=== PATIENT | female | born 1930 | race Caucasian/White ===

== ENCOUNTER 2019-04-10 12:34 | Inpatient (IN) ==
[2019-04-10 13:29] LABS: Basophils # (auto) 0.01 K/uL (0-0.2); Basophils % (auto) 0.2 %; Hematocrit (blood only) 40.1 % (37-47); Hemoglobin 13.2 g/dL (12.0-16.0); Lymphocytes # (auto) 0.65 K/uL (1.2-3.4); Lymphocytes % (auto) 14.6 %; Mean Corpuscular Hemoglobin 26.7 pg (25-34); Mean Corpuscular Hgb Conc 32.9 g/dL (32-36); Mean Platelet Volume 9.7 fL (7.4-10.4); Monocytes # (auto) 0.37 K/uL (0.11-0.59); Monocytes % (auto) 8.3 %; Neutrophils # (auto) 3.43 K/uL (1.4-6.5); Neutrophils % (auto) 76.9 %; Platelet Count 178 K/uL (130-400); RDW Coefficient of Variation 16.4 % (11.5-14.5); RDW Standard Deviation 48.1 fL (36.4-46.3); Red Blood Count 4.95 M/uL (4.2-5.4); White Blood Count 4.46 K/uL (4.8-10.8)
[2019-04-10 13:45] LABS: Albumin Level 3.6 gm/dl (3.4-5.0); BUN Creatinine Ratio 19.6 (10-20); Calcium 9.3 mg/dl (8.5-10.1); Creatinine Clr Calc Pharmacy 16.9 ml/min; Est GFR (African American) 38.1; Est GFR (Non-African American) 32.8; Potassium 4.8 mmol/L (3.5-5.1)
[2019-04-10 13:55] LABS: Albumin Globulin Ratio 1.1 (0.9-2); Bilirubin,Total 2.1 mg/dl (0.2-1); Globulin 3.3 gm/dl (2.5-4.0); Total Protein 6.9 gm/dl (6.4-8.2); Troponin I 0.044 ng/ml (0-0.045)
--- NOTE | 2019-04-10 13:56 | XRay Report ---
XR chest 1V portable HISTORY: 88 years-old Female weakness acute weakness COMPARISON: None available TECHNIQUE: Portable AP view of the chest FINDINGS: Cardiomegaly with pulmonary vascular congestion and interstitial coarsening. No pneumothorax. Small l eft and moderate right pleural effusions with right midlung and bibasilar opacities. Postoperative ch anges of the right shoulder. 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 Calcified plaque of the thoracic aorta. IMPRESSION: 1. Cardiomegaly with pulmonary edema. 2. Small left and moderate right pleural effusions with right midlung and bibasilar consolidative opa cities. ACT 112: Negative or not required by law. The above report was generated using voice recognition software. It may contain grammatical, syntax o r spelling errors. Electronically signed by: Giacomo Burgess M.D. 04/10/2019 1:55 PM
[2019-04-10 14:11] LABS: Thyroid Stimulating Hormone 79.4 uIu/ml (0.300-4.500)
[2019-04-10] MEDS ORDERED: SODIUM CHLORIDE 0.9% 1000ML 250 ML IV ONE (14:11)
[2019-04-10 14:23] LABS: T4 Free Thyroxine 0.57 ng/dl (0.8-1.6)
[2019-04-10 14:32] LABS: INR 1.7 (0.9-1.1); Partial Thromboplastin Ratio 1.1; Partial Thromboplastin Time 30.2 Seconds (21.0-31.0); Prothrombin Time 16.7 Seconds (9.0-12.0)
[2019-04-10] MEDS ORDERED: PIPERACILL/TAZOBAC CONSULT ACTIVE PRN (14:41)
[2019-04-10] MEDS ORDERED: PIPERACILLIN/TAZOBACTAM 4.5 GM/120 ML BAG IV ONE (14:41)
[2019-04-10 15:38] LABS: Appearance Urine Cloudy (Clear); Bacteria Urine Automated Negative (Negative); Blood Urine Negative (Negative); Color Urine Dark Yellow; Epithelial Cell Urine Auto >30 /lpf (0-5); Glucose Urine UA Negative (Negative); Ketones Urine Negative (Negative); Leukocyte Esterase Urine 1+ (Negative); Nitrite Urine Negative (Negative); Protein Urine 2+ (Negative); RBC Urine Automated 0-4 /hpf (0-4); Specific Gravity Urine 1.026 (1.000-1.030); Urobilinogen Urine Negative (Negative); WBC Urine Automated >30 /hpf (0-5); pH Urine 5.5 (4.5-7.5)
[2019-04-10 15:50] LABS: Bilirubin Urine Negative (Negative); Ictotest Urine Negative (Negative)
[2019-04-10 16:00] LABS: Chloride Random Urine 10 mmol/L; Sodium Random Urine 9 mmol/L
[2019-04-10 16:07] LABS: Influenza A virus by PCR Neg for Influ A (Neg); Influenza B virus by PCR Neg for Influ B (Neg)
--- NOTE | 2019-04-10 16:40 | History & Physical Report ---
Date of Service April 10, 2019 History of Present Illness Chief Complaint: SOB, generalized weakness Primary Care Provider: NO PCP This is an 88yo F with a PMH of chronic systolic heart failure, left ventricul ar mural thrombus on Coumadin, CAD, hypothyroidism, COPD on 2 L at bedtime and other medical problems listed below who presents with generalized weakness and SOB since yesterday. Is on chronic 2L HS but required it all day today as well. Had a cold with runny nose two weeks ago and stopped taking all medications when prescriptions ran out except for baby aspirin and multivitamin. Last took coumadin 2 weeks ago. Denies being on lasix. Has woken up twice during the night with SOB in the past week. No orthopnea. Also with decreased appetite for the past few weeks. Denies fever, chills, lightheadedness, headache, runny nose, sore throat, chest pain, palpitations, wheezing, nausea, vomiting, abdominal pain, dysuria, diarrhea or constipation. Ambulates with cane and lives with daughter. Denies any sick contacts. Allergies Allergy/AdvReac Type Severity Reaction Status Date / Time No Known Allergies Allergy Unknown Verified 04/10/19 13:50 Home Medications Home Medications Medication Instructions Recorded Confirmed Type aspirin 81 mg PO DAILY 04/10/19 04/10/19 History atorvastatin [Lipitor] 80 mg PO HS 04/10/19 04/10/19 History lisinopril 2.5 mg PO HS 04/10/19 04/10/19 History metoprolol succinate [Toprol XL] 25 mg PO QAM 04/10/19 04/10/19 History multivitamin 1 tab PO QAM 04/10/19 04/10/19 History warfarin 2 mg PO UD 04/10/19 04/10/19 History Past Med/Surg History Medical History (Updated 04/10/19 @ 18:46 by Leeanne Lutz PA-C) Chronic systolic heart failure CKD (chronic kidney disease), stage III COPD (chronic obstructive pulmonary disease) Hypertension Hypothyroidism Paroxysmal atrial fibrillation Severe mitral regurgitation Surgical History No pertinent past surgical history Family History (Updated 04/10/19 @ 18:47 by Leeanne Lutz PA-C) Other Cancer Heart disease Stroke Social History (Updated 04/10/19 @ 16:40 by Leeanne Lutz PA-C) Preferred Language: Frisian Communication Ability: Effective Farm Technician Required: No Beliefs That Will Affect Care: None Current Living Situation: Alone Other Information That Helps Us Care for You: No Feels Safe at Home: Yes Safety Concerns: Feels Safe At This Time Smoking Status: Former smoker Do You Dip or Chew Tobacco: No ; Second Hand Exposure: Yes ; Tobacco Cessation Education Requested by Patient: No Hx Alcohol Use: No Hx Substance Use: No Review of Systems Review of Systems: At least ten systems reviewed and negative except as noted in the HPI. Physical Exam Physical Exam: Please see Dr. Faulkner's addendum for physical exam. Results & Data Vital Signs (Past 12 Hours) Vital Signs Temp Pulse Pulse Resp BP BP Pulse Ox 04/10/19 15:15 84 21 161/92 H 96 04/10/19 14:30 82 17 143/97 H 94 04/10/19 13:29 92 04/10/19 13:28 87 17 136/85 89 L 04/10/19 12:45 36.7 C 84 16 129/82 91 Laboratory Results Short CBC 04/10/19 Range/Units 13:19 WBC 4.46 L (4.8-10.8) K/uL Hgb 13.2 (12.0-16.0) g/dL Hct 40.1 (37-47) % Plt Count 178 (130-400) K/uL BMP 04/10/19 13:19 Sodium 128 L Potassium 4.8 Chloride 93 L Carbon Dioxide 25 BUN 28 H Creatinine 1.43 H Glucose 145 H Calcium 9.3 Cardiac Enzymes 04/10/19 Range/Units 13:19 Troponin I 0.044 (0-0.045) ng/ml Liver Function 04/10/19 Range/Units 13:19 Total Bilirubin 2.1 H (0.2-1) mg/dl AST 53 H (15-37) U/L ALT 57 (12-78) U/L Alkaline Phosphatase 119 H (45-117) U/L Albumin 3.6 (3.4-5.0) gm/dl Urine 04/10/19 Range/Units 15:15 Urine Color Dark Yellow Urine Appearance Cloudy A (Clear) Urine pH 5.5 (4.5-7.5) Ur Specific [place] 1.026 (1.000-1.030) Urine Protein 2+ H (Negative) Urine Glucose (UA) Negative (Negative) Diagnostic Findings CXR: IMPRESSION: 1. Cardiomegaly with pulmonary edema. 2. Small left and moderate right pleural effusions with right midlung and bibasilar consolidative opacities. Supervising Physician Co-Signing Physician Notes 88yo F with a PMH of chronic systolic heart failure, left ventricular mural thrombus on Coumadin, CAD, hypothyroidism, COPD on 2 L at bedtime and other medical problems listed below who presents with generalized weakness and SOB since yesterday. History and physical exam performed by me. Patient is not a good historian. Detailed history documented by Leeanne Lutz PA-C History significant for weakness and shortness of breath. No fevers, chills, cough. On physical exam, General: Elderly woman in no obvious distress Eyes: PERRL, conjunctivae normal, not pale, anicteric sclerae, EOM intact bilaterally ENMT: External ear and nose normal, oropharynx normal Neck: Normal visual inspection, no tracheal deviation, no swelling noted Respiratory: Normal respiratory effort, no respiratory distress, Reduced percussion note and breath sound on right side posteriorly, basal crackles on left posterior lung zone Cardiovascular: Pulse is RRR. Prominent neck veins, S1 S2 , +2 pedal edema Chest (Breasts): Chest: normal inspection of chest Gastrointestinal (Abdomen): Abdomen is not distended, soft, non-tender to palpation, no guarding, no palpable hepatosplenomegaly, normal bowel sounds Musculoskeletal: No cyanosis or clubbing Genitourinary: No CVA tenderness Skin: No rash noted on gross inspection, No ulcers noted Neurologic: Alert and oriented x 3, No focal weakness, sensation grossly intact Psychiatric: Euthymic affect Na 128 INR 1.7 Cr 1.43 Serum osm 276 Urine osm 682 Urine Na 9 TSH 79.4 FT4 0.57 BNP >69750 Trop 0.044 ASSESSMENT AND PLAN Acute on chronic systolic heart failure Echo from 09/2018 showed EF of 25-29, severely enlarged LA, Mod to severe MR, mild TR Heart failure exacerbation is likely due to med non adherence as patient stated she stopped her medications some weeks ago. Give iv lasix 40mg Monitor input and output Patient counselled extensively on need for proper medication adherence Will likely need lasix on discharge. Per chart review on [facility], was previously on lasix but discontinued in the past Will need discharge planning to ensure adherence at home Patient got antibiotics in ER. I don't think patient has pneumonia. No leukocytosis, fevers. Physical exam and CXR findings suggestive of pulmonary edema and pleural effusion. No antibiotics. Hyponatremia Hypotonic hypervolemic hyponatremia Due to heart failure IV diuresis Monitor sodium levels UMANG on CKD3 Cr is 1.43 from 1.1 last month Likely cardiorenal. Monitor with diuresis Hypothyroidism Due to poor med adherence Per [facility] records, patient was on levothyroxine 75mcg daily Will resume this and needs recheck of TFT in 6-8 weeks Hypertension Continue lisinopril and metoprolol Ischemic cardiomyopathy Continue aspirin and statin Continue lisinopril and metoprolol XL Paroxysmal A Fib H/O LV clot Continue Warfarin Monitor INR Needs follow up with warfarin clinic on discharge DVT PPx - Warfarin
[2019-04-10] MEDS ORDERED: POLYETHYLENE (MIRALAX) 17 GM PACK PO PRN (17:46)
[2019-04-10] MEDS ORDERED: ACETAMINOPHEN 325 MG TAB PO PRN (17:46)
--- NOTE | 2019-04-10 18:19 | Electrocardiogram Report ---
Test Reason : Blood Pressure : / mmHG Vent. Rate : 089 BPM Atrial Rate : 089 BPM P-R Int : 180 ms QRS Dur : 156 ms QT Int : 418 ms P-R-T Axes : 036 -52 112 degrees QTc Int : 508 ms Normal sinus rhythm Left axis deviation Left bundle branch block Abnormal ECG When compared with ECG of 18-MAR-2003 06:47, Left bundle branch block is now Present Confirmed by Conner Mauro ([id number]) on 04/10/2019 6:19:14 PM Referred By: Confirmed By:Rocky Mauro
[2019-04-10] MEDS ORDERED: FUROSEMIDE 40 MG in SYRINGE 0 ML IV ONE (19:00)
[2019-04-10 19:37] LABS: BUN Creatinine Ratio 19.5 (10-20); Creatinine Clr Calc Pharmacy 20.4 ml/min; Est GFR (African American) 40.1; Est GFR (Non-African American) 34.6; Potassium 4.8 mmol/L (3.5-5.1)
[2019-04-10] MEDS ORDERED: WARFARIN SOD 4 MG TAB PO SCH (19:45)
--- NOTE | 2019-04-10 20:17 | Emergency Department Note ---
Entered by Amauri Hilario acting as a scribe for History of Present Illness General Chief complaint: Weakness Stated complaint: WEAK - CANT HARDLY WALK Time Seen by Provider: 04/10/19 13:33 Source: patient History of Present Illness Onset (ago): day(s) (yesterday) Location: lower extremity, left and right Pain Consistency: + constant Maximum Pain Intensity: 0 Quality: + other (weakness) Associated symptoms: + denies other symptoms (chest pressure, chest tightness, chest pain, fevers, vomiting, abdominal pain, back pain, diarrhea, black stool, bloody stool, burning with urination, and loss of consciousness), + cough, + shortness of breath and + other (decreased urine, swelling to her legs) The patient is an 88 y/o female who presents to the ED w/ CC of constant, generalized weakness beginning yesterday. The patient states her symptoms started yesterday, and she is having difficulty walking. She reports she normally uses a walker and lives with her daughter. The patient notes she is also more short of breath than normal and uses 2L of oxygen at night. She states she has had to use her O2 throughout the day in order to help her shortness of breath. The patient reports she was recently sick and still has a mild cough. She notes for the past month she has had swelling to her legs. The patient states she has seen her PCP and was not placed on a water pill. She reports she has not urinated much since yesterday, and the urine she did produce was darker than usual. The patient notes she is eating and drinking her normal amounts. She denies chest pressure, chest tightness, chest pain, fevers, vomiting, abdominal pain, back pain, diarrhea, black stool, bloody stool, burning with urination, and loss of consciousness. The patient also denies a history of kidney trouble. Home Medications Home Medications Medication Instructions Recorded Confirmed Type aspirin 81 mg PO DAILY 04/10/19 04/10/19 History atorvastatin [Lipitor] 80 mg PO HS 04/10/19 04/10/19 History lisinopril 2.5 mg PO HS 04/10/19 04/10/19 History metoprolol succinate [Toprol XL] 12.5 mg PO QAM 04/10/19 04/10/19 History multivitamin 1 tab PO QAM 04/10/19 04/10/19 History warfarin [Coumadin] 2 mg PO SUTUTH@1600 04/10/19 04/10/19 History warfarin [Coumadin] 4 mg PO MOWEFRSA@1600 04/10/19 04/10/19 History Allergies Allergy/AdvReac Type Severity Reaction Status Date / Time No Known Allergies Allergy Unknown Verified 04/10/19 13:50 Past Med/Surg History Medical History (Updated 04/10/19 @ 20:17 by Deep Steele MD) Chronic systolic heart failure CKD (chronic kidney disease), stage III COPD (chronic obstructive pulmonary disease) Hypertension Hypothyroidism Paroxysmal atrial fibrillation Severe mitral regurgitation Surgical History No pertinent past surgical history Family History (Updated 04/10/19 @ 18:47 by Leeanne Lutz PA-C) Other Cancer Heart disease Stroke Social History (Updated 04/10/19 @ 16:40 by Leeanne Lutz PA-C) Preferred Language: [place] Communication Ability: Effective Program Coordinator Required: No Beliefs That Will Affect Care: None Current Living Situation: Alone Other Information That Helps Us Care for You: No Feels Safe at Home: Yes Safety Concerns: Feels Safe At This Time Smoking Status: Former smoker Do You Dip or Chew Tobacco: No ; Second Hand Exposure: Yes ; Tobacco Cessation Education Requested by Patient: No Hx Alcohol Use: No Hx Substance Use: No Review of Systems See HPI for pertinent positives & negatives. and A total of 10 systems reviewed and were otherwise negative Physical Exam Vital Signs Vital Signs - 24 hr 04/10/19 12:45 04/10/19 13:28 04/10/19 13:29 Temperature 36.7 C Temperature Source Oral Pulse Rate - Lying Pulse Rate - Sitting Pulse Rate - Standing Pulse Rate 84 Pulse Rate [Apical] 87 Pulse Rate from SpO2 Sensor Pulse Rhythm [Apical] Regular Pulse Strength [Apical] Normal Respiratory Rate 16 17 Respiratory Effort / Characteristics Non-Labored Spontaneous Respiratory Depth Normal Respiratory Pattern Regular Blood Pressure - Lying Blood Pressure - Sitting Blood Pressure- Standing Blood Pressure 129/82 Blood Pressure [Right Arm] 136/85 Blood Pressure Mean 97 Blood Pressure Mean [Right Arm] 102 Pulse Oximetry 91 89 L 92 Oxygen Delivery Method Room Air Room Air Nasal Cannula Oxygen Flow Rate 2 Sepsis Recent Fever Within 48 Hours No Sepsis New/Unexplained Change in Mental Status No Sepsis Action Taken by Nursing No Action Required 04/10/19 13:56 04/10/19 14:30 04/10/19 15:15 Temperature Temperature Source Pulse Rate - Lying 85 Pulse Rate - Sitting 87 Pulse Rate - Standing 89 Pulse Rate 84 Pulse Rate [Apical] 82 Pulse Rate from SpO2 Sensor 86 Pulse Rhythm [Apical] Regular Pulse Strength [Apical] Respiratory Rate 17 21 Respiratory Effort / Characteristics Non-Labored Spontaneous Respiratory Depth Normal Respiratory Pattern Regular Blood Pressure - Lying 137/94 Blood Pressure - Sitting 137/87 Blood Pressure- Standing 136/85 Blood Pressure 161/92 H Blood Pressure [Right Arm] 143/97 H Blood Pressure Mean 112 Blood Pressure Mean [Right Arm] 112 Pulse Oximetry 94 96 Oxygen Delivery Method Room Air Oxygen Flow Rate 2 Sepsis Recent Fever Within 48 Hours Sepsis New/Unexplained Change in Mental Status Sepsis Action Taken by Nursing 04/10/19 16:00 Temperature Temperature Source Pulse Rate - Lying Pulse Rate - Sitting Pulse Rate - Standing Pulse Rate 86 Pulse Rate [Apical] Pulse Rate from SpO2 Sensor 86 Pulse Rhythm [Apical] Pulse Strength [Apical] Respiratory Rate 18 Respiratory Effort / Characteristics Respiratory Depth Respiratory Pattern Blood Pressure - Lying Blood Pressure - Sitting Blood Pressure- Standing Blood Pressure 143/89 H Blood Pressure [Right Arm] Blood Pressure Mean 110 Blood Pressure Mean [Right Arm] Pulse Oximetry 95 Oxygen Delivery Method Oxygen Flow Rate 2 Sepsis Recent Fever Within 48 Hours Sepsis New/Unexplained Change in Mental Status Sepsis Action Taken by Nursing Constitutional: Vital signs reviewed. Eyes: Pupils are equal round reactive to light. Conjunctiva are noninjected. ENT: Pharynx is clear without erythema or exudate. Mucous membranes are moist. Neck supple without meningeal signs. Respiratory: Clear to auscultation bilaterally. Breath sounds are equal bilaterally. Cardiovascular: Regular rate and rhythm. No rubs or gallops. GI: Soft, nondistended and nontender. Bowel sounds are present. Musculoskeletal: Bilateral pitting edema. No lower extremity tenderness. Integumentary: No cyanosis. Neurological: The patient is awake and alert. No focal deficits. Psychiatric: Normal affect. Course Course 1341: Past medical records reviewed. The patient was evaluated in room B10. A complete history and physical exam was performed. 1410: I reevaluated the patient and discussed her blood work. She notes she does not have a history of low sodium. 1416: 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 Blood work from 03/01/19 showed a sodium of 136. 1447: I discussed laboratory and radiographic results with her. The patient verbalized agreement of the treatment plan. The patient will be evaluated for further management and care. She claims to be on thyroid medication, but there is no thyroxine listed on her med list. 1500: I reviewed the patient's case with Dr. Faulkner, [facility] Hospitalist. He will evaluate the patient for further management. Administered Medications Discontinued Medications Sodium Chloride (Nss 1000ml) 250 mls @ 999 mls/hr IV .Q16M ONE Stop: 04/10/19 14:26 Last Infusion: 04/10/19 14:34 Dose: 0 mls/hr Documented by: [id number] Admin: 04/10/19 14:15 Dose: 999 mls/hr Documented by: [id number] Piperacillin Sod/Tazobactam Sod (Zosyn) 4.5 gm in 120 mls @ 240 mls/hr IV NOW ONE Stop: 04/10/19 15:10 Last Infusion: 04/10/19 15:56 Dose: 0 mls/hr Documented by: [id number] Admin: 04/10/19 15:29 Dose: 240 mls/hr Documented by: [id number] Furosemide 40 mg/ Syringe 4 mls @ 4 mls/min IV ONE ONE Stop: 04/10/19 19:01 Last Admin: 04/10/19 19:36 Dose: 4 mls/min Documented by: [id number] Medical Decision Making Differential Diagnosis Differential diagnosis includes: infection, pneumonia, influenza, UTI, UMANG, dehydration, cardiac Medical Records Attestation: I reviewed the patient's medical records. I did perform a limited focused review of portions of the patient's old chart on the electronic medical record. The patient has had no recent pertinent visits to this hospital. Home Medications Current Medication List: was personally reviewed by me Laboratory Data Attestation: I reviewed the patient's lab results. Result diagrams: 04/10/19 13:19 04/10/19 19:02 Lab Results 04/10/19 04/10/19 04/10/19 Range/Units 13:19 13:19 13:19 WBC 4.46 L (4.8-10.8) K/uL RBC 4.95 (4.2-5.4) M/uL Hgb 13.2 (12.0-16.0) g/dL Hct 40.1 (37-47) % MCV 81.0 (80-100) fL MCH 26.7 (25-34) pg MCHC 32.9 (32-36) g/dL RDW Std Deviation 48.1 H (36.4-46.3) fL RDW Coeff of Gibran 16.4 H (11.5-14.5) % Plt Count 178 (130-400) K/uL MPV 9.7 (7.4-10.4) fL Immature Gran % (Auto) 0.0 % Neut % (Auto) 76.9 % Lymph % (Auto) 14.6 % [place] % (Auto) 8.3 % Eos % (Auto) 0.0 % Baso % (Auto) 0.2 % Immature Gran # (Auto) 0.00 (0.00-0.02) K/uL Neut # (Auto) 3.43 (1.4-6.5) K/uL Lymph # (Auto) 0.65 L (1.2-3.4) K/uL [place] # (Auto) 0.37 (0.11-0.59) K/uL Eos # (Auto) 0.00 (0-0.5) K/uL Baso # (Auto) 0.01 (0-0.2) K/uL PT (9.0-12.0) Seconds INR (0.9-1.1) APTT (21.0-31.0) Seconds PTT Ratio Sodium 128 L (136-145) mmol/L Potassium 4.8 (3.5-5.1) mmol/L Chloride 93 L (98-107) mmol/L Carbon Dioxide 25 (21-32) mmol/L Anion Gap 10.0 (3-11) BUN 28 H (7-18) mg/dl Creatinine 1.43 H (0.6-1.2) mg/dl Est Cr Clr Drug Dosing 16.9 ml/min Est GFR ( Amer) 38.1 Est GFR (Non-Af Amer) 32.8 BUN/Creatinine Ratio 19.6 (10-20) Glucose 145 H (70-99) mg/dl Osmolality (280-300) mOsm/kg Calcium 9.3 (8.5-10.1) mg/dl Total Bilirubin 2.1 H (0.2-1) mg/dl AST 53 H (15-37) U/L ALT 57 (12-78) U/L Alkaline Phosphatase 119 H (45-117) U/L Troponin I 0.044 (0-0.045) ng/ml NT-Pro-B Natriuret Pep (0-1800) pg/ml Total Protein 6.9 (6.4-8.2) gm/dl Albumin 3.6 (3.4-5.0) gm/dl Globulin 3.3 (2.5-4.0) gm/dl Albumin/Globulin Ratio 1.1 (0.9-2) Procalcitonin (0-0.5) ng/ml TSH 82.000 H 79.400 H (0.300-4.500) uIu/ml Free T4 0.57 L (0.8-1.6) ng/dl Thyroxine (T4) (4.5-10.9) mcg/dl Urine Color Urine Appearance (Clear) Urine pH (4.5-7.5) Ur Specific [place] (1.000-1.030) Urine Protein (Negative) Urine Glucose (UA) (Negative) Urine Ketones (Negative) Urine Blood (Negative) Urine Nitrite (Negative) Urine Bilirubin (Negative) Urine Urobilinogen (Negative) Ur Leukocyte Esterase (Negative) Urine WBC (Auto) (0-5) /hpf Urine RBC (Auto) (0-4) /hpf U Hyaline Cast (Auto) U Epithel Cells (Auto) (0-5) /lpf Urine Bacteria (Auto) (Negative) Urine Osmolality (500-800) mOsm/kg Ur Random Sodium mmol/L Ur Random Chloride 04/10/19 04/10/19 04/10/19 Range/Units 13:19 13:19 13:19 WBC (4.8-10.8) K/uL RBC (4.2-5.4) M/uL Hgb (12.0-16.0) g/dL Hct (37-47) % MCV (80-100) fL MCH (25-34) pg MCHC (32-36) g/dL RDW Std Deviation (36.4-46.3) fL RDW Coeff of Gibran (11.5-14.5) % Plt Count (130-400) K/uL MPV (7.4-10.4) fL Immature Gran % (Auto) % Neut % (Auto) % Lymph % (Auto) % [place] % (Auto) % Eos % (Auto) % Baso % (Auto) % Immature Gran # (Auto) (0.00-0.02) K/uL Neut # (Auto) (1.4-6.5) K/uL Lymph # (Auto) (1.2-3.4) K/uL [place] # (Auto) (0.11-0.59) K/uL Eos # (Auto) (0-0.5) K/uL Baso # (Auto) (0-0.2) K/uL PT 16.7 H (9.0-12.0) Seconds INR 1.7 H (0.9-1.1) APTT 30.2 (21.0-31.0) Seconds PTT Ratio 1.1 Sodium (136-145) mmol/L Potassium (3.5-5.1) mmol/L Chloride (98-107) mmol/L Carbon Dioxide (21-32) mmol/L Anion Gap (3-11) BUN (7-18) mg/dl Creatinine (0.6-1.2) mg/dl Est Cr Clr Drug Dosing ml/min Est GFR ( Amer) Est GFR (Non-Af Amer) BUN/Creatinine Ratio (10-20) Glucose (70-99) mg/dl Osmolality 276 L (280-300) mOsm/kg Calcium (8.5-10.1) mg/dl Total Bilirubin (0.2-1) mg/dl AST (15-37) U/L ALT (12-78) U/L Alkaline Phosphatase (45-117) U/L Troponin I (0-0.045) ng/ml NT-Pro-B Natriuret Pep (0-1800) pg/ml Total Protein (6.4-8.2) gm/dl Albumin (3.4-5.0) gm/dl Globulin (2.5-4.0) gm/dl Albumin/Globulin Ratio (0.9-2) Procalcitonin (0-0.5) ng/ml TSH (0.300-4.500) uIu/ml Free T4 (0.8-1.6) ng/dl Thyroxine (T4) 2.9 L (4.5-10.9) mcg/dl Urine Color Urine Appearance (Clear) Urine pH (4.5-7.5) Ur Specific [place] (1.000-1.030) Urine Protein (Negative) Urine Glucose (UA) (Negative) Urine Ketones (Negative) Urine Blood (Negative) Urine Nitrite (Negative) Urine Bilirubin (Negative) Urine Urobilinogen (Negative) Ur Leukocyte Esterase (Negative) Urine WBC (Auto) (0-5) /hpf Urine RBC (Auto) (0-4) /hpf U Hyaline Cast (Auto) U Epithel Cells (Auto) (0-5) /lpf Urine Bacteria (Auto) (Negative) Urine Osmolality (500-800) mOsm/kg Ur Random Sodium mmol/L Ur Random Chloride 04/10/19 04/10/19 04/10/19 Range/Units 13:19 13:19 15:15 WBC (4.8-10.8) K/uL RBC (4.2-5.4) M/uL Hgb (12.0-16.0) g/dL Hct (37-47) % MCV (80-100) fL MCH (25-34) pg MCHC (32-36) g/dL RDW Std Deviation (36.4-46.3) fL RDW Coeff of Gibran (11.5-14.5) % Plt Count (130-400) K/uL MPV (7.4-10.4) fL Immature Gran % (Auto) % Neut % (Auto) % Lymph % (Auto) % [place] % (Auto) % Eos % (Auto) % Baso % (Auto) % Immature Gran # (Auto) (0.00-0.02) K/uL Neut # (Auto) (1.4-6.5) K/uL Lymph # (Auto) (1.2-3.4) K/uL [place] # (Auto) (0.11-0.59) K/uL Eos # (Auto) (0-0.5) K/uL Baso # (Auto) (0-0.2) K/uL PT (9.0-12.0) Seconds INR (0.9-1.1) APTT (21.0-31.0) Seconds PTT Ratio Sodium (136-145) mmol/L Potassium (3.5-5.1) mmol/L Chloride (98-107) mmol/L Carbon Dioxide (21-32) mmol/L Anion Gap (3-11) BUN (7-18) mg/dl Creatinine (0.6-1.2) mg/dl Est Cr Clr Drug Dosing ml/min Est GFR ( Amer) Est GFR (Non-Af Amer) BUN/Creatinine Ratio (10-20) Glucose (70-99) mg/dl Osmolality (280-300) mOsm/kg Calcium (8.5-10.1) mg/dl Total Bilirubin (0.2-1) mg/dl AST (15-37) U/L ALT (12-78) U/L Alkaline Phosphatase (45-117) U/L Troponin I (0-0.045) ng/ml NT-Pro-B Natriuret Pep > 84234 H (0-1800) pg/ml Total Protein (6.4-8.2) gm/dl Albumin (3.4-5.0) gm/dl Globulin (2.5-4.0) gm/dl Albumin/Globulin Ratio (0.9-2) Procalcitonin 0.11 (0-0.5) ng/ml TSH (0.300-4.500) uIu/ml Free T4 (0.8-1.6) ng/dl Thyroxine (T4) (4.5-10.9) mcg/dl Urine Color Dark Yellow Urine Appearance Cloudy A (Clear) Urine pH 5.5 (4.5-7.5) Ur Specific [place] 1.026 (1.000-1.030) Urine Protein 2+ H (Negative) Urine Glucose (UA) Negative (Negative) Urine Ketones Negative (Negative) Urine Blood Negative (Negative) Urine Nitrite Negative (Negative) Urine Bilirubin Negative (Negative) Urine Urobilinogen Negative (Negative) Ur Leukocyte Esterase 1+ H (Negative) Urine WBC (Auto) >30 H (0-5) /hpf Urine RBC (Auto) 0-4 (0-4) /hpf U Hyaline Cast (Auto) Not Reportable U Epithel Cells (Auto) >30 H (0-5) /lpf Urine Bacteria (Auto) Negative (Negative) Urine Osmolality (500-800) mOsm/kg Ur Random Sodium mmol/L Ur Random Chloride 04/10/19 04/10/19 04/10/19 Range/Units 15:15 15:15 15:15 WBC (4.8-10.8) K/uL RBC (4.2-5.4) M/uL Hgb (12.0-16.0) g/dL Hct (37-47) % MCV (80-100) fL MCH (25-34) pg MCHC (32-36) g/dL RDW Std Deviation (36.4-46.3) fL RDW Coeff of Gibran (11.5-14.5) % Plt Count (130-400) K/uL MPV (7.4-10.4) fL Immature Gran % (Auto) % Neut % (Auto) % Lymph % (Auto) % [place] % (Auto) % Eos % (Auto) % Baso % (Auto) % Immature Gran # (Auto) (0.00-0.02) K/uL Neut # (Auto) (1.4-6.5) K/uL Lymph # (Auto) (1.2-3.4) K/uL [place] # (Auto) (0.11-0.59) K/uL Eos # (Auto) (0-0.5) K/uL Baso # (Auto) (0-0.2) K/uL PT (9.0-12.0) Seconds INR (0.9-1.1) APTT (21.0-31.0) Seconds PTT Ratio Sodium (136-145) mmol/L Potassium (3.5-5.1) mmol/L Chloride (98-107) mmol/L Carbon Dioxide (21-32) mmol/L Anion Gap (3-11) BUN (7-18) mg/dl Creatinine (0.6-1.2) mg/dl Est Cr Clr Drug Dosing ml/min Est GFR ( Amer) Est GFR (Non-Af Amer) BUN/Creatinine Ratio (10-20) Glucose (70-99) mg/dl Osmolality (280-300) mOsm/kg Calcium (8.5-10.1) mg/dl Total Bilirubin (0.2-1) mg/dl AST (15-37) U/L ALT (12-78) U/L Alkaline Phosphatase (45-117) U/L Troponin I (0-0.045) ng/ml NT-Pro-B Natriuret Pep (0-1800) pg/ml Total Protein (6.4-8.2) gm/dl Albumin (3.4-5.0) gm/dl Globulin (2.5-4.0) gm/dl Albumin/Globulin Ratio (0.9-2) Procalcitonin (0-0.5) ng/ml TSH (0.300-4.500) uIu/ml Free T4 (0.8-1.6) ng/dl Thyroxine (T4) (4.5-10.9) mcg/dl Urine Color Urine Appearance (Clear) Urine pH (4.5-7.5) Ur Specific [place] (1.000-1.030) Urine Protein (Negative) Urine Glucose (UA) (Negative) Urine Ketones (Negative) Urine Blood (Negative) Urine Nitrite (Negative) Urine Bilirubin (Negative) Urine Urobilinogen (Negative) Ur Leukocyte Esterase (Negative) Urine WBC (Auto) (0-5) /hpf Urine RBC (Auto) (0-4) /hpf U Hyaline Cast (Auto) U Epithel Cells (Auto) (0-5) /lpf Urine Bacteria (Auto) (Negative) Urine Osmolality 682 (500-800) mOsm/kg Ur Random Sodium 9 mmol/L Ur Random Chloride Cancelled 10 Imaging Data Radiologist's Impression: Radiology results as stated below per my review and the radiologist's interpretation: XR chest 1V portable HISTORY: 88 years-old Female weakness acute weakness COMPARISON: None available TECHNIQUE: Portable AP view of the chest FINDINGS: Cardiomegaly with pulmonary vascular congestion and interstitial coarsening. No pneumothorax. Small left and moderate right pleural effusions with right midlung and bibasilar opacities. Postoperative changes of the right shoulder. 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 Calcified plaque of the thoracic aorta. IMPRESSION: 1. Cardiomegaly with pulmonary edema. 2. Small left and moderate right pleural effusions with right midlung and bibasilar consolidative opacities. ACT 112: Negative or not required by law. The above report was generated using voice recognition software. It may contain grammatical, syntax or spelling errors. Electronically signed by: Giacomo Burgess M.D. 04/10/2019 1:55 PM ECG Data Attestation: I personally reviewed and interpreted this ECG as follows: Indication: + weakness Rate (beats per minute): 89 Rhythm: + normal sinus ECG Intervals/blocks: + Left bundle branch block ECG [place]: + Left axis deviation ECG Findings: + Other (No concordant ST elevation, No ischemic changes per sgarbossa criteria) Comparison ECG Date: no prior available Blood Pressure Blood Pressure Findings: Elevated blood pressure Blood Pressure Disposition: further management by hospitalist APOLINAR Narrative I did evaluate the patient as noted above. The patient is presenting with generalized weakness. She did have cold symptoms about 2 weeks ago and states that she has a mild cough at this time. She states she has trouble getting up due to generalized weakness. She denies having any fever or chest pain. She has required increased oxygen. She normally uses 2 L at night but has had to use it all day. IV access was established. The patient was placed on a continuous surveillance system monitor. I did order and personally review the patient's 12- lead EKG as described above. She has a left bundle branch block without any acute ischemic changes. I did order and personally reviewed the images of the patient's chest x-ray as described above. Chest x-ray is concerning for a pneumonia on the right side with a pleural effusion as well. She also appears to have an infiltrate on the left base. I did order a urine analysis. There is no evidence of infection. I did order and review the patient's blood work as noted in the electronic medical record. Her white blood cell count is slightly low. INR subtherapeutic at 1.7. Troponin is negative. She is hyponatremic. TSH is elevated with a low free T4. She states that she is on thyroxine but I cannot find this on her medical list. She states she is compliant with her Coumadin and all other medications. Influenza testing was negative. I did discuss the test results with her and recommended hospitalization. Curb 65 score is at least 2. Her room air saturation is 89%. I did discuss the case with the hospitalist and manager of case management. Impression & Plan Hypothyroid, Acute hyponatremia, Generalized weakness, Subtherapeutic international normalized ratio (INR), Edema of lower extremity, Multifocal pneumonia Discharge Plan Visit Data *Final* Discharge Date/Time: 04/10/19 17:22 Chief Complaint: Weakness Stated Complaint: WEAK - CANT HARDLY WALK ED Provider: Deep Steele Discharge Problem: Hypothyroid, Acute hyponatremia, Generalized weakness, Subtherapeutic international normalized ratio (INR), Edema of lower extremity, Multifocal pneumonia Patient Disposition: Admitted As Inpatient Discharge Instructions Interventions: ED Discharge Assessment Last Done: 04/10/19 17:22 Discharge Problem: Hypothyroid Qualifiers: Hypothyroidism type: unspecified Qualified Code(s): E03.9 - Hypothyroidism, unspecified The scribe's documentation has been prepared under my direction and personally reviewed by me in its entirety. I confirm that the note above accurately reflects all work, treatment, procedures, and medical decision making performed by me.
[2019-04-10] MEDS: ATORVASTATIN 40 MG TAB PO SCH (20:45)
[2019-04-11 03:20] LABS: Hematocrit (blood only) 37.5 % (37-47); Hemoglobin 12.3 g/dL (12.0-16.0); Mean Corpuscular Hemoglobin 26.2 pg (25-34); Mean Corpuscular Hgb Conc 32.8 g/dL (32-36); Mean Platelet Volume 9.6 fL (7.4-10.4); Platelet Count 140 K/uL (130-400); RDW Coefficient of Variation 16.1 % (11.5-14.5); RDW Standard Deviation 46.8 fL (36.4-46.3); Red Blood Count 4.69 M/uL (4.2-5.4); White Blood Count 5.21 K/uL (4.8-10.8)
[2019-04-11 03:37] LABS: BUN Creatinine Ratio 20.1 (10-20); Calcium 9.2 mg/dl (8.5-10.1); Creatinine Clr Calc Pharmacy 19.8 ml/min; Est GFR (African American) 38.7; Est GFR (Non-African American) 33.4
[2019-04-11] MEDS: LEVOTHYROXINE SODIUM 75 MCG TABLET PO SCH (05:10)
[2019-04-11] MEDS ORDERED: LEVOTHYROXINE SODIUM 25 MCG TABLET PO SCH (06:30)
[2019-04-11] MEDS: ASPIRIN 81 MG ECTAB PO SCH (07:33)
[2019-04-11] MEDS: METOPROLOL SUCC 25MG EXT REL TAB PO SCH (07:33)
[2019-04-11] MEDS: MULTIVITAMIN TAB PO SCH (07:33)
[2019-04-11 11:44] LABS: BUN Creatinine Ratio 18.4 (10-20); Calcium 8.9 mg/dl (8.5-10.1); Creatinine Clr Calc Pharmacy 18.7 ml/min; Est GFR (African American) 36.5; Est GFR (Non-African American) 31.5; Potassium 4.1 mmol/L (3.5-5.1)
--- NOTE | 2019-04-11 12:05 | Cardiology Consultation ---
Date of Consultation April 11, 2019 Assessment & Plan (1) Acute on chronic systolic heart failure: Patient does examine his volume overloaded with significant bilateral pleural effusions on both chest x-ray and physical exam. We will obtain a mediastinal ultrasound to quantify the volume of the pleural effusions and see if suitable for tap. 100 mL is negative overnight after receiving 1 dose of Lasix in the ER. We will give Lasix 60 mg IV twice daily starting now and follow her volume status clinically. Follow and replete electrolytes as necessary. Given chronicity and high likelihood of readmission consideration may be given to palliative care consult to discuss goals of care. (2) Multifocal pneumonia: Consideration may be given for performing a CT of the chest on top of the ultrasound that is been ordered to further evaluate for any pneumonia process. Will defer to primary team (3) Severe mitral regurgitation: Chronic Patient not a surgical candidate (4) COPD (chronic obstructive pulmonary disease): (5) Generalized weakness: Likely a combination of the above active diagnoses (6) CKD (chronic kidney disease), stage III: Will need to follow with diuresis. History of Present Illness Reason for Consultation: Acute decompensated heart failure Requesting Physician: Dr. Parekh Attending Physician: Florinda Parekh MD History of Present Illness It was my pleasure to see Ms. Saul in consultation today April 11, 2019. She is a very pleasant yet cardiovascular complex 88-year-old woman who is only been seen in our cardiology clinic once in over the last 10 years after she recently moved from [place] back to [facility]. She presented to [facility] emergency department with complaints of shortness of breath and chest pain after her daughter was smoking cigarettes in front of her in the house. She states that she just was not feeling well for the last 2 weeks as though she was coming down with a cold. She is also been having a decreased appetite and overall just not feeling well. But she denies any chest pain, palpitations, lightheadedness, dizziness or syncope. On admission she was found to be volume overloaded and started on diuresis. She does have significant bilateral pleural effusions. Medical history obtained from Dr. Aaron's outpatient visit note of September 2018: 1. Longstanding ischemic cardiomyopathy EF 20-25% last interrogation with variable degree of LV function 2. Chronic systolic heart failure class 3 with acute decompensation June 2018 3. Coronary disease status post inferior myocardial infarction with right coronary stenting in 2000, LAD stenting 2003 4. Patent vessels by cardiac catheterization June 2018 report 5. Severe mitral insufficiency last echocardiogram June 2018 6. Acute on chronic renal insufficiency 7. Chronic obstructive lung disease with tobacco cessation June 2018 8. Chronic left bundle branch block 9. Hypertension 10. Paroxysmal atrial fibrillation on amiodarone Allergies Allergy/AdvReac Type Severity Reaction Status Date / Time No Known Allergies Allergy Unknown Verified 04/10/19 13:50 Home Medications Home Medications Medication Instructions Recorded Confirmed Type aspirin 81 mg PO DAILY 04/10/19 04/10/19 History atorvastatin [Lipitor] 80 mg PO HS 04/10/19 04/10/19 History lisinopril 2.5 mg PO HS 04/10/19 04/10/19 History metoprolol succinate [Toprol XL] 12.5 mg PO QAM 04/10/19 04/10/19 History multivitamin 1 tab PO QAM 04/10/19 04/10/19 History warfarin [Coumadin] 2 mg PO SUTUTH@1600 04/10/19 04/10/19 History warfarin [Coumadin] 4 mg PO MOWEFRSA@1600 04/10/19 04/10/19 History Patient History Medical History Chronic systolic heart failure CKD (chronic kidney disease), stage III COPD (chronic obstructive pulmonary disease) Hypertension Hypothyroidism Paroxysmal atrial fibrillation Severe mitral regurgitation Surgical History No pertinent past surgical history Family History Other Cancer Heart disease Stroke Social History Preferred Language: Singaporean Communication Ability: Effective Black And White Printer Operator Required: No Beliefs That Will Affect Care: None Current Living Situation: Alone Other Information That Helps Us Care for You: No Feels Safe at Home: Yes Safety Concerns: Feels Safe At This Time Smoking Status: Former smoker Do You Dip or Chew Tobacco: No ; Second Hand Exposure: Yes ; Tobacco Cessation Education Requested by Patient: No Hx Alcohol Use: No Hx Substance Use: No Review of Systems Review of Systems: All systems reviewed & are unremarkable except as noted in HPI & below Physical Exam Physical Exam: General: Awake, alert and oriented x 3. No acute distress. Thin and cachectic. HEENT: Normocephalic, atraumatic. Pupils equal, round and reactive to light and accommodation. Extraocular muscles are intact. Anicteric sclera. Moist mucous membranes. Neck: No JVD. No bruit. Cardiovascular: Regular. Positive S-4. Normal S-1 and S-2. No S-3. 3/6 holosystolic ejection murmur, left sternal border, mid-clavicular line with radiation to the axilla. No rubs. Pulmonary: Poor air movement in the bilateral bases Abdomen: Bowel sounds x 4, soft. No rebound, guarding or tenderness. No organomegaly. Extremities: No clubbing, cyanosis or edema. +2 pedal pulses bilaterally. Skin: Warm and dry. Results & Data Vital Signs (Past 12 Hours) Vital Signs Temp Pulse Pulse Resp BP BP Pulse Ox 04/11/19 11:39 36.9 C 70 16 95/60 L 95 04/11/19 07:12 36.5 C 79 20 112/72 99 04/11/19 03:55 36.5 C 86 20 110/75 95 04/11/19 00:24 36.7 C 84 20 118/79 96 04/11/19 00:00 98 H Laboratory Results Laboratory Results - last 24 hr 04/10/19 04/10/19 04/10/19 13:19 13:19 13:19 WBC 4.46 L RBC 4.95 Hgb 13.2 Hct 40.1 MCV 81.0 MCH 26.7 MCHC 32.9 RDW Std Deviation 48.1 H RDW Coeff of Gibran 16.4 H Plt Count 178 MPV 9.7 Immature Gran % (Auto) 0.0 Neut % (Auto) 76.9 Lymph % (Auto) 14.6 Dewey % (Auto) 8.3 Eos % (Auto) 0.0 Baso % (Auto) 0.2 Immature Gran # (Auto) 0.00 Neut # (Auto) 3.43 Lymph # (Auto) 0.65 L Dewey # (Auto) 0.37 Eos # (Auto) 0.00 Baso # (Auto) 0.01 PT INR APTT PTT Ratio Sodium 128 L Potassium 4.8 Chloride 93 L Carbon Dioxide 25 Anion Gap 10.0 BUN 28 H Creatinine 1.43 H Est Cr Clr Drug Dosing 16.9 Est GFR ( Amer) 38.1 Est GFR (Non-Af Amer) 32.8 BUN/Creatinine Ratio 19.6 Glucose 145 H Osmolality Calcium 9.3 Total Bilirubin 2.1 H AST 53 H ALT 57 Alkaline Phosphatase 119 H Troponin I 0.044 NT-Pro-B Natriuret Pep Total Protein 6.9 Albumin 3.6 Globulin 3.3 Albumin/Globulin Ratio 1.1 Procalcitonin TSH 82.000 H 79.400 H Free T4 0.57 L Thyroxine (T4) Urine Color Urine Appearance Urine pH Ur Specific [place] Urine Protein Urine Glucose (UA) Urine Ketones Urine Blood Urine Nitrite Urine Bilirubin Urine Urobilinogen Ur Leukocyte Esterase Urine WBC (Auto) Urine RBC (Auto) U Hyaline Cast (Auto) U Epithel Cells (Auto) Urine Bacteria (Auto) Urine Osmolality Ur Random Sodium Ur Random Chloride Influenza Type A (PCR) Influenza Type B (PCR) 04/10/19 04/10/19 04/10/19 13:19 13:19 13:19 WBC RBC Hgb Hct MCV MCH MCHC RDW Std Deviation RDW Coeff of Gibran Plt Count MPV Immature Gran % (Auto) Neut % (Auto) Lymph % (Auto) [place]wey % (Auto) Eos % (Auto) Baso % (Auto) Immature Gran # (Auto) Neut # (Auto) Lymph # (Auto) Dewey # (Auto) Eos # (Auto) Baso # (Auto) PT 16.7 H INR 1.7 H APTT 30.2 PTT Ratio 1.1 Sodium Potassium Chloride Carbon Dioxide Anion Gap BUN Creatinine Est Cr Clr Drug Dosing Est GFR ( Amer) Est GFR (Non-Af Amer) BUN/Creatinine Ratio Glucose Osmolality 276 L Calcium Total Bilirubin AST ALT Alkaline Phosphatase Troponin I NT-Pro-B Natriuret Pep Total Protein Albumin Globulin Albumin/Globulin Ratio Procalcitonin TSH Free T4 Thyroxine (T4) 2.9 L Urine Color Urine Appearance Urine pH Ur Specific [place] Urine Protein Urine Glucose (UA) Urine Ketones Urine Blood Urine Nitrite Urine Bilirubin Urine Urobilinogen Ur Leukocyte Esterase Urine WBC (Auto) Urine RBC (Auto) U Hyaline Cast (Auto) U Epithel Cells (Auto) Urine Bacteria (Auto) Urine Osmolality Ur Random Sodium Ur Random Chloride Influenza Type A (PCR) Influenza Type B (PCR) 04/10/19 04/10/19 04/10/19 13:19 13:19 15:15 WBC RBC Hgb Hct MCV MCH MCHC RDW Std Deviation RDW Coeff of Gibran Plt Count MPV Immature Gran % (Auto) Neut % (Auto) Lymph % (Auto) [place] % (Auto) Eos % (Auto) Baso % (Auto) Immature Gran # (Auto) Neut # (Auto) Lymph # (Auto) [place]wey # (Auto) Eos # (Auto) Baso # (Auto) PT INR APTT PTT Ratio Sodium Potassium Chloride Carbon Dioxide Anion Gap BUN Creatinine Est Cr Clr Drug Dosing Est GFR ( Amer) Est GFR (Non-Af Amer) BUN/Creatinine Ratio Glucose Osmolality Calcium Total Bilirubin AST ALT Alkaline Phosphatase Troponin I NT-Pro-B Natriuret Pep > 77202 H Total Protein Albumin Globulin Albumin/Globulin Ratio Procalcitonin 0.11 TSH Free T4 Thyroxine (T4) Urine Color Dark Yellow Urine Appearance Cloudy A Urine pH 5.5 Ur Specific [place] 1.026 Urine Protein 2+ H Urine Glucose (UA) Negative Urine Ketones Negative Urine Blood Negative Urine Nitrite Negative Urine Bilirubin Negative Urine Urobilinogen Negative Ur Leukocyte Esterase 1+ H Urine WBC (Auto) >30 H Urine RBC (Auto) 0-4 U Hyaline Cast (Auto) Not Reportable U Epithel Cells (Auto) >30 H Urine Bacteria (Auto) Negative Urine Osmolality Ur Random Sodium Ur Random Chloride Influenza Type A (PCR) Influenza Type B (PCR) 04/10/19 04/10/19 04/10/19 15:15 15:15 15:15 WBC RBC Hgb Hct MCV MCH MCHC RDW Std Deviation RDW Coeff of Gibran Plt Count MPV Immature Gran % (Auto) Neut % (Auto) Lymph % (Auto) [place] % (Auto) Eos % (Auto) Baso % (Auto) Immature Gran # (Auto) Neut # (Auto) Lymph # (Auto) Dewey # (Auto) Eos # (Auto) Baso # (Auto) PT INR APTT PTT Ratio Sodium Potassium Chloride Carbon Dioxide Anion Gap BUN Creatinine Est Cr Clr Drug Dosing Est GFR ( Amer) Est GFR (Non-Af Amer) BUN/Creatinine Ratio Glucose Osmolality Calcium Total Bilirubin AST ALT Alkaline Phosphatase Troponin I NT-Pro-B Natriuret Pep Total Protein Albumin Globulin Albumin/Globulin Ratio Procalcitonin TSH Free T4 Thyroxine (T4) Urine Color Urine Appearance Urine pH Ur Specific [place] Urine Protein Urine Glucose (UA) Urine Ketones Urine Blood Urine Nitrite Urine Bilirubin Urine Urobilinogen Ur Leukocyte Esterase Urine WBC (Auto) Urine RBC (Auto) U Hyaline Cast (Auto) U Epithel Cells (Auto) Urine Bacteria (Auto) Urine Osmolality 682 Ur Random Sodium 9 Ur Random Chloride Cancelled 10 Influenza Type A (PCR) Influenza Type B (PCR) 04/10/19 04/10/19 04/11/19 19:02 Unknown 03:08 WBC RBC Hgb Hct MCV MCH MCHC RDW Std Deviation RDW Coeff of Gibran Plt Count MPV Immature Gran % (Auto) Neut % (Auto) Lymph % (Auto) [place] % (Auto) Eos % (Auto) Baso % (Auto) Immature Gran # (Auto) Neut # (Auto) Lymph # (Auto) Dewey # (Auto) Eos # (Auto) Baso # (Auto) PT INR APTT PTT Ratio Sodium 129 L 131 L Potassium 4.8 5.0 Chloride 94 L 95 L Carbon Dioxide 27 32 Anion Gap 8.0 4.0 BUN 27 H 28 H Creatinine 1.37 H 1.41 H Est Cr Clr Drug Dosing 20.4 19.8 Est GFR ( Amer) 40.1 38.7 Est GFR (Non-Af Amer) 34.6 33.4 BUN/Creatinine Ratio 19.5 20.1 H Glucose 121 H 100 H Osmolality Calcium 9.0 9.2 Total Bilirubin AST ALT Alkaline Phosphatase Troponin I NT-Pro-B Natriuret Pep Total Protein Albumin Globulin Albumin/Globulin Ratio Procalcitonin TSH Free T4 Thyroxine (T4) Urine Color Urine Appearance Urine pH Ur Specific [place] Urine Protein Urine Glucose (UA) Urine Ketones Urine Blood Urine Nitrite Urine Bilirubin Urine Urobilinogen Ur Leukocyte Esterase Urine WBC (Auto) Urine RBC (Auto) U Hyaline Cast (Auto) U Epithel Cells (Auto) Urine Bacteria (Auto) Urine Osmolality Ur Random Sodium Ur Random Chloride Influenza Type A (PCR) Neg for Influ A Influenza Type B (PCR) Neg for Influ B 04/11/19 04/11/19 03:08 11:09 WBC 5.21 RBC 4.69 Hgb 12.3 Hct 37.5 MCV 80.0 MCH 26.2 MCHC 32.8 RDW Std Deviation 46.8 H RDW Coeff of Gibran 16.1 H Plt Count 140 MPV 9.6 Immature Gran % (Auto) Neut % (Auto) Lymph % (Auto) [place] % (Auto) Eos % (Auto) Baso % (Auto) Immature Gran # (Auto) Neut # (Auto) Lymph # (Auto) [place]wey # (Auto) Eos # (Auto) Baso # (Auto) PT INR APTT PTT Ratio Sodium 131 L Potassium 4.1 D Chloride 95 L Carbon Dioxide 30 Anion Gap 6.0 BUN 27 H Creatinine 1.48 H Est Cr Clr Drug Dosing 18.7 Est GFR ( Amer) 36.5 Est GFR (Non-Af Amer) 31.5 BUN/Creatinine Ratio 18.4 Glucose 65 L Osmolality Calcium 8.9 Total Bilirubin AST ALT Alkaline Phosphatase Troponin I NT-Pro-B Natriuret Pep Total Protein Albumin Globulin Albumin/Globulin Ratio Procalcitonin TSH Free T4 Thyroxine (T4) Urine Color Urine Appearance Urine pH Ur Specific [place] Urine Protein Urine Glucose (UA) Urine Ketones Urine Blood Urine Nitrite Urine Bilirubin Urine Urobilinogen Ur Leukocyte Esterase Urine WBC (Auto) Urine RBC (Auto) U Hyaline Cast (Auto) U Epithel Cells (Auto) Urine Bacteria (Auto) Urine Osmolality Ur Random Sodium Ur Random Chloride Influenza Type A (PCR) Influenza Type B (PCR) Medications Administered Current Inpatient Medications Acetaminophen (Tylenol) 650 mg PO Q4H PRN PRN Reason: Pain or Fever Stop: 05/10/19 17:45 Aspirin (Ecotrin Ectab) 81 mg PO DAILY [facility] Stop: 05/11/19 08:59 Last Admin: 04/11/19 07:33 Dose: 81 mg Documented by: Atorvastatin Calcium (Lipitor) 80 mg PO [facility] Stop: 05/10/19 20:59 Last Admin: 04/10/19 20:45 Dose: 80 mg Documented by: [facility]ine [facility] Stop: 05/11/19 06:29 Last Admin: 04/11/19 05:10 Dose: 75 mcg Documented by: Lisinopril (Zestril) 2.5 mg PO [facility] Stop: 05/10/19 20:59 Last Admin: 04/10/19 20:45 Dose: 2.5 mg Documented by: Metoprolol Succinate ([facility] Xl) [facility] [place] Stop: 05/11/19 08:59 Last Admin: 04/11/19 07:33 Dose: 25 mg Documented by: Multivitamins (Multivitamin Tab) 1 tab PO QAM [facility] Stop: 05/11/19 08:59 Last Admin: 04/11/19 07:33 Dose: 1 tab Documented by: Polyethylene Glycol (Miralax Powder Packet) 17 gm PO DAILY PRN PRN Reason: Constipation Stop: 05/10/19 17:45 Warfarin Sodium (Coumadin) 4 mg PO MOWEFRSA@1600 [facility] Stop: 05/11/19 15:59 Warfarin Sodium (Coumadin) 2 mg PO SUTUTH@1600 [facility] Stop: 05/12/19 15:59
[2019-04-11] MEDS ORDERED: FUROSEMIDE 60 MG in SYRINGE 0 ML IV ONE (13:35)
--- NOTE | 2019-04-11 13:38 | Ultrasound Report ---
US effusion-chest/mediastinum HISTORY: 88 years-old Female B/L pleural effusions follow-up study in a patient with bilateral pleur al effusions, right greater than left COMPARISON: Chest radiograph 04/10/2019 TECHNIQUE: Multiple real-time sonographic images of the chest were obtained assessing grayscale appea blair FINDINGS: Mildly complex pleural effusions are present. On the right, pleural fluid is measured with estimated volume of 1304 mL. The skin was marked superficial to the right pleural effusion. Atelectatic lung in termixed with left pleural effusion is noted, measured with estimated volume of 58.4 mL. IMPRESSION: Bilateral pleural effusions, right greater than left. The skin superficial to the right p leural effusion was marked. ACT 112: Negative or not required by law. The above report was generated using voice recognition software. It may contain grammatical, syntax o r spelling errors. Electronically signed by: Giacomo Burgess M.D. 04/11/2019 1:36 PM
[2019-04-11] MEDS ORDERED: WARFARIN SOD 4 MG TAB PO SCH (16:00)
--- NOTE | 2019-04-11 16:09 | Hospitalist Progress Note ---
Date of Service April 11, 2019 Assessment & Plan (1) Acute on chronic systolic heart failure: Ischemic cardiomyopathy Echo from 09/2018 showed EF of 25-29, severely enlarged LA, Mod to severe MR, mild TR Heart failure exacerbation is likely due to med non adherence as patient stated she stopped her medications some weeks ago. Monitor input and output Received furosemide in the ER and will continue 60 mg IV daily. Appreciate cardiology input and recommendation Bilateral pleural effusion Ultrasound did show right-sided distended volume of 1 304 mL's Left-sided estimated volume of 58.4 mL Continue intravenous Lasix Like to do need thoracentesis Doubt any pneumonia Will not continue any with antibiotic (2) Paroxysmal atrial fibrillation: Rate is controlled now Has been on metoprolol and will continue Continue anticoagulation (3) CKD (chronic kidney disease), stage III: UMANG on CKD Cr is 1.43 from 1.1 last month Likely cardiorenal. Monitor with diuresis (4) Acute hyponatremia: Sodium was 129 on admission Hypotonic hypervolemic hyponatremia Due to heart failure IV diuresis Sodium level is improved at 131 as of 04/11/2019 (5) Hypothyroidism: Continue supplement Subjective 04/11/2019 The patient was seen and examined in medical floor 88-year-old female with significant past medical history of chronic systolic heart failure, LV mural thrombus on Coumadin, hypothyroidism, COPD on 2 L of oxygen was admitted last night with increasing shortness of breath and generalized weakness She has been feeling reasonably better since admission Any significant symptoms at rest Review of Systems Review of Systems: All systems reviewed and are unremarkable except as noted below Constitutional: + weakness Respiratory: + cough; no dyspnea on exertion Cardiovascular: + dyspnea on exertion; no chest pain and no dyspnea at rest Gastrointestinal: no abdominal pain Musculoskeletal: No acute arthritis in any joints Physical Exam Physical Exam: Sitting on a chair without any acute symptoms Constitutional: + thin; no acute distress and not ill appearing Eyes: PERRL, conjunctivae normal, anicteric sclerae ENMT: external ear and nose normal, oropharynx normal Neck: trachea midline, no thyromegaly Respiratory: normal respiratory effort; no respiratory distress Auscultation: + diminished lung sounds and + crackles (Minimal crackles bibasilar) Cardiovascular: Rate/Rhythm: regular rate and regular rhythm Heart Sounds: no murmur Gastrointestinal (Abdomen): Inspection/Auscultation: abdomen normal to inspection and normal bowel sounds Musculoskeletal: No acute arthritis in any joints Neurologic: moves all extremities; no focal motor deficits Results & Data Vital Signs (Past 12 Hours) Vital Signs Temp Pulse Resp BP BP Pulse Ox 04/11/19 11:39 36.9 C 70 16 95/60 L 95 04/11/19 07:12 36.5 C 79 20 112/72 99 04/11/19 03:55 36.5 C 86 20 110/75 95 Laboratory Results Short CBC 04/11/19 Range/Units 03:08 WBC 5.21 (4.8-10.8) K/uL Hgb 12.3 (12.0-16.0) g/dL Hct 37.5 (37-47) % Plt Count 140 (130-400) K/uL BMP 04/10/19 04/11/19 04/11/19 19:02 03:08 11:09 Sodium 129 L 131 L 131 L Potassium 4.8 5.0 4.1 D Chloride 94 L 95 L 95 L Carbon Dioxide 27 32 30 BUN 27 H 28 H 27 H Creatinine 1.37 H 1.41 H 1.48 H Glucose 121 H 100 H 65 L Calcium 9.0 9.2 8.9 Medications Administered Current Inpatient Medications Acetaminophen (Tylenol) 650 mg PO Q4H PRN PRN Reason: Pain or Fever Stop: 05/10/19 17:45 Aspirin (Ecotrin Ectab) 81 mg PO DAILY [facility] Stop: 05/11/19 08:59 Last Admin: 04/11/19 07:33 Dose: 81 mg Documented by: Atorvastatin Calcium (Lipitor) 80 mg PO [facility] Stop: 05/10/19 20:59 Last Admin: 04/10/19 20:45 Dose: 80 mg Documented by: Furosemide 60 mg/ Syringe 6 mls @ 4 mls/min IV ONE ONE Stop: 04/11/19 13:36 Last Admin: 04/11/19 13:59 Dose: 4 mls/min Documented by: [facility]othy[facility]ine [facility]: 05/11/19 06:29 Last Admin: 04/11/19 05:10 Dose: 75 mcg Documented by: Lisinopril (Zestril) 2.5 mg PO [facility] Stop: 05/10/19 20:59 Last Admin: 04/10/19 20:45 Dose: 2.5 mg Documented by: Metoprolol Succinate (Toprol Xl) 25 mg PO [facility] Stop: 05/11/19 08:59 Last Admin: 04/11/19 07:33 Dose: 25 mg Documented by: Multivitamins (Multivitamin Tab) 1 tab PO [facility] Stop: 05/11/19 08:59 Last Admin: 04/11/19 07:33 Dose: 1 tab Documented by: Polyethylene Glycol (Miralax Powder Packet) 17 gm PO DAILY PRN PRN Reason: Constipation Stop: 05/10/19 17:45 Warfarin Sodium (Coumadin) 4 mg PO MOWEFRSA@1600 [facility] Stop: 05/11/19 15:59 Warfarin Sodium (Coumadin) 2 mg PO SUTUTH@1600 [facility] Stop: 05/12/19 15:59
[2019-04-11 19:55] LABS: BUN Creatinine Ratio 16.5 (10-20); Calcium 8.7 mg/dl (8.5-10.1); Creatinine Clr Calc Pharmacy 14.9 ml/min; Est GFR (African American) 27.9; Est GFR (Non-African American) 24.1
[2019-04-11] MEDS: FUROSEMIDE 60 MG in SYRINGE 0 ML IV SCH (20:45)
[2019-04-11] MEDS: ATORVASTATIN 40 MG TAB PO SCH (20:45)
[2019-04-11] MEDS: POTASSIUM CHLORIDE 20 MEQ TABCR PO SCH (20:57)
[2019-04-12 05:53] LABS: Hematocrit (blood only) 36.7 % (37-47); Hemoglobin 12.1 g/dL (12.0-16.0); Mean Corpuscular Hemoglobin 26.4 pg (25-34); Mean Corpuscular Volume 80.1 fL (80-100); Mean Platelet Volume 9.7 fL (7.4-10.4); Platelet Count 158 K/uL (130-400); RDW Coefficient of Variation 16.2 % (11.5-14.5); Red Blood Count 4.58 M/uL (4.2-5.4)
[2019-04-12 06:23] LABS: BUN Creatinine Ratio 21.4 (10-20); Calcium 8.9 mg/dl (8.5-10.1); Est GFR (African American) 31.1; Est GFR (Non-African American) 26.8; Potassium 4.1 mmol/L (3.5-5.1)
[2019-04-12] MEDS: LEVOTHYROXINE SODIUM 75 MCG TABLET PO SCH (07:15)
[2019-04-12] MEDS: ASPIRIN 81 MG ECTAB PO SCH (09:22)
[2019-04-12] MEDS: METOPROLOL SUCC 25MG EXT REL TAB PO SCH (09:22)
[2019-04-12] MEDS: FUROSEMIDE 60 MG in SYRINGE 0 ML IV SCH ×2 (09:23→16:27)
[2019-04-12] MEDS: MULTIVITAMIN TAB PO SCH (09:23)
[2019-04-12 09:27] LABS: INR 1.4 (0.9-1.1); Prothrombin Time 13.8 Seconds (9.0-12.0)
[2019-04-12] MEDS: POTASSIUM CHLORIDE 20 MEQ TABCR PO SCH ×2 (10:57→21:38)
--- NOTE | 2019-04-12 11:29 | Hospitalist Progress Note ---
Date of Service April 12, 2019 Assessment & Plan (1) Acute on chronic systolic heart failure: Ischemic cardiomyopathy Echo from 09/2018 showed EF of 25-29, severely enlarged LA, Mod to severe MR, mild TR Heart failure exacerbation is likely due to med non adherence as patient stated she stopped her medications some weeks ago. Monitor input and output Received furosemide in the ER and will continue 60 mg IV daily. Appreciate cardiology input and recommendation Clinically much better and will continue current medications Bilateral pleural effusion Ultrasound did show right-sided distended volume of 1 304 mL's Left-sided estimated volume of 58.4 mL Continue intravenous Lasix Like to do need thoracentesis Appreciate pulmonary input and recommendation We will hold off any thoracentesis as of today Doubt any pneumonia Will not continue any with antibiotic (2) Paroxysmal atrial fibrillation: Rate is controlled now Has been on metoprolol and will continue Continue anticoagulation INR remains low at 1.4 on 04/12/2019 (3) CKD (chronic kidney disease), stage III: UMANG on CKD Cr is 1.43 from 1.1 last month Likely cardiorenal. Monitor with diuresis Creatinine is improved at 1.69 on 04/12/2019 (4) Acute hyponatremia: Sodium was 129 on admission Hypotonic hypervolemic hyponatremia Due to heart failure IV diuresis Sodium level is improved at 131 as of 04/12/2019 (5) Hypothyroidism: Continue supplement Subjective 04/11/2019 The patient was seen and examined in medical floor 88-year-old female with significant past medical history of chronic systolic heart failure, LV mural thrombus on Coumadin, hypothyroidism, COPD on 2 L of oxygen was admitted last night with increasing shortness of breath and generalized weakness She has been feeling reasonably better since admission Denies any significant symptoms at rest 04/12/2019 The patient was seen and examined in telemetry unit She has been feeling a lot better Denies any significant symptoms at rest Remains weak and lethargic Review of Systems Review of Systems: All systems reviewed and are unremarkable except as noted below Constitutional: + weakness Respiratory: + cough; no dyspnea on exertion Cardiovascular: + dyspnea on exertion; no chest pain and no dyspnea at rest Musculoskeletal: No acute arthritis in any joints Physical Exam Physical Exam: Lying in bed comfortably Constitutional: + thin; no acute distress and not ill appearing Eyes: PERRL, conjunctivae normal, anicteric sclerae ENMT: external ear and nose normal, oropharynx normal Neck: trachea midline, no thyromegaly Respiratory: normal respiratory effort; no respiratory distress Auscultation: + diminished lung sounds (Diminished lung sounds on the right side) and + crackles (Minimal crackles bibasilar) Cardiovascular: Rate/Rhythm: regular rate and regular rhythm Heart Sounds: no murmur Gastrointestinal (Abdomen): Inspection/Auscultation: abdomen normal to inspection and normal bowel sounds Neurologic: moves all extremities; no focal motor deficits Lymphatic: no cervical or axillary lymphadenopathy Results & Data Vital Signs (Past 12 Hours) Vital Signs Temp Pulse Pulse Resp BP BP Pulse Ox 04/12/19 07:40 72 04/12/19 07:30 36.8 C 61 18 113/72 92 04/12/19 03:42 36.5 C 55 L 18 98/65 L 97 Laboratory Results Short CBC 04/12/19 Range/Units 05:34 WBC 6.30 (4.8-10.8) K/uL Hgb 12.1 (12.0-16.0) g/dL Hct 36.7 L (37-47) % Plt Count 158 (130-400) K/uL BMP 04/11/19 04/11/19 04/12/19 11:09 19:04 05:34 Sodium 131 L 132 L 131 L Potassium 4.1 D 4.0 4.1 Chloride 95 L 95 L 94 L Carbon Dioxide 30 30 33 H BUN 27 H 31 H 36 H Creatinine 1.48 H 1.85 H D 1.69 H Glucose 65 L 63 L 92 Calcium 8.9 8.7 8.9 Medications Administered Current Inpatient Medications Acetaminophen (Tylenol) 650 mg PO Q4H PRN PRN Reason: Pain or Fever Stop: 05/10/19 17:45 Aspirin (Ecotrin Ectab) 81 mg PO DAILY IAN Stop: 05/11/19 08:59 Last Admin: 04/12/19 09:22 Dose: 81 mg Documented by: Atorvastatin Calcium (Lipitor) 80 mg PO HS IAN Stop: 05/10/19 20:59 Last Admin: 04/11/19 20:45 Dose: 80 mg Documented by: Furosemide 60 mg/ Syringe 6 mls @ 4 mls/min IV [id number] IAN Stop: 05/11/19 19:59 Last Admin: 04/12/19 09:23 Dose: 4 mls/min Documented by: Levothyroxine Sodium (Synthroid) 75 mcg PO DAILYBB [facility] Stop: 05/11/19 06:29 Last Admin: 04/12/19 07:15 Dose: 75 mcg Documented by: Lisinopril (Zestril) 2.5 mg PO HS [facility] Stop: 05/10/19 20:59 Last Admin: 04/11/19 20:46 Dose: 2.5 mg Documented by: Metoprolol Succinate ([facility] Xl) [facility] Stop: 05/11/19 08:59 Last Admin: 04/12/19 09:22 Dose: 25 mg Documented by: Multivitamins (Multivitamin Tab) 1 tab PO [facility] Stop: 05/11/19 08:59 Last Admin: 04/12/19 09:23 Dose: 1 tab Documented by: Polyethylene Glycol (Miralax Powder Packet) 17 gm PO DAILY PRN PRN Reason: Constipation Stop: 05/10/19 17:45 Potassium Chloride (Klor-Con M20) 20 meq PO BID [facility] Stop: 05/11/19 20:59 Last Admin: 04/12/19 10:57 Dose: 20 meq Documented by: Warfarin Sodium (Coumadin) 4 mg PO MOWEFRSA@1600 [facility] Stop: 05/11/19 15:59 Last Admin: 04/11/19 16:14 Dose: 4 mg Documented by: Warfarin Sodium (Coumadin) 2 mg PO SUTUTH@1600 [facility] Stop: 05/12/19 15:59
--- NOTE | 2019-04-12 11:51 | Cardiology Progress Note ---
Date of Service April 12, 2019 Assessment & Plan (1) Acute on chronic systolic heart failure: It did come to light that the patient was not taking her outpatient medical regimen given to lack of funds to afford the medication. She does no issues with her daughter taking her money for her daughter to pay for cigarettes. She did have significant pleural effusions on ultrasound however she continues to diurese well and I believe the most prudent course of action at this point will be continue with medical diuresis and following her volume status clinically. We will continue with Lasix 60 mg IV twice daily for now and keep a close eye on her eyes and nose. Potassium will also be supplemented and her electrolytes should be followed closely. I have discussed the case with case management and attempt to ease patient access to medications as an outpatient and prevent readmission. (2) Multifocal pneumonia: Consideration may be given for performing a CT of the chest on top of the ultrasound that is been ordered to further evaluate for any pneumonia process. Will defer to primary team (3) Severe mitral regurgitation: Chronic Patient not a surgical candidate (4) COPD (chronic obstructive pulmonary disease): (5) Generalized weakness: Likely a combination of the above active diagnoses (6) CKD (chronic kidney disease), stage III: Will need to follow with diuresis. Subjective Patient seen and examined, states that she is feeling better today. Breathing h as improved but not yet back to baseline. She denies any chest pain, palpitations, lightheadedness, dizziness or syncope. Telemetry reviewed: Normal sinus rhythm with underlying left bundle branch b lock. Review of Systems Review of Systems: All systems reviewed & are unremarkable except as noted in HPI & below Physical Exam Physical Exam: General: Awake, alert and oriented x 3. No acute distress. HEENT: Normocephalic, atraumatic. Pupils equal, round and reactive to light and accommodation. Extraocular muscles are intact. Anicteric sclera. Moist mucous membranes. Neck: No JVD. No bruit. Cardiovascular: Regular. Positive S-4. Normal S-1 and S-2. No S-3. No murmurs or rubs. Pulmonary: Decreased breath sounds in the bilateral bases. Right greater than left. Abdomen: Bowel sounds x 4, soft. No rebound, guarding or tenderness. No organomegaly. Extremities: No clubbing, cyanosis or edema. +2 pedal pulses bilaterally. Skin: Warm and dry. Results & Data Vital Signs (Past 12 Hours) Vital Signs Temp Pulse Pulse Resp BP BP Pulse Ox 04/12/19 11:28 36.3 C L 69 18 108/60 94 04/12/19 07:40 72 04/12/19 07:30 36.8 C 61 18 113/72 92 04/12/19 03:42 36.5 C 55 L 18 98/65 L 97
--- NOTE | 2019-04-12 14:12 | Pulmonary Consultation ---
Date of Consultation April 12, 2019 Assessment & Plan (1) Acute and chronic respiratory failure with hypoxia: -- Acute on chronic hypoxic respiratory failure Likely sec to systolic CHF exacerbation Continue with diuretics as tolerated, keep negative balance. Maintain SPO2 between 88 to 92% BiPAP nightly and as needed shortness of breath -- Bilateral pleural effusions Moderate on the right side Likely secondary to CHF exacerbation At the time of examination patient is not in respiratory distress while lying on the bed Recommend continuing with IV diuretics and repeat imaging in couple of days --> if there is no improvement then patient may benefit from thoracentesis Patient is on warfarin at home for her left ventricular thrombus although patient is noncompliant with it. INR today is 1.4. Recommend putting the patient on heparin drip until we have definitively ruled out the need for thoracentesis. -- COPD Not in exacerbation Not on optimal therapy at home Upon discharge would recommend lama inhaler along with as needed albuterol Pulmonary function test as an outpatient Patient doesn't seem to be septic. No cough, No fever or chills. Unlikely to be Pneumonia. Please note the above document was generated using voice recognition software. It may contain grammatical, syntax or spelling errors. (2) Pleural effusion: (3) COPD (chronic obstructive pulmonary disease): (4) Acute on chronic systolic heart failure: History of Present Illness Attending Physician: Florinda Parekh MD History of Present Illness 88-year-old female with past medical history of systolic CHF, COPD on 2 L home O2, coronary artery disease, left ventricular mural thrombus on Coumadin, hypothyroidism comes to the hospital because of shortness of breath which has been going on since a week or so progressively getting worse to such an extent she was not able to do day-to-day activities. Patient denies any chest pain, no palpitations, no fever or chills. Denies any dysuria, no hematuria, no hematochezia, no headache, no dizziness. No dysuria, no diarrhea. Denies any upper respiratory tract infection. No runny nose, no tearing from the eyes. Patient denies any cough no phlegm. No night sweats. No weight loss Social history: Greater than [id number] smoking history quit 1 year ago, denies any illicit drug use, denies any alcohol. No known drug allergies. No personal or family history of lung cancer. Allergies Allergy/AdvReac Type Severity Reaction Status Date / Time No Known Allergies Allergy Unknown Verified 04/10/19 13:50 Home Medications Home Medications Medication Instructions Recorded Confirmed Type aspirin 81 mg PO DAILY 04/10/19 04/10/19 History atorvastatin [Lipitor] 80 mg PO HS 04/10/19 04/10/19 History lisinopril 2.5 mg PO HS 04/10/19 04/10/19 History metoprolol succinate [Toprol XL] 12.5 mg PO QAM 04/10/19 04/10/19 History multivitamin 1 tab PO QAM 04/10/19 04/10/19 History warfarin [Coumadin] 2 mg PO SUTUTH@1600 04/10/19 04/10/19 History warfarin [Coumadin] 4 mg PO MOWEFRSA@1600 04/10/19 04/10/19 History Patient History Medical History Chronic systolic heart failure CKD (chronic kidney disease), stage III COPD (chronic obstructive pulmonary disease) Hypertension Hypothyroidism Paroxysmal atrial fibrillation Severe mitral regurgitation Surgical History No pertinent past surgical history Family History Other Cancer Heart disease Stroke Social History Preferred Language: Vincentian Communication Ability: Effective [employer] Work[employer] Required: No Beliefs That Will Affect Care: None Current Living Situation: Alone Other Information That Helps Us Care for You: No Feels Safe at Home: Yes Safety Concerns: Feels Safe At This Time Smoking Status: Former smoker Do You Dip or Chew Tobacco: No ; Second Hand Exposure: Yes ; Tobacco Cessation Education Requested by Patient: No Hx Alcohol Use: No Hx Substance Use: No Review of Systems Review of Systems: All systems reviewed & are unremarkable except as noted in HPI & below Physical Exam Physical Exam: Constitutional: No acute distress, temporal wasting HEENT: EOMI, PERRLA Respiratory system: Decreased air entry bilaterally, more decreased on the right side, positive bilateral lower lobe crackles, no wheeze, no rhonchi CVS: S1-S2 positive, no murmurs or gallops, accentuated P2 Abdomen: Soft, nontender, nondistended, positive bowel sounds x4 Extremities: +2 pulses bilaterally radialis/ dorsalis pedis, no cyanosis, +2 pitting edema bilateral lower extremities Neuro: Awake alert oriented x3 Psych: Normal mood and affect Skin: no rashes, warm and dry Lymphatic: no cervical or axillary lymphadenopathy Results & Data Vital Signs (Past 12 Hours) Vital Signs Temp Pulse Pulse Resp BP BP Pulse Ox 04/12/19 11:28 36.3 C L 69 18 108/60 94 04/12/19 07:40 72 04/12/19 07:30 36.8 C 61 18 113/72 92 04/12/19 03:42 36.5 C 55 L 18 98/65 L 97 04/12/19 05:34 04/12/19 05:34 PG Care Time/CCT Total # of Minutes Spent Total Time Spent with Patient: Total time spent is greater than 50% in coordination of care (as documented) at patient's floor/unit and/or counseling patient: [place] [address] Initial Inpt Care Lvl 3 Patient Type New Diagnoses Acute and chronic respiratory failure with hypoxia J96.21 Pleural effusion J90 COPD (chronic obstructive pulmonary disease) J44.9 Acute on chronic systolic heart failure I50.23
[2019-04-12] MEDS ORDERED: Heparin IV Low Dose *NO* Bolus IV SCH (15:52)
[2019-04-12] MEDS ORDERED: WARFARIN SOD 2 MG TAB PO SCH ×2 (16:00)
[2019-04-12] MEDS: HEPARIN SODIUM/DEXTROSE 25,000 UNITS/500 ML BAG IV SCH (16:25)
[2019-04-12] MEDS: ATORVASTATIN 40 MG TAB PO SCH (21:38)
[2019-04-12 22:55] LABS: Partial Thromboplastin Ratio 1.7
[2019-04-12 22:56] LABS: Partial Thromboplastin Time 46.6 Seconds (21.0-31.0)
[2019-04-13] MEDS: LEVOTHYROXINE SODIUM 75 MCG TABLET PO SCH (05:17)
[2019-04-13 06:14] LABS: Basophils # (auto) 0.05 K/uL (0-0.2); Basophils % (auto) 0.8 %; Eosinophils % (auto) 1.6 %; Hematocrit (blood only) 36.6 % (37-47); Hemoglobin 11.9 g/dL (12.0-16.0); Immature Granulocytes # (auto) 0.01 K/uL (0.00-0.02); Immature Granulocytes % (auto) 0.2 %; Lymphocytes # (auto) 1.35 K/uL (1.2-3.4); Lymphocytes % (auto) 21.1 %; Mean Corpuscular Hemoglobin 26.1 pg (25-34); Mean Corpuscular Hgb Conc 32.5 g/dL (32-36); Mean Corpuscular Volume 80.3 fL (80-100); Mean Platelet Volume 9.9 fL (7.4-10.4); Monocytes # (auto) 0.61 K/uL (0.11-0.59); Monocytes % (auto) 9.5 %; Neutrophils # (auto) 4.28 K/uL (1.4-6.5); Neutrophils % (auto) 66.8 %; Platelet Count 164 K/uL (130-400); RDW Coefficient of Variation 16.3 % (11.5-14.5); RDW Standard Deviation 47.7 fL (36.4-46.3); Red Blood Count 4.56 M/uL (4.2-5.4)
[2019-04-13 06:39] LABS: INR 1.3 (0.9-1.1); Partial Thromboplastin Ratio 1.7; Prothrombin Time 13.4 Seconds (9.0-12.0)
[2019-04-13 06:42] LABS: BUN Creatinine Ratio 25.1 (10-20); Calcium 9.3 mg/dl (8.5-10.1); Est GFR (African American) 31.6; Est GFR (Non-African American) 27.2; Magnesium 1.7 mg/dl (1.8-2.4); Partial Thromboplastin Time 47.4 Seconds (21.0-31.0); Phosphorus 3.5 mg/dl (2.5-4.9); Potassium 4.2 mmol/L (3.5-5.1)
[2019-04-13] MEDS ORDERED: MAGNESIUM SULFATE / D5W 1 GM/100 ML BAG IV ONE (09:15)
[2019-04-13] MEDS: ASPIRIN 81 MG ECTAB PO SCH (09:29)
[2019-04-13] MEDS: POTASSIUM CHLORIDE 20 MEQ TABCR PO SCH ×2 (09:30→20:48)
[2019-04-13] MEDS: FUROSEMIDE 60 MG in SYRINGE 0 ML IV SCH ×2 (09:32→16:36)
[2019-04-13] MEDS: MULTIVITAMIN TAB PO SCH (09:32)
[2019-04-13] MEDS: METOPROLOL SUCC 25MG EXT REL TAB PO SCH (09:33)
--- NOTE | 2019-04-13 13:26 | Pulmonology Progress Note ---
Date of Service April 13, 2019 Assessment & Plan (1) Acute and chronic respiratory failure with hypoxia: -- Acute on chronic hypoxic respiratory failure Likely sec to systolic CHF exacerbation Continue with diuretics as tolerated, keep negative balance. Maintain SPO2 between 88 to 92% BiPAP nightly and as needed shortness of breath -- Bilateral pleural effusions Moderate on the right side Likely secondary to CHF exacerbation At the time of examination patient is not in respiratory distress while lying on the bed Recommend continuing with IV diuretics --> if there is no improvement then patient may benefit from thoracentesis Repeat chest x-ray tomorrow to look at pleural effusions. On heparin drip until we have definitively ruled out the need for thoracentesis. -- COPD Not in exacerbation Not on optimal therapy at home Upon discharge would recommend lama inhaler along with as needed albuterol Pulmonary function test as an outpatient Patient doesn't seem to be septic. No cough, No fever or chills. Unlikely to be Pneumonia. Please note the above document was generated using voice recognition software. It may contain grammatical, syntax or spelling errors. (2) Pleural effusion: (3) COPD (chronic obstructive pulmonary disease): (4) Acute on chronic systolic heart failure: Subjective Patient seen and examined at bedside. No acute distress, no adverse events overnight. Shortness of breath is improved. Patient looks more alert. Patient is -1.5 L in the last 24 hours. She has lost 4 kgs since admission. Denies any chest pain, no headache, no nausea, no vomiting, appetite good. Denies any headache or blurry vision. Review of Systems Review of Systems: All systems reviewed & are unremarkable except as noted in HPI & below Physical Exam Physical Exam: Constitutional: No acute distress, temporal wasting HEENT: EOMI, PERRLA, arcus senilis bilaterally Respiratory system: Decreased air entry bilaterally, more decreased on the right side, positive bilateral lower lobe crackles, no wheeze, no rhonchi CVS: S1-S2 positive, no murmurs or gallops, accentuated P2 Abdomen: Soft, nontender, nondistended, positive bowel sounds x4 Extremities: +2 pulses bilaterally radialis/ dorsalis pedis, no cyanosis, +2 pitting edema bilateral lower extremities Neuro: Awake alert oriented x3 Psych: Normal mood and affect Skin: no rashes, warm and dry Lymphatic: no cervical or axillary lymphadenopathy Results & Data Vital Signs (Past 12 Hours) Vital Signs Temp Pulse Pulse Resp BP Pulse Ox 04/13/19 11:00 36.4 C L 63 20 114/63 98 04/13/19 09:20 36.2 C L 57 L 16 107/59 L 98 04/13/19 03:35 36.3 C L 61 16 109/73 95 04/13/19 05:54 04/13/19 05:54 PG Care Time/CCT Total # of Minutes Spent Total Time Spent with Patient: Total time spent is greater than 50% in coordination of care (as documented) at patient's floor/unit and/or counseling patient: Coding Level of Care Code 55825 Subseq Hosp Care Lvl 3 Diagnoses Acute and chronic respiratory failure with hypoxia J96.21 Pleural effusion J90 COPD (chronic obstructive pulmonary disease) J44.9 Acute on chronic systolic heart failure I50.23
[2019-04-13] MEDS ORDERED: Nursing to Pharmacy Communication ONE (15:14)
[2019-04-13] MEDS: HEPARIN SODIUM/DEXTROSE 25,000 UNITS/500 ML BAG IV SCH (16:38)
--- NOTE | 2019-04-13 17:03 | Cardiology Progress Note ---
Date of Service April 13, 2019 Assessment & Plan (1) Acute on chronic systolic heart failure: It did come to light that the patient was not taking her outpatient medical regimen given to lack of funds to afford the medication. She does no issues with her daughter taking her money for her daughter to pay for cigarettes. She continues with brisk diuresis with IV Lasix. Her symptoms are improving significantly. We will give p.m. dose of Lasix this evening then hold and follow her volume status clinically. At this point I do not believe thoracentesis is necessary and will continue with medical therapy. I have discussed the case with case management and attempt to ease patient access to medications as an outpatient and prevent readmission. (2) Multifocal pneumonia: Concern resolved (3) Severe mitral regurgitation: Chronic Patient not a surgical candidate (4) COPD (chronic obstructive pulmonary disease): (5) Generalized weakness: Likely a combination of the above active diagnoses (6) CKD (chronic kidney disease), stage III: Will need to follow with diuresis. Subjective Patient seen and examined out of bed in chair. States that her breathing continues to improve. Believes that she is close to baseline breathing but states repeatedly that she is not looking forward to going home and being around her daughter who smokes in front of her. Denies any chest pain, palpitations, lightheadedness, dizziness or syncope. Telemetry reviewed: Normal sinus rhythm with underlying left bundle branch block pattern. Review of Systems Review of Systems: All systems reviewed & are unremarkable except as noted in HPI & below Physical Exam Physical Exam: General: Awake, alert and oriented x 3. No acute distress. HEENT: Normocephalic, atraumatic. Pupils equal, round and reactive to light and accommodation. Extraocular muscles are intact. Anicteric sclera. Moist mucous membranes. Neck: No JVD. No bruit. Cardiovascular: Regular. Positive S-4. Normal S-1 and S-2. No S-3. Harsh 3 out of 6 holosystolic ejection murmur greatest at the left sternal border fifth intercostal space midclavicular line with radiation to the left axilla Pulmonary: Improving air movement into the bilateral bases with scattered rhonchi. No rales or wheezing Abdomen: Bowel sounds x 4, soft. No rebound, guarding or tenderness. No organomegaly. Extremities: No clubbing, cyanosis or edema. +2 pedal pulses bilaterally. Skin: Warm and dry. Results & Data Vital Signs (Past 12 Hours) Vital Signs Temp Pulse Pulse Resp BP Pulse Ox 04/13/19 16:13 36.3 C L 61 18 109/64 99 04/13/19 11:00 36.4 C L 63 20 114/63 98 04/13/19 09:20 36.2 C L 57 L 16 107/59 L 98
--- NOTE | 2019-04-13 17:42 | Hospitalist Progress Note ---
Date of Service April 13, 2019 Assessment & Plan (1) Acute on chronic systolic heart failure: Ischemic cardiomyopathy Echo from 09/2018 showed EF of 25-29, severely enlarged LA, Mod to severe MR, mild TR Heart failure exacerbation is likely due to med non adherence as patient stated she stopped her medications some weeks ago. On IV Lasix 60mg BID, that changed to 60mg ID daily Has been diuresis well today Cardiology on board Clinically improved significantly Bilateral pleural effusion Ultrasound did show right-sided distended volume of 1304 ml and Left-sided estimated volume of 58.4 mL Pulmonology on board Continue IV lasix for now Will get a CXR in am, and if no improvement will consider to get thoracentesis done Continue oxygen supplement No sign for any infection, will continue to hold for any antibiotic (2) Paroxysmal atrial fibrillation: Rate is controlled with metoprolol Continue IV heparin drip INR remains low at 1.3 today Coumadin on hold for possible thoracentesis in am (3) CKD (chronic kidney disease), stage III: UMANG on CKD Cr is 1.43 from 1.1 last month Creatinine 1.6 today Monitor BMP while on diuretic (4) Acute hyponatremia: Sodium was 129 on admission Hypotonic hypervolemic hyponatremia Due to heart failure IV diuresis Sodium level is improved at 133 today (5) Hypothyroidism: Continue supplement DVT px on Heparin drip Code status Full code Subjective Pt was seen and examined Sitting in chair with no distress Pt said that she feeling much better She has been diuresis well Denies any chest pain, palpitation, dizziness and SOB Physical Exam Physical Exam: General- No acute distress Head- atraumatic Eyes- PERRL, EOMI, ENT- oropharynx clear Neck- supple, no JVD Lungs- clear to auscultation Heart- regular rhythm; + murmur Abdomen- normal bowel sounds, soft, nontender Extremities- no calf tenderness, +edema Neuro- alert, oriented x 3; PERRL, EOMI; no facial palsy; no dysarthria Skin- warm & dry Results & Data Vital Signs (Past 12 Hours) Vital Signs Temp Pulse Pulse Resp BP Pulse Ox 04/13/19 16:13 36.3 C L 61 18 109/64 99 04/13/19 11:00 36.4 C L 63 20 114/63 98 04/13/19 09:20 36.2 C L 57 L 16 107/59 L 98
[2019-04-13] MEDS: ATORVASTATIN 40 MG TAB PO SCH (20:49)
[2019-04-14] MEDS: LEVOTHYROXINE SODIUM 75 MCG TABLET PO SCH (06:08)
[2019-04-14 06:48] LABS: INR 1.2 (0.9-1.1); Partial Thromboplastin Ratio 1.9; Prothrombin Time 12.2 Seconds (9.0-12.0)
[2019-04-14 06:53] LABS: Partial Thromboplastin Time 51.6 Seconds (21.0-31.0)
[2019-04-14 07:08] LABS: Partial Thromboplastin Ratio 1.9
[2019-04-14 07:10] LABS: BUN Creatinine Ratio 30.1 (10-20); Calcium 9.5 mg/dl (8.5-10.1); Creatinine Clr Calc Pharmacy 17.6 ml/min; Est GFR (African American) 40.1; Est GFR (Non-African American) 34.6; Magnesium 1.9 mg/dl (1.8-2.4)
[2019-04-14 07:10] LABS: Partial Thromboplastin Time 51.6 Seconds (21.0-31.0)
--- NOTE | 2019-04-14 07:13 | XRay Report ---
XR chest 1V portable HISTORY: 88 years-old Female f/u shortness of breath COMPARISON: Chest radiograph 04/10/2019 TECHNIQUE: Portable AP view of the chest FINDINGS: Cardiomegaly with pulmonary vascular congestion and interstitial coarsening. No pneumothorax. Small l eft and moderate right pleural effusions with right midlung and bibasilar opacities. Findings are sta ble from comparison. Postoperative changes of the right shoulder. Remote appearing anterolateral lowe r right rib fractures. 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 Calcified plaque of the t horacic aorta. IMPRESSION: 1. Cardiomegaly with unchanged pulmonary edema. 2. Unchanged right greater than left pleural effusions with bibasilar predominant consolidation. Atel ectasis versus pneumonitis considered. ACT 112: Negative or not required by law. The above report was generated using voice recognition software. It may contain grammatical, syntax o r spelling errors. Electronically signed by: Giacomo Burgess M.D. 04/14/2019 7:11 AM
[2019-04-14] MEDS: MULTIVITAMIN TAB PO SCH (07:28)
[2019-04-14] MEDS: POTASSIUM CHLORIDE 20 MEQ TABCR PO SCH ×2 (07:28→20:20)
[2019-04-14] MEDS: ASPIRIN 81 MG ECTAB PO SCH (07:28)
[2019-04-14] MEDS: METOPROLOL SUCC 25MG EXT REL TAB PO SCH (10:43)
--- NOTE | 2019-04-14 13:15 | Cardiology Progress Note ---
Date of Service April 14, 2019 Assessment & Plan (1) Acute on chronic systolic heart failure: It did come to light that the patient was not taking her outpatient medical regimen given to lack of funds to afford the medication. She does no issues with her daughter taking her money for her daughter to pay for cigarettes. She has diuresed over 4 L and is clinically now returned to baseline. No further IV diuresis necessary. We will start her on daily torsemide 20 mg with a second dose as needed for signs of volume overload. My office will arrange close follow-up in the next 1 to 2 weeks. Okay to discharge from a cardiac standpoint I have discussed the case with case management and attempt to ease patient access to medications as an outpatient and prevent readmission. (2) Multifocal pneumonia: Concern resolved (3) Severe mitral regurgitation: Chronic Patient not a surgical candidate (4) COPD (chronic obstructive pulmonary disease): (5) Generalized weakness: Likely a combination of the above active diagnoses (6) CKD (chronic kidney disease), stage III: Will need to follow with diuresis. Subjective Patient seen and examined resting comfortably in bed. States that her breathing has returned to normal and overall she feels great. She denies any chest pain, shortness of breath, palpitations, lightheadedness, dizziness or syncope. Telemetry reviewed: Normal sinus rhythm with underlying left bundle branch block pattern, no sustained arrhythmias. Review of Systems Review of Systems: All systems reviewed & are unremarkable except as noted in HPI & below Physical Exam Physical Exam: General: Awake, alert and oriented x 3. No acute distress. HEENT: Normocephalic, atraumatic. Pupils equal, round and reactive to light and accommodation. Extraocular muscles are intact. Anicteric sclera. Moist mucous membranes. Neck: No JVD. No bruit. Cardiovascular: Regular. Positive S-4. Normal S-1 and S-2. No S-3. No murmurs or rubs. Pulmonary: Decreased breath sounds in the bilateral bases, however, improved compared to yesterday's exam. No rales rhonchi or wheezing. Abdomen: Bowel sounds x 4, soft. No rebound, guarding or tenderness. No organomegaly. Extremities: No clubbing, cyanosis or edema. +2 pedal pulses bilaterally. Skin: Warm and dry. Results & Data Vital Signs (Past 12 Hours) Vital Signs Temp Pulse Resp BP BP Pulse Ox 01/30/20 11:48 36.8 C 65 21 109/67 92 04/14/19 07:24 36.5 C 57 L 18 99/66 L 98 04/14/19 05:12 36.5 C 64 20 115/70 98
--- NOTE | 2019-04-14 15:32 | Procedure Note ---
Procedure Note Date of Service April 14, 2019 Procedure: Diagnostic therapeutic ultrasound-guided catheter thoracentesis [employer] Crewmember: Dr. Rob High Indication: Pleural effusion Consent: Signed by patient and verified with timeout prior to procedure Anesthesia: 1% lidocaine without epinephrine local. Procedure: Consent was verified and timeout performed. Appropriate imaging studies were reviewed prior to the procedure. Patient was placed in a seated position and limited thoracic ultrasound was performed of the right chest. See separate imaging. Appropriate site above the diaphragm for thoracentesis was selected. The skin was prepped and draped in normal sterile fashion. Lidocaine was used for local analgesia. Fluid was aspirated via the finder needle. A small skin bhavna was made with the scalpel and the catheter over the needle apparatus was advanced over the rib into the pleural space. Using the syringe one-way valve system, a total of 750 mL's of serous fluid was removed. The catheter was removed and observed to be intact. A sterile dressing was applied. Post procedure chest x-ray was ordered. Fluid was sent for labs, culture and cytology. The patient tolerated the procedure without obvious complication Coding CPT Codes Pulmonary/Thoracic - Pulmonary and Thoracic: 56199 Thoracentesis w imaging ([id number]) [facility] [place] Procedure Codes (Charges) Pulmonary/Thoracic Procedure 1: Pulmonary and Thoracic: 64164 Thoracentesis w imaging
--- NOTE | 2019-04-14 16:02 | XRay Report ---
XR chest 1V portable HISTORY: 88 years-old Female S/P Thoracentesis follow-up study in a patient with pleural effusions. Status post thoracentesis COMPARISON: Chest radiograph of same day at 6:59 AM TECHNIQUE: Portable AP view of the chest FINDINGS: Cardiomegaly. Calcific plaque of the thoracic aortic arch. Bilateral pleural effusions with bibasilar consolidation persists. Decreased size of the right pleural effusion with improved right basilar aer ation status post thoracentesis. No postprocedural pneumothorax identified. Pulmonary vascular conges tion with chronic interstitial coarsening. Degenerative changes of the shoulders and spine. Postopera tive changes of the right humeral head. IMPRESSION: Decreased size of the right pleural effusion with mildly improved right basilar aeration status post thoracentesis. No postprocedural pneumothorax. ACT 112: Negative or not required by law. The above report was generated using voice recognition software. It may contain grammatical, syntax o r spelling errors. Electronically signed by: Giacomo Burgess M.D. 04/14/2019 4:01 PM
[2019-04-14 16:16] LABS: Albumin Level 3.2 gm/dl (3.4-5.0); Total Protein 6.5 gm/dl (6.4-8.2)
[2019-04-14 16:21] LABS: Glucose Pleural Fluid 119 mg/dl
[2019-04-14 16:27] LABS: Partial Thromboplastin Time 27.7 Seconds (21.0-31.0)
[2019-04-14 16:28] LABS: Amylase Pleural Fluid 13 U/L; LDH Pleural Fluid 72 U/L; Total Protein Pleural Fluid 2.3 g/dl; Triglyceride Pleural Fluid 3 mg/dl
[2019-04-14] MEDS ORDERED: Nursing to Pharmacy Communication ONE (16:30)
[2019-04-14 16:48] LABS: Appearance Pleural Fluid CLEAR; Basophils, Fluid 0 %; Color Pleural Fluid YELLOW; Eosinophils, Fluid 0 %; Lymphocytes, Fluid 66 %; Mono,Macrophage,Mesothelial 19 %; Neutrophils, Fluid 15 %; RBC Pleural Fluid (A) < 3000 /uL; Source Pleural Fluid LEFT LUNG; WBC Pleural Fluid (A) 327 /uL
[2019-04-14] MEDS: HEPARIN SODIUM/DEXTROSE 25,000 UNITS/500 ML BAG IV SCH (16:52)
--- NOTE | 2019-04-14 16:54 | Pulmonology Progress Note ---
Date of Service April 14, 2019 Assessment & Plan (1) Acute and chronic respiratory failure with hypoxia: -- Acute on chronic hypoxic respiratory failure Likely sec to systolic CHF exacerbation Continue with diuretics as tolerated, keep negative balance. Maintain SPO2 between 88 to 92% BiPAP nightly and as needed shortness of breath -- Bilateral pleural effusions Moderate on the right side Likely secondary to CHF exacerbation At the time of examination patient is not in respiratory distress while lying on the bed Continue with IV diuretics Chest x-ray from today still showed significant right-sided pleural effusion. Thoracentesis for performed bedside. 750 mL of serous fluid was aspirated. Transudative in nature as per lights criteria. -- COPD Not in exacerbation Not on optimal therapy at home Upon discharge would recommend lama inhaler along with as needed albuterol Pulmonary function test as an outpatient Patient doesn't seem to be septic. No cough, No fever or chills. Unlikely to be Pneumonia. No further intervention from pulmonary perspective. Will sign off. Recall if needed. Please note the above document was generated using voice recognition software. It may contain grammatical, syntax or spelling errors. (2) Pleural effusion: (3) COPD (chronic obstructive pulmonary disease): (4) Acute on chronic systolic heart failure: Subjective Patient seen and examined at bedside. No acute distress, no adverse events ov ernight. Heparin has been also in the morning for thoracentesis to be done today. Shortness of breath is improved. Denies any nausea or vomiting. No chest pain, no nausea or vomiting. Good appetite. Review of Systems Review of Systems: All systems reviewed & are unremarkable except as noted in HPI & below Physical Exam Physical Exam: Constitutional: No acute distress, temporal wasting HEENT: EOMI, PERRLA, arcus senilis bilaterally Respiratory system: Decreased air entry bilaterally, more decreased on the right side, positive bilateral lower lobe crackles, no wheeze, no rhonchi CVS: S1-S2 positive, no murmurs or gallops, accentuated P2 Abdomen: Soft, nontender, nondistended, positive bowel sounds x4 Extremities: +2 pulses bilaterally radialis/ dorsalis pedis, no cyanosis, +2 pitting edema bilateral lower extremities Neuro: Awake alert oriented x3 Psych: Normal mood and affect Skin: no rashes, warm and dry Lymphatic: no cervical or axillary lymphadenopathy Results & Data ([facility]) Vital Signs (Past 12 Hours) Vital Signs Temp Pulse Pulse Resp BP BP Pulse Ox 04/14/19 15:50 36.4 C L 67 18 91/60 L 98 04/14/19 15:41 65 04/14/19 11:48 36.8 C 65 21 109/67 92 04/14/19 07:24 36.5 C 57 L 18 99/66 L 98 04/14/19 05:12 36.5 C 64 20 115/70 98 04/13/19 05:54 04/14/19 05:28 PG Care Time/CCT Total # of Minutes Spent Total Time Spent with Patient: Total time spent is greater than 50% in coordination of care (as documented) at patient's floor/unit and/or counseling patient: Coding Level of Care Code 32915 Subseq Hosp Care Lvl 3 Diagnoses Acute and chronic respiratory failure with hypoxia J96.21 Pleural effusion J90 COPD (chronic obstructive pulmonary disease) J44.9 Acute on chronic systolic heart failure I50.23
--- NOTE | 2019-04-14 17:22 | Electrocardiogram Report ---
Test Reason : Blood Pressure : / mmHG Vent. Rate : 055 BPM Atrial Rate : 055 BPM P-R Int : 168 ms QRS Dur : 158 ms QT Int : 506 ms P-R-T Axes : 040 -60 101 degrees QTc Int : 484 ms Sinus bradycardia with occasional Premature ventricular complexes Left axis deviation Left bundle branch block Abnormal ECG When compared with ECG of 10-APR-2019 13:11, Premature ventricular complexes are now Present Vent. rate has decreased BY 34 BPM T wave inversion now evident in Lateral leads Confirmed by Conner Mauro ([id number]) on 04/14/2019 5:22:16 PM Referred By: REFERRED SELF Confirmed By:Rocky Mauro
[2019-04-14] MEDS ORDERED: WARFARIN SOD 5 MG TAB PO ONE (18:52)
--- NOTE | 2019-04-14 18:57 | Hospitalist Progress Note ---
Date of Service April 14, 2019 Assessment & Plan (1) Acute on chronic systolic heart failure: Ischemic cardiomyopathy Echo from 09/2018 showed EF of 25-29, severely enlarged LA, Mod to severe MR, mild TR Heart failure exacerbation is likely due to med non adherence as patient stated she stopped her medications some weeks ago. Received IV Lasix 60mg BID, that changed to 60mg ID daily Now transition to Torsemide 20mg daily Has been diuresis well today Cardiology on board Clinically improved significantly Ok from cardiology standpoint to discharge Bilateral pleural effusion Ultrasound did show right-sided distended volume of 1304 ml and Left-sided estimated volume of 58.4 mL Pulmonology on board Received IV lasix Repeat CXR showed Cardiomegaly with unchanged pulmonary edema. Unchanged right greater than left pleural effusions S/P Thoracentesis done where 750 mL of serous fluid was aspirated. Transudative in nature as per lights criteria. Continue oxygen supplement No sign for any infection, will continue to hold for any antibiotic Continue monitor closely (2) Paroxysmal atrial fibrillation: Rate is controlled with metoprolol Continue IV heparin drip INR remains low at 1.2 today Heparin drip was resumed Will restart coumadin today Monitor PT/INR (3) CKD (chronic kidney disease), stage III: UMANG on CKD Cr is 1.43 from 1.1 last month Creatinine improved to 1.3 today Monitor BMP while on diuretic (4) Acute hyponatremia: Sodium was 129 on admission Hypotonic hypervolemic hyponatremia Due to heart failure IV diuresis Sodium level is improved at 135 today (5) Hypothyroidism: Continue supplement DVT px on Heparin drip Code status Full code Subjective Pt was seen and examined Sitting in chair with no distress Pt said that her breathing is much better Denies any chest pain, palpitation and SOB Physical Exam Physical Exam: General- No acute distress Head- atraumatic Eyes- PERRL, EOMI, ENT- oropharynx clear Neck- supple, no JVD Lungs- clear to auscultation Heart- regular rhythm; + murmur Abdomen- normal bowel sounds, soft, nontender Extremities- no calf tenderness, +edema Neuro- alert, oriented x 3; PERRL, EOMI; no facial palsy; no dysarthria Skin- warm & dry Results & Data ([facility]) Vital Signs (Past 12 Hours) Vital Signs Temp Pulse Pulse Resp BP BP Pulse Ox 01/30/20 17:15 67 118/72 97 01/30/20 15:50 36.4 C L 67 18 91/60 L 98 04/14/19 15:41 65 04/14/19 11:48 36.8 C 65 21 109/67 92 04/14/19 07:24 36.5 C 57 L 18 99/66 L 98
[2019-04-14] MEDS: ATORVASTATIN 40 MG TAB PO SCH (20:20)
[2019-04-15 01:26] LABS: INR 1.2 (0.9-1.1); Partial Thromboplastin Ratio 1.7; Prothrombin Time 12.2 Seconds (9.0-12.0)
[2019-04-15 01:38] LABS: Partial Thromboplastin Time 47.3 Seconds (21.0-31.0)
[2019-04-15] MEDS: LEVOTHYROXINE SODIUM 75 MCG TABLET PO SCH (05:52)
[2019-04-15 06:02] LABS: INR 1.1 (0.9-1.1); Prothrombin Time 11.4 Seconds (9.0-12.0)
[2019-04-15] MEDS: POTASSIUM CHLORIDE 20 MEQ TABCR PO SCH ×2 (07:44→20:30)
[2019-04-15] MEDS: ASPIRIN 81 MG ECTAB PO SCH (07:45)
[2019-04-15] MEDS: MULTIVITAMIN TAB PO SCH (07:45)
[2019-04-15] MEDS: TORSEMIDE 10 MG TAB PO SCH (07:45)
[2019-04-15] MEDS: METOPROLOL SUCC 25MG EXT REL TAB PO SCH (07:45)
--- NOTE | 2019-04-15 11:56 | Cardiology Progress Note ---
Date of Service April 15, 2019 Assessment & Plan (1) Acute on chronic systolic heart failure: It did come to light that the patient was not taking her outpatient medical regimen given to lack of funds to afford the medication. She does no issues with her daughter taking her money for her daughter to pay for cigarettes. She has diuresed over 4 L and is clinically now returned to baseline. No further IV diuresis necessary. We will start her on daily torsemide 20 mg with a second dose as needed for signs of volume overload. My office will arrange close follow-up in the next 1 to 2 weeks. Okay to discharge from a cardiac standpoint I have discussed the case with case management and attempt to ease patient access to medications as an outpatient and prevent readmission. (2) Multifocal pneumonia: Concern resolved (3) Severe mitral regurgitation: Chronic Patient not a surgical candidate (4) COPD (chronic obstructive pulmonary disease): (5) Generalized weakness: Likely a combination of the above active diagnoses (6) CKD (chronic kidney disease), stage III: Will need to follow with diuresis. Subjective Patient seen and examined, resting comfortably in bed. No complaints overnight. States that her breathing is now back to baseline if not better than normal. Denies chest pain, palpitations, lightheadedness, dizziness or syncope. Telemetry reviewed: Normal sinus rhythm with underlying left bundle branch block pattern Review of Systems Review of Systems: All systems reviewed & are unremarkable except as noted in HPI & below Physical Exam Physical Exam: General: Awake, alert and oriented x 3. No acute distress. HEENT: Normocephalic, atraumatic. Pupils equal, round and reactive to light and accommodation. Extraocular muscles are intact. Anicteric sclera. Moist mucous membranes. Neck: No JVD. No bruit. Cardiovascular: Regular. Positive S-4. Normal S-1 and S-2. No S-3. No murmurs or rubs. Pulmonary: Clear to auscultation B/L. No rales, rhonchi or wheezing Abdomen: Bowel sounds x 4, soft. No rebound, guarding or tenderness. No organomegaly. Extremities: No clubbing, cyanosis or edema. +2 pedal pulses bilaterally. Skin: Warm and dry. Results & Data Vital Signs (Past 12 Hours) Vital Signs Temp Pulse Pulse Resp BP Pulse Ox 04/15/19 11:39 36.2 C L 61 18 91/60 L 100 04/15/19 07:40 36.7 C 62 16 101/68 99 04/15/19 04:18 97/62 L 04/15/19 04:08 36.6 C 57 L 19 80/51 L 97 04/15/19 01:09 56 L
--- NOTE | 2019-04-15 12:53 | Electrocardiogram Report ---
Test Reason : Blood Pressure : / mmHG Vent. Rate : 065 BPM Atrial Rate : 065 BPM P-R Int : 170 ms QRS Dur : 154 ms QT Int : 452 ms P-R-T Axes : -28 -50 112 degrees QTc Int : 470 ms Sinus rhythm with occasional Premature ventricular complexes Left axis deviation Left bundle branch block Abnormal ECG When compared with ECG of 13-APR-2019 22:31, T wave inversion more evident in Lateral leads Confirmed by Conner Mauro ([id number]) on 04/15/2019 12:53:39 PM Referred By: REFERRED SELF Confirmed By:Rocky Mauro
[2019-04-15] MEDS: WARFARIN SOD 5 MG TAB PO SCH (17:08)
[2019-04-15] MEDS: HEPARIN SODIUM/DEXTROSE 25,000 UNITS/500 ML BAG IV SCH (17:08)
--- NOTE | 2019-04-15 18:45 | Hospitalist Progress Note ---
Date of Service April 15, 2019 Assessment & Plan (1) Acute on chronic systolic heart failure: Ischemic cardiomyopathy Echo from 09/2018 showed EF of 25-29, severely enlarged LA, Mod to severe MR, mild TR Heart failure exacerbation is likely due to med non adherence as patient stated she stopped her medications some weeks ago. Received IV Lasix 60mg BID, that changed to 60mg ID daily Continue Torsemide 20mg daily Has been diuresis well today Cardiology on board Clinically improved significantly Ok from cardiology standpoint to discharge Bilateral pleural effusion Ultrasound did show right-sided distended volume of 1304 ml and Left-sided estimated volume of 58.4 mL Pulmonology on board Received IV lasix Repeat CXR showed Cardiomegaly with unchanged pulmonary edema. Unchanged right greater than left pleural effusions S/P Thoracentesis done where 750 mL of serous fluid was aspirated. Transudative in nature as per lights criteria. Continue oxygen supplement No sign for any infection, will continue to hold for any antibiotic Continue monitor closely Clinically stable (2) Paroxysmal atrial fibrillation: Rate is controlled with metoprolol Continue IV heparin drip INR remains low at 1.2 today On Heparin drip Continue coumadin today Monitor PT/INR (3) CKD (chronic kidney disease), stage III: UMANG on CKD Cr is 1.43 from 1.1 last month Creatinine improved to 1.3 today Monitor BMP while on diuretic (4) Acute hyponatremia: Sodium was 129 on admission Hypotonic hypervolemic hyponatremia Due to heart failure Sodium level is improved at 135 today (5) Hypothyroidism: Continue supplement 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 Continue parenteral anticoagulant until INR therapeutic Will consider to transition to lovenox DVT px on Heparin drip Code status Full code Disposition Possible discharge home tomorrow Subjective Pt was seen and examined Lying in bed with no distress Pt said that she feels tired denies any chest pain, palpitation and SOB Physical Exam Physical Exam: General- No acute distress Head- atraumatic Eyes- PERRL, EOMI, ENT- oropharynx clear Neck- supple, no JVD Lungs- clear to auscultation Heart- regular rhythm; + murmur Abdomen- normal bowel sounds, soft, nontender Extremities- no calf tenderness, +edema Neuro- alert, oriented x 3; PERRL, EOMI; no facial palsy; no dysarthria Skin- warm & dry Results & Data ([place]) Vital Signs (Past 12 Hours) Vital Signs Temp Pulse Pulse Resp BP Pulse Ox 04/15/19 16:00 59 L 04/15/19 11:39 36.2 C L 61 18 91/60 L 100 04/15/19 07:40 36.7 C 62 16 101/68 99
[2019-04-15] MEDS: ATORVASTATIN 40 MG TAB PO SCH (20:30)
[2019-04-16] MEDS: LEVOTHYROXINE SODIUM 75 MCG TABLET PO SCH (05:47)
[2019-04-16 06:56] LABS: INR 1.1 (0.9-1.1); Partial Thromboplastin Ratio 1.6; Partial Thromboplastin Time 43.9 Seconds (21.0-31.0); Prothrombin Time 11.6 Seconds (9.0-12.0)
[2019-04-16] MEDS ORDERED: HEPARIN IV BOLUS 2,000 UNITS in SYRINGE 0 ML IV ONE ×2 (07:45→22:30)
[2019-04-16] MEDS: TORSEMIDE 10 MG TAB PO SCH (08:17)
[2019-04-16] MEDS: POTASSIUM CHLORIDE 20 MEQ TABCR PO SCH ×2 (08:18→20:17)
[2019-04-16] MEDS: MULTIVITAMIN TAB PO SCH (08:18)
[2019-04-16] MEDS: ASPIRIN 81 MG ECTAB PO SCH (08:18)
[2019-04-16] MEDS: METOPROLOL SUCC 25MG EXT REL TAB PO SCH (08:18)
[2019-04-16 13:49] LABS: Partial Thromboplastin Ratio 2.9
[2019-04-16 14:21] LABS: Partial Thromboplastin Time 79.5 Seconds (21.0-31.0)
[2019-04-16] MEDS: WARFARIN SOD 5 MG TAB PO SCH (15:28)
--- NOTE | 2019-04-16 18:43 | Hospitalist Progress Note ---
Date of Service April 16, 2019 Assessment & Plan (1) Acute on chronic systolic heart failure: Ischemic cardiomyopathy Echo from 09/2018 showed EF of 25-29, severely enlarged LA, Mod to severe MR, mild TR Heart failure exacerbation is likely due to med non adherence as patient stated she stopped her medications some weeks ago. Received IV Lasix 60mg BID, that changed to 60mg ID daily Continue Torsemide 20mg daily Has been diuresis well today Cardiology on board Clinically improved significantly Ok from cardiology standpoint to discharge Bilateral pleural effusion Ultrasound did show right-sided distended volume of 1304 ml and Left-sided estimated volume of 58.4 mL Pulmonology on board Received IV lasix Repeat CXR showed Cardiomegaly with unchanged pulmonary edema. Unchanged right greater than left pleural effusions S/P Thoracentesis done where 750 mL of serous fluid was aspirated. Transudative in nature as per lights criteria. Pleural fluid grew gram positive cocci- possible contamination since pt is asymptomatic Will follow sensitivity Continue oxygen supplement No sign for any infection, will continue to hold for any antibiotic Continue monitor closely Clinically stable (2) Paroxysmal atrial fibrillation: Rate is controlled with metoprolol Continue IV heparin drip INR remains low at 1.1 today On Heparin drip Continue coumadin today Monitor PT/INR (3) CKD (chronic kidney disease), stage III: UMANG on CKD Cr is 1.43 from 1.1 last month Creatinine improved to 1.3 today Monitor BMP while on diuretic (4) Acute hyponatremia: Sodium was 129 on admission Hypotonic hypervolemic hyponatremia Due to heart failure Sodium level is improved at 135 today (5) Hypothyroidism: Continue supplement 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 Continue parenteral anticoagulant until INR therapeutic Will consider to transition to lovenox if able to inject DVT px on Heparin drip Code status Full code Disposition Possible discharge home tomorrow Subjective Pt was seen and examined Sitting in chair with no distress eating lunch Pt said that she feels fine denies any chest pain, palpitation and SOB Physical Exam Physical Exam: General- No acute distress Head- atraumatic Eyes- PERRL, EOMI, ENT- oropharynx clear Neck- supple, no JVD Lungs- clear to auscultation Heart- regular rhythm; + murmur Abdomen- normal bowel sounds, soft, nontender Extremities- no calf tenderness, +edema Neuro- alert, oriented x 3; PERRL, EOMI; no facial palsy; no dysarthria Skin- warm & dry Results & Data ([facility]) Vital Signs (Past 12 Hours) Vital Signs Temp Pulse Pulse Resp BP BP Pulse Ox 04/16/19 15:44 36.6 C 62 18 108/62 97 04/16/19 11:41 36.8 C 59 L 16 102/59 L 99 04/16/19 08:00 59 L 04/16/19 07:11 36.4 C L 105 H 16 103/68 95
[2019-04-16] MEDS: ATORVASTATIN 40 MG TAB PO SCH (20:17)
[2019-04-16 21:15] LABS: Partial Thromboplastin Ratio 1.6; Partial Thromboplastin Time 44.5 Seconds (21.0-31.0)
[2019-04-17] MEDS: LEVOTHYROXINE SODIUM 75 MCG TABLET PO SCH (05:52)
[2019-04-17 06:00] LABS: INR 1.3 (0.9-1.1); Partial Thromboplastin Ratio 2.6
[2019-04-17 06:08] LABS: Partial Thromboplastin Time 71.2 Seconds (21.0-31.0)
[2019-04-17] MEDS: METOPROLOL SUCC 25MG EXT REL TAB PO SCH (08:01)
[2019-04-17] MEDS: POTASSIUM CHLORIDE 20 MEQ TABCR PO SCH ×2 (08:01→20:27)
[2019-04-17] MEDS: ASPIRIN 81 MG ECTAB PO SCH (08:01)
[2019-04-17] MEDS: MULTIVITAMIN TAB PO SCH (08:01)
[2019-04-17] MEDS: TORSEMIDE 10 MG TAB PO SCH (08:01)
--- NOTE | 2019-04-17 11:27 | Hospitalist Progress Note ---
Date of Service April 17, 2019 Assessment & Plan (1) Acute on chronic systolic heart failure: Ischemic cardiomyopathy Echo from 09/2018 showed EF of 25-29, severely enlarged LA, Mod to severe MR, mild TR Heart failure exacerbation is likely due to med non adherence as patient stated she stopped her medications some weeks ago. Received IV Lasix 60mg BID, that changed to 60mg ID daily Continue Torsemide 20mg daily Has been diuresis well today Cardiology on board Clinically improved significantly Ok from cardiology standpoint to discharge Bilateral pleural effusion Ultrasound did show right-sided distended volume of 1304 ml and Left-sided estimated volume of 58.4 mL Pulmonology on board Received IV lasix Repeat CXR showed Cardiomegaly with unchanged pulmonary edema. Unchanged right greater than left pleural effusions S/P Thoracentesis done where 750 mL of serous fluid was aspirated. Transudative in nature as per lights criteria. Pleural fluid grew gram positive cocci- possible contamination since pt remains asymptomatic and afebrile Will follow sensitivity Continue oxygen supplement No sign for any infection, will continue to hold for any antibiotic Continue monitor closely Clinically stable (2) Paroxysmal atrial fibrillation: Rate is controlled with metoprolol Continue IV heparin drip INR remains low at 1.3 today On Heparin drip Continue coumadin today Monitor PT/INR (3) CKD (chronic kidney disease), stage III: UMANG on CKD Cr is 1.43 from 1.1 last month Creatinine improved to 1.3 today Monitor BMP while on diuretic (4) Acute hyponatremia: Sodium was 129 on admission Hypotonic hypervolemic hyponatremia Due to heart failure Sodium level is improved at 135 (5) Hypothyroidism: Continue supplement 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 Continue parenteral anticoagulant until INR therapeutic, INR 1.3 today Will consider to transition to lovenox if able to inject it DVT px on Heparin drip Code status Full code Disposition Possible discharge home tomorrow Subjective Pt was seen and examined Sitting in chair with no distress Pt said that she feels ok denies any new complaint Physical Exam Physical Exam: General- No acute distress Head- atraumatic Eyes- PERRL, EOMI, ENT- oropharynx clear Neck- supple, no JVD Lungs- clear to auscultation Heart- regular rhythm; + murmur Abdomen- normal bowel sounds, soft, nontender Extremities- no calf tenderness, +edema Neuro- alert, oriented x 3; PERRL, EOMI; no facial palsy; no dysarthria Skin- warm & dry Results & Data ([facility]) Vital Signs (Past 12 Hours) Vital Signs Temp Pulse Pulse Resp BP BP Pulse Ox 04/17/19 08:00 36.3 C L 56 L 54 L 18 101/64 97 04/17/19 02:48 36.5 C 59 L 16 105/68 95 04/17/19 01:00 36.3 C L 54 L 18 96/61 L 97
[2019-04-17 12:13] LABS: Partial Thromboplastin Ratio 1.8
[2019-04-17 12:15] LABS: Partial Thromboplastin Time 48.5 Seconds (21.0-31.0)
[2019-04-17] MEDS: HEPARIN SODIUM/DEXTROSE 25,000 UNITS/500 ML BAG IV SCH (15:03)
[2019-04-17] MEDS: WARFARIN SOD 5 MG TAB PO SCH (17:14)
[2019-04-17] MEDS: ATORVASTATIN 40 MG TAB PO SCH (20:27)
[2019-04-18] MEDS ORDERED: Nursing to Pharmacy Communication ONE ×2 (03:57→23:42)
[2019-04-18] MEDS: LEVOTHYROXINE SODIUM 75 MCG TABLET PO SCH (05:45)
[2019-04-18 07:15] LABS: INR 1.5 (0.9-1.1); Partial Thromboplastin Ratio 1.9
[2019-04-18 07:27] LABS: Partial Thromboplastin Time 51.8 Seconds (21.0-31.0)
[2019-04-18] MEDS: TORSEMIDE 10 MG TAB PO SCH (08:29)
[2019-04-18] MEDS: ASPIRIN 81 MG ECTAB PO SCH (08:29)
[2019-04-18] MEDS: POTASSIUM CHLORIDE 20 MEQ TABCR PO SCH ×2 (08:29→21:10)
[2019-04-18] MEDS: MULTIVITAMIN TAB PO SCH (08:29)
[2019-04-18] MEDS: METOPROLOL SUCC 25MG EXT REL TAB PO SCH (08:30)
--- NOTE | 2019-04-18 15:08 | Hospitalist Progress Note ---
Date of Service April 18, 2019 Assessment & Plan (1) Acute on chronic systolic heart failure: Ischemic cardiomyopathy Echo from 09/2018 showed EF of 25-29, severely enlarged LA, Mod to severe MR, mild TR Heart failure exacerbation is likely due to med non adherence as patient stated she stopped her medications some weeks ago. Received IV Lasix 60mg BID, that changed to 60mg ID daily Continue Torsemide 20mg daily Has been diuresis well today Cardiology on board Clinically improved significantly Ok from cardiology standpoint to discharge Bilateral pleural effusion Ultrasound did show right-sided distended volume of 1304 ml and Left-sided estimated volume of 58.4 mL Pulmonology on board Received IV lasix Repeat CXR showed Cardiomegaly with unchanged pulmonary edema. Unchanged right greater than left pleural effusions S/P Thoracentesis done where 750 mL of serous fluid was aspirated. Transudative in nature as per lights criteria. Pleural fluid grew gram positive cocci- possible contamination since pt remains asymptomatic and afebrile Will follow sensitivity Continue oxygen supplement No sign for any infection, will continue to hold for any antibiotic Continue monitor closely Clinically stable (2) Paroxysmal atrial fibrillation: Rate is controlled with metoprolol Continue IV heparin drip INR 1.5 today On Heparin drip Continue coumadin today Monitor PT/INR (3) CKD (chronic kidney disease), stage III: UMANG on CKD Cr is 1.43 from 1.1 last month Creatinine improved to 1.3 today Monitor BMP while on diuretic (4) Acute hyponatremia: Sodium was 129 on admission Hypotonic hypervolemic hyponatremia Due to heart failure Sodium level is improved at 135 (5) Hypothyroidism: Continue supplement 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 Continue parenteral anticoagulant until INR therapeutic, INR 1.3 today Will consider to transition to lovenox if able to inject it But when I spoke to transplant case manager, home nurse will not be able to come back to back days Will give Lovenox tomorrow, then schedule with home health for lovenox on Thu if INR [place] DVT px on Heparin drip Code status Full code Disposition Possible discharge home tomorrow Subjective Pt was seen and examined Sitting in chair with no distress Pt said that she feels fine Denies any chest pain, palpitation, dizziness and SOB Physical Exam Physical Exam: General- No acute distress Head- atraumatic Eyes- PERRL, EOMI, ENT- oropharynx clear Neck- supple, no JVD Lungs- clear to auscultation Heart- regular rhythm; + murmur Abdomen- normal bowel sounds, soft, nontender Extremities- no calf tenderness, +edema Neuro- alert, oriented x 3; PERRL, EOMI; no facial palsy; no dysarthria Skin- warm & dry Results & Data ([facility]) Vital Signs (Past 12 Hours) Vital Signs Temp Pulse Resp BP Pulse Ox 04/18/19 15:04 36.3 C L 59 L 18 94/57 L 90 04/18/19 07:36 36.8 C 56 L 16 110/65 99
[2019-04-18] MEDS: WARFARIN SOD 5 MG TAB PO SCH (16:06)
[2019-04-18] MEDS: ATORVASTATIN 40 MG TAB PO SCH (21:09)
[2019-04-19] MEDS ORDERED: Nursing to Pharmacy Communication ONE (01:23)
[2019-04-19] MEDS ORDERED: SODIUM CHLORIDE 0.9% 500 ML IV SCH (01:30)
[2019-04-19 05:26] LABS: INR 1.8 (0.9-1.1); Partial Thromboplastin Ratio 1.9; Prothrombin Time 17.9 Seconds (9.0-12.0)
[2019-04-19 05:43] LABS: Partial Thromboplastin Time 50.7 Seconds (21.0-31.0)
[2019-04-19] MEDS: LEVOTHYROXINE SODIUM 75 MCG TABLET PO SCH (06:09)
[2019-04-19] MEDS: MULTIVITAMIN TAB PO SCH (08:06)
[2019-04-19] MEDS: METOPROLOL SUCC 25MG EXT REL TAB PO SCH (08:06)
[2019-04-19] MEDS: POTASSIUM CHLORIDE 20 MEQ TABCR PO SCH (08:07)
[2019-04-19] MEDS: ASPIRIN 81 MG ECTAB PO SCH (08:07)
[2019-04-19] MEDS: TORSEMIDE 10 MG TAB PO SCH (08:07)
[2019-04-19] MEDS: HEPARIN SODIUM/DEXTROSE 25,000 UNITS/500 ML BAG IV SCH (14:36)
--- NOTE | 2019-04-19 16:11 | Hospitalist Progress Note ---
Date of Service April 19, 2019 Assessment & Plan (1) Acute on chronic systolic heart failure: Ischemic cardiomyopathy Echo from 09/2018 showed EF of 25-29, severely enlarged LA, Mod to severe MR, mild TR Heart failure exacerbation is likely due to med non adherence as patient stated she stopped her medications some weeks ago. Received IV Lasix 60mg BID, that changed to 60mg ID daily Continue Torsemide 20mg daily Has been diuresis well today Cardiology on board Clinically improved significantly Ok from cardiology standpoint to discharge Bilateral pleural effusion Ultrasound did show right-sided distended volume of 1304 ml and Left-sided estimated volume of 58.4 mL Pulmonology on board Received IV lasix Repeat CXR showed Cardiomegaly with unchanged pulmonary edema. Unchanged right greater than left pleural effusions S/P Thoracentesis done where 750 mL of serous fluid was aspirated. Transudative in nature as per lights criteria. Pleural fluid grew gram positive cocci- possible contamination since pt remains asymptomatic and afebrile Continue oxygen supplement No sign for infection and Afebrile Final pleural fluid cx positive for coag negative staph I spoke to ID (No official consult placed) recommended to treat it with a short course of antibiotic since pt came for SOB Will do 7 days course of Doxycycline Clinically stable (2) Paroxysmal atrial fibrillation: Rate is controlled with metoprolol Continue IV heparin drip INR 1.8 today On Heparin drip, will discontinue it Continue coumadin today Monitor PT/INR (3) CKD (chronic kidney disease), stage III: UMANG on CKD Cr is 1.43 from 1.1 last month Creatinine improved to 1.3 Monitor BMP while on diuretic (4) Acute hyponatremia: Sodium was 129 on admission Hypotonic hypervolemic hyponatremia Due to heart failure Sodium level is improved at 135 (5) Hypothyroidism: Continue supplement 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 Continue parenteral anticoagulant until INR therapeutic, INR 1.3 today Will consider to transition to lovenox if able to inject it But when I spoke to cyanide case hardener, home nurse will not be able to come back to back days Lovenox 40mg given today, then schedule with home health for lovenox on Thu if INR subtherapeutic Follow up with the coag clinic DVT px on Heparin drip On coumadin with INR 1.8 Code status Full code Disposition Possible discharge home today with Home health services Subjective Pt was seen and examined Sitting in chair with no distress watching TV Pt said that she feels fine She said that she walked around with therapy today with no discomfort Denies any chest pain, palpitation, fever, dizziness and SOB Physical Exam Physical Exam: General- No acute distress Head- atraumatic Eyes- PERRL, EOMI, ENT- oropharynx clear Neck- supple, no JVD Lungs- clear to auscultation Heart- regular rhythm; + murmur Abdomen- normal bowel sounds, soft, nontender Extremities- no calf tenderness, +edema Neuro- alert, oriented x 3; PERRL, EOMI; no facial palsy; no dysarthria Skin- warm & dry Results & Data ([facility]) Vital Signs (Past 12 Hours) Vital Signs Temp Pulse Resp BP BP Pulse Ox 04/19/19 14:51 36.3 C L 64 18 93/57 L 97 04/19/19 14:37 94/70 L 04/19/19 07:10 36.4 C L 62 18 119/69 95
[2019-04-19] MEDS ORDERED: ENOXAPARIN INJ 40 MG/0.4 ML SYR SQ SCH (16:15)
[2019-04-19] MEDS: WARFARIN SOD 5 MG TAB PO SCH (16:27)
[2019-04-19] MEDS ORDERED: ENOXAPARIN INJ 40 MG/0.4 ML SYR SQ ONE (16:30)
--- NOTE | 2019-04-20 15:31 | Discharge Summary ---
Date of Service April 19, 2019 Admission HPI Per Admitting Provider This is an 88yo F with a PMH of chronic systolic heart failure, left ventricular mural thrombus on Coumadin, CAD, hypothyroidism, COPD on 2 L at bedtime and other medical problems listed below who presents with generalized weakness and SOB since yesterday. Is on chronic 2L HS but required it all day today as well. Had a cold with runny nose two weeks ago and stopped taking all medications when prescriptions ran out except for baby aspirin and multivitamin. Last took coumadin 2 weeks ago. Denies being on lasix. Has woken up twice during the night with SOB in the past week. No orthopnea. Also with decreased appetite for the past few weeks. Denies fever, chills, lightheadedness, headache, runny nose, sore throat, chest pain, palpitations, wheezing, nausea, vomiting, abdominal pain, dysuria, diarrhea or constipation. Ambulates with cane and lives with daughter. Denies any sick contacts. Admission Exam Per Admitting Provider General: Elderly woman in no obvious distress Eyes: PERRL, conjunctivae normal, not pale, anicteric sclerae, EOM intact bilaterally ENMT: External ear and nose normal, oropharynx normal Neck: Normal visual inspection, no tracheal deviation, no swelling noted Respiratory: Normal respiratory effort, no respiratory distress, Reduced percussion note and breath sound on right side posteriorly, basal crackles on left posterior lung zone Cardiovascular: Pulse is RRR. Prominent neck veins, S1 S2 , +2 pedal edema Chest (Breasts): Chest: normal inspection of chest Gastrointestinal (Abdomen): Abdomen is not distended, soft, non-tender to palpation, no guarding, no palpable hepatosplenomegaly, normal bowel sounds Musculoskeletal: No cyanosis or clubbing Genitourinary: No CVA tenderness Skin: No rash noted on gross inspection, No ulcers noted Neurologic: Alert and oriented x 3, No focal weakness, sensation grossly intact Psychiatric: Euthymic affect Principal Diagnosis Acute on chronic systolic heart failure: Ischemic cardiomyopathy Bilateral pleural effusion Paroxysmal atrial fibrillation: CKD (chronic kidney disease), stage III: Acute hyponatremia: Hypothyroidism: LV mural thrombosis Discharge Exam General- No acute distress Head- atraumatic Eyes- PERRL, EOMI, ENT- oropharynx clear Neck- supple, no JVD Lungs- clear to auscultation Heart- regular rhythm; + murmur Abdomen- normal bowel sounds, soft, nontender Extremities- no calf tenderness, +edema Neuro- alert, oriented x 3; PERRL, EOMI; no facial palsy; no dysarthria Skin- warm & dry Discharge Data Allergies Allergy/AdvReac Type Severity Reaction Status Date / Time No Known Allergies Allergy Unknown Verified 04/10/19 13:50 Consultations 04/10/19 14:45 ED Decision to Admit Stat 04/10/19 17:46 Consult Case Management - Discharge Planning Routine 04/11/19 08:13 Consult Cardiology Routine 04/12/19 08:23 Consult Pulmonology Routine Ordered Studies 04/11/19 10:13 US effusion-chest/mediastinum Routine 04/14/19 14:59 US point of care ultrasound Urgent XR chest 1V portable HISTORY: 88 years-old Female weakness acute weakness COMPARISON: None available TECHNIQUE: Portable AP view of the chest FINDINGS: Cardiomegaly with pulmonary vascular congestion and interstitial coarsening. No pneumothorax. Small left and moderate right pleural effusions with right midlung and bibasilar opacities. Postoperative changes of the right shoulder. 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 Calcified plaque of the thoracic aorta. IMPRESSION: 1. Cardiomegaly with pulmonary edema. 2. Small left and moderate right pleural effusions with right midlung and bibasilar consolidative opacities. ACT 112: Negative or not required by law. The above report was generated using voice recognition software. It may contain grammatical, syntax or spelling errors. Electronically signed by: Giacomo Burgess M.D. 04/10/2019 1:55 PM Dictated: 04/10/19 1354 Transcribed: 04/10/19 1354 US effusion-chest/mediastinum HISTORY: 88 years-old Female B/L pleural effusions follow-up study in a patient with bilateral pleural effusions, right greater than left COMPARISON: Chest radiograph 04/10/2019 TECHNIQUE: Multiple real-time sonographic images of the chest were obtained assessing grayscale appearance FINDINGS: Mildly complex pleural effusions are present. On the right, pleural fluid is measured with estimated volume of 1304 mL. The skin was marked superficial to the right pleural effusion. Atelectatic lung intermixed with left pleural effusion is noted, measured with estimated volume of 58.4 mL. IMPRESSION: Bilateral pleural effusions, right greater than left. The skin superficial to the right pleural effusion was marked. ACT 112: Negative or not required by law. The above report was generated using voice recognition software. It may contain grammatical, syntax or spelling errors. Electronically signed by: Giacomo Burgess M.D. 04/11/2019 1:36 PM Dictated: 04/11/19 1335 Transcribed: 04/11/19 1335 XR chest 1V portable HISTORY: 88 years-old Female f/u shortness of breath COMPARISON: Chest radiograph 04/10/2019 TECHNIQUE: Portable AP view of the chest FINDINGS: Cardiomegaly with pulmonary vascular congestion and interstitial coarsening. No pneumothorax. Small left and moderate right pleural effusions with right midlung and bibasilar opacities. Findings are stable from comparison. Postoperative changes of the right shoulder. Remote appearing anterolateral lower right rib fractures. 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 Calcified plaque of the thoracic aorta. IMPRESSION: 1. Cardiomegaly with unchanged pulmonary edema. 2. Unchanged right greater than left pleural effusions with bibasilar predominant consolidation. Atelectasis versus pneumonitis considered. ACT 112: Negative or not required by law. The above report was generated using voice recognition software. It may contain grammatical, syntax or spelling errors. Electronically signed by: Giacomo Burgess M.D. 04/14/2019 7:11 AM Dictated: 04/14/19 0709 Transcribed: 04/14/19 0709 XR chest 1V portable HISTORY: 88 years-old Female S/P Thoracentesis follow-up study in a patient with pleural effusions. Status post thoracentesis COMPARISON: Chest radiograph of same day at 6:59 AM TECHNIQUE: Portable AP view of the chest FINDINGS: Cardiomegaly. Calcific plaque of the thoracic aortic arch. Bilateral pleural effusions with bibasilar consolidation persists. Decreased size of the right pleural effusion with improved right basilar aeration status post thoracentesis. No postprocedural pneumothorax identified. Pulmonary vascular congestion with chronic interstitial coarsening. Degenerative changes of the shoulders and spine. Postoperative changes of the right humeral head. IMPRESSION: Decreased size of the right pleural effusion with mildly improved right basilar aeration status post thoracentesis. No postprocedural pneumothorax. ACT 112: Negative or not required by law. The above report was generated using voice recognition software. It may contain grammatical, syntax or spelling errors. Electronically signed by: Giacomo Burgess M.D. 04/14/2019 4:01 PM Dictated: 04/14/19 1559 Transcribed: 04/14/191558 Hospital Course (1) Acute on chronic systolic heart failure: Ischemic cardiomyopathy Echo from 09/2018 showed EF of 25-29, severely enlarged LA, Mod to severe MR, m ild TR Heart failure exacerbation is likely due to med non adherence as patient stated she stopped her medications some weeks ago. Received IV Lasix 60mg BID, that changed to 60mg ID daily Continue Torsemide 20mg daily Has been diuresis well today Cardiology on board Clinically improved significantly Ok from cardiology standpoint to discharge Bilateral pleural effusion Ultrasound did show right-sided distended volume of 1304 ml and Left-sided estimated volume of 58.4 mL Pulmonology on board Received IV lasix Repeat CXR showed Cardiomegaly with unchanged pulmonary edema. Unchanged right greater than left pleural effusions S/P Thoracentesis done where 750 mL of serous fluid was aspirated. Transudative in nature as per lights criteria. Pleural fluid grew gram positive cocci- possible contamination since pt remains asymptomatic and afebrile Continue oxygen supplement No sign for infection and Afebrile Final pleural fluid cx positive for coag negative staph I spoke to ID (No official consult placed) recommended to treat it with a short course of antibiotic since pt came for SOB Will do 7 days course of Doxycycline Clinically stable (2) Paroxysmal atrial fibrillation: Rate is controlled with metoprolol Continue IV heparin drip INR 1.8 today On Heparin drip, will discontinue it Continue coumadin today Monitor PT/INR (3) CKD (chronic kidney disease), stage III: UMANG on CKD Cr is 1.43 from 1.1 last month Creatinine improved to 1.3 Monitor BMP while on diuretic (4) Acute hyponatremia: Sodium was 129 on admission Hypotonic hypervolemic hyponatremia Due to heart failure Sodium level is improved at 135 (5) Hypothyroidism: Continue supplement 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 Continue parenteral anticoagulant until INR therapeutic, INR 1.3 today Will consider to transition to lovenox if able to inject it But when I spoke to rn case management, home nurse will not be able to come back to back days Lovenox 40mg given today, then schedule with home health for lovenox on Thu if INR subtherapeutic Follow up with the coag clinic DVT px on Heparin drip On coumadin with INR 1.8 Code status Full code Disposition Possible discharge home today with Home health services Total Time Total Time Spent Total Time Spent (In Minutes): 35 minutes Total Time Includes: Examination of the Patient, Discharge Planning, Medication Reconciliation, Communication With Other Providers and Other Discharge Plan Discharge Items Patient Disposition: Home - Home Health Services Reason For Visit: PNA, UMANG ON CKD, HYPONATREMIA Discharge Diagnosis: Acute on chronic systolic heart failure: Ischemic cardiomyopathy Bilateral pleural effusion Paroxysmal atrial fibrillation: CKD (chronic kidney disease), stage III: Acute hyponatremia: Hypothyroidism: LV mural thrombosis Activity: Resume your previous activity Non-emergency contact: Primary Care Provider and Hand Riveter Call non-emergency contact if: you have any medication questions Follow-up/Referrals: Elsy Villanueva MD [Physician] - 04/21/19 10:20 am (04/21/2019 10:20 AM, Elsy Juarez MD General Internal Medicine [facility] ) Diet: Heart Healthy Addtl Attending Provider Instructions: Follow up appointment with your primary care provider Larry on 04/21 @ 10:20 AM Follow up with cardiology (Please call to schedule for the follow up appointment) Follow up with the coumadin clinic to monitor your PT/INR. Check INR tomorrow (04/20) with home health services Continue physical and occupational therapy Fall precaution Ok to discharge home with Lovenox 40mg (one dose) to take tomorrow (Home health nurse will help you to inject it) Check BMP in 1 week to monitor electrolytes and renal function Continue oxygen supplement Complete the course of the antibiotic with doxycycline Pending Studies at Discharge: No Stand-Alone Forms: My [employer], Smoking Cessation Medications and DC Order Prescriptions: New torsemide 10 mg Tablet 20 mg PO QAM 30 Days Qty: 60 RF: 0 levothyroxine [Synthroid] 75 mcg Tablet 75 mcg PO DAILYBB 30 Days Qty: 30 RF: 0 potassium chloride [Klor-Con M20] 20 mEq Tablet,Er Particles/Crystals 20 meq PO BID 30 Days Qty: 60 RF: 0 doxycycline hyclate 100 mg capsule 100 mg PO BID 7 Days Qty: 14 RF: 0 Continued multivitamin Tablet 1 tab PO QAM RF: 0 atorvastatin [Lipitor] 80 mg Tablet 80 mg PO HS RF: 0 lisinopril 2.5 mg Tablet 2.5 mg PO HS RF: 0 aspirin 81 mg Tablet,Delayed Release (Dr/Ec) 81 mg PO DAILY RF: 0 Changed warfarin [Coumadin] 2 mg Tablet 4 mg PO DAILY Qty: 30 RF: 0 metoprolol succinate [Toprol XL] 25 mg Tablet Extended Release 24 Hr 25 mg PO QAM 30 Days Qty: 0 RF: 0 Discontinued warfarin [Coumadin] 2 mg Tablet 2 mg PO SUTUTH@1600 RF: 0 Discharge Orders: Discharge Order (Routine); Ordered 04/19/19 Ordered By: Raul Bar/Other Patient Handouts: What to Know When TakingWarfarin Admission Data Admit Date/Time: 04/10/19 16:46 Attending Provider: Raul De La Torre Admit Provider: Zahraa Faulkner I. Primary Care Provider: PCP,NO Other Providers: Florinda Parekh ; Zahraa Faulkner I. ; Nolan Nuñez ; Aaron Slater ; John Aaron ; Deep Edwards ; Travon Mullen ; Merlin Ritchie ; Mery Coronel ; Sandie Dumont ; Ziggy Ramesh ; Rob High Other Interventions: Discharge Summary Assessment (RN) Last Done: 04/19/19 16:13 DC Date/Time DO NOT enter until pt leaves facility: 04/19/19 18:10
[2019-04-20 16:29] LABS: Pleural Fluid, Cholesterol 15 mg/dL
== END 2019-04-19 18:10 | disposition home health service (06) | DRG 291 ==
LOC: ED 12:34 → 2S 16:46 → SUATTDRO 16:46 → 2S 17:22 → 4W 04-17 13:35

== ENCOUNTER 2019-11-16 16:55 | Inpatient (IN) ==
[2019-11-16] MEDS ORDERED: MoRPHine SULFATE 2 MG/ML CARP IV STA (17:11)
[2019-11-16] MEDS ORDERED: ONDANSETRON INJ 2 MG/ML 2 ML VIAL IV STA (17:11)
[2019-11-16] MEDS ORDERED: SODIUM CHLORIDE 0.9% 1000ML 1,000 ML IV SCH (17:15)
--- NOTE | 2019-11-16 17:24 | Emergency Department Note ---
History of Present Illness General Chief complaint: Hip Pain Stated complaint: fall Time Seen by Provider: 11/16/19 17:00 Source: patient Mode of arrival: ambulatory Limitations: no limitations History of Present Illness Maximum Pain Intensity: 4 This patient is an 89-year-old white female who comes in after suffering mechanical fall she was walking today and she tripped and fell injuring her right hip. There is no syncope prior to falling she did not hit her head. She is on Coumadin. She denies any other injuries. No recent illness. There are no precipitating factors that made her fall. Her pain is worse with movement. She has had no chest pain or shortness of breath or fever or chills. No lower extremity pain or swelling besides the right hip. No blood or melena in her stool. No known exposure to COVID or fever or flulike symptoms present. Home Medications Home Medications Medication Instructions Recorded Confirmed Type aspirin 81 mg PO DAILY 04/10/19 11/16/19 History atorvastatin [Lipitor] 80 mg PO HS 04/10/19 11/16/19 History lisinopril 2.5 mg PO HS 04/10/19 11/16/19 History multivitamin 1 tab PO QAM 04/10/19 11/16/19 History metoprolol succinate [Toprol XL] 25 mg PO QAM 30 Days #0 tab 04/19/19 11/16/19 Rx fluticasone furoate-vilanterol 1 inh INHALATION DAILY PRN 11/16/19 11/16/19 History [Breo Ellipta] levothyroxine 112 mcg PO DAILY 11/16/19 11/16/19 History torsemide 10 mg PO DAILY 11/16/19 11/16/19 History warfarin 4 mg PO MOWEFR 11/16/19 11/16/19 History warfarin 6 mg PO SUTUTHSA 11/16/19 11/16/19 History Allergies Allergy/AdvReac Type Severity Reaction Status Date / Time No Known Allergies Allergy Unknown Verified 04/10/19 13:50 Past Med/Surg History Medical History (Updated 11/16/19 @ 19:15 by Jillian Vega PA-C) CAD (coronary artery disease) Chronic systolic heart failure CKD (chronic kidney disease), stage III Complete left bundle branch block (LBBB) COPD (chronic obstructive pulmonary disease) Hypertension Hypothyroidism long-term (current) use of anticoagulants Paroxysmal atrial fibrillation Severe mitral regurgitation Surgical History (Updated 11/16/19 @ 19:08 by Jillian Vega PA-C) H/O angioplasty stent to LAD 2003 History of appendectomy History of cardiac cath patent vessels 06/2018 History of tubal ligation Family History Mother Brain tumor Father Myocardial infarction Stroke Social History (Updated 11/16/19 @ 19:09 by Jillian Vega PA-C) Smoking Status: Current every day smoker Tobacco Type: Cigarettes Years Smoked: 62; Cigarettes Per Day: 6; Second Hand Exposure: Yes; Hx Alcohol Use: No Hx Substance Use: No Preferred Language: Gabonese Communication Ability: Effective Travel Coordinator Required: No Beliefs That Will Affect Care: None Current Living Situation: Family Current Living Situation Comment: daughter Feels Safe at Home: Yes Review of Systems A total of 10 systems reviewed and were otherwise negative Physical Exam Vital Signs Vital Signs - 24 hr 11/16/19 17:14 Temperature 36.5 C Temperature Source Oral Pulse Rate 67 Respiratory Rate 20 Blood Pressure 116/52 L Blood Pressure Mean 73 Pulse Oximetry 94 Oxygen Delivery Method Room Air Sepsis Recent Fever Within 48 Hours No Sepsis New/Unexplained Change in Mental Status No Sepsis Action Taken by Nursing No Action Required General: Well developed well nourished well appearing older female who in no acute distress, breathing comfortably on room air. Normal speech she appears in no pain however when I touch or move her right hip she has significant pain HEENT: Normal cephalic atraumatic. Pupils are equal round and reactive to light. Extraocular movements are intact. Oropharynx is pink with moist mucous membranes. No swelling of the mouth lips or tongue. Neck: Supple with a midline trachea. No meningeal signs or stiffness, no JVD or bruits. No Stridor. Chest: Clear to auscultation bilaterally. No wheezes or rhonchi. No increased work of breathing. Heart: Regular rate and rhythm without murmurs or gallops. Abdomen: Soft nontender, nondistended without rebound guarding or rigidity. Extremities: No cyanosis clubbing or edema. No calf tenderness or assymetry. The right leg is mildly shortened and externally rotated compared to the left. She is tender to palpation the right lateral hip. Spine/Back. Non tender to palpation. No CVA tenderness Skin: Good turgor without rashes. Neurologic exam: Cranial nerves two through 12 are intact. Motor and sensation are intact and symmetrical throughout with limitations in the right lower extremity secondary to injury Course Administered Medications Sodium Chloride (Nss 1000ml) 1,000 mls @ 150 mls/hr IV .[id number] IAN Stop: 11/16/19 23:54 Last Admin: 11/16/19 18:16 Dose: 150 mls/hr Documented by: [id number] Discontinued Medications Morphine Sulfate (Morphine Sulfate 2 Mg/Ml Carp) 2 mg IV NOW STA Stop: 11/16/19 17:12 Last Admin: 11/16/19 18:15 Dose: 2 mg Documented by: [id number] Ondansetron HCl (Ondansetron Inj 2 Mg/Ml 2 Ml Vial) 4 mg IV NOW STA Stop: 11/16/19 17:12 Last Admin: 11/16/19 18:15 Dose: 4 mg Documented by: [id number] Medical Decision Making Differential Diagnosis Fracture, hip dislocation, pelvic fracture, anemia, infection, electrolyte or m etabolic abnormality, COVID Medical Records Attestation: I reviewed the patient's medical records. Home Medications Current Medication List: was personally reviewed by me Laboratory Data Attestation: I reviewed the patient's lab results. Result diagrams: 11/16/19 17:55 11/16/19 17:55 Lab Results 11/16/19 11/16/19 11/16/19 Range/Units 17:55 17:55 17:55 WBC 10.11 (4.8-10.8) K/uL RBC 5.31 (4.2-5.4) M/uL Hgb 13.9 (12.0-16.0) g/dL Hct 43.6 (37-47) % MCV 82.1 (80-100) fL MCH 26.2 (25-34) pg MCHC 31.9 L (32-36) g/dL RDW Std Deviation 56.0 H (36.4-46.3) fL RDW Coeff of Gibran 18.5 H (11.5-14.5) % Plt Count 245 (130-400) K/uL MPV 10.3 (7.4-10.4) fL Immature Gran % (Auto) 0.3 % Neut % (Auto) 86.5 % Lymph % (Auto) 8.6 % Milam % (Auto) 4.5 % Eos % (Auto) 0.0 % Baso % (Auto) 0.1 % Neut # (Auto) 8.74 H (1.4-6.5) K/uL Lymph # (Auto) 0.87 L (1.2-3.4) K/uL [place] # (Auto) 0.46 (0.11-0.59) K/uL Eos # (Auto) 0.00 (0-0.5) K/uL Baso # (Auto) 0.01 (0-0.2) K/uL Immature Gran # (Auto) 0.03 H (0.00-0.02) K/uL PT 58.5 H (9.0-12.0) Seconds INR 6.1 H* (0.9-1.1) APTT 55.1 H* (21.0-31.0) Seconds PTT Ratio 2.0 Sodium (136-145) mmol/L Potassium (3.5-5.1) mmol/L Chloride (98-107) mmol/L Carbon Dioxide (21-32) mmol/L Anion Gap (3-11) BUN (7-18) mg/dl Creatinine (0.6-1.2) mg/dl Est Cr Clr Drug Dosing ml/min Est GFR ( Amer) Est GFR (Non-Af Amer) BUN/Creatinine Ratio (10-20) Glucose (70-99) mg/dl Calcium (8.5-10.1) mg/dl Blood Type B Positive Antibody Screen NEGATIVE 11/16/19 Range/Units 17:55 WBC (4.8-10.8) K/uL RBC (4.2-5.4) M/uL Hgb (12.0-16.0) g/dL Hct (37-47) % MCV (80-100) fL MCH (25-34) pg MCHC (32-36) g/dL RDW Std Deviation (36.4-46.3) fL RDW Coeff of Gibran (11.5-14.5) % Plt Count (130-400) K/uL MPV (7.4-10.4) fL Immature Gran % (Auto) % Neut % (Auto) % Lymph % (Auto) % [place] % (Auto) % Eos % (Auto) % Baso % (Auto) % Neut # (Auto) (1.4-6.5) K/uL Lymph # (Auto) (1.2-3.4) K/uL [place] # (Auto) (0.11-0.59) K/uL Eos # (Auto) (0-0.5) K/uL Baso # (Auto) (0-0.2) K/uL Immature Gran # (Auto) (0.00-0.02) K/uL PT (9.0-12.0) Seconds INR (0.9-1.1) APTT (21.0-31.0) Seconds PTT Ratio Sodium 137 (136-145) mmol/L Potassium 4.7 (3.5-5.1) mmol/L Chloride 102 (98-107) mmol/L Carbon Dioxide 27 (21-32) mmol/L Anion Gap 8.0 (3-11) BUN 45 H (7-18) mg/dl Creatinine 1.22 H (0.6-1.2) mg/dl Est Cr Clr Drug Dosing 24.9 ml/min Est GFR ( Amer) 45.8 Est GFR (Non-Af Amer) 39.5 BUN/Creatinine Ratio 36.8 H (10-20) Glucose 196 H (70-99) mg/dl Calcium 9.4 (8.5-10.1) mg/dl Blood Type Antibody Screen Imaging Data Attestation: I personally reviewed and interpreted this imaging study as follows: My Impression: Hip x-ray: There is an intertrochanteric hip fracture on the right. I did look at it at the bedside on the x-ray machine. Radiologist's Impression: XR hip RT min 2V CLINICAL HISTORY: fall COMPARISON: None FINDINGS: Note is made of an acute comminuted mildly displaced inter trochanteric fracture of the right femur. Extensive vascular calcification. No acute fracture is identified within visualized portions of the right hemipelvis. IMPRESSION: Acute comminuted mildly displaced intertrochanteric fracture of the right femur. XR chest 1V portable CLINICAL HISTORY: fall COMPARISON STUDY: Chest radiograph April 14, 2019 FINDINGS: Lung volumes are normal. Lungs are clear. There is no pneumothorax or pleural effusion. Moderate cardiomegaly is unchanged. Mediastinal contours are normal. There is no evidence for pulmonary edema. Incidental note is made of postoperative findings within the right shoulder and severe osteoarthritis of the left glenohumeral joint. Lesion is rotated. There is a possible hiatal hernia. IMPRESSION: 1. Moderate cardiomegaly. No acute cardiopulmonary findings. 2. Possible hiatal hernia. ECG Data Attestation: I personally reviewed and interpreted this ECG as follows: Indication: + other Rate (beats per minute): 65 Rhythm: + normal sinus ECG Intervals/blocks: + Left bundle branch block ECG [place]: + Normal ECG ST segments: + Nonspecific ST abnormalities ECG Findings: no PACs and no PVCs Comparison ECG Date: from (04/14/19) Change: no significant change Blood Pressure Blood Pressure Findings: Normal blood pressure Blood Pressure Disposition: did not require urgent referral MDM Narrative This patient comes in after suffering a mechanical fall she has right hip pain I am suspicious for hip fracture based on her injury and the way she is holding her leg. This is a [place] hip. She is neurologically neurovascular intact with some limitation secondary to pain. There are no other injuries she is on anticoagulation but did not hit her head and said no chest pain or shortness of breath or syncope. IV asked established EKG multiple blood testing was obtained I did a hip x-ray. She was reassessed frequently. She is asymptomatic besides the hip and says it was mechanical fall. She does have a intertrochanteric hip fracture on the right. She was given 2 mg of IV morphine and Zofran 4 mg IV. He is more comfortable with this. Her EKG has baseline left bundle branch block without any definite ischemic changes. She has no fever or white count to suggest infection. No insufficiency. Her INR is elevated at 6 but she has no evidence suggest bleeding anywhere. She will need to be admitted for hip fracture have consulted the [facility] hospitalist group to see her in the ER for these measure. Continuous cardiac monitoring: Due to her fall as well as the need for IV narcotics, an order was placed in EMR for cardiac monitoring, she was noted to be in normal sinus rhythm with a rate of 67 Impression & Plan Hip fracture, Acute hip pain, long-term (current) use of anticoagulants, Complete left bundle branch block (LBBB) Discharge Plan Visit Data Chief Complaint: Hip Pain Stated Complaint: fall ED Provider: Thony Holder Discharge Problem: Hip fracture, Acute hip pain, long-term (current) use of anticoagulants, Complete left bundle branch block (LBBB) Forms Stand Alone Forms: My [facility] Prescriptions Prescriptions: No Action multivitamin Tablet 1 tab PO QAM RF: 0 atorvastatin [Lipitor] 80 mg Tablet 80 mg PO HS RF: 0 lisinopril 2.5 mg Tablet 2.5 mg PO HS RF: 0 aspirin 81 mg Tablet,Delayed Release (Dr/Ec) 81 mg PO DAILY RF: 0 metoprolol succinate [Toprol XL] 25 mg Tablet Extended Release 24 Hr 25 mg PO QAM 30 Days Qty: 0 RF: 0 torsemide 10 mg Tablet 10 mg PO DAILY RF: 0 warfarin 2 mg Tablet 6 mg PO SUTUTHSA RF: 0 levothyroxine 112 mcg tablet 112 mcg PO DAILY RF: 0 warfarin 2 mg tablet 4 mg PO MOWEFR RF: 0 Breo Ellipta 100-25 mcg/dose blister with device 1 inh INHALATION DAILY PRN (Reason: SOB) RF: 0 Discharge Problem: Hip fracture Qualifiers: Encounter type: initial encounter Fracture type: closed Laterality: right Qualified Code(s): S72.001A - Fracture of unspecified part of neck of right femur, initial encounter for closed fracture Acute hip pain Qualifiers: Laterality: right Qualified Code(s): M25.551 - Pain in right hip
--- NOTE | 2019-11-16 18:00 | XRay Report ---
XR chest 1V portable CLINICAL HISTORY: fall COMPARISON STUDY: Chest radiograph April 14, 2019 FINDINGS: Lung volumes are normal. Lungs are clear. There is no pneumothorax or pleural effusion. Mod erate cardiomegaly is unchanged. Mediastinal contours are normal. There is no evidence for pulmonary edema. Incidental note is made of postoperative findings within the right shoulder and severe osteoar thritis of the left glenohumeral joint. Lesion is rotated. There is a possible hiatal hernia. IMPRESSION: 1. Moderate cardiomegaly. No acute cardiopulmonary findings. 2. Possible hiatal hernia. ACT 112: Negative or not required by law. Electronically signed by: Hernan Starr M.D. 11/16/2019 5:58 PM
--- NOTE | 2019-11-16 18:00 | XRay Report ---
XR hip RT min 2V CLINICAL HISTORY: fall COMPARISON: None FINDINGS: Note is made of an acute comminuted mildly displaced intertrochanteric fracture of the rig ht femur. Extensive vascular calcification. No acute fracture is identified within visualized portion s of the right hemipelvis. IMPRESSION: Acute comminuted mildly displaced intertrochanteric fracture of the right femur. ACT 112: Negative or not required by law. Electronically signed by: Hernan Starr M.D. 11/16/2019 5:59 PM
[2019-11-16 18:07] LABS: Basophils # (auto) 0.01 K/uL (0-0.2); Basophils % (auto) 0.1 %; Hematocrit (blood only) 43.6 % (37-47); Hemoglobin 13.9 g/dL (12.0-16.0); Immature Granulocytes # (auto) 0.03 K/uL (0.00-0.02); Immature Granulocytes % (auto) 0.3 %; Lymphocytes # (auto) 0.87 K/uL (1.2-3.4); Lymphocytes % (auto) 8.6 %; Mean Corpuscular Hemoglobin 26.2 pg (25-34); Mean Corpuscular Hgb Conc 31.9 g/dL (32-36); Mean Corpuscular Volume 82.1 fL (80-100); Mean Platelet Volume 10.3 fL (7.4-10.4); Monocytes # (auto) 0.46 K/uL (0.11-0.59); Monocytes % (auto) 4.5 %; Neutrophils # (auto) 8.74 K/uL (1.4-6.5); Neutrophils % (auto) 86.5 %; Platelet Count 245 K/uL (130-400); RDW Coefficient of Variation 18.5 % (11.5-14.5); Red Blood Count 5.31 M/uL (4.2-5.4); White Blood Count 10.11 K/uL (4.8-10.8)
[2019-11-16 18:20] LABS: BUN Creatinine Ratio 36.8 (10-20); Calcium 9.4 mg/dl (8.5-10.1); Creatinine Clr Calc Pharmacy 24.9 ml/min; Est GFR (African American) 45.8; Est GFR (Non-African American) 39.5; Potassium 4.7 mmol/L (3.5-5.1)
[2019-11-16 18:25] LABS: Prothrombin Time 58.5 Seconds (9.0-12.0)
[2019-11-16 18:27] LABS: INR 6.1 (0.9-1.1); Partial Thromboplastin Time 55.1 Seconds (21.0-31.0)
[2019-11-16] MEDS ORDERED: PHYTONADIONE 10 MG in SODIUM CHLORIDE 0.9% 50 ML IV ONE (18:39)
--- NOTE | 2019-11-16 18:59 | History & Physical Report ---
Date of Service November 16, 2019 Assessment & Plan (1) Fall: (2) Closed intertrochanteric fracture of right femur: This is an 89-year-old female who has significant past medical history of chronic systolic CHF with EF 25 to 30%, ischemic cardiomyopathy, CAD, PAF anticoagulated on warfarin, COPD, HLD, hypothyroidism, severe mitral regurg, chronic LBBB CKD stage III, osteoporosis, tobacco abuse who presents to ED after sustaining a mechanical fall at home. [facility] -Dr. Gaona made aware Consult anesthesiology Reverse INR, 10 mg IV vitamin K ordered, repeat INR midnight Hold warfarin Bedrest, n.p.o. after midnight LR at 60 cc/h Oxycodone for moderate pain, morphine for severe pain Bowel regimen Olivera ordered Pt with 10.1% overall risk per revised cardiac risk and overall high risk from cardiac standpoint given multiple comorbidities with ischemic cardiomyopathy, CAD, chronic systolic CHF Patient is independent at baseline and wishes to remain so. She currently does not have any chest pain or shortness of breath and per my evaluation is able to meet at least 4 METS. She did undergo cardiac catheterization 06/2018 which revealed patent vessels. On EKG she does have worsened T wave inversion in lead V6, will repeat echocardiogram in a.m. (3) Supratherapeutic INR: INR 6.1 no s/sx of bleeding Vit K 10mg IV x 1 now repeat INR 11/16 00:00 - give additional vit k if INR > 2.0 INR in am. (4) Chronic systolic heart failure: (5) CAD (coronary artery disease): History of LAD stenting in 2004 Ischemic cardiomyopathy with HFrEF class 3 most recent EF 25 to 29% 06/2018 Underwent cardiac catheterization 06/2018 which revealed patent vessels Follows [facility] cardiology Currently euvolemic On ASA, statin, metoprolol, lisinopril and torsemide as outpatient Hold torsemide/lisinopril in setting of mild renal insufficiency and perioperatively - resume when able given worsen T wave inversion on EKG will obtain ECHO pt able to achieve greater than 4 METS per hx - walked several blocks to grocery store w/o O2 early in day (6) Paroxysmal atrial fibrillation: Rate and rhythm controlled with metoprolol Warfarin in setting of supratherapeutic INR Home regimen is 4 mg Thursday, 6 mg all other days (7) CKD (chronic kidney disease), stage III: Mild acute renal insufficiency, prerenal in setting of mild dehydration and torsemide use BUN/creatinine 45 and 1.22, baseline creatinine 1.1 Gentle IV hydration overnight, repeat BMP in a.m. (8) COPD (chronic obstructive pulmonary disease): No acute exacerbation 2 L of O2 at bedtime (9) Hypothyroidism: continue levothyroxine (10) Hyperglycemia: Patient denies history of T2DM, obtain A1c place on accuchecks with novolog coverage If A1C elevated > 7, or bsg > 180 consistently will add long acting (11) DVT prophylaxis: SCD/TEDS INR supratherapeutic Disposition: Admit to med telemetry, case management consulted Follow up: PCP Dr. Juarez upon discharge Pt was seen and examined in collaboration with Dr. Castillo, please see addendum History of Present Illness Chief Complaint: Mechanical fall prior to arrival. Primary Care Provider: Elsy Juarez MD This is an 89-year-old female who has significant past medical history of chronic systolic CHF with EF 25 to 30%, ischemic cardiomyopathy, CAD, PAF anticoagulated on warfarin, COPD, HLD, hypothyroidism, severe mitral regurg, chronic LBBB CKD stage III, osteoporosis, tobacco abuse who presents to ED after sustaining a mechanical fall at home. Patient resides in apartment with daughter. She states earlier today she left her apartment for the first time in months and walked several blocks to the [employer] When she returned home she was in her bedroom and was turning around to leave room when she felt her foot, "get caught," and fell. She developed immediate right leg pain with inability to move. EMS was summoned. Patient did not lose consciousness or hit head. She denies any abrasions or bleeding. Besides right leg pain she otherwise denies any current complaint she denies any recent fever, chills, sweats, lightheadedness, dizziness, chest pain, shortness breath, palpitations, nausea, vomiting, abdominal pain. She further denies any hematuria, dysuria, melena, hematochezia, epistaxis. She did take her medications today including her warfarin. She does not have any flight of stairs, but again was able to walk several blocks today without any use of oxygen or complaint of shortness of breath/chest pain. She does a history of ischemic cardiomyopathy and her last echocardiogram was September 2018 which revealed EF 25 to 29%. She does follow [facility] cardiology. He denies any known COVID-19 exposure. In ED patient remained hemodynamically stable. She did receive IV morphine and IVF. Patient did have supratherapeutic INR at 6.1, BUN 45, creatinine 1.2, glucose 196. Hip x-ray confirmed acute comminuted midly displaced right intertrochanteric femur fracture. Allergies Allergy/AdvReac Type Severity Reaction Status Date / Time No Known Allergies Allergy Unknown Verified 04/10/19 13:50 Home Medications Home Medications Medication Instructions Recorded Confirmed Type aspirin 81 mg PO DAILY 04/10/19 11/16/19 History atorvastatin [Lipitor] 80 mg PO HS 04/10/19 11/16/19 History lisinopril 2.5 mg PO HS 04/10/19 11/16/19 History multivitamin 1 tab PO QAM 04/10/19 11/16/19 History metoprolol succinate [Toprol XL] 25 mg PO QAM 30 Days #0 tab 04/19/19 11/16/19 Rx fluticasone furoate-vilanterol 1 inh INHALATION DAILY PRN 11/16/19 11/16/19 History [Breo Ellipta] levothyroxine 112 mcg PO DAILY 11/16/19 11/16/19 History torsemide 10 mg PO DAILY 11/16/19 11/16/19 History warfarin 4 mg PO MOWEFR 11/16/19 11/16/19 History warfarin 6 mg PO SUTUTHSA 11/16/19 11/16/19 History Past Med/Surg History Medical History (Updated 11/16/19 @ 19:32 by Jillian Vega PA-C) CAD (coronary artery disease) Chronic systolic heart failure CKD (chronic kidney disease), stage III Complete left bundle branch block (LBBB) COPD (chronic obstructive pulmonary disease) Hypertension Hypothyroidism group home (current) use of anticoagulants Paroxysmal atrial fibrillation Severe mitral regurgitation Surgical History (Updated 11/16/19 @ 19:08 by Jillian Vega PA-C) H/O angioplasty stent to LAD 2003 History of appendectomy History of cardiac cath patent vessels 06/2018 History of tubal ligation Family History Mother Brain tumor Father Myocardial infarction Stroke Social History (Updated 11/16/19 @ 19:09 by Jillian Vega PA-C) Smoking Status: Current every day smoker Tobacco Type: Cigarettes Years Smoked: 62; Cigarettes Per Day: 6; Second Hand Exposure: Yes; Hx Alcohol Use: No Hx Substance Use: No Preferred Language: Kittitian Communication Ability: Effective Fertilizer Loader Required: No Beliefs That Will Affect Care: None Current Living Situation: Family Current Living Situation Comment: daughter Feels Safe at Home: Yes Review of Systems Review of Systems: All systems reviewed & are unremarkable except as noted in HPI & below Physical Exam Physical Exam: Constitutional: Petite, elderly, female, vitals as above, NAD, sitting up in bed, pleasant, conversing easily Head: Normocephalic, Atraumatic Eyes: PERRL, conjunctivae normal, anicteric sclerae ENMT: external ear and nose normal, oropharynx normal Neck: trachea midline, no thyromegaly normal visual inspection Respiratory: normal respiratory effort, lungs clear to auscultation, no wheeze, rales, rhonchi. Normal insp/exp effort, no accessory muscle use Cardiovascular: RRR, harsh midsystolic click best heard at cardiac apex, no edema, bilateral pedal pulses +2 vessels: no JVD or carotid bruit Chest: normal inspection of chest Abdomen: normal bowel sounds, soft, nontender, no hepatosplenomegaly Musculoskeletal: no cyanosis or clubbing, active range of motion to bilateral upper extremities, right lower extremity shortened, inverted, no ecchymosis noted, NVI distally Skin: no rashes, warm and dry normal turgor Neurologic: PERRL, EOMI, accommodation nl, no face palsy, no dysarthria CN's II-XI intact bilaterally and moves all extremities Psychiatric: A+Ox3, euthymic affect Lymphatic: no cervical or axillary lymphadenopathy : deferred Results & Data Results & Data ([facility]) Vital Signs (Past 12 Hours) Vital Signs Temp Pulse Resp BP Pulse Ox 11/16/19 17:14 36.5 C 67 20 116/52 L 94 Laboratory Results Short CBC 11/16/19 Range/Units 17:55 WBC 10.11 (4.8-10.8) K/uL Hgb 13.9 (12.0-16.0) g/dL Hct 43.6 (37-47) % Plt Count 245 (130-400) K/uL [facility] 11/16/19 17:55 Sodium 137 Potassium 4.7 Chloride 102 Carbon Dioxide 27 BUN 45 H Creatinine 1.22 H Glucose 196 H Calcium 9.4 Diagnostic Findings Hip Xray: IMPRESSION: Acute comminuted mildly displaced intertrochanteric fracture of the right femur. CXR: IMPRESSION: 1. Moderate cardiomegaly. No acute cardiopulmonary findings. 2. Possible hiatal hernia. Medications Administered Sodium Chloride (Nss 1000ml) 1,000 mls @ 150 mls/hr IV .[id number] IAN Stop: 11/16/19 23:54 Last Admin: 11/16/19 18:16 Dose: 150 mls/hr Documented by: [id number] Discontinued Medications Morphine Sulfate (Morphine Sulfate 2 Mg/Ml Carp) 2 mg IV NOW STA Stop: 11/16/19 17:12 Last Admin: 11/16/19 18:15 Dose: 2 mg Documented by: [id number] Ondansetron HCl (Ondansetron Inj 2 Mg/Ml 2 Ml Vial) 4 mg IV NOW STA Stop: 11/16/19 17:12 Last Admin: 11/16/19 18:15 Dose: 4 mg Documented by: [id number] ECG Rate (beats per minute): 62 Rhythm: normal sinus Findings: + LBBB and + T-wave inversion (V6) Comparison ECG Date: from (04/14/19) Change: the following changes noted Additional Comments: more pronounced t wave inversion V6 Code Status & VTE Plan Code Status Full Code Supervising Physician Co-Signing Physician Notes I, Dr. Damián Castillo, have seen and examined the patient Estee Saul with physician acute care nursing assistant and would like to comment that On Physical Exam: General: no acute distress, breathing on room air HEENT: extraoccular movements intact Heart: regular heart rate Abdomen: soft, nontender, positive bowel sounds Extremities: despite the right hip fracture, patient can wiggle the toes Assessment and Plan -that this is 89 year old female patient with Acute comminuted mildly displaced intertrochanteric fracture of the right femur after falling down at home. Patient also found to have supratherapeutic INR 6.1. IV vitamin K is ordered. Patient able to sign consent form in case blood transfusion is needed. patient will have INR levels repeated. request that orthopedic consult to see the patient for consideration of right femur repair. -agree with other assessment and plans as per physician acute care nursing assistant in regards to patient's other medical conditions -My colleague hospitalist Dr. Faulkner will be following the patient starting on 11/17/2019
[2019-11-16 19:49] LABS: Appearance Urine Clear (Clear); Bacteria Urine Automated Negative (Negative); Bilirubin Urine Negative (Negative); Blood Urine Negative (Negative); Color Urine Yellow; Epithelial Cell Urine Auto >30 /lpf (0-5); Glucose Urine UA Negative (Negative); Ketones Urine Negative (Negative); Leukocyte Esterase Urine 1+ (Negative); Nitrite Urine Negative (Negative); Protein Urine Negative (Negative); RBC Urine Automated 0-4 /hpf (0-4); Specific Gravity Urine 1.012 (1.000-1.030); Urobilinogen Urine Negative (Negative); pH Urine 6.5 (4.5-7.5)
[2019-11-16] MEDS ORDERED: DEXTROSE 50% 50 ML SYRINGE IV PRN (20:52)
[2019-11-16] MEDS ORDERED: NALOXONE HCL 0.4 MG/1 ML VIAL/CARP IV PRN (20:52)
[2019-11-16] MEDS ORDERED: bisacodyL 10 MG SUPP PR PRN (20:52)
[2019-11-16] MEDS ORDERED: GLUCOSE 10 TABS/TUBE PO PRN (20:52)
[2019-11-16] MEDS ORDERED: CARBOHYDRATES FOR HYPOGLYCEMIA PO PRN (20:52)
[2019-11-16] MEDS ORDERED: MoRPHine SULFATE 2 MG/ML CARP IV PRN (20:52)
[2019-11-16] MEDS ORDERED: GLUCAGON FOR INJ 1 MG VIAL SQ PRN (20:52)
[2019-11-16] MEDS ORDERED: GLUCOSE 40% GEL 15 GM TUBE PO PRN (20:52)
[2019-11-16] MEDS ORDERED: ALUMINUM/MAGNESIUM SUSP 30 ML UDC PO PRN (20:52)
[2019-11-16] MEDS ORDERED: POLYETHYLENE (MIRALAX) 17 GM PACK PO PRN (20:52)
[2019-11-16] MEDS ORDERED: MAGNESIUM HYDROXIDE SUSP 30 ML UDC PO PRN ×2 (20:52)
[2019-11-16] MEDS ORDERED: OXYCODONE HCL IR 5 MG TAB (IMMEDIATE RELEASE) PO PRN (20:52)
[2019-11-16] MEDS ORDERED: LACTATED RINGER'S 1,000 ML IV SCH (20:52)
[2019-11-16] MEDS: D5W AND 1/2NSS 1,000 ML IV SCH (22:18)
[2019-11-16] MEDS: ATORVASTATIN 40 MG TAB PO SCH (22:18)
[2019-11-16] MEDS: INSULIN ASPART 100 UNITS/ML 3 ML PEN SC SCH (22:19)
[2019-11-16] MEDS: DOCUSATE SODIUM/SENNA 50/8.6MG TAB PO SCH (22:19)
[2019-11-17] MEDS: ONDANSETRON INJ 2 MG/ML 2 ML VIAL IV PRN ×2 (00:02→15:35)
[2019-11-17 00:42] LABS: INR 1.9 (0.9-1.1)
[2019-11-17] MEDS: LEVOTHYROXINE SODIUM 112 MCG TABLET PO SCH (05:31)
[2019-11-17 05:59] LABS: Estimated Average Glucose 140 mg/dl; Hemoglobin A1C 6.5 % (4.5-5.6)
[2019-11-17] MEDS ORDERED: CEFAZOLIN 2000MG 2,000 MG/15 ML SYR IV SCH (06:00)
[2019-11-17 06:21] LABS: Hematocrit (blood only) 39.1 % (37-47); Hemoglobin 12.9 g/dL (12.0-16.0); Mean Corpuscular Hemoglobin 26.7 pg (25-34); Mean Platelet Volume 10.6 fL (7.4-10.4); Platelet Count 204 K/uL (130-400); RDW Coefficient of Variation 18.5 % (11.5-14.5); RDW Standard Deviation 54.7 fL (36.4-46.3); Red Blood Count 4.83 M/uL (4.2-5.4); White Blood Count 10.86 K/uL (4.8-10.8)
[2019-11-17 06:43] LABS: INR 1.3 (0.9-1.1); Prothrombin Time 13.8 Seconds (9.0-12.0)
[2019-11-17 07:05] LABS: Albumin Level 2.8 gm/dl (3.4-5.0); BUN Creatinine Ratio 38.3 (10-20); Calcium 9.1 mg/dl (8.5-10.1); Est GFR (African American) 62.8; Est GFR (Non-African American) 54.2
[2019-11-17 07:07] LABS: Albumin Globulin Ratio 0.7 (0.9-2); Bilirubin,Total 2.3 mg/dl (0.2-1); Globulin 3.9 gm/dl (2.5-4.0); Total Protein 6.7 gm/dl (6.4-8.2)
[2019-11-17] MEDS: ASPIRIN 81 MG ECTAB PO SCH (08:19)
[2019-11-17] MEDS: MULTIVITAMIN TAB PO SCH (08:19)
[2019-11-17] MEDS: INSULIN ASPART 100 UNITS/ML 3 ML PEN SC SCH ×4 (08:19→21:18)
[2019-11-17] MEDS: METOPROLOL SUCC 25MG EXT REL TAB PO SCH (08:19)
[2019-11-17] MEDS ORDERED: Nursing to Pharmacy Communication SCH (09:15)
--- NOTE | 2019-11-17 09:36 | Hospitalist Progress Note ---
Date of Service November 17, 2019 Assessment & Plan (1) Fall: (2) Closed intertrochanteric fracture of right femur: 89-year-old female who has significant past medical history of chronic systolic CHF with EF 25 to 30%, ischemic cardiomyopathy, CAD, PAF anticoagulated on warfarin, COPD, HLD, hypothyroidism, severe mitral regurg, chronic LBBB CKD stage III, osteoporosis, tobacco abuse who presents to ED after sustaining a mechanical fall at home. Had supratherapeutic INR of 6.1 which was reversed with vit k Patient does have cardiac history but appears to be clinically stable EKG does show inferior TWI (old but more pronounced). Patient has no complaints, no chest pain Considering her cardiac history, I do not think she needs further cardiac work up or optimization. She does have risks for surgery but appears acceptable considering patient really wants to address her fracture. Will follow up cardiology consult/Echo already ordered on admission Pain control Ortho on board and planning possible surgery Will need PT/OT post op and resumption of her warfarin (3) Supratherapeutic INR: INR 6.1 Without bleeding Got Vit K 10mg INR this morning is 1.3 Hold warfarin and resume post op (4) Chronic systolic heart failure: (5) CAD (coronary artery disease): History of LAD stenting in 2003 Ischemic cardiomyopathy with HFrEF class 3 Most recent EF 25 to 29% 06/2018 Underwent cardiac catheterization 06/2018 which revealed patent vessels Follows [facility] cardiology Currently euvolemic On ASA, statin, metoprolol, lisinopril and torsemide as outpatient Continue to hold torsemide/lisinopril perioperatively May resume lisinopril if BP goes up (6) Paroxysmal atrial fibrillation: Rate and rhythm controlled with metoprolol Warfarin in setting of supratherapeutic INR Home regimen is 4 mg Thursday, 6 mg all other days (7) CKD (chronic kidney disease), stage III: BUN/creatinine 45 and 1.22, baseline creatinine 1.1 Currently on IVF at 60cc/h while NPO Torsemide on hold Monitor to avoid volume overload Avoid nephrotoxins (8) COPD (chronic obstructive pulmonary disease): No acute exacerbation 2 L of O2 at bedtime (9) Hypothyroidism: Continue levothyroxine (10) Hyperglycemia: Patient denies history of T2DM A1c is 6.5 Continue accuchecks with novolog coverage (11) Severe malnutrition: Patient appears to be severely malnourished on exam Get Nutrition eval and recommendations (12) DVT prophylaxis: SCD/TEDS Will resume warfarin post op Follow up: PCP Dr. Juarez upon discharge Admission and Anticipated Discharge Date Admission Date: November 16, 2019 Subjective Patient seen and examined Reports right hip pain only with movement Denied any pain at rest Denied chest pain, cough, orthopnea, PND, leg swelling She does report chronic dyspnea on exertion Denied any dizziness Denied any abd pain, nausea, vomiting, diarrhea Denied any dysuria, freq, urgency, hematuria Physical Exam Constitutional: + thin Elderly woman, with muscle wasting and bony prominences Eyes: PERRL, conjunctivae normal, anicteric sclerae ENMT: external ear and nose normal, oropharynx normal Respiratory: normal respiratory effort, lungs clear to auscultation Cardiovascular: Rate/Rhythm: regular rate and regular rhythm S1 S2 no pedal edema Gastrointestinal (Abdomen): normal bowel sounds, soft, nontender, no hepatosplenomegaly Musculoskeletal: Right LE mildly shortened and externally rotated Neurologic: Alert and oriented to person, place, day and month. Sensation intact. Limited movement of Right LE due to pain Psychiatric: Orientation: alert Affect: euthymic affect Results & Data Results & Data ([facility]) Vital Signs (Past 12 Hours) Vital Signs Temp Pulse Pulse Resp BP Pulse Ox Pulse Ox 11/17/19 07:53 36.3 C L 81 18 137/85 90 11/17/19 04:00 95 11/17/19 03:09 36.9 C 79 17 129/73 95 11/17/19 00:00 94 11/16/19 23:25 36.5 C 64 20 147/77 H 94 11/16/19 23:20 64 11/16/19 22:28 60 Laboratory Results Laboratory Results - last 24 hr 11/16/19 11/16/19 11/16/19 17:55 17:55 17:55 WBC 10.11 RBC 5.31 Hgb 13.9 Hct 43.6 MCV 82.1 MCH 26.2 MCHC 31.9 L RDW Std Deviation 56.0 H RDW Coeff of Gibran 18.5 H Plt Count 245 MPV 10.3 Immature Gran % (Auto) 0.3 Neut % (Auto) 86.5 Lymph % (Auto) 8.6 Warren % (Auto) 4.5 Eos % (Auto) 0.0 Baso % (Auto) 0.1 Neut # (Auto) 8.74 H Lymph # (Auto) 0.87 L Warren # (Auto) 0.46 Eos # (Auto) 0.00 Baso # (Auto) 0.01 Immature Gran # (Auto) 0.03 H PT 58.5 H INR 6.1 H* APTT 55.1 H* PTT Ratio 2.0 Sodium Potassium Chloride Carbon Dioxide Anion Gap BUN Creatinine Est Cr Clr Drug Dosing Est GFR ( Amer) Est GFR (Non-Af Amer) BUN/Creatinine Ratio Glucose POC Glucose Estimat Average Glucose Hemoglobin A1c Calcium Magnesium Total Bilirubin AST ALT Alkaline Phosphatase Total Protein Albumin Globulin Albumin/Globulin Ratio 25-OH Vitamin D Total Urine Color Urine Appearance Urine pH Ur Specific [place] Urine Protein Urine Glucose (UA) Urine Ketones Urine Blood Urine Nitrite Urine Bilirubin Urine Urobilinogen Ur Leukocyte Esterase Urine WBC (Auto) Urine RBC (Auto) U Hyaline Cast (Auto) U Epithel Cells (Auto) Urine Bacteria (Auto) Urine Yeast Nasal Screen MRSA (PCR) COVID-19 Eval Order SARS-CoV-2, RNA, NAAT Blood Type B Positive Antibody Screen NEGATIVE 11/16/19 11/16/19 11/16/19 17:55 17:55 17:55 WBC RBC Hgb Hct MCV MCH MCHC RDW Std Deviation RDW Coeff of Gibran Plt Count MPV Immature Gran % (Auto) Neut % (Auto) Lymph % (Auto) Warren % (Auto) Eos % (Auto) Baso % (Auto) Neut # (Auto) Lymph # (Auto) Warren # (Auto) Eos # (Auto) Baso # (Auto) Immature Gran # (Auto) PT INR APTT PTT Ratio Sodium 137 Potassium 4.7 Chloride 102 Carbon Dioxide 27 Anion Gap 8.0 BUN 45 H Creatinine 1.22 H Est Cr Clr Drug Dosing 24.9 Est GFR ( Amer) 45.8 Est GFR (Non-Af Amer) 39.5 BUN/Creatinine Ratio 36.8 H Glucose 196 H POC Glucose Estimat Average Glucose 140 Hemoglobin A1c 6.5 H Calcium 9.4 Magnesium 2.2 Total Bilirubin AST ALT Alkaline Phosphatase Total Protein Albumin Globulin Albumin/Globulin Ratio 25-OH Vitamin D Total Urine Color Urine Appearance Urine pH Ur Specific [place] Urine Protein Urine Glucose (UA) Urine Ketones Urine Blood Urine Nitrite Urine Bilirubin Urine Urobilinogen Ur Leukocyte Esterase Urine WBC (Auto) Urine RBC (Auto) U Hyaline Cast (Auto) U Epithel Cells (Auto) Urine Bacteria (Auto) Urine Yeast Nasal Screen MRSA (PCR) COVID-19 Eval Order SARS-CoV-2, RNA, NAAT Blood Type Antibody Screen 11/16/19 11/16/19 11/16/19 19:20 21:40 23:00 WBC RBC Hgb Hct MCV MCH MCHC RDW Std Deviation RDW Coeff of Gibran Plt Count MPV Immature Gran % (Auto) Neut % (Auto) Lymph % (Auto) Warren % (Auto) Eos % (Auto) Baso % (Auto) Neut # (Auto) Lymph # (Auto) Warren # (Auto) Eos # (Auto) Baso # (Auto) Immature Gran # (Auto) PT INR APTT PTT Ratio Sodium Potassium Chloride Carbon Dioxide Anion Gap BUN Creatinine Est Cr Clr Drug Dosing Est GFR ( Amer) Est GFR (Non-Af Amer) BUN/Creatinine Ratio Glucose POC Glucose 216 H Estimat Average Glucose Hemoglobin A1c Calcium Magnesium Total Bilirubin AST ALT Alkaline Phosphatase Total Protein Albumin Globulin Albumin/Globulin Ratio 25-OH Vitamin D Total Urine Color Yellow Urine Appearance Clear Urine pH 6.5 Ur Specific [place] 1.012 Urine Protein Negative Urine Glucose (UA) Negative Urine Ketones Negative Urine Blood Negative Urine Nitrite Negative Urine Bilirubin Negative Urine Urobilinogen Negative Ur Leukocyte Esterase 1+ H Urine WBC (Auto) 5-10 H Urine RBC (Auto) 0-4 U Hyaline Cast (Auto) 1-5 U Epithel Cells (Auto) >30 H Urine Bacteria (Auto) Negative Urine Yeast Present A Nasal Screen MRSA (PCR) Negative COVID-19 Eval Order SARS-CoV-2, RNA, NAAT Blood Type Antibody Screen 11/16/19 11/16/19 11/17/19 23:00 23:00 00:12 WBC RBC Hgb Hct MCV MCH MCHC RDW Std Deviation RDW Coeff of Gibran Plt Count MPV Immature Gran % (Auto) Neut % (Auto) Lymph % (Auto) Warren % (Auto) Eos % (Auto) Baso % (Auto) Neut # (Auto) Lymph # (Auto) Warren # (Auto) Eos # (Auto) Baso # (Auto) Immature Gran # (Auto) PT 19.0 H INR 1.9 H APTT PTT Ratio Sodium Potassium Chloride Carbon Dioxide Anion Gap BUN Creatinine Est Cr Clr Drug Dosing Est GFR ( Amer) Est GFR (Non-Af Amer) BUN/Creatinine Ratio Glucose POC Glucose Estimat Average Glucose Hemoglobin A1c Calcium Magnesium Total Bilirubin AST ALT Alkaline Phosphatase Total Protein Albumin Globulin Albumin/Globulin Ratio 25-OH Vitamin D Total Urine Color Urine Appearance Urine pH Ur Specific [place] Urine Protein Urine Glucose (UA) Urine Ketones Urine Blood Urine Nitrite Urine Bilirubin Urine Urobilinogen Ur Leukocyte Esterase Urine WBC (Auto) Urine RBC (Auto) U Hyaline Cast (Auto) U Epithel Cells (Auto) Urine Bacteria (Auto) Urine Yeast Nasal Screen MRSA (PCR) COVID-19 Eval Order Covid19 [facility] SARS-CoV-2, RNA, NAAT NEGATIVE Blood Type Antibody Screen 11/17/19 11/17/19 11/17/19 05:42 05:42 05:42 WBC 10.86 H RBC 4.83 Hgb 12.9 Hct 39.1 MCV 81.0 MCH 26.7 MCHC 33.0 RDW Std Deviation 54.7 H RDW Coeff of Gibran 18.5 H Plt Count 204 MPV 10.6 H Immature Gran % (Auto) Neut % (Auto) Lymph % (Auto) Warren % (Auto) Eos % (Auto) Baso % (Auto) Neut # (Auto) Lymph # (Auto) Warren # (Auto) Eos # (Auto) Baso # (Auto) Immature Gran # (Auto) PT 13.8 H INR 1.3 H APTT PTT Ratio Sodium 137 Potassium 4.0 Chloride 103 Carbon Dioxide 27 Anion Gap 7.0 BUN 36 H Creatinine 0.94 Est Cr Clr Drug Dosing 27.0 Est GFR ( Amer) 62.8 Est GFR (Non-Af Amer) 54.2 BUN/Creatinine Ratio 38.3 H Glucose 150 H POC Glucose Estimat Average Glucose Hemoglobin A1c Calcium 9.1 Magnesium Total Bilirubin 2.3 H AST 15 ALT 15 Alkaline Phosphatase 79 Total Protein 6.7 Albumin 2.8 L Globulin 3.9 Albumin/Globulin Ratio 0.7 L 25-OH Vitamin D Total Urine Color Urine Appearance Urine pH Ur Specific [place] Urine Protein Urine Glucose (UA) Urine Ketones Urine Blood Urine Nitrite Urine Bilirubin Urine Urobilinogen Ur Leukocyte Esterase Urine WBC (Auto) Urine RBC (Auto) U Hyaline Cast (Auto) U Epithel Cells (Auto) Urine Bacteria (Auto) Urine Yeast Nasal Screen MRSA (PCR) COVID-19 Eval Order SARS-CoV-2, RNA, NAAT Blood Type Antibody Screen 11/17/19 11/17/19 05:42 07:37 WBC RBC Hgb Hct MCV MCH MCHC RDW Std Deviation RDW Coeff of Gibran Plt Count MPV Immature Gran % (Auto) Neut % (Auto) Lymph % (Auto) Warren % (Auto) Eos % (Auto) Baso % (Auto) Neut # (Auto) Lymph # (Auto) Warren # (Auto) Eos # (Auto) Baso # (Auto) Immature Gran # (Auto) PT INR APTT PTT Ratio Sodium Potassium Chloride Carbon Dioxide Anion Gap BUN Creatinine Est Cr Clr Drug Dosing Est GFR ( Amer) Est GFR (Non-Af Amer) BUN/Creatinine Ratio Glucose POC Glucose 161 H Estimat Average Glucose Hemoglobin A1c Calcium Magnesium Total Bilirubin AST ALT Alkaline Phosphatase Total Protein Albumin Globulin Albumin/Globulin Ratio 25-OH Vitamin D Total 34.8 Urine Color Urine Appearance Urine pH Ur Specific [place] Urine Protein Urine Glucose (UA) Urine Ketones Urine Blood Urine Nitrite Urine Bilirubin Urine Urobilinogen Ur Leukocyte Esterase Urine WBC (Auto) Urine RBC (Auto) U Hyaline Cast (Auto) U Epithel Cells (Auto) Urine Bacteria (Auto) Urine Yeast Nasal Screen MRSA (PCR) COVID-19 Eval Order SARS-CoV-2, RNA, NAAT Blood Type Antibody Screen Diagnostic Findings XR hip RT min 2V CLINICAL HISTORY: fall COMPARISON: None FINDINGS: Note is made of an acute comminuted mildly displaced intertrochanteric fracture of the right femur. Extensive vascular calcification. No acute fracture is identified within visualized portions of the right hemipelvis. IMPRESSION: Acute comminuted mildly displaced intertrochanteric fracture of the right femur.
--- NOTE | 2019-11-17 09:51 | Cardiology Consultation ---
Date of Consultation November 17, 2019 Assessment & Plan (1) Fall: (2) Closed intertrochanteric fracture of right femur: (3) CAD (coronary artery disease): (4) Complete left bundle branch block (LBBB): (5) half-way (current) use of anticoagulants: (6) CKD (chronic kidney disease), stage III: (7) Paroxysmal atrial fibrillation: (8) Severe mitral regurgitation: (9) Chronic systolic heart failure: (10) Hyperglycemia: (11) Preop cardiovascular exam: By the geriatric sensitive risk assessment tool the estimated risk of a cardiovascular event with the surgery is 1.7%. Of course, considering the patient's age she may be at a little bit more risk than 1.7% however, she is currently optimally medically managed and should proceed with surgery. No additional cardiac testing will change this risk assessment. We will follow along with you during her hospital stay. History of Present Illness Attending Physician: Zahraa Faulkner MD History of Present Illness This is an elderly 89-year-old female who had a mechanical fall fracturing her right hip. We have been asked to provide cardiac risk assessment for surgery. She has no current cardiac complaints. Past medical history: 1. Longstanding ischemic cardiomyopathy EF 20-25% last interrogation with variable degree of LV function 2. Chronic systolic heart failure class 3 with acute decompensation June 2018 3. Coronary disease status post inferior myocardial infarction with right coronary stenting in 2000, LAD stenting 2003 4. Patent vessels by cardiac catheterization June 2018 report 5. Severe mitral insufficiency last echocardiogram June 2018 6. Chronic renal insufficiency 7. Chronic obstructive lung disease with chronic tobacco use 8. Chronic left bundle branch block 9. Hypertension 10. Paroxysmal atrial fibrillation , remaining in sinus rhythm 11. Hypothyroidism Allergies Allergy/AdvReac Type Severity Reaction Status Date / Time No Known Allergies Allergy Unknown Verified 04/10/19 13:50 Home Medications Home Medications Medication Instructions Recorded Confirmed Type aspirin 81 mg PO DAILY 04/10/19 11/16/19 History atorvastatin [Lipitor] 80 mg PO HS 04/10/19 11/16/19 History lisinopril 2.5 mg PO HS 04/10/19 11/16/19 History multivitamin 1 tab PO QAM 04/10/19 11/16/19 History metoprolol succinate [Toprol XL] 25 mg PO QAM 30 Days #0 tab 04/19/19 11/16/19 Rx fluticasone furoate-vilanterol 1 inh INHALATION DAILY PRN 11/16/19 11/16/19 History [Breo Ellipta] levothyroxine 112 mcg PO DAILY 11/16/19 11/16/19 History torsemide 10 mg PO DAILY 11/16/19 11/16/19 History warfarin 4 mg PO MOWEFR 11/16/19 11/16/19 History warfarin 6 mg PO SUTUTHSA 11/16/19 11/16/19 History Patient History Medical History CAD (coronary artery disease) Chronic systolic heart failure CKD (chronic kidney disease), stage III Complete left bundle branch block (LBBB) COPD (chronic obstructive pulmonary disease) Hypertension Hypothyroidism half-way (current) use of anticoagulants Paroxysmal atrial fibrillation Severe mitral regurgitation Surgical History H/O angioplasty stent to LAD 2003 History of appendectomy History of cardiac cath patent vessels 06/2018 History of tubal ligation Family History Mother Brain tumor Father Myocardial infarction Stroke Social History Smoking Status: Current every day smoker Tobacco Type: Cigarettes Years Smoked: 62; Cigarettes Per Day: 6; Second Hand Exposure: Yes; Hx Alcohol Use: No Hx Substance Use: No Preferred Language: Bahamian Communication Ability: Effective Peoplesoft Developer Required: No Beliefs That Will Affect Care: None Current Living Situation: Family Current Living Situation Comment: daughter Feels Safe at Home: Yes Safety Concerns: Feels Safe At This Time Review of Systems Review of Systems: All systems reviewed & are unremarkable except as noted in HPI & below Nothing additional to add. Physical Exam Physical Exam: General: no acute distress and stated age Head: normocephalic, no masses, lesions, tenderness or abnormalities Eyes: conjunctiva are pink and non-injected, sclera clear Neck: supple, no adenopathy, no bruits, normal jugular venous pulse, no hepatojugular reflux Chest: normal shape and normal respiratory effort Lungs: clear to auscultation and percussion Cardiac Exam: - regular rate & rhythm, no murmurs gallops or rubs - normal S1, normal S2 Pulses: 2(+) throughout Abdomen: abdomen soft, non-tender, no abnormal masses and no hepatosplenomegaly Musculoskeletal: no gait disturbance, no joint inflammation, no deforming arthritis Extremities: no edema and no cyanosis Neuro: grossly normal exam Results & Data ([facility]) Vital Signs (Past 12 Hours) Vital Signs Temp Pulse Pulse Resp BP Pulse Ox Pulse Ox 11/17/19 07:53 36.3 C L 81 18 137/85 90 11/17/19 04:00 95 11/17/19 03:09 36.9 C 79 17 129/73 95 11/17/19 00:00 94 11/16/19 23:25 36.5 C 64 20 147/77 H 94 11/16/19 23:20 64 11/16/19 22:28 60 Laboratory Results Laboratory Results - last 24 hr 11/16/19 11/16/19 11/16/19 17:55 17:55 17:55 WBC 10.11 RBC 5.31 Hgb 13.9 Hct 43.6 MCV 82.1 MCH 26.2 MCHC 31.9 L RDW Std Deviation 56.0 H RDW Coeff of Gibran 18.5 H Plt Count 245 MPV 10.3 Immature Gran % (Auto) 0.3 Neut % (Auto) 86.5 Lymph % (Auto) 8.6 Concho % (Auto) 4.5 Eos % (Auto) 0.0 Baso % (Auto) 0.1 Neut # (Auto) 8.74 H Lymph # (Auto) 0.87 L Concho # (Auto) 0.46 Eos # (Auto) 0.00 Baso # (Auto) 0.01 Immature Gran # (Auto) 0.03 H PT 58.5 H INR 6.1 H* APTT 55.1 H* PTT Ratio 2.0 Sodium Potassium Chloride Carbon Dioxide Anion Gap BUN Creatinine Est Cr Clr Drug Dosing Est GFR ( Amer) Est GFR (Non-Af Amer) BUN/Creatinine Ratio Glucose POC Glucose Estimat Average Glucose Hemoglobin A1c Calcium Magnesium Total Bilirubin AST ALT Alkaline Phosphatase Total Protein Albumin Globulin Albumin/Globulin Ratio 25-OH Vitamin D Total Urine Color Urine Appearance Urine pH Ur Specific Dewey Urine Protein Urine Glucose (UA) Urine Ketones Urine Blood Urine Nitrite Urine Bilirubin Urine Urobilinogen Ur Leukocyte Esterase Urine WBC (Auto) Urine RBC (Auto) U Hyaline Cast (Auto) U Epithel Cells (Auto) Urine Bacteria (Auto) Urine Yeast Nasal Screen MRSA (PCR) COVID-19 Eval Order SARS-CoV-2, RNA, NAAT Blood Type B Positive Antibody Screen NEGATIVE 11/16/19 11/16/19 11/16/19 17:55 17:55 17:55 WBC RBC Hgb Hct MCV MCH MCHC RDW Std Deviation RDW Coeff of Gibran Plt Count MPV Immature Gran % (Auto) Neut % (Auto) Lymph % (Auto) Concho % (Auto) Eos % (Auto) Baso % (Auto) Neut # (Auto) Lymph # (Auto) Concho # (Auto) Eos # (Auto) Baso # (Auto) Immature Gran # (Auto) PT INR APTT PTT Ratio Sodium 137 Potassium 4.7 Chloride 102 Carbon Dioxide 27 Anion Gap 8.0 BUN 45 H Creatinine 1.22 H Est Cr Clr Drug Dosing 24.9 Est GFR ( Amer) 45.8 Est GFR (Non-Af Amer) 39.5 BUN/Creatinine Ratio 36.8 H Glucose 196 H POC Glucose Estimat Average Glucose 140 Hemoglobin A1c 6.5 H Calcium 9.4 Magnesium 2.2 Total Bilirubin AST ALT Alkaline Phosphatase Total Protein Albumin Globulin Albumin/Globulin Ratio 25-OH Vitamin D Total Urine Color Urine Appearance Urine pH Ur Specific Dewey Urine Protein Urine Glucose (UA) Urine Ketones Urine Blood Urine Nitrite Urine Bilirubin Urine Urobilinogen Ur Leukocyte Esterase Urine WBC (Auto) Urine RBC (Auto) U Hyaline Cast (Auto) U Epithel Cells (Auto) Urine Bacteria (Auto) Urine Yeast Nasal Screen MRSA (PCR) COVID-19 Eval Order SARS-CoV-2, RNA, NAAT Blood Type Antibody Screen 11/16/19 11/16/19 11/16/19 19:20 21:40 23:00 WBC RBC Hgb Hct MCV MCH MCHC RDW Std Deviation RDW Coeff of Gibran Plt Count MPV Immature Gran % (Auto) Neut % (Auto) Lymph % (Auto) Concho % (Auto) Eos % (Auto) Baso % (Auto) Neut # (Auto) Lymph # (Auto) Concho # (Auto) Eos # (Auto) Baso # (Auto) Immature Gran # (Auto) PT INR APTT PTT Ratio Sodium Potassium Chloride Carbon Dioxide Anion Gap BUN Creatinine Est Cr Clr Drug Dosing Est GFR ( Amer) Est GFR (Non-Af Amer) BUN/Creatinine Ratio Glucose POC Glucose 216 H Estimat Average Glucose Hemoglobin A1c Calcium Magnesium Total Bilirubin AST ALT Alkaline Phosphatase Total Protein Albumin Globulin Albumin/Globulin Ratio 25-OH Vitamin D Total Urine Color Yellow Urine Appearance Clear Urine pH 6.5 Ur Specific Dewey 1.012 Urine Protein Negative Urine Glucose (UA) Negative Urine Ketones Negative Urine Blood Negative Urine Nitrite Negative Urine Bilirubin Negative Urine Urobilinogen Negative Ur Leukocyte Esterase 1+ H Urine WBC (Auto) 5-10 H Urine RBC (Auto) 0-4 U Hyaline Cast (Auto) 1-5 U Epithel Cells (Auto) >30 H Urine Bacteria (Auto) Negative Urine Yeast Present A Nasal Screen MRSA (PCR) Negative COVID-19 Eval Order SARS-CoV-2, RNA, NAAT Blood Type Antibody Screen 11/16/19 11/16/19 11/17/19 23:00 23:00 00:12 WBC RBC Hgb Hct MCV MCH MCHC RDW Std Deviation RDW Coeff of Gibran Plt Count MPV Immature Gran % (Auto) Neut % (Auto) Lymph % (Auto) Concho % (Auto) Eos % (Auto) Baso % (Auto) Neut # (Auto) Lymph # (Auto) Concho # (Auto) Eos # (Auto) Baso # (Auto) Immature Gran # (Auto) PT 19.0 H INR 1.9 H APTT PTT Ratio Sodium Potassium Chloride Carbon Dioxide Anion Gap BUN Creatinine Est Cr Clr Drug Dosing Est GFR ( Amer) Est GFR (Non-Af Amer) BUN/Creatinine Ratio Glucose POC Glucose Estimat Average Glucose Hemoglobin A1c Calcium Magnesium Total Bilirubin AST ALT Alkaline Phosphatase Total Protein Albumin Globulin Albumin/Globulin Ratio 25-OH Vitamin D Total Urine Color Urine Appearance Urine pH Ur Specific Dewey Urine Protein Urine Glucose (UA) Urine Ketones Urine Blood Urine Nitrite Urine Bilirubin Urine Urobilinogen Ur Leukocyte Esterase Urine WBC (Auto) Urine RBC (Auto) U Hyaline Cast (Auto) U Epithel Cells (Auto) Urine Bacteria (Auto) Urine Yeast Nasal Screen MRSA (PCR) COVID-19 Eval [facility] SARS-CoV-2, RNA, NAAT NEGATIVE Blood Type Antibody Screen 11/17/19 11/17/19 11/17/19 05:42 05:42 05:42 WBC 10.86 H RBC 4.83 Hgb 12.9 Hct 39.1 MCV 81.0 MCH 26.7 MCHC 33.0 RDW Std Deviation 54.7 H RDW Coeff of Gibran 18.5 H Plt Count 204 MPV 10.6 H Immature Gran % (Auto) Neut % (Auto) Lymph % (Auto) Concho % (Auto) Eos % (Auto) Baso % (Auto) Neut # (Auto) Lymph # (Auto) Concho # (Auto) Eos # (Auto) Baso # (Auto) Immature Gran # (Auto) PT 13.8 H INR 1.3 H APTT PTT Ratio Sodium 137 Potassium 4.0 Chloride 103 Carbon Dioxide 27 Anion Gap 7.0 BUN 36 H Creatinine 0.94 Est Cr Clr Drug Dosing 27.0 Est GFR ( Amer) 62.8 Est GFR (Non-Af Amer) 54.2 BUN/Creatinine Ratio 38.3 H Glucose 150 H POC Glucose Estimat Average Glucose Hemoglobin A1c Calcium 9.1 Magnesium Total Bilirubin 2.3 H AST 15 ALT 15 Alkaline Phosphatase 79 Total Protein 6.7 Albumin 2.8 L Globulin 3.9 Albumin/Globulin Ratio 0.7 L 25-OH Vitamin D Total Urine Color Urine Appearance Urine pH Ur Specific Dewey Urine Protein Urine Glucose (UA) Urine Ketones Urine Blood Urine Nitrite Urine Bilirubin Urine Urobilinogen Ur Leukocyte Esterase Urine WBC (Auto) Urine RBC (Auto) U Hyaline Cast (Auto) U Epithel Cells (Auto) Urine Bacteria (Auto) Urine Yeast Nasal Screen MRSA (PCR) COVID-19 Eval Order SARS-CoV-2, RNA, NAAT Blood Type Antibody Screen 11/17/19 11/17/19 05:42 07:37 WBC RBC Hgb Hct MCV MCH MCHC RDW Std Deviation RDW Coeff of Gibran Plt Count MPV Immature Gran % (Auto) Neut % (Auto) Lymph % (Auto) Concho % (Auto) Eos % (Auto) Baso % (Auto) Neut # (Auto) Lymph # (Auto) Concho # (Auto) Eos # (Auto) Baso # (Auto) Immature Gran # (Auto) PT INR APTT PTT Ratio Sodium Potassium Chloride Carbon Dioxide Anion Gap BUN Creatinine Est Cr Clr Drug Dosing Est GFR ( Amer) Est GFR (Non-Af Amer) BUN/Creatinine Ratio Glucose POC Glucose 161 H Estimat Average Glucose Hemoglobin A1c Calcium Magnesium Total Bilirubin AST ALT Alkaline Phosphatase Total Protein Albumin Globulin Albumin/Globulin Ratio 25-OH Vitamin D Total 34.8 Urine Color Urine Appearance Urine pH Ur Specific Dewey Urine Protein Urine Glucose (UA) Urine Ketones Urine Blood Urine Nitrite Urine Bilirubin Urine Urobilinogen Ur Leukocyte Esterase Urine WBC (Auto) Urine RBC (Auto) U Hyaline Cast (Auto) U Epithel Cells (Auto) Urine Bacteria (Auto) Urine Yeast Nasal Screen MRSA (PCR) COVID-19 Eval Order SARS-CoV-2, RNA, NAAT Blood Type Antibody Screen Medications Administered Current Inpatient Medications Acetaminophen (Acetaminophen 325 Mg Tab) 650 mg PO Q4H PRN PRN Reason: Pain or Fever Stop: 12/16/19 20:51 Al Hydrox/Mg Hydrox/Simethicone (Aluminum/Magnesium Susp 30 Ml Udc) 15 ml PO Q4H PRN PRN Reason: Dyspepsia Stop: 12/16/19 20:51 Aspirin (Aspirin 81 Mg Ectab) 81 mg PO DAILY IAN Stop: 12/17/19 08:59 Last Admin: 11/17/19 08:19 Dose: 81 mg Documented by: Atorvastatin Calcium (Atorvastatin 40 Mg Tab) 80 mg PO HS IAN Stop: 12/16/19 20:59 Last Admin: 11/16/19 22:18 Dose: 80 mg Documented by: Bisacodyl (Bisacodyl 10 Mg Supp) 10 mg ID DAILY PRN PRN Reason: Constipation Stop: 12/16/19 20:51 Dextrose (Dextrose 50% 50 Ml Syringe) 25 - 50 ml IV UD PRN; Protocol PRN Reason: Hypoglycemia Protocol Stop: 12/16/19 20:51 Glucagon (Glucagon For Inj 1 Mg Vial) 1 mg SQ UD PRN; Protocol PRN Reason: Hypoglycemia Protocol Stop: 12/16/19 20:51 Glucose (Glucose 10 Tabs/Tube) 4 - 8 tabs PO UD PRN; Protocol PRN Reason: Hypoglycemia Protocol Stop: 12/16/19 20:51 Glucose (Glucose 40% Gel 15 Gm Tube) 15 - 30 gm PO UD PRN; Protocol PRN Reason: Hypoglycemia Protocol Stop: 12/16/19 20:51 Cefazolin Sodium (Ancef 2000mg) 2,000 mg in 15 mls @ 3.75 mls/min IV PREOP IAN; Protocol Stop: 11/18/19 05:59 Dextrose/Sodium Chloride (D5w And 1/2nss) 1,000 mls @ 50 mls/hr IV .Q20H IAN Stop: 11/17/19 15:00 Last Infusion: 11/17/19 09:11 Dose: 50 mls/hr Documented by: Insulin Aspart (Insulin Aspart 100 Units/Ml 3 Ml Pen) 0 units SC ACHS [facility] Stop: 12/16/19 20:59 Last Admin: 11/17/19 08:19 Dose: 1 units Documented by: Levothyroxine Sodium (Levothyroxine Sodium 112 Mcg Tablet) 112 mcg PO DAILYBB [facility] Stop: 12/17/19 06:29 Last Admin: 11/17/19 05:31 Dose: 112 mcg Documented by: Magnesium Hydroxide (Magnesium Hydroxide Susp 30 Ml Udc) 30 ml PO DAILY PRN PRN Reason: Constipation Stop: 12/16/19 20:51 Magnesium Hydroxide (Magnesium Hydroxide Susp 30 Ml Udc) 30 ml PO Q12H PRN PRN Reason: Constipation Stop: 12/16/19 20:51 Metoprolol Succinate (Metoprolol Succ 25mg Ext Rel Tab) [facility] [place]: 12/17/19 08:59 Last Admin: 11/17/19 08:19 Dose: 25 mg Documented by: Miscellaneous (Carbohydrates For Hypoglycemia ) 15 - 30 gm PO UD PRN PRN Reason: Hypoglycemia Protocol Stop: 12/16/19 20:51 Morphine Sulfate (Morphine Sulfate 2 Mg/Ml Carp) 2 mg IV Q2H PRN PRN Reason: MODERATE Pain (Scale 4,5,6) Stop: 11/30/19 20:51 Multivitamins (Multivitamin Tab) 1 tab PO [facility] Stop: 12/17/19 08:59 Last Admin: 11/17/19 08:19 Dose: 1 tab Documented by: Naloxone HCl (Naloxone Hcl 0.4 Mg/1 Ml Vial/Carp) 0.1 mg IV UD PRN PRN Reason: Opiate Overdose Stop: 12/16/19 20:51 Ondansetron HCl (Ondansetron Inj 2 Mg/Ml 2 Ml Vial) 4 mg IV Q6H PRN PRN Reason: Nausea Stop: 12/16/19 20:51 Last Admin: 11/17/19 00:02 Dose: 4 mg Documented by: Oxycodone HCl (Oxycodone Hcl Ir 5 Mg Tab (Immediate Release)) 5 mg PO Q4H PRN PRN Reason: MODERATE Pain (Scale 4,5,6) Stop: 11/30/19 20:51 Polyethylene Glycol (Polyethylene (Miralax) 17 Gm Pack) 17 gm PO DAILY PRN PRN Reason: Constipation Stop: 12/16/19 20:51 Senna/Docusate Sodium (Docusate Sodium/Senna 50/8.6mg Tab) 2 tab PO HS [facility] Stop: 12/16/19 20:59 Last Admin: 11/16/19 22:19 Dose: 2 tab Documented by:
--- NOTE | 2019-11-17 11:13 | Orthopedic Consultation ---
Date of Consultation November 17, 2019 Assessment & Plan (1) Intertrochanteric fracture of right hip: She has a comminuted, displaced intertrochanteric fracture of her right hip. This was from a mechanical ground-level fall. This will require surgical intervention for optimal outcome and to regain the ability to ambulate. We will plan for cephalo-medullary nailing of this intertrochanteric hip fracture. This was explained to the patient in detail. She is oriented to month and day, but not the year. She is oriented to person and place as well. She understands her condition and the plan treatment, and is able to verbalize it back to me, and wishes to proceed with surgery. At the patient's request, this was also discussed with her son Jeffry ([phone]), who is also in agreement with the surgical treatment plan. She has been cleared by medicine and cardiology for surgery. Her preoperative Coumadin has been held and reversed. Risks, benefits, and alternatives of surgery were explained in detail. The surgical procedure, as well as postoperative recovery and rehabilitation, was also explained in detail. Risks include bleeding; infection; damage to surrounding structures such as nerves, blood vessels, and tendons that run in the area; persistent pain or stiffness; nonunion; malunion; hardware failure; painful prominent hardware requiring removal; or need for further surgery. She understands all of this and wishes to proceed with surgery. Preoperative workup was completed today, and informed consent was obtained. Present on Admission?: Yes History of Present Illness Reason for Consultation: Right hip fracture Attending Physician: Zahraa Faulkner MD History of Present Illness Ms. Saul is an 89-year-old female who injured her while at home. right hip during a mechanical ground-level fall yesterday She was just walking through her apartment, made a turn, and tripped over something on the floor. She fell directly onto her right hip. She had immediate pain and inability to bear weight on that right side. Prior to this injury, she is a community ambulator. She does not use any ambulatory aids for short distances, but uses a cane and sometimes a wheeled walker for longer distances. Allergies Allergy/AdvReac Type Severity Reaction Status Date / Time No Known Allergies Allergy Unknown Verified 04/10/19 13:50 Home Medications Home Medications Medication Instructions Recorded Confirmed Type aspirin 81 mg PO DAILY 04/10/19 11/16/19 History atorvastatin [Lipitor] 80 mg PO HS 04/10/19 11/16/19 History lisinopril 2.5 mg PO HS 04/10/19 11/16/19 History multivitamin 1 tab PO QAM 04/10/19 11/16/19 History metoprolol succinate [Toprol XL] 25 mg PO QAM 30 Days #0 tab 04/19/19 11/16/19 Rx fluticasone furoate-vilanterol 1 inh INHALATION DAILY PRN 11/16/19 11/16/19 History [Breo Ellipta] levothyroxine 112 mcg PO DAILY 11/16/19 11/16/19 History torsemide 10 mg PO DAILY 11/16/19 11/16/19 History warfarin 4 mg PO MOWEFR 11/16/19 11/16/19 History warfarin 6 mg PO SUTUTHSA 11/16/19 11/16/19 History Patient History Medical History CAD (coronary artery disease) Chronic systolic heart failure CKD (chronic kidney disease), stage III Complete left bundle branch block (LBBB) COPD (chronic obstructive pulmonary disease) Hypertension Hypothyroidism [facility] (current) use of anticoagulants Paroxysmal atrial fibrillation Severe mitral regurgitation Surgical History H/O angioplasty stent to LAD 2003 History of appendectomy History of cardiac cath patent vessels 06/2018 History of tubal ligation Family History Mother Brain tumor Father Myocardial infarction Stroke Social History Smoking Status: Current every day smoker Tobacco Type: Cigarettes Years Smoked: 62; Cigarettes Per Day: 6; Second Hand Exposure: Yes; Hx Alcohol Use: No Hx Substance Use: No Preferred Language: American Communication Ability: Effective Bilingual Speech Language Pathologist Required: No Beliefs That Will Affect Care: None Current Living Situation: Family Current Living Situation Comment: daughter Feels Safe at Home: Yes Safety Concerns: Feels Safe At This Time Physical Exam Physical Exam: General: The patient appears well developed and well nourished. Awake, alert, and oriented x 3. Appropriate mood and affect. Gait and station not assessed due to the known hip fracture. Normal coordination and balance. Skin: The skin over the right hip shows no open wounds. Inspection/Palpation: Visual inspection reveals shortening and external rotation of the leg. There is mild swelling and tenderness to palpation of the thigh and hip area. Compartments are soft and compressible. Range of Motion: Hip range of motion is limited due to pain. Stability: Ligamentous stability was not tested due to the known fracture. Strength: Hip strength is limited due to pain. Intact ankle dorsiflexion and plantarflexion. Sensation: The patient reports no numbness in the leg. Vascular: Leg is warm and well perfused. No diffuse edema. Results & Data ([facility]) Vital Signs (Past 12 Hours) Vital Signs Temp Pulse Pulse Resp BP Pulse Ox Pulse Ox 11/17/19 07:53 36.3 C L 81 18 137/85 90 11/17/19 04:00 95 11/17/19 03:09 36.9 C 79 17 129/73 95 11/17/19 00:00 94 11/16/19 23:25 36.5 C 64 20 147/77 H 94 11/16/19 23:20 64 Diagnostic Findings Right hip x-rays are reviewed. They show a comminuted intertrochanteric fracture with significant displacement. (1) Intertrochanteric fracture of right hip Encounter type: initial encounter Fracture type: closed Fracture alignment: displaced Qualified Code(s): S72.141A - Displaced intertrochanteric fracture of right femur, initial encounter for closed fracture
[2019-11-17] MEDS: D5W AND 1/2NSS 1,000 ML IV SCH (15:28)
--- NOTE | 2019-11-17 17:46 | Anesthesiology Consultation ---
Date of Service November 17, 2019 Assessment & Plan (1) Encounter for pre-operative examination: Chart Review Chart Review: Acceptable Risk for Surgery History Surgery Operation Date: 11/17/19 10:35 Proposed Procedures p Right Troch Nail - Camacho James M.D. Height/Weight Height: 5 ft 2 in Weight: 41.4 kg Allergies Allergy/AdvReac Type Severity Reaction Status Date / Time No Known Allergies Allergy Unknown Verified 04/10/19 13:50 Medications Home Medications Medication Instructions Recorded Confirmed Last Taken aspirin 81 mg PO DAILY 04/10/19 11/16/19 Unknown atorvastatin [Lipitor] 80 mg PO HS 04/10/19 11/16/19 Unknown lisinopril 2.5 mg PO HS 04/10/19 11/16/19 Unknown multivitamin 1 tab PO QAM 04/10/19 11/16/19 Unknown metoprolol succinate [Toprol XL] 25 mg PO QAM 30 Days #0 tab 04/19/19 11/16/19 Unknown fluticasone furoate-vilanterol 1 inh INHALATION DAILY PRN 11/16/19 11/16/19 Unknown [Breo Ellipta] levothyroxine 112 mcg PO DAILY 11/16/19 11/16/19 Unknown torsemide 10 mg PO DAILY 11/16/19 11/16/19 Unknown warfarin 4 mg PO MOWEFR 11/16/19 11/16/19 Unknown warfarin 6 mg PO SUTUTHSA 11/16/19 11/16/19 Unknown Active Medications Generic Name Dose Route Start Last Admin Trade Name Freq PRN Reason Stop Dose Admin Aspirin 81 mg 11/17/19 09:00 11/17/19 08:19 Aspirin 81 Mg Ectab PO 12/17/19 08:59 81 mg DAILY IAN Administration Atorvastatin Calcium 80 mg 11/16/19 21:00 11/16/19 22:18 Atorvastatin 40 Mg Tab PO 12/16/19 20:59 80 mg HS IAN Administration Insulin Aspart 0 units 11/16/19 21:00 11/17/19 12:06 Insulin Aspart 100 Units/Ml 3 Ml Pen SC 12/16/19 20:59 1 units ACHS IAN Administration Levothyroxine Sodium 112 mcg 11/17/19 06:30 11/17/19 05:31 Levothyroxine Sodium 112 Mcg Tablet PO 12/17/19 06:29 112 mcg DAILYBB AIN Administration Metoprolol Succinate 25 mg 11/17/19 09:00 11/17/19 08:19 Metoprolol Succ 25mg Ext Rel Tab PO 12/17/19 08:59 25 mg QAM IAN Administration Multivitamins 1 tab 11/17/19 09:00 11/17/19 08:19 Multivitamin Tab PO 12/17/19 08:59 1 tab QAM IAN Administration Ondansetron HCl 4 mg 11/16/19 20:52 11/17/19 15:35 Ondansetron Inj 2 Mg/Ml 2 Ml Vial IV 12/16/19 20:51 4 mg Q6H PRN Administration Nausea Senna/Docusate Sodium 2 tab 11/16/19 21:00 11/16/19 22:19 Docusate Sodium/Senna 50/8.6mg Tab PO 12/16/19 20:59 2 tab HS IAN Administration Past Medical History Medical History CAD (coronary artery disease) Chronic systolic heart failure CKD (chronic kidney disease), stage III Complete left bundle branch block (LBBB) COPD (chronic obstructive pulmonary disease) Hypertension 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 Paroxysmal atrial fibrillation Severe mitral regurgitation Past Family History Family History Mother Brain tumor Father Myocardial infarction Stroke Past Surgical History Surgical History H/O angioplasty stent to LAD 2003 History of appendectomy History of cardiac cath patent vessels 06/2018 History of tubal ligation Social History Smoking Status: Current every day smoker tobacco type: cigarettes Smoking cigarettes per day: 6 Hx Alcohol Use: No Hx Substance Use: No substance use type: does not use Physical Exam Vital Signs Last Vital Signs Temp 37.0 C 11/17/19 15:48 Pulse 95 H 11/17/19 15:48 Resp 17 11/17/19 15:48 BP 147/86 H 11/17/19 15:48 Pulse Ox 93 11/17/19 16:00 Testing Laboratory Results 11/17/19 05:42 11/17/19 05:42 PT 13.8 Seconds (9.0-12.0) H 11/17/19 05:42 INR 1.3 (0.9-1.1) H 11/17/19 05:42 APTT 55.1 Seconds (21.0-31.0) H* 11/16/19 17:55 Hemoglobin A1c 6.5 % (4.5-5.6) H 11/16/19 17:55 Urine Color Yellow 11/16/19 19:20 Urine Appearance Clear (Clear) 11/16/19 19:20 Urine pH 6.5 (4.5-7.5) 11/16/19 19:20 Ur Specific [place] 1.012 (1.000-1.030) 11/16/19 19:20 Urine Protein Negative (Negative) 11/16/19 19:20 Urine Glucose (UA) Negative (Negative) 11/16/19 19:20 Urine Ketones Negative (Negative) 11/16/19 19:20 Urine Nitrite Negative (Negative) 11/16/19 19:20 Ur Leukocyte Esterase 1+ (Negative) H 11/16/19 19:20 Urine WBC (Auto) 5-10 /hpf (0-5) H 11/16/19 19:20 Urine RBC (Auto) 0-4 /hpf (0-4) 11/16/19 19:20 U Hyaline Cast (Auto) 1-5 /lpf (0-5) 11/16/19 19:20 U Epithel Cells (Auto) >30 /lpf (0-5) H 11/16/19 19:20 Urine Bacteria (Auto) Negative (Negative) 11/16/19 19:20 Blood Type B Positive 11/16/19 17:55 Antibody Screen NEGATIVE 11/16/19 17:55 11/16/19 19:20 Urine Culture - Preliminary Urine,Straight Cath No growth - Less than 1,000 colonies/mL, Final report to follow. 11/17/19 11/17/19 11/17/19 16:59 11:30 07:37 POC Glucose 180 H 184 H 161 H Electrocardiogram Date: 11/16/19 Findings: + NSR @ (62) and + LBBB Chest X-Ray Date: 11/16/19 Findings: + cardiomegaly (moderate) Echocardiogram Date: 11/17/19 EF: 25-30% Valvular Disease: + AI (moderate) and + MR (Severe)
[2019-11-17] MEDS ORDERED: fentaNYL citrate 100 MCG/2 ML VIAL ONE (18:16)
[2019-11-17] MEDS ORDERED: LIDOCAINE HCL 2% 2 ML VIAL/AMP(20MG/ML) INFIL ONE (18:17)
[2019-11-17] MEDS ORDERED: ONDANSETRON INJ 2 MG/ML 2 ML VIAL ONE (18:17)
[2019-11-17] MEDS ORDERED: PROPOFOL IV EMULSION 10 MG/ML 20 ML VIAL IV ONE (18:17)
[2019-11-17] MEDS ORDERED: ROCURONIUM BROMIDE 10 MG/ML 5 ML VIAL IV ONE (18:17)
[2019-11-17] MEDS ORDERED: CEFAZOLIN 1,000 MG/7.5 ML IV PUSH IV ONE (18:43)
[2019-11-17] MEDS ORDERED: HYDROmorphone INJ 1 MG/ML SYRINGE IV PRN (19:03)
[2019-11-17] MEDS ORDERED: ONDANSETRON INJ 2 MG/ML 2 ML VIAL IV PRN (19:03)
[2019-11-17] MEDS ORDERED: ATROPINE SULFATE 0.1 MG/ML 10ML SYR IV PRN (19:03)
[2019-11-17] MEDS ORDERED: BUPIVACAINE 0.5 % 5 MG/1 ML MPF 30ML VIAL ONE (19:29)
--- NOTE | 2019-11-17 20:01 | Fluoroscopy Report ---
FL hip RT 2-3V CLINICAL HISTORY: Intertrochanteric right hip fracture status post surgery COMPARISON STUDY: 11/16/2019 FLUOROSCOPY TIME: 70 seconds. NUMBER OF FLUOROSCOPIC IMAGES: 4 FINDINGS: Intraoperative fluoroscopic spot images demonstrate internal fixation of the patient's inte rtrochanteric hip fracture with a trochanteric nail and interlocking intramedullary demond. IMPRESSION: Fluoroscopic spot images demonstrating internal fixation of an intertrochanteric right h ip fracture ACT 112: Negative or not required by law. Electronically signed by: Washington Burger M.D. 11/17/2019 7:59 PM
--- NOTE | 2019-11-17 20:01 | Post Operative Brief Note ---
Immediate Post Op Note v1 Date of Surgery November 17, 2019 Pre & Post Diagnosis Operation Date: 11/17/19 10:35 Pre-Op Diagnosis: Right hip intertrochanteric fracture Post-Op Diagnosis: Right hip intertrochanteric fracture I identified the patient and participated in the time-out.: Yes Procedure Operation Date: 11/17/19 10:35 Actual Procedures Right hip cephalo-medullary nailing of intertrochanteric fracture - Camacho James M.D. Surgeon Camacho James Dental Equipment Installer And Servicer None Estimated Blood Loss 30 Findings Consistent with Post-Op Diagnosis Drains Olivera Catheter (urine blood tingled and surgeon aware )
--- NOTE | 2019-11-17 20:05 | Operative Report ---
Post Operative Report Pre & Post Diagnosis Operation Date: 11/17/19 10:35 Pre-Op Diagnosis: Right hip intertrochanteric fracture Post-Op Diagnosis: Right hip intertrochanteric fracture I identified the patient and participated in the time-out.: Yes Procedure Operation Date: 11/17/19 10:35 Actual Procedures Right cephalo-medullary nailing of intertrochanteric fracture (56769) - Camacho James M.D. Surgeon Camacho James Stick Roller None Estimated Blood Loss 30 Findings Consistent with Post-Op Diagnosis Specimens None Drains None Anesthesia Type General Complications none Disposition Disposition: Recovery Room Indications Ms. Saul is an 89-year old female who injured her right hip during a mechanical ground-level fall. History, clinical exam, and imaging were consistent with the above diagnosis. Risks, benefits, and alternatives of surgery were explained in detail. The patient understood all this and wished to proceed. Description of Procedure Implants: Synthes Short (170mm) 130 degree 12mm Trochanteric Fixation Nail, 11mm helical blade, 5mm distal locking screw Patient was identified in the preoperative holding area. Operative extremity was marked. Patient was then brought back to the operating room, and general anesthesia was induced without complication. Appropriate weight-based dose of Ancef was infused intravenously for antibiotic prophylaxis. Patient was then positioned on the fracture table with the traction apparatus. The nonoperative hip was flexed and placed into the well leg akers. Longitudinal traction was applied to the operative hip. Fracture reduction was then performed under fluoroscopic imaging. Once acceptable reduction had been achieved, the hip was then prepped and draped in a standard sterile fashion using Chlorhexidine prep. I first made an incision just proximal to the greater trochanter in line with the femoral shaft axis, and split the fibers of the iliotibial band. I then bluntly palpated down to the greater trochanter and inserted the guidewire down to the tip of the greater trochanter. It was appropriately positioned on AP and lateral images, and then driven into the proximal femur. I then inserted the soft tissue protector down to the tip of the greater trochanter and then passed the entry reamer over top of the guidewire. It was advanced down towards the lesser trochanter to open the proximal femur. I then inserted the Synthes short TFN attached to the targeting arm into the proximal femur. I malleted it down to an appropriate depth for proper trajectory of the helical blade into the femoral head. Once the nail was at an appropriate depth, I then attached the targeting guide for the helical blade onto the targeting arm. Incision was made in line with the guide through the skin and iliotibial band. The guide sleeve was placed against the lateral cortex of the femur. Guidewire was then inserted through the guide and up into the femoral neck and head. I verified proper placement and trajectory under both AP and lateral images. I advanced the guidewire to the subchondral bone in the femoral head and verified proper depth on orthogonal images. I then measured the depth off of the guidewire. The drill for the helical blade was then set at an appropriate level to match the measured length. The drill was then advanced to the set depth. An appropriate length helical blade was selected and malleted into place over the guidewire. I then deployed the set screw proximally to prevent rotation of the helical blade during fracture compression. Fracture compression was then applied using the compression ring on the helical blade targeting sleeve. I then made an incision for the distal locking screw in line with the drill guide through skin and iliotibial band. I then placed the drill sleeve down on the lateral cortex of the femur and drilled through the distal locking hole. Screw length was then measured off of the calibrated drill bit, and an appropriate length was selected and then inserted. The screw length was verified under fluoroscopic imaging. Final fluoroscopic images were then obtained to ensure proper hardware placement, screw length, and fracture reduction. The wounds were then copiously irrigated with sterile saline. I then closed the iliotibial band and deep dermal tissue with #0 Vicryl suture. Subcutaneous tissues closed with 3-0 Vicryl suture, and skin was closed with astrid. Sterile dressings were then applied with Xeroform, sterile gauze, and foam tape. Drapes were then removed and traction apparatus was disconnected. The patient was awakened from general anesthesia, transferred over to the stretcher, and taken to the Post Anesthesia Care Unit in stable condition. There were no immediate complications from the procedure. I was present and scrubbed for the entire procedure. I attest to the content of the Intraoperative Record and any orders documented therein. Any exceptions are noted below.
[2019-11-17] MEDS ORDERED: NALOXONE HCL 0.4 MG/1 ML VIAL/CARP IV PRN (21:16)
[2019-11-17] MEDS ORDERED: SODIUM CHLORIDE 0.9% 1000ML 1,000 ML IV SCH (21:16)
[2019-11-17] MEDS: ATORVASTATIN 40 MG TAB PO SCH (21:44)
[2019-11-17] MEDS: DOCUSATE SODIUM/SENNA 50/8.6MG TAB PO SCH (21:44)
--- NOTE | 2019-11-17 22:04 | Anesthesiology Progress Note ---
Date of Service November 17, 2019 Anesthesia Post Procedure Vital Signs Vital Signs: Temp Pulse Pulse Pulse Pulse Resp BP 11/17/19 21:33 36.4 C L 75 22 121/61 11/17/19 21:06 75 11/17/19 21:00 36.4 C L 75 16 124/73 11/17/19 20:40 36.9 C 82 16 126/75 11/17/19 20:30 79 14 135/74 11/17/19 20:20 79 15 129/77 11/17/19 20:11 36.4 C L 85 16 143/79 H 11/17/19 18:50 36.9 C 96 H 16 139/88 11/17/19 16:00 91 H 11/17/19 15:48 37.0 C 95 H 17 147/86 H 11/17/19 11:46 36.5 C 88 18 167/77 H 11/17/19 07:53 36.3 C L 81 18 137/85 11/17/19 04:00 11/17/19 03:09 36.9 C 79 17 129/73 11/17/19 00:00 11/16/19 23:25 36.5 C 64 20 147/77 H 11/16/19 23:20 64 11/16/19 22:28 60 Pulse Ox Pulse Ox 11/17/19 21:33 95 11/17/19 21:06 11/17/19 21:00 94 11/17/19 20:40 93 11/17/19 20:30 91 11/17/19 20:20 92 11/17/19 20:11 94 11/17/19 18:50 93 11/17/19 16:00 93 11/17/19 15:48 92 11/17/19 11:46 11/17/19 07:53 90 11/17/19 04:00 95 11/17/19 03:09 95 11/17/19 00:00 94 11/16/19 23:25 94 11/16/19 23:20 11/16/19 22:28 Pain Intensity Right Hip: Pain Intensity: 2 Transfer of Care Handoff Completed per policy Notes Mental Status: alert / awake / arousable Patient Amnestic to Procedure: Yes Nausea / Vomiting: adequately controlled Pain: adequately controlled Airway Patency, RR, SpO2: stable & adequate BP & HR: stable & adequate Hydration State: stable & adequate Anesthetic Complications: no major complications apparent
[2019-11-18] MEDS: LEVOTHYROXINE SODIUM 112 MCG TABLET PO SCH (05:32)
--- NOTE | 2019-11-18 06:20 | Electrocardiogram Report ---
Test Reason : Blood Pressure : / mmHG Vent. Rate : 062 BPM Atrial Rate : 062 BPM P-R Int : 156 ms QRS Dur : 156 ms QT Int : 476 ms P-R-T Axes : 066 -41 176 degrees QTc Int : 483 ms Normal sinus rhythm Left axis deviation Left bundle branch block Abnormal ECG When compared with ECG of 14-APR-2019 17:29, Premature ventricular complexes are no longer Present Confirmed by Matty Gomez ([id number]) on 11/18/2019 6:19:55 AM Referred By: REFERRED SELF Confirmed By:Matty Gomez
[2019-11-18 07:21] LABS: Hematocrit (blood only) 36.6 % (37-47); Hemoglobin 11.9 g/dL (12.0-16.0); Mean Corpuscular Hemoglobin 26.6 pg (25-34); Mean Corpuscular Hgb Conc 32.5 g/dL (32-36); Mean Corpuscular Volume 81.7 fL (80-100); Mean Platelet Volume 10.3 fL (7.4-10.4); Platelet Count 189 K/uL (130-400); RDW Coefficient of Variation 18.6 % (11.5-14.5); RDW Standard Deviation 55.7 fL (36.4-46.3); Red Blood Count 4.48 M/uL (4.2-5.4); White Blood Count 13.53 K/uL (4.8-10.8)
[2019-11-18 07:29] LABS: INR 1.1 (0.9-1.1); Prothrombin Time 11.9 Seconds (9.0-12.0)
[2019-11-18 07:56] LABS: BUN Creatinine Ratio 30.8 (10-20); Calcium 9.4 mg/dl (8.5-10.1); Creatinine Clr Calc Pharmacy 28.9 ml/min; Est GFR (African American) 59.7; Est GFR (Non-African American) 51.5; Magnesium 1.8 mg/dl (1.8-2.4); Phosphorus 2.6 mg/dl (2.5-4.9); Potassium 4.4 mmol/L (3.5-5.1)
[2019-11-18] MEDS: INSULIN ASPART 100 UNITS/ML 3 ML PEN SC SCH ×4 (08:00→20:13)
[2019-11-18] MEDS: ASPIRIN 81 MG ECTAB PO SCH (08:00)
[2019-11-18] MEDS: METOPROLOL SUCC 25MG EXT REL TAB PO SCH (08:00)
[2019-11-18] MEDS: MULTIVITAMIN TAB PO SCH (08:00)
--- NOTE | 2019-11-18 08:52 | Hospitalist Progress Note ---
Date of Service November 18, 2019 Assessment & Plan (1) Fall: (2) Closed intertrochanteric fracture of right femur: 89-year-old female who has significant past medical history of chronic systolic CHF with EF 25 to 30%, ischemic cardiomyopathy, CAD, PAF anticoagulated on warfarin, COPD, HLD, hypothyroidism, severe mitral regurg, chronic LBBB CKD stage III, osteoporosis, tobacco abuse who presents to ED after sustaining a mechanical fall at home. Had supratherapeutic INR of 6.1 which was reversed with vit k Patient does have cardiac history but appears to be clinically stable EKG does show inferior TWI (old but more pronounced). Patient has no complaints, no chest pain Considering osteopenia, fracture, malnutrition, this is likely osteoporotic fracture S/P Right cephalo-medullary nailing of intertrochanteric fracture yesterday POD#1 Pain is well controlled Get PT/OT Vit D lvl 34.8 (3) Supratherapeutic INR: INR 6.1 Without bleeding Got Vit K 10mg for reversal prior to surgery INR is 1.1 this AM Resume warfarin and monitor Need close follow up with anticoagulation clinic on discharge (4) Chronic systolic heart failure: (5) CAD (coronary artery disease): History of LAD stenting in 2003 Ischemic cardiomyopathy with HFrEF class 3 Most recent EF 25 to 29% 06/2018 Underwent cardiac catheterization 06/2018 which revealed patent vessels Follows [facility] cardiology Currently euvolemic On ASA, statin, metoprolol, lisinopril and torsemide as outpatient Continue to hold torsemide/lisinopril perioperatively BP currently stable. Will resume lisinopril later (6) Paroxysmal atrial fibrillation: Rate and rhythm controlled with metoprolol Home regimen is 4 mg Thursday, 6 mg all other days Resume warfarin on 4mg daily for now and monitor INR Will need close follow up with anticoagulation clinic on discharge (7) CKD (chronic kidney disease), stage III: BUN/creatinine 45 and 1.22 on admission, baseline creatinine 1.1 Was on IVF yesterday while NPO for surgery. IVF discontinued Torsemide on hold Avoid nephrotoxins (8) COPD (chronic obstructive pulmonary disease): No acute exacerbation 2 L of O2 at bedtime (9) Hypothyroidism: Continue levothyroxine (10) Hyperglycemia: Patient denies history of T2DM A1c is 6.5 Continue accuchecks with novolog coverage (11) Severe malnutrition: Patient appears to be severely malnourished on exam Nutrition recommendations noted Nutritional supplements (12) DVT prophylaxis: Resume warfarin Follow up: PCP Dr. Juarez upon discharge Admission and Anticipated Discharge Date Admission Date: November 16, 2019 Subjective Patient seen and examined Patient denied any complaints on review of systems Physical Exam Constitutional: + thin Eyes: PERRL, conjunctivae normal, anicteric sclerae ENMT: external ear and nose normal, oropharynx normal Respiratory: normal respiratory effort, lungs clear to auscultation Cardiovascular: Rate/Rhythm: regular rate and regular rhythm Gastrointestinal (Abdomen): normal bowel sounds, soft, nontender, no hepatosplenomegaly Musculoskeletal: Clean dressing over right hip Neurologic: Alert and oriented to person and place only. Moves all extremities No focal deficits Psychiatric: Orientation: alert Affect: euthymic affect Results & Data Results & Data ([facility]) Vital Signs (Past 12 Hours) Vital Signs Temp Pulse Pulse Resp BP Pulse Ox 11/18/19 07:20 36.7 C 97 H 18 119/75 90 11/18/19 03:14 36.4 C L 84 19 147/78 H 91 11/18/19 00:00 36.6 C 79 18 120/71 92 11/17/19 23:25 76 11/17/19 23:00 36.3 C L 76 20 129/77 96 11/17/19 22:15 36.7 C 76 20 131/74 96 11/17/19 21:33 36.4 C L 75 22 121/61 95 11/17/19 21:06 75 11/17/19 21:00 36.4 C L 75 16 124/73 94 Laboratory Results Laboratory Results - last 24 hr 11/17/19 11/17/19 11/18/19 16:59 21:09 06:47 WBC 13.53 H RBC 4.48 Hgb 11.9 L Hct 36.6 L MCV 81.7 MCH 26.6 MCHC 32.5 RDW Std Deviation 55.7 H RDW Coeff of Gibran 18.6 H Plt Count 189 MPV 10.3 PT INR Sodium Potassium Chloride Carbon Dioxide Anion Gap BUN Creatinine Est Cr Clr Drug Dosing Est GFR ( Amer) Est GFR (Non-Af Amer) BUN/Creatinine Ratio Glucose POC Glucose 180 H 149 H Calcium Phosphorus Magnesium 11/18/19 11/18/19 11/18/19 06:47 06:47 07:27 WBC RBC Hgb Hct MCV MCH MCHC RDW Std Deviation RDW Coeff of Gibran Plt Count MPV PT 11.9 INR 1.1 Sodium 138 Potassium 4.4 Chloride 103 Carbon Dioxide 27 Anion Gap 7.0 BUN 30 H Creatinine 0.98 Est Cr Clr Drug Dosing 28.9 Est GFR ( Amer) 59.7 Est GFR (Non-Af Amer) 51.5 BUN/Creatinine Ratio 30.8 H Glucose 131 H POC Glucose 150 H Calcium 9.4 Phosphorus 2.6 Magnesium 1.8 11/18/19 11:21 WBC RBC Hgb Hct MCV MCH MCHC RDW Std Deviation RDW Coeff of Gibran Plt Count MPV PT INR Sodium Potassium Chloride Carbon Dioxide Anion Gap BUN Creatinine Est Cr Clr Drug Dosing Est GFR ( Amer) Est GFR (Non-Af Amer) BUN/Creatinine Ratio Glucose POC Glucose 136 H Calcium Phosphorus Magnesium
--- NOTE | 2019-11-18 10:12 | Orthopedic Progress Note ---
Date of Service November 18, 2019 Assessment & Plan (1) Intertrochanteric fracture of right hip: Postop day #1 status post Right cephalo-medullary nailing of intertrochanteric fracture (08111) PT/OT DVT prophylaxisaspirin 81 mg daily and Coumadin Toe-touch weightbearing right lower extremity. Pain controlTylenol, as needed oxycodone, as needed IV morphine. Discharge planninguncertain. Will require rehabilitation stay versus prison facility. Admission and Anticipated Discharge Date Admission Date: November 16, 2019 Subjective Patient was asleep upon entering the room. However, with stimuli she awakens. She states that the right hip feels pretty good as long as she is lying still. No other right lower extremity complaints today. Physical Exam Constitutional: WD/WN, vitals as above Musculoskeletal: Hip: + surgical incision (Right hip dressing is clean, dry, intact.) and + joint line tenderness (Right thigh is soft.); no deformity, no skin erythema and no ecchymosis Skin: no rashes, warm and dry Psychiatric: Orientation: alert Results & Data ([facility]) Vital Signs (Past 12 Hours) Vital Signs Temp Pulse Pulse Resp BP Pulse Ox 11/18/19 07:20 36.7 C 97 H 18 119/75 90 11/18/19 03:14 36.4 C L 84 19 147/78 H 91 11/18/19 00:00 36.6 C 79 18 120/71 92 11/17/19 23:25 76 11/17/19 23:00 36.3 C L 76 20 129/77 96 11/17/19 22:15 36.7 C 76 20 131/74 96 Laboratory Results Laboratory Tests 11/17/19 11/18/19 05:42 06:47 Hgb 11.9 L Hct 36.6 L INR 1.3 H (1) Intertrochanteric fracture of right hip Encounter type: initial encounter Fracture type: closed Fracture alignment: displaced Qualified Code(s): S72.141A - Displaced intertrochanteric fracture of right femur, initial encounter for closed fracture
--- NOTE | 2019-11-18 10:14 | Cardiology Progress Note ---
Date of Service November 18, 2019 Assessment & Plan (1) Fall: (2) Closed intertrochanteric fracture of right femur: (3) CAD (coronary artery disease): (4) Complete left bundle branch block (LBBB): (5) retirement (current) use of anticoagulants: (6) CKD (chronic kidney disease), stage III: (7) Paroxysmal atrial fibrillation: (8) Severe mitral regurgitation: (9) Chronic systolic heart failure: (10) Hyperglycemia: (11) Preop cardiovascular exam: The patient is currently clinically stable. She did well through her surgery. Continue current medications and treatment. Admission and Anticipated Discharge Date Admission Date: November 16, 2019 Subjective The patient is resting comfortably today. Review of Systems Review of Systems: All systems reviewed & are unremarkable except as noted in HPI & below Nothing additional to add. Physical Exam Physical Exam: General: no acute distress and stated age Head: normocephalic, no masses, lesions, tenderness or abnormalities Eyes: conjunctiva are pink and non-injected, sclera clear Neck: supple, no adenopathy, no bruits, normal jugular venous pulse, no hepatojugular reflux Chest: normal shape and normal respiratory effort Lungs: clear to auscultation and percussion Cardiac Exam: - regular rate & rhythm, no murmurs gallops or rubs - normal S1, normal S2 Pulses: 2(+) throughout Abdomen: abdomen soft, non-tender, no abnormal masses and no hepatosplenomegaly Musculoskeletal: no gait disturbance, no joint inflammation, no deforming arthritis Extremities: Status post right hip surgery Neuro: grossly normal exam Results & Data ([facility]) Vital Signs (Past 12 Hours) Vital Signs Temp Pulse Pulse Resp BP Pulse Ox 11/18/19 07:20 36.7 C 97 H 18 119/75 90 11/18/19 03:14 36.4 C L 84 19 147/78 H 91 11/18/19 00:00 36.6 C 79 18 120/71 92 11/17/19 23:25 76 11/17/19 23:00 36.3 C L 76 20 129/77 96 11/17/19 22:15 36.7 C 76 20 131/74 96 Laboratory Results Laboratory Results - last 24 hr 11/17/19 11/17/19 11/17/19 11:30 16:59 21:09 WBC RBC Hgb Hct MCV MCH MCHC RDW Std Deviation RDW Coeff of Gibran Plt Count MPV PT INR Sodium Potassium Chloride Carbon Dioxide Anion Gap BUN Creatinine Est Cr Clr Drug Dosing Est GFR ( Amer) Est GFR (Non-Af Amer) BUN/Creatinine Ratio Glucose POC Glucose 184 H 180 H 149 H Calcium Phosphorus Magnesium 11/18/19 11/18/19 11/18/19 06:47 06:47 06:47 WBC 13.53 H RBC 4.48 Hgb 11.9 L Hct 36.6 L MCV 81.7 MCH 26.6 MCHC 32.5 RDW Std Deviation 55.7 H RDW Coeff of Gibran 18.6 H Plt Count 189 MPV 10.3 PT 11.9 INR 1.1 Sodium 138 Potassium 4.4 Chloride 103 Carbon Dioxide 27 Anion Gap 7.0 BUN 30 H Creatinine 0.98 Est Cr Clr Drug Dosing 28.9 Est GFR ( Amer) 59.7 Est GFR (Non-Af Amer) 51.5 BUN/Creatinine Ratio 30.8 H Glucose 131 H POC Glucose Calcium 9.4 Phosphorus 2.6 Magnesium 1.8 11/18/19 07:27 WBC RBC Hgb Hct MCV MCH MCHC RDW Std Deviation RDW Coeff of Gibran Plt Count MPV PT INR Sodium Potassium Chloride Carbon Dioxide Anion Gap BUN Creatinine Est Cr Clr Drug Dosing Est GFR ( Amer) Est GFR (Non-Af Amer) BUN/Creatinine Ratio Glucose POC Glucose 150 H Calcium Phosphorus Magnesium Medications Administered Current Inpatient Medications Acetaminophen (Acetaminophen 325 Mg Tab) 650 mg PO Q4H PRN PRN Reason: Pain or Fever Stop: 12/16/19 20:51 Al Hydrox/Mg Hydrox/Simethicone (Aluminum/Magnesium Susp 30 Ml Udc) 15 ml PO Q4H PRN PRN Reason: Dyspepsia Stop: 12/16/19 20:51 Aspirin (Aspirin 81 Mg Ectab) 81 mg PO DAILY IAN Stop: 12/17/19 08:59 Last Admin: 11/18/19 08:00 Dose: 81 mg Documented by: Atorvastatin Calcium (Atorvastatin 40 Mg Tab) 80 mg PO HS IAN Stop: 12/16/19 20:59 Last Admin: 11/17/19 21:44 Dose: 80 mg Documented by: Bisacodyl (Bisacodyl 10 Mg Supp) 10 mg IN DAILY PRN PRN Reason: Constipation Stop: 12/16/19 20:51 Dextrose (Dextrose 50% 50 Ml Syringe) 25 - 50 ml IV UD PRN; Protocol PRN Reason: Hypoglycemia Protocol Stop: 12/16/19 20:51 Glucagon (Glucagon For Inj 1 Mg Vial) 1 mg SQ UD PRN; Protocol PRN Reason: Hypoglycemia Protocol Stop: 12/16/19 20:51 Glucose (Glucose 10 Tabs/Tube) 4 - 8 tabs PO UD PRN; Protocol PRN Reason: Hypoglycemia Protocol Stop: 12/16/19 20:51 Glucose (Glucose 40% Gel 15 Gm Tube) 15 - 30 gm PO UD PRN; Protocol PRN Reason: Hypoglycemia Protocol Stop: 12/16/19 20:51 Insulin Aspart (Insulin Aspart 100 Units/Ml 3 Ml Pen) 0 units SC ACHS [facility] Stop: 12/16/19 20:59 Last Admin: 11/18/19 08:00 Dose: 2 units Documented by: Levothyroxine Sodium (Levothyroxine Sodium 112 Mcg Tablet) 112 mcg PO DAILYBB [facility] Stop: 12/17/19 06:29 Last Admin: 11/18/19 05:32 Dose: 112 mcg Documented by: Magnesium Hydroxide (Magnesium Hydroxide Susp 30 Ml Udc) 30 ml PO DAILY PRN PRN Reason: Constipation Stop: 12/16/19 20:51 Magnesium Hydroxide (Magnesium Hydroxide Susp 30 Ml Udc) 30 ml PO Q12H PRN PRN Reason: Constipation Stop: 12/16/19 20:51 Metoprolol Succinate (Metoprolol Succ 25mg Ext Rel Tab) [facility] Stop: 12/17/19 08:59 Last Admin: 11/18/19 08:00 Dose: 25 mg Documented by: Miscellaneous (Carbohydrates For Hypoglycemia ) 15 - 30 gm PO UD PRN PRN Reason: Hypoglycemia Protocol Stop: 12/16/19 20:51 Morphine Sulfate (Morphine Sulfate 2 Mg/Ml Carp) 2 mg IV Q2H PRN PRN Reason: MODERATE Pain (Scale 4,5,6) Stop: 11/30/19 20:51 Multivitamins (Multivitamin Tab) 1 [facility] Stop: 12/17/19 08:59 Last Admin: 11/18/19 08:00 Dose: 1 tab Documented by: Naloxone HCl (Naloxone Hcl 0.4 Mg/1 Ml Vial/Carp) 0.1 mg IV UD PRN PRN Reason: Opioid Overdose Stop: 12/17/19 21:15 Ondansetron HCl (Ondansetron Inj 2 Mg/Ml 2 Ml Vial) 4 mg IV Q6H PRN PRN Reason: Nausea Stop: 12/16/19 20:51 Last Admin: 11/17/19 15:35 Dose: 4 mg Documented by: Oxycodone HCl (Oxycodone Hcl Ir 5 Mg Tab (Immediate Release)) 5 mg PO Q4H PRN PRN Reason: MODERATE Pain (Scale 4,5,6) Stop: 11/30/19 20:51 Polyethylene Glycol (Polyethylene (Miralax) 17 Gm Pack) 17 gm PO DAILY PRN PRN Reason: Constipation Stop: 12/16/19 20:51 Senna/Docusate Sodium (Docusate Sodium/Senna 50/8.6mg Tab) 2 tab PO HS [facility] Stop: 12/16/19 20:59 Last Admin: 11/17/19 21:44 Dose: 2 tab Documented by: Warfarin Sodium (Warfarin Sod 4 Mg Tab) 4 mg PO DAILY@1600 [facility] Stop: 12/18/19 15:59
[2019-11-18] MEDS: WARFARIN SOD 4 MG TAB PO SCH (16:01)
[2019-11-18] MEDS: DOCUSATE SODIUM/SENNA 50/8.6MG TAB PO SCH (20:12)
[2019-11-18] MEDS: ATORVASTATIN 40 MG TAB PO SCH (20:12)
[2019-11-19 05:34] LABS: Hematocrit (blood only) 35.6 % (37-47); Hemoglobin 11.4 g/dL (12.0-16.0); Mean Corpuscular Hemoglobin 26.2 pg (25-34); Mean Corpuscular Volume 81.8 fL (80-100); Platelet Count 175 K/uL (130-400); RDW Coefficient of Variation 18.4 % (11.5-14.5); RDW Standard Deviation 55.6 fL (36.4-46.3); Red Blood Count 4.35 M/uL (4.2-5.4); White Blood Count 10.62 K/uL (4.8-10.8)
[2019-11-19 05:45] LABS: INR 1.4 (0.9-1.1); Prothrombin Time 14.3 Seconds (9.0-12.0)
[2019-11-19 05:59] LABS: BUN Creatinine Ratio 35.2 (10-20); Calcium 9.3 mg/dl (8.5-10.1); Creatinine Clr Calc Pharmacy 30.1 ml/min; Est GFR (African American) 62.8; Est GFR (Non-African American) 54.2; Potassium 4.7 mmol/L (3.5-5.1)
[2019-11-19] MEDS: LEVOTHYROXINE SODIUM 112 MCG TABLET PO SCH (06:01)
--- NOTE | 2019-11-19 06:26 | Orthopedic Progress Note ---
Date of Service November 19, 2019 Assessment & Plan (1) Intertrochanteric fracture of right hip: Postop day #2 status post Right cephalo-medullary nailing of intertrochanteric fracture PT/OT DVT prophylaxisaspirin 81 mg daily and Coumadin Toe-touch weightbearing right lower extremity. Pain controlTylenol, as needed oxycodone, as needed IV morphine. Discharge planninguncertain. Will require rehabilitation stay versus senior living facility. Admission and Anticipated Discharge Date Admission Date: November 16, 2019 Supervising Physician Co-Signing Physician Notes Patient seen and examined. I agree with GINNY Linn's note as above. She is postop day 2 after her right hip fracture fixation. She notes significant improvement in her pain compared to preoperatively. She has been transferring to a chair, but not yet up and taking steps. Remain toe-touch weightbearing on her right leg. Subjective POD #2 Patient asleep when I entered but awakes upon questioning. denies CP/SOB, denies any current pain in the hip. Physical Exam Physical Exam: Vital Signs Temp 36.6 C 11/19/19 03:15 Pulse 78 11/19/19 03:27 Resp 16 11/19/19 03:15 BP 116/70 11/19/19 03:15 Pulse Ox 95 11/19/19 03:15 Intake & Output 11/18/19 11/18/19 11/19/19 06:59 18:59 06:59 Intake Total 600 / 1718.834 836.25 / 1226.25 390 / 1226.25 Output Total 380 / 630 100 / 300 200 / 300 Balance 220 / 1088.834 736.25 / 926.25 190 / 926.25 Weight 46.1 kg 45.5 kg Intake: IV 0 / 1118.834 836.25 / 836.25 D5w and 1/2Nss 1,000 ml @ 50 0 / 1118.834 mls/hr IV .Q20 H IAN Rx#: [id number] Nss 1000ML 1,0 00 ml @ 75 mls/hr 836.25 / 836.25 IV .[id number] SC H Rx#:[id number] IV Perioperative 500 / 500 Oral 100 / 100 390 / 390 Output: Estimated Blood Loss 30 / 30 Urine Amount (Ca theter) 350 / 600 100 / 300 200 / 300 Olivera/Indwelli ng 350 / 600 100 / 300 200 / 300 Other: Other Intake Marjorie rce sips sips sips Musculoskeletal: Hip: + hip abnormal to inpsection (Right Hip- surgical dressing taken down, thigh soft, no drainage noted), + ecchymosis (minimal) and + surgical incision (well approximated skin edges); no deformity and no skin erythema Results & Data ([facility]) Vital Signs (Past 12 Hours) Vital Signs Temp Pulse Pulse Resp BP Pulse Ox Pulse Ox 11/19/19 03:27 78 11/19/19 03:15 36.6 C 69 16 116/70 95 11/18/19 23:15 36.5 C 72 16 112/73 94 11/18/19 20:00 93 11/18/19 19:39 36.6 C 84 20 131/96 97 Laboratory Results Laboratory Results WBC 10.62 K/uL (4.8-10.8) 11/19/19 05:18 RBC 4.35 M/uL (4.2-5.4) 11/19/19 05:18 Hgb 11.4 g/dL (12.0-16.0) L 11/19/19 05:18 Hct 35.6 % (37-47) L 11/19/19 05:18 MCV 81.8 fL (80-100) 11/19/19 05:18 MCH 26.2 pg (25-34) 11/19/19 05:18 MCHC 32.0 g/dL (32-36) 11/19/19 05:18 RDW Std Deviation 55.6 fL (36.4-46.3) H 11/19/19 05:18 RDW Coeff of Gibran 18.4 % (11.5-14.5) H 11/19/19 05:18 Plt Count 175 K/uL (130-400) 11/19/19 05:18 MPV 10.0 fL (7.4-10.4) 11/19/19 05:18 Immature Gran % (Auto) 0.3 % 11/16/19 17:55 Neut % (Auto) 86.5 % 11/16/19 17:55 Lymph % (Auto) 8.6 % 11/16/19 17:55 Powell % (Auto) 4.5 % 11/16/19 17:55 Eos % (Auto) 0.0 % 11/16/19 17:55 Baso % (Auto) 0.1 % 11/16/19 17:55 Neut # (Auto) 8.74 K/uL (1.4-6.5) H 11/16/19 17:55 Lymph # (Auto) 0.87 K/uL (1.2-3.4) L 11/16/19 17:55 Powell # (Auto) 0.46 K/uL (0.11-0.59) 11/16/19 17:55 Eos # (Auto) 0.00 K/uL (0-0.5) 11/16/19 17:55 Baso # (Auto) 0.01 K/uL (0-0.2) 11/16/19 17:55 Immature Gran # (Auto) 0.03 K/uL (0.00-0.02) H 11/16/19 17:55 PT 14.3 Seconds (9.0-12.0) H 11/19/19 05:18 INR 1.4 (0.9-1.1) H 11/19/19 05:18 APTT 55.1 Seconds (21.0-31.0) H* 11/16/19 17:55 PTT Ratio 2.0 11/16/19 17:55 Sodium 137 mmol/L (136-145) 11/19/19 05:18 Potassium 4.7 mmol/L (3.5-5.1) 11/19/19 05:18 Chloride 106 mmol/L (98-107) 11/19/19 05:18 Carbon Dioxide 28 mmol/L (21-32) 11/19/19 05:18 Anion Gap 3.0 (3-11) 11/19/19 05:18 BUN 33 mg/dl (7-18) H 11/19/19 05:18 Creatinine 0.94 mg/dl (0.6-1.2) 11/19/19 05:18 Est Cr Clr Drug Dosing 30.1 ml/min 11/19/19 05:18 Est GFR ( Amer) 62.8 11/19/19 05:18 Est GFR (Non-Af Amer) 54.2 11/19/19 05:18 BUN/Creatinine Ratio 35.2 (10-20) H 11/19/19 05:18 Glucose 107 mg/dl (70-99) H 11/19/19 05:18 POC Glucose 168 mg/dl (70-99) H 11/18/19 20:13 Estimat Average Glucose 140 mg/dl 11/16/19 17:55 Hemoglobin A1c 6.5 % (4.5-5.6) H 11/16/19 17:55 Calcium 9.3 mg/dl (8.5-10.1) 11/19/19 05:18 Phosphorus 2.6 mg/dl (2.5-4.9) 11/18/19 06:47 Magnesium 1.8 mg/dl (1.8-2.4) 11/18/19 06:47 Total Bilirubin 2.3 mg/dl (0.2-1) H 11/17/19 05:42 AST 15 U/L (15-37) 11/17/19 05:42 ALT 15 U/L (12-78) 11/17/19 05:42 Alkaline Phosphatase 79 U/L (45-117) 11/17/19 05:42 Total Protein 6.7 gm/dl (6.4-8.2) 11/17/19 05:42 Albumin 2.8 gm/dl (3.4-5.0) L 11/17/19 05:42 Globulin 3.9 gm/dl (2.5-4.0) 11/17/19 05:42 Albumin/Globulin Ratio 0.7 (0.9-2) L 11/17/19 05:42 25-OH Vitamin D Total 34.8 ng/ml (30-100) 11/17/19 05:42 Urine Color Yellow 11/16/19 19:20 Urine Appearance Clear (Clear) 11/16/19 19:20 Urine pH 6.5 (4.5-7.5) 11/16/19 19:20 Ur Specific Putnam 1.012 (1.000-1.030) 11/16/19 19:20 Urine Protein Negative (Negative) 11/16/19 19:20 Urine Glucose (UA) Negative (Negative) 11/16/19 19:20 Urine Ketones Negative (Negative) 11/16/19 19:20 Urine Blood Negative (Negative) 11/16/19 19:20 Urine Nitrite Negative (Negative) 11/16/19 19:20 Urine Bilirubin Negative (Negative) 11/16/19 19:20 Urine Urobilinogen Negative (Negative) 11/16/19 19:20 Ur Leukocyte Esterase 1+ (Negative) H 11/16/19 19:20 Urine WBC (Auto) 5-10 /hpf (0-5) H 11/16/19 19:20 Urine RBC (Auto) 0-4 /hpf (0-4) 11/16/19 19:20 U Hyaline Cast (Auto) 1-5 /lpf (0-5) 11/16/19 19:20 U Epithel Cells (Auto) >30 /lpf (0-5) H 11/16/19 19:20 Urine Bacteria (Auto) Negative (Negative) 11/16/19 19:20 Urine Yeast Present (None Prsent) A 11/16/19 19:20 Nasal Screen MRSA (PCR) Negative (Negative) 11/16/19 23:00 COVID-19 [facility] 11/16/19 23:00 SARS-CoV-2, RNA, NAAT NEGATIVE (NEGATIVE) 11/16/19 23:00 Blood Type B Positive 11/16/19 17:55 Antibody Screen NEGATIVE 11/16/19 17:55 Diagnostic Findings FL hip RT 2-3V CLINICAL HISTORY: Intertrochanteric right hip fracture status post surgery COMPARISON STUDY: 11/16/2019 FLUOROSCOPY TIME: 70 seconds. NUMBER OF FLUOROSCOPIC IMAGES: 4 FINDINGS: Intraoperative fluoroscopic spot images demonstrate internal fixation of the patient's intertrochanteric hip fracture with a trochanteric nail and interlocking intramedullary demond. IMPRESSION: Fluoroscopic spot images demonstrating internal fixation of an intertrochanteric right hip fracture (1) Intertrochanteric fracture of right hip Encounter type: initial encounter Fracture alignment: displaced Fracture type: closed Qualified Code(s): S72.141A - Displaced intertrochanteric fracture of right femur, initial encounter for closed fracture
[2019-11-19] MEDS: ASPIRIN 81 MG ECTAB PO SCH (08:06)
[2019-11-19] MEDS: METOPROLOL SUCC 25MG EXT REL TAB PO SCH (08:06)
[2019-11-19] MEDS: MULTIVITAMIN TAB PO SCH (08:06)
[2019-11-19] MEDS: INSULIN ASPART 100 UNITS/ML 3 ML PEN SC SCH ×4 (08:11→20:15)
--- NOTE | 2019-11-19 08:38 | Hospitalist Progress Note ---
Date of Service November 19, 2019 Assessment & Plan (1) Fall: (2) Closed intertrochanteric fracture of right femur: 89-year-old female who has significant past medical history of chronic systolic CHF with EF 25 to 30%, ischemic cardiomyopathy, CAD, PAF anticoagulated on warfarin, COPD, HLD, hypothyroidism, severe mitral regurg, chronic LBBB CKD stage III, osteoporosis, tobacco abuse who presents to ED after sustaining a mechanical fall at home. Had supratherapeutic INR of 6.1 which was reversed with vit k Patient does have cardiac history but appears to be clinically stable EKG does show inferior TWI (old but more pronounced). Patient has no complaints, no chest pain Considering osteopenia, fracture, malnutrition, this is likely osteoporotic fracture S/P Right cephalo-medullary nailing of intertrochanteric fracture on 11/17/19 POD#2 Pain is well controlled Awaiting SNF placement Vit D lvl 34.8 (3) Supratherapeutic INR: INR 6.1 Without bleeding Got Vit K 10mg for reversal prior to surgery INR is 1.4 this AM Continue warfarin and monitor Need close follow up with anticoagulation clinic on discharge (4) Chronic systolic heart failure: (5) CAD (coronary artery disease): History of LAD stenting in 2003 Ischemic cardiomyopathy with HFrEF class 3 Most recent EF 25 to 29% 06/2018 Underwent cardiac catheterization 06/2018 which revealed patent vessels Follows [facility] cardiology Currently euvolemic On ASA, statin, metoprolol, lisinopril and torsemide as outpatient Resume home torsemide/lisinopril perioperatively BP currently stable. (6) Paroxysmal atrial fibrillation: Rate and rhythm controlled with metoprolol Home regimen is 4 mg Thursday, 6 mg all other days Continue warfarin on 4mg daily for now and monitor INR Will need close follow up with anticoagulation clinic on discharge (7) CKD (chronic kidney disease), stage III: BUN/creatinine 45 and 1.22 on admission, baseline creatinine 1.1 Avoid nephrotoxins (8) COPD (chronic obstructive pulmonary disease): No acute exacerbation 2 L of O2 at bedtime (9) Hypothyroidism: Continue levothyroxine (10) Hyperglycemia: Patient denies history of T2DM A1c is 6.5 Continue accuchecks with novolog coverage (11) Severe malnutrition: Patient appears to be severely malnourished on exam Nutrition recommendations noted Continue Nutritional supplements (12) DVT prophylaxis: Warfarin Follow up: PCP Dr. Juarez upon discharge Dispo- Awaiting SNF placement. Possible discharge tomorrow Updated patient on plans. Attempt to reach son on phone was unsuccessful Admission and Anticipated Discharge Date Admission Date: November 16, 2019 Subjective Patient seen and examined. Denied any complaint Reports op site pain is well controlled Denied any other symptoms Physical Exam Constitutional: + thin Eyes: PERRL, conjunctivae normal, anicteric sclerae ENMT: external ear and nose normal, oropharynx normal Respiratory: normal respiratory effort, lungs clear to auscultation Cardiovascular: Rate/Rhythm: regular rate and regular rhythm Gastrointestinal (Abdomen): normal bowel sounds, soft, nontender, no hepatosplenomegaly Neurologic: AOX3, moves all extremities Psychiatric: Orientation: alert Affect: euthymic affect Results & Data Results & Data ([facility]) Vital Signs (Past 12 Hours) Vital Signs Temp Pulse Pulse Resp BP Pulse Ox 11/19/19 07:13 36.5 C 78 18 132/77 97 11/19/19 03:27 78 11/19/19 03:15 36.6 C 69 16 116/70 95 11/18/19 23:15 36.5 C 72 16 112/73 94 Laboratory Results Laboratory Results - last 24 hr 11/18/19 11/18/19 11/18/19 11:21 16:37 20:13 WBC RBC Hgb Hct MCV MCH MCHC RDW Std Deviation RDW Coeff of Gibran Plt Count MPV PT INR Sodium Potassium Chloride Carbon Dioxide Anion Gap BUN Creatinine Est Cr Clr Drug Dosing Est GFR ( Amer) Est GFR (Non-Af Amer) BUN/Creatinine Ratio Glucose POC Glucose 136 H 143 H 168 H Calcium 11/19/19 11/19/19 11/19/19 05:18 05:18 05:18 WBC 10.62 RBC 4.35 Hgb 11.4 L Hct 35.6 L MCV 81.8 MCH 26.2 MCHC 32.0 RDW Std Deviation 55.6 H RDW Coeff of Gibran 18.4 H Plt Count 175 MPV 10.0 PT 14.3 H INR 1.4 H Sodium 137 Potassium 4.7 Chloride 106 Carbon Dioxide 28 Anion Gap 3.0 BUN 33 H Creatinine 0.94 Est Cr Clr Drug Dosing 30.1 Est GFR ( Amer) 62.8 Est GFR (Non-Af Amer) 54.2 BUN/Creatinine Ratio 35.2 H Glucose 107 H POC Glucose Calcium 9.3 11/19/19 07:43 WBC RBC Hgb Hct MCV MCH MCHC RDW Std Deviation RDW Coeff of Gibran Plt Count MPV PT INR Sodium Potassium Chloride Carbon Dioxide Anion Gap BUN Creatinine Est Cr Clr Drug Dosing Est GFR ( Amer) Est GFR (Non-Af Amer) BUN/Creatinine Ratio Glucose POC Glucose 114 H Calcium
[2019-11-19] MEDS ORDERED: MULTIVITAMIN TAB PO SCH (09:00)
--- NOTE | 2019-11-19 14:09 | Cardiology Progress Note ---
Date of Service November 19, 2019 Assessment & Plan (1) Intertrochanteric fracture of right hip: (2) CAD (coronary artery disease): (3) Complete left bundle branch block (LBBB): (4) Paroxysmal atrial fibrillation: (5) Severe mitral regurgitation: (6) Chronic systolic heart failure: POD #1 s/p right cephalo-medullary nailing of intertrochanteric fracture. Volume status stable. SR on telemetry with one brief run of SVT this am. Continue ASA , coumadin has been restarted, metoprolol, lisinopril, torsemide. Admission and Anticipated Discharge Date Admission Date: November 16, 2019 Subjective Patient seen in follow-up. No current cardiac complaints. Pain well controlled. Telemetry reveals sinus rhythm in the 80 to 90 bpm range with occasional PVCs. A 14 beat run of supraventricular tachycardia occurred this morning at 8:50 AM. Physical Exam Physical Exam: Temp Pulse Resp BP Pulse Ox 36.5 C 72 18 147/75 H 97 11/19/19 11:48 11/19/19 11:48 11/19/19 11:48 11/19/19 11:48 11/19/19 11:48 Constitutional: + cachectic Respiratory: normal respiratory effort, lungs clear to auscultation Cardiovascular: Rate/Rhythm: regular rate Heart Sounds: + murmur (1/6 SM) Vessels: no JVD Extremities: no edema Gastrointestinal (Abdomen): normal bowel sounds, soft, nontender, no hepatosplenomegaly Neurologic: PERRL, EOMI, accommodation nl, no face palsy, no dysarthria Results & Data ([facility]) Vital Signs (Past 12 Hours) Vital Signs Temp Pulse Pulse Resp BP Pulse Ox Pulse Ox 11/19/19 11:48 36.5 C 72 18 147/75 H 97 11/19/19 08:38 84 93 11/19/19 07:13 36.5 C 78 18 132/77 97 11/19/19 03:27 78 11/19/19 03:15 36.6 C 69 16 116/70 95 Laboratory Results INR 1.4 (0.9-1.1) H 11/19/19 05:18 11/19/19 Range/Units 05:18 PT 14.3 H (9.0-12.0) Seconds CBC 11/19/19 Range/Units 05:18 WBC 10.62 (4.8-10.8) K/uL RBC 4.35 (4.2-5.4) M/uL Hgb 11.4 L (12.0-16.0) g/dL Hct 35.6 L (37-47) % Plt Count 175 (130-400) K/uL Comprehensive Metabolic Panel 11/19/19 Range/Units 05:18 Sodium 137 (136-145) mmol/L Potassium 4.7 (3.5-5.1) mmol/L Chloride 106 (98-107) mmol/L Carbon Dioxide 28 (21-32) mmol/L BUN 33 H (7-18) mg/dl Creatinine 0.94 (0.6-1.2) mg/dl Glucose 107 H (70-99) mg/dl Calcium 9.3 (8.5-10.1) mg/dl Intake and Output 11/18/19 11/19/19 11/19/19 22:59 06:59 14:59 Intake Total 390 / 1226.25 Output Total 150 / 300 50 / 300 Balance 240 / 926.25 -50 / 926.25 Intake: Oral 390 / 390 Output: Urine Amount (Catheter) 150 / 300 50 / 300 Olivera/Indwelling 150 / 300 50 / 300 Other: Other Intake Source sips Weight 45.5 kg (1) Intertrochanteric fracture of right hip Encounter type: initial encounter Fracture type: closed Fracture alignment: displaced Qualified Code(s): S72.141A - Displaced intertrochanteric fracture of right femur, initial encounter for closed fracture
[2019-11-19] MEDS: WARFARIN SOD 4 MG TAB PO SCH (15:15)
[2019-11-19] MEDS: DOCUSATE SODIUM/SENNA 50/8.6MG TAB PO SCH (20:16)
[2019-11-19] MEDS: ATORVASTATIN 40 MG TAB PO SCH (20:16)
[2019-11-19] MEDS: ONDANSETRON INJ 2 MG/ML 2 ML VIAL IV PRN (20:17)
[2019-11-20] MEDS: LEVOTHYROXINE SODIUM 112 MCG TABLET PO SCH (06:00)
[2019-11-20 06:18] LABS: BUN Creatinine Ratio 43.6 (10-20); Calcium 9.2 mg/dl (8.5-10.1); Creatinine Clr Calc Pharmacy 32.9 ml/min; Est GFR (African American) 70.9; Est GFR (Non-African American) 61.2; Magnesium 2.2 mg/dl (1.8-2.4); Potassium 4.9 mmol/L (3.5-5.1)
[2019-11-20 06:23] LABS: Prothrombin Time 20.5 Seconds (9.0-12.0)
--- NOTE | 2019-11-20 06:28 | Orthopedic Progress Note ---
Date of Service November 20, 2019 Assessment & Plan (1) Intertrochanteric fracture of right hip: Postop day #3 status post Right cephalo-medullary nailing of intertrochanteric fracture PT/OT DVT prophylaxisaspirin 81 mg daily and Coumadin Toe-touch weightbearing right lower extremity. Pain controlTylenol, as needed oxycodone, as needed IV morphine. Discharge planning It looks like she has been approved for [facility] but may not be able to go until Thursday Orthopedically stable, will sign off at this time, instructions placed in chart. She should f/u with Dr James 12-14 days from sx date. please contact with any questions or concerns. Admission and Anticipated Discharge Date Admission Date: November 16, 2019 Subjective she denies CP/SOB, fever or chills. states having less pain in her hip, particularly when I moved her leg today compared to yesterday. Physical Exam Physical Exam: Vital Signs Temp 36.9 C 11/20/19 03:49 Pulse 66 11/20/19 03:49 Resp 16 11/20/19 03:49 BP 114/63 11/20/19 03:49 Pulse Ox 96 11/20/19 04:00 Intake & Output 11/19/19 11/19/19 11/20/19 06:59 18:59 06:59 Intake Total 390 / 1226.25 460 / 660 200 / 660 Output Total 200 / 300 350 / 750 400 / 750 Balance 190 / 926.25 110 / -90 -200 / -90 Weight 45.5 kg 45.6 kg Intake: Oral 390 / 390 460 / 660 200 / 660 Output: Urine Amount (Ca theter) 200 / 300 350 / 750 400 / 750 Olivera/Indwelli ng 200 / 300 350 / 750 400 / 750 Other: Other Intake Marjorie rce sips Musculoskeletal: Hip: + hip abnormal to inpsection (Right Hip- surgical dressing taken down, thigh soft, no drainage noted), + ecchymosis (minimal) and + surgical incision (well approximated skin edges); no deformity and no skin erythema Results & Data ([facility]) Vital Signs (Past 12 Hours) Vital Signs Temp Pulse Pulse Resp BP Pulse Ox Pulse Ox 11/20/19 04:00 96 11/20/19 03:49 36.9 C 66 16 114/63 96 11/20/19 00:00 92 11/19/19 23:23 36.6 C 70 16 129/63 11/19/19 23:10 64 11/19/19 20:00 11/19/19 18:55 36.6 C 72 18 136/74 96 (1) Intertrochanteric fracture of right hip Encounter type: initial encounter Fracture type: closed Fracture alignment: displaced Qualified Code(s): S72.141A - Displaced intertrochanteric fracture of right femur, initial encounter for closed fracture
[2019-11-20] MEDS: ASPIRIN 81 MG ECTAB PO SCH (08:23)
[2019-11-20] MEDS: ACETAMINOPHEN 325 MG TAB PO PRN ×2 (08:23→12:22)
[2019-11-20] MEDS: METOPROLOL SUCC 25MG EXT REL TAB PO SCH (08:23)
[2019-11-20] MEDS: TORSEMIDE 10 MG TAB PO SCH (08:23)
[2019-11-20] MEDS: MULTIVITAMIN TAB PO SCH (08:23)
--- NOTE | 2019-11-20 09:29 | Hospitalist Progress Note ---
Date of Service November 20, 2019 Assessment & Plan (1) Fall: (2) Closed intertrochanteric fracture of right femur: 89-year-old female who has significant past medical history of chronic systolic CHF with EF 25 to 30%, ischemic cardiomyopathy, CAD, PAF anticoagulated on warfarin, COPD, HLD, hypothyroidism, severe mitral regurg, chronic LBBB CKD stage III, osteoporosis, tobacco abuse who presents to ED after sustaining a mechanical fall at home. Had supratherapeutic INR of 6.1 which was reversed with vit k Patient does have cardiac history but appears to be clinically stable EKG does show inferior TWI (old but more pronounced). Patient has no complaints, no chest pain Considering osteopenia, fracture, malnutrition, this is likely osteoporotic fracture S/P Right cephalo-medullary nailing of intertrochanteric fracture on 11/17/19 POD#3 Pain is well controlled with tylenol prn Vit D lvl 34.8 Spoke with CM yesterday. SNF will not be able to take patient till 11/22/19 (3) Supratherapeutic INR: INR 6.1 Without bleeding Got Vit K 10mg for reversal prior to surgery INR is 2 this AM Continue warfarin and monitor. Reduced dose to 3mg daily due to rapid increase in INR Need close follow up with anticoagulation clinic on discharge (4) Chronic systolic heart failure: (5) CAD (coronary artery disease): History of LAD stenting in 2003 Ischemic cardiomyopathy with HFrEF class 3 Most recent EF 25 to 29% 06/2018 Underwent cardiac catheterization 06/2018 which revealed patent vessels Follows [facility] cardiology Currently euvolemic On ASA, statin, metoprolol, lisinopril and torsemide as outpatient Continue torsemide, lisinopril BP currently stable. (6) Paroxysmal atrial fibrillation: Rate and rhythm controlled with metoprolol Home regimen is 4 mg Thursday, 6 mg all other days Continue warfarin on 3mg daily for now and monitor INR Will need close follow up with anticoagulation clinic on discharge (7) CKD (chronic kidney disease), stage III: BUN/creatinine 45 and 1.22 on admission, baseline creatinine 1.1 Cr is 0.85 Avoid nephrotoxins (8) COPD (chronic obstructive pulmonary disease): No acute exacerbation 2 L of O2 at bedtime (9) Hypothyroidism: Continue levothyroxine (10) Hyperglycemia: Patient denies history of T2DM A1c is 6.5 Continue accuchecks with novolog coverage (11) Severe malnutrition: Patient appears to be severely malnourished on exam Nutrition recommendations noted Continue Nutritional supplements (12) DVT prophylaxis: Warfarin Follow up: PCP Dr. Juarez upon discharge Dispo- Awaiting SNF placement. Possible discharge 11/22/19 Admission and Anticipated Discharge Date Admission Date: November 16, 2019 Subjective Patient seen and examined. Sitting out in chair. Denied any complaints Pain well controlled Physical Exam Constitutional: + thin Sitting in chair Eyes: PERRL, conjunctivae normal, anicteric sclerae ENMT: external ear and nose normal, oropharynx normal Respiratory: normal respiratory effort, lungs clear to auscultation Cardiovascular: Rate/Rhythm: regular rate and regular rhythm Gastrointestinal (Abdomen): normal bowel sounds, soft, nontender, no hepatosplenomegaly Musculoskeletal: Clean dressing over right thigh. Moves all extremities without pain Neurologic: PERRL, EOMI, accommodation nl, no face palsy, no dysarthria Psychiatric: A+Ox3, euthymic affect Results & Data Results & Data ([facility]) Vital Signs (Past 12 Hours) Vital Signs Temp Pulse Pulse Resp BP BP Pulse Ox 11/20/19 07:38 36.4 C L 63 18 134/67 95 11/20/19 07:30 86 11/20/19 04:00 11/20/19 03:49 36.9 C 66 16 114/63 96 11/20/19 00:00 11/19/19 23:23 36.6 C 70 16 129/63 92 11/19/19 23:10 64 Pulse Ox 11/20/19 07:38 11/20/19 07:30 11/20/19 04:00 96 11/20/19 03:49 11/20/19 00:00 92 11/19/19 23:23 11/19/19 23:10 Laboratory Results Laboratory Results - last 24 hr 11/19/19 11/19/19 11/19/19 11:21 16:38 20:01 PT INR Sodium Potassium Chloride Carbon Dioxide Anion Gap BUN Creatinine Est Cr Clr Drug Dosing Est GFR ( Amer) Est GFR (Non-Af Amer) BUN/Creatinine Ratio Glucose POC Glucose 113 H 124 H 181 H Calcium Magnesium 11/20/19 11/20/19 11/20/19 05:24 05:24 07:31 PT 20.5 H INR 2.0 H Sodium 136 Potassium 4.9 Chloride 103 Carbon Dioxide 28 Anion Gap 5.0 BUN 37 H Creatinine 0.85 Est Cr Clr Drug Dosing 32.9 Est GFR ( Amer) 70.9 Est GFR (Non-Af Amer) 61.2 BUN/Creatinine Ratio 43.6 H Glucose 91 POC Glucose 154 H Calcium 9.2 Magnesium 2.2
[2019-11-20] MEDS: INSULIN ASPART 100 UNITS/ML 3 ML PEN SC SCH ×4 (09:49→20:26)
--- NOTE | 2019-11-20 13:29 | XRay Report ---
XR knee RT 1 or 2V routine HISTORY: 89 years-old Female Assess right knee pain acute right knee pain COMPARISON: None TECHNIQUE: 2 views the right knee FINDINGS: Tricompartmental osteoarthritis, severe within the medial compartment. Moderate lateral and patellofe moral compartment osteoarthritis with chondrocalcinosis. Demineralized appearance the bones. Moderate anteromedial soft tissue swelling. Large joint effusion with ossifications noted within the suprapat ellar recess. Arterial calcifications. IMPRESSION: 1. Tricompartmental osteoarthritis without acute fracture or dislocation. 2. Large joint effusion. ACT 112: Negative or not required by law. The above report was generated using voice recognition software. It may contain grammatical, syntax o r spelling errors. Electronically signed by: Giacomo Burgess M.D. 11/20/2019 1:28 PM
--- NOTE | 2019-11-20 13:37 | Cardiology Progress Note ---
Date of Service November 20, 2019 Assessment & Plan (1) Intertrochanteric fracture of right hip: (2) CAD (coronary artery disease): (3) Complete left bundle branch block (LBBB): (4) Paroxysmal atrial fibrillation: (5) Severe mitral regurgitation: (6) Chronic systolic heart failure: POD #2 s/p right cephalo-medullary nailing of intertrochanteric fracture. Volume status stable. Telemetry reveals sinus rhythm. INR at goal, 2. Potassium has trended up to 4.9. Hold multivitamin. Continue metoprolol, atorvastatin, lisinopril 2.5 mg daily, torsemide 10 mg daily. Admission and Anticipated Discharge Date Admission Date: November 16, 2019 Subjective Patient sitting in bedside chair. No complaints. States her postoperative pain is well controlled. Denies shortness of breath. Olivera catheter in place. Physical Exam Physical Exam: Temp Pulse Resp BP Pulse Ox 36.8 C 61 18 135/66 100 11/20/19 11:07 11/20/19 11:07 11/20/19 11:07 11/20/19 11:07 11/20/19 11:07 Constitutional: + cachectic Respiratory: normal respiratory effort, lungs clear to auscultation Cardiovascular: Rate/Rhythm: regular rhythm Heart Sounds: + murmur (1/6 systolic murmur) Vessels: + femoral bruit; no JVD Extremities: no edema Neurologic: PERRL, EOMI, accommodation nl, no face palsy, no dysarthria Results & Data ([facility]) Vital Signs (Past 12 Hours) Vital Signs Temp Pulse Pulse Resp BP BP Pulse Ox 11/20/19 11:07 36.8 C 61 18 135/66 100 11/20/19 07:38 36.4 C L 63 18 134/67 95 11/20/19 07:30 86 11/20/19 04:00 11/20/19 03:49 36.9 C 66 16 114/63 96 Pulse Ox 11/20/19 11:07 11/20/19 07:38 11/20/19 07:30 11/20/19 04:00 96 11/20/19 03:49 Laboratory Results INR 2.0 (0.9-1.1) H 11/20/19 05:24 Coagulation 11/20/19 Range/Units 05:24 PT 20.5 H (9.0-12.0) Seconds Comprehensive Metabolic Panel 11/20/19 Range/Units 05:24 Sodium 136 (136-145) mmol/L Potassium 4.9 (3.5-5.1) mmol/L Chloride 103 (98-107) mmol/L Carbon Dioxide 28 (21-32) mmol/L BUN 37 H (7-18) mg/dl Creatinine 0.85 (0.6-1.2) mg/dl Glucose 91 (70-99) mg/dl Calcium 9.2 (8.5-10.1) mg/dl Intake and Output 11/19/19 11/20/19 11/20/19 22:59 06:59 14:59 Intake Total 200 / 660 Output Total 400 / 750 Balance -200 / -90 Intake: Oral 200 / 660 Output: Urine Amount (Catheter) 400 / 750 Olivera/Indwelling 400 / 750 Other: Weight 45.6 kg (1) Intertrochanteric fracture of right hip Encounter type: initial encounter Fracture type: closed Fracture alignment: displaced Qualified Code(s): S72.141A - Displaced intertrochanteric fracture of right femur, initial encounter for closed fracture
[2019-11-20] MEDS: WARFARIN SOD 3 MG TAB PO SCH (17:06)
[2019-11-20] MEDS: ATORVASTATIN 40 MG TAB PO SCH (20:06)
[2019-11-20] MEDS: DOCUSATE SODIUM/SENNA 50/8.6MG TAB PO SCH (20:06)
[2019-11-21] MEDS: LEVOTHYROXINE SODIUM 112 MCG TABLET PO SCH (05:07)
[2019-11-21 06:20] LABS: INR 2.4 (0.9-1.1); Prothrombin Time 24.5 Seconds (9.0-12.0)
--- NOTE | 2019-11-21 08:36 | Hospitalist Progress Note ---
Date of Service November 21, 2019 Assessment & Plan (1) Fall: (2) Closed intertrochanteric fracture of right femur: 89-year-old female who has significant past medical history of chronic systolic CHF with EF 25 to 30%, ischemic cardiomyopathy, CAD, PAF anticoagulated on warfarin, COPD, HLD, hypothyroidism, severe mitral regurg, chronic LBBB CKD stage III, osteoporosis, tobacco abuse who presents to ED after sustaining a mechanical fall at home. Had supratherapeutic INR of 6.1 which was reversed with vit k Patient does have cardiac history but appears to be clinically stable EKG does show inferior TWI (old but more pronounced). Patient has no complaints, no chest pain Considering osteopenia, fracture, malnutrition, this is likely osteoporotic fracture S/P Right cephalo-medullary nailing of intertrochanteric fracture on 11/17/19 POD#3 Pain is well controlled with tylenol prn Vit D lvl 34.8 Spoke with CM yesterday. SNF will not be able to take patient till 11/22/19 (3) Supratherapeutic INR: INR 6.1 Without bleeding Got Vit K 10mg for reversal prior to surgery INR is 2.4 this AM Continue warfarin 3mg and monitor. May need reduction to 2mg if INR continues to increase at the rate it is or >3 Need close follow up with anticoagulation clinic on discharge (4) Chronic systolic heart failure: (5) CAD (coronary artery disease): History of LAD stenting in 2003 Ischemic cardiomyopathy with HFrEF class 3 Most recent EF 25 to 29% 06/2018 Underwent cardiac catheterization 06/2018 which revealed patent vessels Follows [facility] cardiology Currently euvolemic Telemetry showed 13beat nonsustained VT. Patient had no symptoms at the time. HR currently in 60s On ASA, statin, metoprolol, lisinopril and torsemide as outpatient Continue torsemide, lisinopril, metoprolol XL (6) Paroxysmal atrial fibrillation: Rate and rhythm controlled with metoprolol Home regimen is 4 mg Thursday, 6 mg all other days Continue warfarin on 3mg daily for now and monitor INR Will need close follow up with anticoagulation clinic on discharge (7) CKD (chronic kidney disease), stage III: BUN/creatinine 45 and 1.22 on admission, baseline creatinine 1.1 Stable Avoid nephrotoxins (8) COPD (chronic obstructive pulmonary disease): No acute exacerbation 2 L of O2 at bedtime (9) Hypothyroidism: Continue levothyroxine (10) Hyperglycemia: Patient denies history of T2DM A1c is 6.5 Continue accuchecks with novolog coverage (11) Severe malnutrition: Patient appears to be severely malnourished on exam Nutrition recommendations noted Continue Nutritional supplements (12) DVT prophylaxis: Warfarin Follow up: PCP Dr. Juarez upon discharge Dispo- Awaiting SNF placement. Possible discharge 11/22/19 Admission and Anticipated Discharge Date Admission Date: November 16, 2019 Subjective Patient seen and examined. Denied any pain today Had reported mild right knee pain yesterday afternoon to RN. Stated she had the pain after moving around with physical therapy Denies any pain or swelling at this time Denies any fevers, chills, nausea, vomiting Denies any abd pain, diarrhea, constipation Denies any chest pain,cough, SOB, palpitation, dizziness Physical Exam Constitutional: + thin Eyes: PERRL, conjunctivae normal, anicteric sclerae ENMT: external ear and nose normal, oropharynx normal Respiratory: normal respiratory effort, lungs clear to auscultation Cardiovascular: Rate/Rhythm: regular rate and regular rhythm Gastrointestinal (Abdomen): normal bowel sounds, soft, nontender, no hepatosplenomegaly Musculoskeletal: Clean dressing over right thigh Normal ROM over Rt knee passive and active No tenderness on palpation, swelling or warmth Neurologic: PERRL, EOMI, accommodation nl, no face palsy, no dysarthria Psychiatric: A+Ox3, euthymic affect Orientation: alert Affect: euthymic affect Results & Data Results & Data ([facility]) Vital Signs (Past 12 Hours) Vital Signs Temp Pulse Pulse Resp BP BP Pulse Ox 11/21/19 07:04 36.8 C 65 18 151/70 H 93 11/21/19 07:00 68 11/21/19 03:11 36.3 C L 64 18 112/60 91 11/20/19 23:15 57 L 11/20/19 22:54 36.8 C 59 L 16 108/67 98 Laboratory Results Laboratory Results - last 24 hr 11/20/19 11/20/19 11/20/19 11:34 16:40 20:14 PT INR POC Glucose 141 H 115 H 128 H 11/21/19 11/21/19 05:54 07:29 PT 24.5 H INR 2.4 H POC Glucose 98
[2019-11-21] MEDS: INSULIN ASPART 100 UNITS/ML 3 ML PEN SC SCH ×4 (09:10→20:38)
[2019-11-21] MEDS: METOPROLOL SUCC 25MG EXT REL TAB PO SCH (09:12)
[2019-11-21] MEDS: TORSEMIDE 10 MG TAB PO SCH (09:13)
[2019-11-21] MEDS: ASPIRIN 81 MG ECTAB PO SCH (09:13)
--- NOTE | 2019-11-21 10:47 | Cardiology Progress Note ---
Date of Service November 21, 2019 Assessment & Plan (1) Intertrochanteric fracture of right hip: Patient appears to be recovering from surgery relatively well. (2) CAD (coronary artery disease): (3) Complete left bundle branch block (LBBB): (4) Paroxysmal atrial fibrillation: (5) Severe mitral regurgitation: (6) Chronic systolic heart failure: POD #2 s/p right cephalo-medullary nailing of intertrochanteric fracture. Volume status stable. Telemetry reveals sinus rhythm. INR at goal, 2. Potassium has trended up to 4.9. Hold multivitamin. Continue metoprolol, atorvastatin, lisinopril 2.5 mg daily, torsemide 10 mg daily. 11/21/2019 we will give additional metoprolol succinate 12.5 mg nightly for rhythm control No other changes Admission and Anticipated Discharge Date Admission Date: November 16, 2019 Subjective Patient seen and examined, chart, medications, telemetry reviewed. Overall appears recovering well from surgery. Notes mechanical fall as the inciting presentation. No dizziness or lightheadedness no syncope or near syncope no cardiac complaints since hospitalization. Telemetry demonstrated approximately 10 seconds of atrial fibrillation with rapid response earlier today, wide-complex, asymptomatic No fevers chills. Pain controlled Physical Exam Constitutional: Thin elderly female on chronic oxygen supplementation Eyes: PERRL, conjunctivae normal, anicteric sclerae ENMT: external ear and nose normal, oropharynx normal Neck: trachea midline, no thyromegaly Respiratory: Auscultation: + diminished lung sounds No rhonchi rales or wheeze Cardiovascular: Rate/Rhythm: regular rate and regular rhythm Vessels: no JVD Extremities: no edema Gastrointestinal (Abdomen): Percussion/Palpation: abdomen soft; abdomen nontender Neurologic: PERRL, EOMI, accommodation nl, no face palsy, no dysarthria Results & Data ([facility]) Vital Signs (Past 12 Hours) Vital Signs Temp Pulse Pulse Resp BP BP Pulse Ox 11/21/19 07:04 36.8 C 65 18 151/70 H 93 11/21/19 07:00 68 11/21/19 03:11 36.3 C L 64 18 112/60 91 11/20/19 23:15 57 L 11/20/19 22:54 36.8 C 59 L 16 108/67 98 Laboratory Results Laboratory Results - last 24 hr 11/20/19 11/20/19 11/20/19 11:34 16:40 20:14 PT INR POC Glucose 141 H 115 H 128 H 11/21/19 11/21/19 05:54 07:29 PT 24.5 H INR 2.4 H POC Glucose 98 (1) Intertrochanteric fracture of right hip Encounter type: initial encounter Fracture type: closed Fracture alignment: displaced Qualified Code(s): S72.141A - Displaced intertrochanteric fracture of right femur, initial encounter for closed fracture
[2019-11-21] MEDS: ACETAMINOPHEN 325 MG TAB PO PRN (12:23)
[2019-11-21] MEDS: WARFARIN SOD 3 MG TAB PO SCH (16:16)
[2019-11-21] MEDS: ATORVASTATIN 40 MG TAB PO SCH (20:40)
[2019-11-21] MEDS: DOCUSATE SODIUM/SENNA 50/8.6MG TAB PO SCH (20:41)
[2019-11-21] MEDS ORDERED: METOPROLOL SUCC 25MG EXT REL TAB PO SCH (21:00)
[2019-11-22] MEDS: LEVOTHYROXINE SODIUM 112 MCG TABLET PO SCH (05:52)
[2019-11-22 06:30] LABS: Prothrombin Time 29.8 Seconds (9.0-12.0)
[2019-11-22] MEDS: ACETAMINOPHEN 325 MG TAB PO PRN (08:09)
[2019-11-22] MEDS: ASPIRIN 81 MG ECTAB PO SCH (08:11)
[2019-11-22] MEDS: METOPROLOL SUCC 25MG EXT REL TAB PO SCH (08:13)
[2019-11-22] MEDS: TORSEMIDE 10 MG TAB PO SCH (08:13)
[2019-11-22] MEDS: INSULIN ASPART 100 UNITS/ML 3 ML PEN SC SCH ×2 (08:15→12:24)
--- NOTE | 2019-11-22 09:01 | Hospitalist Progress Note ---
Date of Service November 22, 2019 Assessment & Plan Admission and Anticipated Discharge Date Admission Date: November 16, 2019 Results & Data Results & Data ([facility]) Vital Signs (Past 12 Hours) Vital Signs Temp Pulse Pulse Resp BP Pulse Ox 11/22/19 07:03 36.7 C 77 20 128/66 97 11/22/19 04:19 37 C 67 20 138/64 100 11/22/19 00:00 67 11/21/19 23:11 37.1 C 91 H 20 167/56 H 94
--- NOTE | 2019-11-22 11:55 | Discharge Summary ---
Date of Service November 22, 2019 Admission HPI Per Admitting Provider This is an 89-year-old female who has significant past medical history of chronic systolic CHF with EF 25 to 30%, ischemic cardiomyopathy, CAD, PAF anticoagulated on warfarin, COPD, HLD, hypothyroidism, severe mitral regurg, chronic LBBB CKD stage III, osteoporosis, tobacco abuse who presents to ED after sustaining a mechanical fall at home. Patient resides in apartment with daughter. She states earlier today she left her apartment for the first time in months and walked several blocks to the [employer]. When she returned home she was in her bedroom and was turning around to leave room when she felt her foot, "get caught," and fell. She developed immediate right leg pain with inability to move. EMS was summoned. Patient did not lose consciousness or hit head. She denies any abrasions or bleeding. Besides right leg pain she otherwise denies any current complaint she denies any recent fever, chills, sweats, lightheadedness, dizziness, chest pain, shortness breath, palpitations, nausea, vomiting, abdominal pain. She further denies any hematuria, dysuria, melena, hematochezia, epistaxis. She did take her medications today including her warfarin. She does not have any flight of stairs, but again was able to walk several blocks today without any use of oxygen or complaint of shortness of breath/chest pain. She does a history of ischemic cardiomyopathy and her last echocardiogram was September 2018 which revealed EF 25 to 29%. She does follow [facility] cardiology. He denies any known COVID-19 exposure. In ED patient remained hemodynamically stable. She did receive IV morphine and IVF. Patient did have supratherapeutic INR at 6.1, BUN 45, creatinine 1.2, glucose 196. Hip x-ray confirmed acute comminuted midly displaced right intertrochanteric femur fracture. Admission Exam Per Admitting Provider Constitutional: Petite, elderly, female, vitals as above, NAD, sitting up in bed, pleasant, conversing easily Head: Normocephalic, Atraumatic Eyes: PERRL, conjunctivae normal, anicteric sclerae ENMT: external ear and nose normal, oropharynx normal Neck: trachea midline, no thyromegaly normal visual inspection Respiratory: normal respiratory effort, lungs clear to auscultation, no wheeze, rales, rhonchi. Normal insp/exp effort, no accessory muscle use Cardiovascular: RRR, harsh midsystolic click best heard at cardiac apex, no edema, bilateral pedal pulses +2 vessels: no JVD or carotid bruit Chest: normal inspection of chest Abdomen: normal bowel sounds, soft, nontender, no hepatosplenomegaly Musculoskeletal: no cyanosis or clubbing, active range of motion to bilateral upper extremities, right lower extremity shortened, inverted, no ecchymosis noted, NVI distally Skin: no rashes, warm and dry normal turgor Neurologic: PERRL, EOMI, accommodation nl, no face palsy, no dysarthria CN's II-XI intact bilaterally and moves all extremities Psychiatric: A+Ox3, euthymic affect Lymphatic: no cervical or axillary lymphadenopathy : deferred Principal Diagnosis Mechanical fall Right femoral fracture S/P intertrochanteric nail Severe malnutrition Supratherapeutic INR Discharge Exam Constitutional + thin and + malnourished Eyes PERRL, conjunctivae normal, anicteric sclerae ENMT external ear and nose normal, oropharynx normal Respiratory normal respiratory effort, lungs clear to auscultation Cardiovascular Rate/Rhythm: regular rate and regular rhythm Gastrointestinal (Abdomen) normal bowel sounds, soft, nontender, no hepatosplenomegaly Musculoskeletal Clean dressing over right thigh Neurologic PERRL, EOMI, accommodation nl, no face palsy, no dysarthria Psychiatric A+Ox3, euthymic affect Orientation: alert Affect: euthymic affect Discharge Data Allergies Allergy/AdvReac Type Severity Reaction Status Date / Time No Known Allergies Allergy Unknown Verified 04/10/19 13:50 Consultations 11/16/19 18:15 ED Decision to Admit Stat 11/16/19 18:39 Consult Anesthesiology Routine Consult Orthopedic Surgery Routine 11/16/19 20:52 Consult Case Management - Discharge Planning Routine 11/17/19 08:00 Consult Cardiology Routine Procedures Performed Operation Date: 11/17/19 10:35 Actual Procedures p Right Trochantric Nail(Right) - Camacho James M.D. Ordered Studies 11/17/19 13:30 FL fluoroscopy <1hr Routine FL hip RT 2-3V Routine Hospital Course (1) Fall: (2) Closed intertrochanteric fracture of right femur: 89-year-old female who has significant past medical history of chronic systolic CHF with EF 25 to 30%, ischemic cardiomyopathy, CAD, PAF anticoagulated on warfarin, COPD, HLD, hypothyroidism, severe mitral regurg, chronic LBBB CKD stage III, osteoporosis, tobacco abuse who presents to ED after sustaining a mechanical fall at home. Had supratherapeutic INR of 6.1 on admission which was reversed with vit k Patient does have cardiac history but appears to be clinically stable EKG does show inferior TWI (old but more pronounced). Patient had no complaints, no chest pain Considering osteopenia, fracture, malnutrition, this is likely osteoporotic fracture S/P Right cephalo-medullary nailing of intertrochanteric fracture on 11/17/19 POD#5 Pain is well controlled with tylenol prn Vit D lvl 34.8 Discharged to SNF for rehab (3) Supratherapeutic INR: INR 6.1 Without bleeding Got Vit K 10mg for reversal prior to surgery Warfarin was resumed at lower dose than home dose INR increasing quite fast INR today is 3. Will hold today's dose and resume tomorrow at lower dose of 2mg daily To check INR tomorrow at SNF Need close follow up with anticoagulation clinic (4) Chronic systolic heart failure: (5) CAD (coronary artery disease): History of LAD stenting in 2003 Ischemic cardiomyopathy with HFrEF class 3 Most recent EF 25 to 29% 06/2018 Underwent cardiac catheterization 06/2018 which revealed patent vessels Follows [facility] cardiology Currently euvolemic On ASA, statin, metoprolol, lisinopril and torsemide as outpatient Continue torsemide, lisinopril, metoprolol XL (6) Paroxysmal atrial fibrillation: Rate and rhythm controlled with metoprolol Home regimen is 4 mg Thursday, 6 mg all other days Dose adjusted as mentioned above (7) CKD (chronic kidney disease), stage III: BUN/creatinine 45 and 1.22 on admission, baseline creatinine 1.1 Stable Avoid nephrotoxins (8) COPD (chronic obstructive pulmonary disease): No acute exacerbation 2 L of O2 at bedtime (9) Hypothyroidism: Continue levothyroxine (10) Hyperglycemia: Patient denies history of T2DM A1c is 6.5 Continue accuchecks with novolog coverage (11) Severe malnutrition: Patient appears to be severely malnourished on exam Nutrition recommendations noted Continue Nutritional supplements (boost TID) Continue multivitamins Total Time Total Time Spent Total Time Spent (In Minutes): 35 Total Time Includes: Examination of the Patient, Discharge Planning and Medication Reconciliation Discharge Plan Discharge Items Patient Disposition: Transfer [facility] Reason For Visit: R FEMUR FX Discharge Diagnosis: Right femoral fracture S/P Right trochanteric nail Severe malnutrition Supratherapeutic INR Activity: As commented below Activity Comment: Per Physical therapy instructions Weightbearing: Right partial Weightbearing Comment: with walker Non-emergency contact: Surgeon Call non-emergency contact if: your pain is not controlled, your temperature is above 101.5 and your wound has increased drainage Follow-up/Referrals: Camacho James M.D. [Physician] - (Follow-up approximately 2 weeks after surgery for reevaluation and staple removal.) PCP,NO [Primary Care Provider] - Diet: Heart Healthy and Other - See Diet Comment Diet Comment: Nutritional supplements (boost) TID Ambulatory Orders: Prothrombin Time INR (Routine) Timeframe: 1 Day Location: Determined by Patient Ordered By: Zahraa Ramirez Attending Provider Instructions: Ms Saul. You were brought in for right hip pain after a fall. You were evaluated and found to have right femoral fracture which was repaired by the orthopedic surgeon. Your INR was elevated at 6.1 on admission. This was reversed for surgery. Your warfarin has been resumed at a lower dose. Please take warfarin 2mg daily for now from 11/23/19. Please also do the blood test PT/INR to check INR level to ensure it is within goal of 2-3. It is important that you follow up with INR clinic for continued monitoring and management of your warfarin. You were started on nutritional supplements for severe malnutrition. Please continue taking all your other medications as prescribed and follow up with your Primary care doctor and orthopedic surgeon. It was a pleasure taking care of you. Ashley Dietist Provider Instructions: [facility] DISCHARGE INSTRUCTIONS: HIP FRACTURE SELF CARE INSTRUCTIONS: A. You are to ambulate with a walker or crutches for approximately 6 weeks. B. You are PARTIAL WEIGHT BEARING on your operative lower extremity for at least 6 weeks. C. Wear low heeled shoes with non-slip soles D. Be sure that your floors are free of things that could trip you throw rugs, electrical cords, and small objects. Avoid wet and waxed floors, especially with crutches/walker/cane. E. Try to walk several times a day with rest periods between. F. You may shower 48 hours after surgery and get the incision area wet, but DO NOT soak or submerge incision area in water. (No baths, swimming pools, hot tubs) G. You may have a large, band-aid like dressing over your incision (Aquacel). This will remain on your incision for 7 days, and then can be removed. You CAN shower with this on. If incision is leaking through the dressing, please call the office . H. Do NOT apply soap or any ointment/lotions directly over incision. I. You may use ice as needed to operative site. SPECIAL CARE INSTRUCTIONS: VERY IMPORTANT TO READ AND REVIEW A. You may be at risk for phlebitis or blood clots. a. Wear surgical stockings (ESTHER hose) for 2 weeks after surgery to improve circulation and reduce swelling. b. Resume your Coumadin as directed by your Physician c. If you are on Coumadin- you will have daily/weekly blood work to monitor your levels. This will be done by either your family physician/medical technologist B. There are a few signs you need to watch for after you are home. Call [facility] at [phone] if you experience any of the following: a. If you have a temperature of 101 degrees or higher. b. Sudden increase in pain in your hip not relieved by rest or pain medication. c. Any fluid or drainage from the incision; redness of the incision. d. Shortness of breath or chest pain. C. Call your physician if: a. Temperature is greater than 101 degrees (F). b. Pain is not relieved by prescribed pain medications. c. Increase drainage or redness from incision. d. Unanswered questions or concerns. D. Pain Medication: a. You will be prescribed pain medication upon discharge that should last till your first post-operative appointment. b. If you experience nausea and/or skin rash, discontinue this medication and contact our office for an alternative medication. c. Caution- narcotic pain medication can cause cons tipation. FOLLOW UP VISIT: Please call [facility] at [phone] to schedule a follow up appointment 10-14 days from the date of your surgery date with Dr James. Pending Studies at Discharge: No Stand-Alone Forms: My [facility] Skilled Items Patient informed of condition?: Yes DNR: No Discharge Level of Care: Skilled Communicable Disease: No Discharge Prognosis: Stable Lines: None Urinary Catheter: No Medications and DC Order Prescriptions: New acetaminophen 325 mg Tablet 650 mg PO Q6H PRN (Reason: pain) Qty: 60 RF: 0 warfarin 2 mg Tablet 2 mg PO DAILY@1600 Qty: 30 RF: 0 Continued multivitamin Tablet 1 tab PO QAM RF: 0 atorvastatin [Lipitor] 80 mg Tablet 80 mg PO HS RF: 0 lisinopril 2.5 mg Tablet 2.5 mg PO HS RF: 0 aspirin 81 mg Tablet,Delayed Release (Dr/Ec) 81 mg PO DAILY RF: 0 metoprolol succinate [Toprol XL] 25 mg Tablet Extended Release 24 Hr 25 mg PO QAM 30 Days Qty: 0 RF: 0 torsemide 10 mg Tablet 10 mg PO DAILY RF: 0 levothyroxine 112 mcg tablet 112 mcg PO DAILY RF: 0 Breo Ellipta 100-25 mcg/dose blister with device 1 inh INHALATION DAILY PRN (Reason: SOB) RF: 0 Discontinued warfarin 2 mg Tablet 6 mg PO SUTUTHSA RF: 0 warfarin 2 mg tablet 4 mg PO MOWEFR RF: 0 Discharge Orders: Discharge Order (Routine); Ordered 11/22/19 Ordered By: Zahraa Bar/Other Patient Handouts: A1C Admission Data Admit Date/Time: 11/16/19 18:42 Attending Provider: Zahraa Faulkner I. Admit Provider: Damián Castillo Primary Care Provider: PCP,NO Other Providers: Damián Castillo ; Travon Dow ; Kevin Gaona ; Nolan Nuñez ; Aaron Slater ; John Aaron ; Deep Edwards ; Travon Mullen ; Merlin Ritchie ; Mery Coronel ; Sandie Dumont ; Ziggy Ramesh ; [facility], Other Interventions: Discharge Summary Assessment (RN) Last Done: 11/22/19 12:25
[2019-11-23] MEDS ORDERED: WARFARIN SOD 2 MG TAB PO SCH (16:00)
== END 2019-11-22 16:13 | DRG 480 ==
LOC: ED 16:55 → SUATTDRO 18:42 → 2N 18:42

== ENCOUNTER 2020-04-23 16:01 | Inpatient (IN) ==
--- NOTE | 2020-04-23 16:19 | Emergency Department Note ---
Impression & Plan Fall, Closed femur fracture ED Provider Note Provider: Everardo José MD DATE OF SERVICE: 04/23/2020 CHIEF COMPLAINT: Fall, right leg pain HISTORY OF PRESENT ILLNESS: Patient is a 89-year-old female with a past medical history of CHF, ischemic cardiopathy/CAD, paroxysmal defibrillation on Coumadin, COPD on oxygen, hypothyroidism, mitral regurg, CKD presenting here today after a fall at home. Patient states she was in her apartment and went to get up and fell to the ground. Patient states he landed right sinus pain in her right hip to knee. Denies striking her head or loss conscious. Denies any head neck or back pain. Denies any injury to the upper extremities or left extremity. Patient denies any numbness or tingling in the right foot. Patient states she cannot move her right leg due to pain in the thigh region. Patient states about a year ago she had surgery due to a broken hip and had this fixed here. Patient denies difficulty breathing or chest pain/palpitations. Patient is unable to ambulate since this and did receive some fentanyl with good improvement of her pain prior to arrival for EMS. REVIEW OF SYSTEMS: A total of 10 review of systems was obtained and negative except as stated above in the HPI. PAST MEDICAL HISTORY: As noted above MEDICATIONS: Reviewed home medication list SOCIAL HISTORY: Lives at [facility], smoker PHYSICAL EXAM: GENERAL: alert and oriented in no acute distress on stretcher Head: normocephalic and atraumatic EYES: No injection, discharge or icterus. NECK: Trachea midline. Supple. ENT: Mucous membranes pink and moist. LUNGS: Airway patent. No retractions. Breath sounds with scattered wheeze on baseline home O2 HEART: Irregular rate and rhythm. No chest wall tenderness ABDOMEN: Soft and non-tender, without guarding or rebound. No hepatosplenomegaly or masses BACK: No midline lumbar tenderness/step-off, no SI joint tenderness. No bilateral flank tenderness. SKIN: Acyanotic, warm, dry, without rashes EXTREMITIES: Without swelling, tenderness or deformity except for tenderness with any range of motion of the right leg at the knee or hip. There are some tenderness of the right distal femur as well as overlying the right greater trochanter. No overlying open wound noted. 1+ DP pulses right foot. NEUROLOGICAL: No focal deficits with gross sensation intact in the lower extremities. No aphasia. No facial droop or slurred speech EK bpm sinus rhythm with PAC. No PVC noted. No acute ST segment elevation noted with scattered T wave inversions in left bundle branch in comparison to previous from November 152019 EKG shows similarity with decreased precordial amplitude and lateral T wave inversions now with PAC CONTINUOUS CARDIAC MONITORING: was ordered and showed a heart rate of 50s to 60s bpm in sinus rhythm to sinus bradycardia with left bundle branch block PDMP was checked without noted issue. GCS 15. Patient's laboratory studies and imaging reviewed. Differential includes Fracture, dislocation, contusion, intra-abdominal, pneumothorax, intrathoracic, intracranial, neurologic, compartment syndrome, rhabdomyolysis, as well as other pathologies. IMPRESSION/MEDICAL DECISION MAKING: Patient presents after fall to the ground states she not strike her head. Pain and tenderness of the right thigh but neuro intact in the right distal leg. Review of medical records indicate in November 2019 patient did have a intertrochanteric fracture of the right hip fixed by Dr. James. Basic labs were obtained as well as EKG chest x-ray and imaging of the right pelvis/femur/ knee. X-rays show what appear to be a spiral mid right femur fracture. There is some medial angulation of the distal right leg. Discussed with orthopedics Dr. Gaona he stated they should be able to care of this here rather than necessitate transfer. Recommended medicine admission. Olivera catheter was placed. CT of the femur was obtained. Discussed with the hospitalist team. Patient was updated and I attempted to call her son to the listed cell phone number but there was no answer and no voicemail set up. Given IV Tylenol and fentanyl for pain. DIAGNOSIS: Fall, right femur fracture DISPOSITION: Hospitalist will evaluate Patient was agreeable with this plan. 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 Paroxysmal atrial fibrillation Severe mitral regurgitation Surgical History H/O angioplasty stent to LAD 2003 History of appendectomy History of cardiac cath patent vessels 06/2018 History of tubal ligation Family History Mother Brain tumor Father Myocardial infarction Stroke Social History Smoking Status: Never smoker Tobacco Type: Cigarettes Years Smoked: 62; Cigarettes Per Day: 6; Second Hand Exposure: Yes; Hx Alcohol Use: No Hx Substance Use: No Preferred Language: Slovenian Communication Ability: Effective Wind Turbine Erector Required: No Beliefs That Will Affect Care: None Current Living Situation: Family Current Living Situation Comment: daughter Feels Safe at Home: Yes Assistive Devices: Walker Allergies Allergies Allergy/AdvReac Type Severity Reaction Status Date / Time No Known Allergies Allergy Verified 04/23/20 18:15 Home Meds Home Medications Medication Instructions Recorded Confirmed atorvastatin [Lipitor] 80 mg PO HS 04/10/19 04/23/20 Breo Ellipta 1 inh INHALATION Q24H PRN 11/16/19 04/23/20 levothyroxine 112 mcg PO DAILY 11/16/19 04/23/20 acetaminophen 650 mg PO Q6H PRN MDD 3 GMS 04/23/20 04/23/20 APAP/24 HOURS ascorbic acid (vitamin C) [Vitamin 500 mg PO DAILY 04/23/20 04/23/20 C] aspirin 81 mg PO DAILY 04/23/20 04/23/20 bisacodyl [Dulcolax (bisacodyl)] 10 mg GA DIRECTED PRN 04/23/20 04/23/20 cholecalciferol (vitamin D3) 125 mcg PO DAILY 04/23/20 04/23/20 [Vitamin D3] furosemide 20 mg PO DAILY 04/23/20 04/23/20 mirtazapine 7.5 mg PO HS 04/23/20 04/23/20 multivitamin, stress formula 1 tab PO QAM 04/23/20 04/23/20 [Stress Formula] [id number]-lutein 1 tab PO DAILY 04/23/20 04/23/20 [Multivital] potassium chloride 20 meq PO DAILY 04/23/20 04/23/20 warfarin 3 mg PO 2XWK 04/23/20 04/23/20 warfarin 4 mg PO 5XWK 04/23/20 04/23/20 Previous Rx's Medication Instructions Recorded metoprolol succinate [Toprol XL] 25 mg PO QAM 30 Days #0 tab 04/19/19 Results & Data (ED) Vital Signs Vital Signs - 24 hr 04/23/20 16:10 04/23/20 16:37 04/23/20 17:00 Temperature 36.6 C Temperature Source Oral Pulse Rate 59 L 58 L 61 Pulse Rate from SpO2 Sensor Pulse Rhythm Regular Respiratory Rate 18 16 16 Respiratory Effort / Characteristics Non-Labored Spontaneous Respiratory Depth Normal Blood Pressure 127/50 L 161/64 H 160/79 H Blood Pressure Mean 75 96 106 Pulse Oximetry 98 97 97 Oxygen Delivery Method Nasal Cannula Oxygen Flow Rate 2 Sepsis Recent Fever Within 48 Hours No Sepsis New/Unexplained Change in Mental Status No Sepsis Action Taken by Nursing No Action Required 04/23/20 17:30 04/23/20 17:31 04/23/20 18:17 Temperature Temperature Source Pulse Rate 61 58 L 65 Pulse Rate from SpO2 Sensor 56 L Pulse Rhythm Respiratory Rate 16 15 20 Respiratory Effort / Characteristics Respiratory Depth Blood Pressure 139/68 161/75 H Blood Pressure Mean 91 103 Pulse Oximetry 99 99 98 Oxygen Delivery Method Oxygen Flow Rate Sepsis Recent Fever Within 48 Hours Sepsis New/Unexplained Change in Mental Status Sepsis Action Taken by Nursing 04/23/20 18:30 04/23/20 19:00 Temperature Temperature Source Pulse Rate 61 59 L Pulse Rate from SpO2 Sensor 59 L Pulse Rhythm Respiratory Rate 16 18 Respiratory Effort / Characteristics Respiratory Depth Blood Pressure 161/61 H 153/58 H Blood Pressure Mean 94 89 Pulse Oximetry 100 99 Oxygen Delivery Method Oxygen Flow Rate Sepsis Recent Fever Within 48 Hours Sepsis New/Unexplained Change in Mental Status Sepsis Action Taken by Nursing Laboratory Data Result diagrams: 04/23/20 16:36 04/23/20 16:36 Lab Results 04/23/20 04/23/20 04/23/20 Range/Units 16:36 16:36 16:36 WBC 8.89 (4.8-10.8) K/uL RBC 4.53 (4.2-5.4) M/uL Hgb 11.8 L (12.0-16.0) g/dL Hct 36.6 L (37-47) % MCV 80.8 (80-100) fL MCH 26.0 (25-34) pg MCHC 32.2 (32-36) g/dL RDW Std Deviation 60.4 H (36.4-46.3) fL RDW Coeff of Gibran 20.2 H (11.5-14.5) % Plt Count 201 (130-400) K/uL MPV 10.0 (7.4-10.4) fL Immature Gran % (Auto) 0.2 % Neut % (Auto) 64.9 % Lymph % (Auto) 15.6 % [place] % (Auto) 11.5 % Eos % (Auto) 7.4 % Baso % (Auto) 0.4 % Neut # (Auto) 5.76 (1.4-6.5) K/uL Lymph # (Auto) 1.39 (1.2-3.4) K/uL [place] # (Auto) 1.02 H (0.11-0.59) K/uL Eos # (Auto) 0.66 H (0-0.5) K/uL Baso # (Auto) 0.04 (0-0.2) K/uL Immature Gran # (Auto) 0.02 (0.00-0.02) K/uL Anisocytosis Present Ovalocytes 1+ PT 27.2 H (9.0-12.0) Seconds INR 2.9 H (0.9-1.1) Sodium 139 (136-145) mmol/L Potassium 4.7 (3.5-5.1) mmol/L Chloride 104 (98-107) mmol/L Carbon Dioxide 29 (21-32) mmol/L Anion Gap 6.0 (3-11) BUN 40 H (7-18) mg/dl Creatinine 1.11 (0.6-1.2) mg/dl Est Cr Clr Drug Dosing 25.0 ml/min Est GFR ( Amer) 51.3 Est GFR (Non-Af Amer) 44.3 BUN/Creatinine Ratio 35.6 H (10-20) Glucose 123 H (70-99) mg/dl Calcium 9.8 (8.5-10.1) mg/dl COVID-19 Eval Order SARS-CoV-2, RNA, NAAT (NEGATIVE) Blood Type Antibody Screen 04/23/20 04/23/20 04/23/20 Range/Units 16:36 17:00 17:00 WBC (4.8-10.8) K/uL RBC (4.2-5.4) M/uL Hgb (12.0-16.0) g/dL Hct (37-47) % MCV (80-100) fL MCH (25-34) pg MCHC (32-36) g/dL RDW Std Deviation (36.4-46.3) fL RDW Coeff of Gibran (11.5-14.5) % Plt Count (130-400) K/uL MPV (7.4-10.4) fL Immature Gran % (Auto) % Neut % (Auto) % Lymph % (Auto) % [place] % (Auto) % Eos % (Auto) % Baso % (Auto) % Neut # (Auto) (1.4-6.5) K/uL Lymph # (Auto) (1.2-3.4) K/uL [place] # (Auto) (0.11-0.59) K/uL Eos # (Auto) (0-0.5) K/uL Baso # (Auto) (0-0.2) K/uL Immature Gran # (Auto) (0.00-0.02) K/uL Anisocytosis Ovalocytes PT (9.0-12.0) Seconds INR (0.9-1.1) Sodium (136-145) mmol/L Potassium (3.5-5.1) mmol/L Chloride (98-107) mmol/L Carbon Dioxide (21-32) mmol/L Anion Gap (3-11) BUN (7-18) mg/dl Creatinine (0.6-1.2) mg/dl Est Cr Clr Drug Dosing ml/min Est GFR ( Amer) Est GFR (Non-Af Amer) BUN/Creatinine Ratio (10-20) Glucose (70-99) mg/dl Calcium (8.5-10.1) mg/dl COVID-19 Eval Order Covid19 [facility] SARS-CoV-2, RNA, NAAT NEGATIVE (NEGATIVE) Blood Type B Positive Antibody Screen NEGATIVE Administered Medications Discontinued Medications Fentanyl Citrate (Fentanyl Citrate 100 Mcg/2 Ml Vial) 25 mcg IV NOW STA Stop: 04/23/20 18:12 Last Admin: 04/23/20 18:18 Dose: 25 mcg Documented by: [id number] Acetaminophen (Ofirmev) 1,000 mg in 100 mls @ 400 mls/hr IV NOW STA Stop: 04/23/20 18:25 Last Infusion: 04/23/20 18:50 Dose: 0 mls/hr Documented by: [id number] Admin: 04/23/20 18:18 Dose: 400 mls/hr Documented by: [id number] Discharge Plan Visit Data Chief Complaint: Hip Pain Stated Complaint: FALL/HIP PAIN ED Provider: Everardo José Discharge Problem: Fall, Closed femur fracture Patient Disposition: Being Evaluated by Hospitalist Forms Stand Alone Forms: My [facility] Prescriptions Prescriptions: No Action atorvastatin [Lipitor] 80 mg Tablet 80 mg PO HS RF: 0 metoprolol succinate [Toprol XL] 25 mg Tablet Extended Release 24 Hr 25 mg PO QAM 30 Days Qty: 0 RF: 0 potassium chloride 20 mEq tablet,ER particles/crystals 20 meq PO DAILY RF: 0 ascorbic acid (vitamin C) [Vitamin C] 500 mg Tablet 500 mg PO DAILY RF: 0 aspirin 81 mg Tablet,Chewable 81 mg PO DAILY RF: 0 furosemide 20 mg tablet 20 mg PO DAILY RF: 0 warfarin 1 mg tablet 3 mg PO 2XWK RF: 0 Stress Formula Tablet 1 tab PO QAM RF: 0 mirtazapine 7.5 mg tablet 7.5 mg PO HS RF: 0 Multivital 0.4-162-18 mg Tablet 1 tab PO DAILY RF: 0 cholecalciferol (vitamin D3) [Vitamin D3] 125 mcg (5,000 unit) Tablet 125 mcg PO DAILY RF: 0 acetaminophen 325 mg tablet 650 mg PO Q6H MDD 3 GMS APAP/24 HOURS PRN (Reason: Fever Or Pain) RF: 0 warfarin 2 mg tablet 4 mg PO 5XWK RF: 0 bisacodyl [Dulcolax (bisacodyl)] 10 mg Suppository 10 mg GA DIRECTED PRN (Reason: Constipation) RF: 0 levothyroxine 112 mcg tablet 112 mcg PO DAILY RF: 0 Breo Ellipta 100-25 mcg/dose blister with device 1 inh INHALATION Q24H PRN (Reason: Shortness Of Breath) RF: 0 Referrals Referrals: Jadon Turcios [Primary Care Provider] -
--- NOTE | 2020-04-23 16:39 | XRay Report ---
XR pelvis 1-2V routine CLINICAL HISTORY: Right hip pain status post trauma COMPARISON: 11/16/2019 DISCUSSION: The bones are osteopenic. There are extensive vascular calcifications. The patient is sta tus post internal fixation of intertrochanteric right hip fracture. There is an acute periprosthetic oblique/spiral fracture involving the right femur. The fracture is not fully included on the provided images. IMPRESSION: 1. Acute oblique/spiral periprosthetic fracture of the right femur. ACT 112: Negative or not required by law. Electronically signed by: Washington Burger M.D. 04/23/2020 4:37 PM
--- NOTE | 2020-04-23 16:40 | XRay Report ---
XR femur RT 2V routine CLINICAL HISTORY: Right leg pain status post trauma COMPARISON: None. DISCUSSION: There is an acute oblique/spiral periprosthetic mid femoral shaft fracture. There is 35 d egrees of vertex volar angulation at the fracture site. There is 17 mm of medial displacement of the distal fragment. IMPRESSION: Acute oblique/spiral periprosthetic mid femoral shaft fracture with secondary angulation. ACT 112: Negative or not required by law. Electronically signed by: Washington Burger M.D. 04/23/2020 4:39 PM
--- NOTE | 2020-04-23 16:43 | XRay Report ---
XR knee RT 1 or 2V routine CLINICAL HISTORY: Leg pain status post trauma COMPARISON: None. DISCUSSION: There is a periprosthetic mid femoral shaft fracture with 34 degrees of vertex lateral an gulation. The distal fragment is posteriorly displaced by 17 mm.. There are vascular calcifications. No fractures of the knee proper are visualized on the provided images. IMPRESSION: 1. Displaced angulated periprosthetic mid femoral shaft fracture. ACT 112: Negative or not required by law. Electronically signed by: Washington Burger M.D. 04/23/2020 4:42 PM
--- NOTE | 2020-04-23 16:44 | XRay Report ---
XR chest 1V portable CLINICAL HISTORY: Trauma. Preoperative chest. Fracture. COMPARISON STUDY: 11/16/2019 FINDINGS: The heart is enlarged. There is mild interstitial thickening likely secondary to mild pulmo nary vascular congestion. There is a retrocardiac opacity consistent with a large hiatal hernia. Ther e is no lobar consolidation.[ IMPRESSION: 1. Cardiomegaly and interstitial thickening likely secondary to mild pulmonary vascular congestion. A nd interstitial inflammatory process could appear similar but is statistically less likely 2. Large hiatal hernia ACT 112: Negative or not required by law. Electronically signed by: Washington Burger M.D. 04/23/2020 4:43 PM
[2020-04-23 16:56] LABS: Basophils # (auto) 0.04 K/uL (0-0.2); Basophils % (auto) 0.4 %; Eosinophils # (auto) 0.66 K/uL (0-0.5); Eosinophils % (auto) 7.4 %; Hematocrit (blood only) 36.6 % (37-47); Hemoglobin 11.8 g/dL (12.0-16.0); Immature Granulocytes # (auto) 0.02 K/uL (0.00-0.02); Immature Granulocytes % (auto) 0.2 %; Lymphocytes # (auto) 1.39 K/uL (1.2-3.4); Lymphocytes % (auto) 15.6 %; Mean Corpuscular Hgb Conc 32.2 g/dL (32-36); Mean Corpuscular Volume 80.8 fL (80-100); Monocytes # (auto) 1.02 K/uL (0.11-0.59); Monocytes % (auto) 11.5 %; Neutrophils # (auto) 5.76 K/uL (1.4-6.5); Neutrophils % (auto) 64.9 %; Platelet Count 201 K/uL (130-400); RDW Coefficient of Variation 20.2 % (11.5-14.5); RDW Standard Deviation 60.4 fL (36.4-46.3); Red Blood Count 4.53 M/uL (4.2-5.4); White Blood Count 8.89 K/uL (4.8-10.8)
[2020-04-23 17:08] LABS: INR 2.9 (0.9-1.1); Prothrombin Time 27.2 Seconds (9.0-12.0)
[2020-04-23 17:12] LABS: BUN Creatinine Ratio 35.6 (10-20); Calcium 9.8 mg/dl (8.5-10.1); Est GFR (African American) 51.3; Est GFR (Non-African American) 44.3; Potassium 4.7 mmol/L (3.5-5.1)
[2020-04-23 17:20] LABS: Anisocytosis Present; Ovalocytes 1+
[2020-04-23] MEDS ORDERED: ACETAMINOPHEN 1,000 MG/100 ML VIAL IV STA (18:11)
[2020-04-23] MEDS ORDERED: fentaNYL citrate 100 MCG/2 ML VIAL IV STA (18:11)
--- NOTE | 2020-04-23 18:22 | CT Scan Report ---
CT head/brain wo con CLINICAL HISTORY: Head trauma. Patient on Coumadin. COMPARISON STUDY: No previous studies for comparison. TECHNIQUE: Axial CT of the brain is performed from the vertex to the skull base. IV contrast was not administered for this examination. A dose lowering technique was utilized adhering to the principles of ALARA. CT DOSE: 537.48 mGy.cm FINDINGS: No intra or extra-axial mass lesions are visualized. There is no CT evidence of acute cortical infarc tion. There is no evidence of midline shift. There is no acute hemorrhage. No calvarial fractures ar e visualized. There are moderate white matter hypodensities likely on a small vessel basis. There is no evidence of pathologic ventricular dilatation. There is no evidence of acute sinusitis IMPRESSION: No acute intracranial findings ACT 112: Negative or not required by law. Electronically signed by: Washington Burger M.D. 04/23/2020 6:21 PM
--- NOTE | 2020-04-23 18:31 | CT Scan Report ---
CT femur RT wo con CT DOSE: 338.65 mGy.cm CLINICAL HISTORY: Pain status post trauma TECHNIQUE: Helical images were acquired in the transverse plane. Sagittal and coronal reformatted talia ges were acquired. A dose lowering technique was utilized adhering to the principles of ALARA. COMPARISON STUDY: X-ray study dated 04/23/2020 FINDINGS: There is an indwelling Olivera catheter. There is air within the bladder likely iatrogenic. There is hy perdense material within the left bladder base likely representing calcific debris. There is an old left inferior pubic ramus fracture. There is an old intertrochanteric right hip fracture fixated with a femoral neck nail and interlockin g medullary demond. There is a periprosthetic fracture the mid femoral shaft beginning at the level of the tip of the fem oral spike. There is approximately 5 cm of foreshortening of the fracture. There is a hairline compon ent which extends to within 5 cm of the femoral tibial articulation. There are advanced arthritic gina nges present within the knee. The major distal fragment is volarly displaced by 13 mm. There is appro ximately 24 degrees of angulation at the fracture site. IMPRESSION: 1. Oblique/spiral periprosthetic fracture the mid femoral shaft beginning at the level of the tip of the femoral spike extending to within 5 cm of the knee joint. 2. There is 5 cm of fracture foreshortening, 13 mm of major fracture fragment displacement to 24 degr ees of angulation 3. Old internally fixated intertrochanteric right hip fracture 4. Old inferior pubic ramus fracture 5. Advanced arthritic changes within the knee 6. Hyperdense material within the bladder likely representing calcific debris ACT 112: Negative or not required by law. Electronically signed by: Washington Burger M.D. 04/23/2020 6:29 PM
[2020-04-23] MEDS ORDERED: bisacodyL 10 MG SUPP PR PRN (19:54)
[2020-04-23] MEDS ORDERED: FLUTICASONE/VILANTEROL 100/25MCG 14 PUFFS/INHALER INH PRN (19:54)
[2020-04-23] MEDS ORDERED: NALOXONE HCL 0.4 MG/1 ML VIAL/CARP IV PRN (19:54)
--- NOTE | 2020-04-23 20:00 | History & Physical Report ---
Date of Service April 23, 2020 Assessment & Plan (1) Fall: (2) Closed femur fracture: -Admit to [facility] -Patient presenting from home after mechanical fall -In the ED, found to have right femoral periprosthetic fracture -Ortho consult -Given patient's advanced age and comorbidities, will place patient at moderate risk to proceed to surgery. EKG demonstrates unchanged LBBB. No further preoperative testing is required. -Noted the patient is anticoagulated on Coumadin, INR 2.9. Hold Coumadin this evening, provide vitamin K if needed pending OR time (3) CAD (coronary artery disease): -Appears stable, no reports of chest pain -Continue aspirin, statin, beta-tr (4) Chronic systolic heart failure: -Ischemic cardiomyopathy -Echo 11/2019 EF 25 to 30% -Appears euvolemic, continue home dose of furosemide (5) Paroxysmal atrial fibrillation: -Rate controlled on metoprolol -Anticoagulated on Coumadin, INR 2.9. Holding Coumadin due to upcoming surgical intervention. (6) COPD (chronic obstructive pulmonary disease): -Saturating well on chronic 2 L of oxygen -No signs of acute exacerbation -Continue home inhalers (7) CKD (chronic kidney disease), stage III: -Creatinine at baseline -Monitor renal functions (8) Severe malnutrition: -Nutrition evaluation (9) DVT prophylaxis: -INR 2.9 -SCDs History of Present Illness Chief Complaint: Fall, right leg pain Primary Care Provider: Jadon Turcios 89-year-old female with PMH hypothyroidism, dyslipidemia, COPD, chronic hypoxic respiratory failure on 2 L of oxygen, paroxysmal atrial fibrillation anticoagulated on Coumadin, ischemic cardiomyopathy EF 25 to 30%, CKD stage III, CAD, and other problems listed below who presents to the ED for evaluation after a fall. Patient admitted 11/2019 for right intertrochanteric fracture and underwent repair. Patient reports that this afternoon, she was walking from her kitchen to her dining room when she tripped over something and fell to the ground. Patient denies any associated loss of consciousness. Reports she oth erwise has been feeling well recently. No chest pain or shortness of breath. Denies lightheadedness, dizziness, diaphoresis, syncopal events. No abdominal pain, nausea, vomiting, diarrhea. Denies any other recent illnesses, fevers, chills. No urinary symptoms. In the ED, imaging shows right periprosthetic fracture of the femoral shaft. Patient is hemodynamically stable. Labs are unremarkable. Patient received IV Tylenol and IV fentanyl. Allergies Allergy/AdvReac Type Severity Reaction Status Date / Time No Known Allergies Allergy Verified 04/23/20 18:15 Home Medications Medication Instructions Recorded Confirmed Type atorvastatin [Lipitor] 80 mg PO HS 04/10/19 04/23/20 History metoprolol succinate [Toprol XL] 25 mg PO QAM 30 Days #0 tab 04/19/19 04/23/20 Rx Breo Ellipta 1 inh INHALATION Q24H PRN 11/16/19 04/23/20 History levothyroxine 112 mcg PO DAILY 11/16/19 04/23/20 History acetaminophen 650 mg PO Q6H PRN MDD 3 GMS 04/23/20 04/23/20 History APAP/24 HOURS ascorbic acid (vitamin C) [Vitamin 500 mg PO DAILY 04/23/20 04/23/20 History C] aspirin 81 mg PO DAILY 04/23/20 04/23/20 History bisacodyl [Dulcolax (bisacodyl)] 10 mg [place] DIRECTED PRN 04/23/20 04/23/20 History cholecalciferol (vitamin D3) 125 mcg PO DAILY 04/23/20 04/23/20 History [Vitamin D3] furosemide 20 mg PO DAILY 04/23/20 04/23/20 History lactobacillus combination no.4 3,000 mmu cells PO DAILY 04/23/20 04/23/20 History [Probiotic] mirtazapine 7.5 mg PO HS 04/23/20 04/23/20 History multivitamin, stress formula 1 tab PO QAM 04/23/20 04/23/20 History [Stress Formula] [id number]-Pa-[id number]-lutein 1 tab PO DAILY 04/23/20 04/23/20 History [Multivital] potassium chloride 20 meq PO DAILY 04/23/20 04/23/20 History warfarin 3 mg PO TUTH 04/23/20 04/23/20 History warfarin 4 mg PO SUMOWEFRSA 04/23/20 04/23/20 History Past Med/Surg History Medical History CAD (coronary artery disease) Chronic systolic heart failure CKD (chronic kidney disease), stage III Complete left bundle branch block (LBBB) COPD (chronic obstructive pulmonary disease) Hypertension Hypothyroidism Intertrochanteric fracture of right hip s/p repair prison (current) use of anticoagulants Paroxysmal atrial fibrillation Severe mitral regurgitation Surgical History H/O angioplasty stent to LAD 2003 History of appendectomy History of cardiac cath patent vessels 06/2018 History of tubal ligation Family History Mother Brain tumor Father Myocardial infarction Stroke Social History Smoking Status: Former smoker Tobacco Type: Cigarettes Years Smoked: 62; Cigarettes Per Day: 6; Second Hand Exposure: No; Do You Dip or Chew Tobacco: No; Tobacco Cessation Education Requested by Patient: No Hx Alcohol Use: No Hx Substance Use: No Preferred Language: Yakut Communication Ability: Effective Lead Clinical Research Coordinator Required: No Beliefs That Will Affect Care: None Current Living Situation: Personal Care Facility Current Living Situation Comment: [facility]. Other Information That Helps Us Care for You: No Feels Safe at Home: Yes Safety Concerns: Feels Safe At This Time Assistive Devices: Denture - Upper and Denture - Lower Review of Systems Review of Systems: ROS per HPI, all other systems reviewed and negative Physical Exam Constitutional: + thin Vitals as above Eyes: PERRL, conjunctivae normal, anicteric sclerae ENMT: external ear and nose normal, oropharynx normal Respiratory: normal respiratory effort, lungs clear to auscultation Cardiovascular: Rate/Rhythm: regular rate and regular rhythm Vessels: normal peripheral pulses Extremities: no edema Gastrointestinal (Abdomen): normal bowel sounds, soft, nontender, no hepatosplenomegaly Musculoskeletal: Extremities: no cyanosis and no clubbing Pain with movement of the right hip and knee, no edema noted, CSM checks intact RLE Skin: no rashes, warm and dry Neurologic: PERRL, EOMI, accommodation nl, no face palsy, no dysarthria Psychiatric: A+Ox3, euthymic affect Results & Data Results & Data ([facility]) Vital Signs (Past 12 Hours) Vital Signs Temp Pulse Resp BP Pulse Ox 04/23/20 19:00 59 L 18 153/58 H 99 04/23/20 18:30 61 16 161/61 H 100 04/23/20 18:17 65 20 161/75 H 98 04/23/20 17:31 58 L 15 99 04/23/20 17:30 61 16 139/68 99 04/23/20 17:00 61 16 160/79 H 97 04/23/20 16:37 58 L 16 161/64 H 97 04/23/20 16:10 36.6 C 59 L 18 127/50 L 98 Laboratory Results Short CBC 04/23/20 Range/Units 16:36 WBC 8.89 (4.8-10.8) K/uL Hgb 11.8 L (12.0-16.0) g/dL Hct 36.6 L (37-47) % Plt Count 201 (130-400) K/uL BMP 04/23/20 16:36 Sodium 139 Potassium 4.7 Chloride 104 Carbon Dioxide 29 BUN 40 H Creatinine 1.11 Glucose 123 H Calcium 9.8 Diagnostic Findings CXR IMPRESSION: 1. Cardiomegaly and interstitial thickening likely secondary to mild pulmonary vascular congestion. And interstitial inflammatory process could appear similar but is statistically less likely 2. Large hiatal hernia HEAD CT IMPRESSION: No acute intracranial findings RIGHT FEMUR CT IMPRESSION: 1. Oblique/spiral periprosthetic fracture the mid femoral shaft beginning at the level of the tip of the femoral spike extending to within 5 cm of the knee joint. 2. There is 5 cm of fracture foreshortening, 13 mm of major fracture fragment displacement to 24 degrees of angulation 3. Old internally fixated intertrochanteric right hip fracture 4. Old inferior pubic ramus fracture 5. Advanced arthritic changes within the knee 6. Hyperdense material within the bladder likely representing calcific debris Code Status & VTE Plan Code Status Patient is a full code as per my discussion with her. VTE Prophylaxis Plan VTE Prophylaxis will be ordered: Yes Supervising Physician Co-Signing Physician Notes Care coordinated with JOCELYN Perez. Agree with above note. Patient seen and examined. Please refer to her notes for full details. Vital signs reviewed. Physical exam: General exam: Alert and oriented. Not in acute distress. CVS: S1 and S2 heard, regular rate and rhythm, no murmurs. RS: Clear to auscultation, no wheezing or crackles. ABD: Soft, bowel sounds present, nontender, no distention. BENCH WORKER HELPER: Nonfocal. EXT: No edema, no erythema. Labs: Reviewed. Assessment and plan: 89F who had hx of a fib and chf hip fracture and hx of right hip fx and S/P Right cephalo-medullary nailing of intertrochanteric fracture on 11/17/19 comes with Fall and right yan-prosthetic fracture. Hemodynamcis stabe. Denies any chest pain or sob. No nausea. No fevers. Mechanical fall right hip yan prosthetic fx ortho consulted npo, gentle fluids pain control inr 2.9. vitamin k 2.5mg po given cardio consulted for pre o as hx of chf with EF25%. Chronic systolic chf ef 25-30% on toprol xl and lasix on gentle fluids monitor for volume overload Hx of a fib on toprol xl coumadin on hold for procedures received vitamin k 2.5mg for inr 2.9 follow inr. restart coumadin after surgery Other diagnosis and plan of care as per []. Antony aaron MD. (1) Closed femur fracture Encounter type: initial encounter Femur location: shaft Fracture alignment: displaced Fracture morphology: spiral Laterality: right Qualified Code(s): S72.341A - Displaced spiral fracture of shaft of right femur, initial encounter for closed fracture (2) Fall Encounter type: initial encounter Qualified Code(s): W19.XXXA - Unspecified fall, initial encounter
[2020-04-23] MEDS ORDERED: MoRPHine SULFATE 2 MG/ML CARP ONE (20:05)
[2020-04-23] MEDS ORDERED: INFLUENZA VACCINE HIGH DOSE PF 65+ 0.7 ML SYR IM ONE (21:08)
[2020-04-23] MEDS ORDERED: INFLUENZA ADMINISTRATION CHARGE ONE (21:08)
[2020-04-23] MEDS: DOCUSATE SODIUM/SENNA 50/8.6MG TAB PO SCH (22:11)
[2020-04-23] MEDS: ATORVASTATIN 40 MG TAB PO SCH (22:12)
[2020-04-23] MEDS: MIRTAZAPINE TAB 15 MG TAB PO SCH (22:12)
[2020-04-23] MEDS ORDERED: PHYTONADIONE 5 MG TAB PO STA (22:22)
[2020-04-24] MEDS: D5W AND NSS 1,000 ML IV SCH ×2 (00:47→21:22)
[2020-04-24] MEDS: LEVOTHYROXINE SODIUM 112 MCG TABLET PO SCH (05:52)
[2020-04-24] MEDS ORDERED: ceFAZolin 2000MG 2,000 MG/15 ML SYR IV SCH (06:00)
[2020-04-24] MEDS: MoRPHine SULFATE 2 MG/ML CARP IV PRN (06:37)
[2020-04-24 07:03] LABS: Hematocrit (blood only) 35.8 % (37-47); Hemoglobin 11.5 g/dL (12.0-16.0); Mean Corpuscular Hemoglobin 25.8 pg (25-34); Mean Corpuscular Hgb Conc 32.1 g/dL (32-36); Mean Corpuscular Volume 80.3 fL (80-100); Mean Platelet Volume 10.5 fL (7.4-10.4); Platelet Count 219 K/uL (130-400); RDW Coefficient of Variation 19.9 % (11.5-14.5); RDW Standard Deviation 58.9 fL (36.4-46.3); Red Blood Count 4.46 M/uL (4.2-5.4); White Blood Count 8.68 K/uL (4.8-10.8)
[2020-04-24 07:16] LABS: INR 2.5 (0.9-1.1)
[2020-04-24 07:37] LABS: BUN Creatinine Ratio 42.2 (10-20); Calcium 9.4 mg/dl (8.5-10.1); Creatinine Clr Calc Pharmacy 29.9 ml/min; Est GFR (Non-African American) 53.5; Potassium 4.3 mmol/L (3.5-5.1)
[2020-04-24] MEDS: FUROSEMIDE 20 MG TAB PO SCH (07:50)
[2020-04-24] MEDS: ASPIRIN 81 MG ECTAB PO SCH (07:50)
[2020-04-24] MEDS: POTASSIUM CHLORIDE CRTAB 20 MEQ TABCR PO SCH (07:50)
[2020-04-24] MEDS: METOPROLOL SUCC 25MG EXT REL TAB PO SCH (07:50)
[2020-04-24] MEDS: CHOLECALCIFEROL 1,000 UNITS 25 MCG TAB PO SCH (07:52)
--- NOTE | 2020-04-24 08:57 | Electrocardiogram Report ---
Test Reason : Blood Pressure : / mmHG Vent. Rate : 062 BPM Atrial Rate : 062 BPM P-R Int : 138 ms QRS Dur : 156 ms QT Int : 502 ms P-R-T Axes : 072 -49 161 degrees QTc Int : 509 ms Poor data quality, interpretation may be adversely affected Sinus rhythm with Premature atrial complexes Left axis deviation Left bundle branch block Abnormal ECG When compared with ECG of 16-NOV-2019 17:58, Premature atrial complexes are now Present Confirmed by Dino Eli ([id number]) on 04/24/2020 8:56:49 AM Referred By: Jadon Levygreg Confirmed By:Dino Eli
--- NOTE | 2020-04-24 10:56 | Orthopedic Consultation ---
Date of Consultation April 24, 2020 Assessment & Plan (1) Closed femur fracture: Once medically optimized patient will require open reduction internal fixation of right femur fracture. Hold anticoagulation, INR this morning 2.5. Will need less than 1.5 prior to proceeding with surgery. Maintain hemoglobin above 10. Continue with nonweightbearing on right lower extremity, recommend traction. Thank you for the consultation. History of Present Illness Reason for Consultation: Right femur fracture Attending Physician: Choco Ponce MD History of Present Illness The patient is an 89-year-old female with significant past medical history noted below, who presented to [facility] 1 day prior secondary to a mechanical fall and subsequent pain to the right femur and inability to ambulate. X-rays obtained at [facility] emergency department demonstrated a spiral segmental fracture distal to the short cephalomedullary nail. The patient was admitted for further medical management and treatment for her fracture. The patient denies hitting her head or loss of consciousness, denies any associated injuries. Has previous right hip fracture and underwent open reduction internal fixation with cephalomedullary nail in [place] [address] Le. Allergies Allergy/AdvReac Type Severity Reaction Status Date / Time No Known Allergies Allergy Verified 04/23/20 18:15 Home Medications Medication Instructions Recorded Confirmed Type atorvastatin [Lipitor] 80 mg PO HS 04/10/19 04/23/20 History metoprolol succinate [Toprol XL] 25 mg PO QAM 30 Days #0 tab 04/19/19 04/23/20 Rx Breo Ellipta 1 inh INHALATION Q24H PRN 11/16/19 04/23/20 History levothyroxine 112 mcg PO DAILY 11/16/19 04/23/20 History acetaminophen 650 mg PO Q6H PRN MDD 3 GMS 04/23/20 04/23/20 History APAP/24 HOURS ascorbic acid (vitamin C) [Vitamin 500 mg PO DAILY 04/23/20 04/23/20 History C] aspirin 81 mg PO DAILY 04/23/20 04/23/20 History bisacodyl [Dulcolax (bisacodyl)] 10 mg [place] DIRECTED PRN 04/23/20 04/23/20 History cholecalciferol (vitamin D3) 125 mcg PO DAILY 04/23/20 04/23/20 History [Vitamin D3] furosemide 20 mg PO DAILY 04/23/20 04/23/20 History lactobacillus combination no.4 3,000 mmu cells PO DAILY 04/23/20 04/23/20 History [Probiotic] mirtazapine 7.5 mg PO HS 04/23/20 04/23/20 History multivitamin, stress formula 1 tab PO QAM 04/23/20 04/23/20 History [Stress Formula] [id number]-[id number]-Cj-Ge-rmhwgqh-lutein 1 tab PO DAILY 04/23/20 04/23/20 History [Multivital] potassium chloride 20 meq PO DAILY 04/23/20 04/23/20 History warfarin 3 mg PO TUTH 04/23/20 04/23/20 History warfarin 4 mg PO SUMOWEFRSA 04/23/20 04/23/20 History Patient History Medical History CAD (coronary artery disease) Chronic systolic heart failure CKD (chronic kidney disease), stage III Complete left bundle branch block (LBBB) COPD (chronic obstructive pulmonary disease) Hypertension Hypothyroidism Intertrochanteric fracture of right hip s/p repair alf (current) use of anticoagulants Paroxysmal atrial fibrillation Severe mitral regurgitation Surgical History H/O angioplasty stent to LAD 2003 History of appendectomy History of cardiac cath patent vessels 06/2018 History of tubal ligation Family History Mother Brain tumor Father Myocardial infarction Stroke Social History Smoking Status: Former smoker Tobacco Type: Cigarettes Years Smoked: 62; Cigarettes Per Day: 6; Second Hand Exposure: No; Do You Dip or Chew Tobacco: No; Tobacco Cessation Education Requested by Patient: No Hx Alcohol Use: No Hx Substance Use: No Preferred Language: Persian Communication Ability: Impaired Awning Hanger Required: No Beliefs That Will Affect Care: None Current Living Situation: Personal Care Facility Current Living Situation Comment: [facility]. Other Information That Helps Us Care for You: No Feels Safe at Home: Yes Safety Concerns: Feels Safe At This Time Assistive Devices: None Review of Systems Review of Systems: All systems reviewed & are unremarkable except as noted in HPI & below Constitutional: as per Subjective / HPI Physical Exam Physical Exam: Right lower extremity physical exam limited secondary to fracture, +2 dorsalis pedis pulse, compartments soft and compressible, tenderness to palpation over mid thigh, skin clean dry and intact, shortened and internally rotated. Constitutional: WD/WN, vitals as above Results & Data ([facility]) Vital Signs (Past 12 Hours) Vital Signs Temp Pulse Resp BP Pulse Ox Pulse Ox 04/24/20 07:33 36.8 C 93 H 18 110/66 94 04/23/20 23:54 98 04/23/20 23:33 36.5 C 60 16 151/70 H 98 Diagnostic Findings XR femur RT 2V routine CLINICAL HISTORY: Right leg pain status post trauma COMPARISON: None. DISCUSSION: There is an acute oblique/spiral periprosthetic mid femoral shaft fracture. There is 35 degrees of vertex volar angulation at the fracture site. There is 17 mm of medial displacement of the distal fragment. IMPRESSION: Acute oblique/spiral periprosthetic mid femoral shaft fracture with secondary angulation. (1) Closed femur fracture Encounter type: initial encounter Femur location: shaft Fracture alignment: displaced Fracture morphology: spiral Laterality: right Qualified Code(s): S72.341A - Displaced spiral fracture of shaft of right femur, initial encounter for closed fracture
[2020-04-24] MEDS ORDERED: PHYTONADIONE 5 MG TAB PO STA (12:23)
--- NOTE | 2020-04-24 13:28 | Cardiology Consultation ---
Date of Consultation April 24, 2020 Assessment & Plan (1) Preop cardiovascular exam: Patient is a complex 89-year-old female with history as well outlined above. She carries a long history of chronic ischemic heart disease and ischemic cardiomyopathy with compensated congestive heart failure and paroxysmal atrial fibrillation. Cardiac status has been recently stable. Patient presents now after mechanical fall and hip fracture similar to prior event in November 2019. No signs currently of congestive heart failure angina or worsening clinical status. Operative risk elevated due to comorbidities and age Would proceed with her surgery as planned agree with holding anticoagulation p reoperatively Would continue usual medications otherwise holding furosemide a.m. of surgery (2) Fall: (3) Closed femur fracture: (4) Ischemic cardiomyopathy: (5) Paroxysmal atrial fibrillation: (6) Chronic systolic heart failure: (7) Severe mitral regurgitation: History of Present Illness Reason for Consultation: Preop cardiovascular evaluation Requesting Physician: Dr. Ponce Attending Physician: Choco Ponce MD History of Present Illness Patient is an 89-year-old female with complex history which includes 1. Longstanding ischemic cardiomyopathy EF 25-30% last interrogation with variable degree of LV function 2. Chronic systolic heart failure class 3 3. Coronary disease status post inferior myocardial infarction with right coronary stenting in 2000, LAD stenting 2003 4. Patent vessels/stents by cardiac catheterization June 2018 report 5. Severe mitral insufficiency last echocardiogram June 2018 6. Chronic renal insufficiency 7. Chronic obstructive lung disease with chronic tobacco use, O2 dependant 8. Chronic left bundle branch block 9. Hypertension 10. Paroxysmal atrial fibrillation , remaining in sinus rhythm 11. Hypothyroidism Patient is referred today with history notable for mechanical fall and hip fracture in November. She underwent surgical repair uneventfully. She now presents again having suffered a mechanical fall. Prosthetic fracture right hip. Patient notes no syncope or near syncope. No tachyarrhythmias or palpitations. No racing heart rhythms. Notes no chest pains or worsening shortness of breath. No orthopnea PND or peripheral edema. She is relatively sedentary as appropriate for age at home. Wears oxygen 2 L nasal cannula continuously. No recent signs of fluid retention or edema. No acute weight gain. Appetite generally good. No fevers chills or unexplained infections. No bleeding difficulties. Takes medications as prescribed per her description Allergies Allergy/AdvReac Type Severity Reaction Status Date / Time No Known Allergies Allergy Verified 04/23/20 18:15 Home Medications Medication Instructions Recorded Confirmed Type atorvastatin [Lipitor] 80 mg PO HS 04/10/19 04/23/20 History metoprolol succinate [Toprol XL] 25 mg PO QAM 30 Days #0 tab 04/19/19 04/23/20 Rx Breo Ellipta 1 inh INHALATION Q24H PRN 11/16/19 04/23/20 History levothyroxine 112 mcg PO DAILY 11/16/19 04/23/20 History acetaminophen 650 mg PO Q6H PRN MDD 3 GMS 04/23/20 04/23/20 History APAP/24 HOURS ascorbic acid (vitamin C) [Vitamin 500 mg PO DAILY 04/23/20 04/23/20 History C] aspirin 81 mg PO DAILY 04/23/20 04/23/20 History bisacodyl [Dulcolax (bisacodyl)] 10 mg AR DIRECTED PRN 04/23/20 04/23/20 History cholecalciferol (vitamin D3) 125 mcg PO DAILY 04/23/20 04/23/20 History [Vitamin D3] furosemide 20 mg PO DAILY 04/23/20 04/23/20 History lactobacillus combination no.4 3,000 mmu cells PO DAILY 04/23/20 04/23/20 History [Probiotic] mirtazapine 7.5 mg PO HS 04/23/20 04/23/20 History multivitamin, stress formula 1 tab PO QAM 04/23/20 04/23/20 History [Stress Formula] ra-yhb-FA-Ee-Ob-tyoscda-lutein 1 tab PO DAILY 04/23/20 04/23/20 History [Multivital] potassium chloride 20 meq PO DAILY 04/23/20 04/23/20 History warfarin 3 mg PO TUTH 04/23/20 04/23/20 History warfarin 4 mg PO SUMOWEFRSA 04/23/20 04/23/20 History Patient History Medical History CAD (coronary artery disease) Chronic systolic heart failure CKD (chronic kidney disease), stage III Complete left bundle branch block (LBBB) COPD (chronic obstructive pulmonary disease) Hypertension Hypothyroidism 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 Paroxysmal atrial fibrillation Severe mitral regurgitation Surgical History H/O angioplasty stent to LAD 2003 History of appendectomy History of cardiac cath patent vessels 06/2018 History of tubal ligation Family History Mother Brain tumor Father Myocardial infarction Stroke Social History Smoking Status: Former smoker Tobacco Type: Cigarettes Years Smoked: 62; Cigarettes Per Day: 6; Second Hand Exposure: No; Do You Dip or Chew Tobacco: No; Tobacco Cessation Education Requested by Patient: No Hx Alcohol Use: No Hx Substance Use: No Preferred Language: Swedish Communication Ability: Effective Black Belt Required: No Beliefs That Will Affect Care: None Current Living Situation: Personal Care Facility Current Living Situation Comment: [facility]. Other Information That Helps Us Care for You: No Feels Safe at Home: Yes Safety Concerns: Feels Safe At This Time Assistive Devices: Denture - Upper and Denture - Lower Physical Exam Constitutional: + thin and + frail appearing; no acute distress Eyes: PERRL, conjunctivae normal, anicteric sclerae ENMT: external ear and nose normal, oropharynx normal Neck: trachea midline, no thyromegaly Respiratory: normal respiratory effort, lungs clear to auscultation Cardiovascular: Rate/Rhythm: regular rate and regular rhythm Heart Sounds: normal S1, normal S2 and + murmur (Grade 1-2 or 6 systolic at apex); no gallop Palpation: normal PMI Vessels: normal carotid upstroke and radial pulses present; no JVD and no carotid bruit Extremities: no edema Gastrointestinal (Abdomen): normal bowel sounds, soft, nontender, no hepatosplenomegaly Musculoskeletal: no cyanosis or clubbing, extremities motor strength 5/5 Skin: no rashes, warm and dry Neurologic: PERRL, EOMI, accommodation nl, no face palsy, no dysarthria Psychiatric: A+Ox3, euthymic affect Results & Data ([facility]) Vital Signs (Past 12 Hours) Vital Signs Temp Pulse Resp BP Pulse Ox 04/24/20 07:33 36.8 C 93 H 18 110/66 94 Laboratory Results Laboratory Results - last 24 hr 04/23/20 04/23/20 04/23/20 16:36 16:36 16:36 WBC 8.89 RBC 4.53 Hgb 11.8 L Hct 36.6 L MCV 80.8 MCH 26.0 MCHC 32.2 RDW Std Deviation 60.4 H RDW Coeff of Gibran 20.2 H Plt Count 201 MPV 10.0 Immature Gran % (Auto) 0.2 Neut % (Auto) 64.9 Lymph % (Auto) 15.6 Gooding % (Auto) 11.5 Eos % (Auto) 7.4 Baso % (Auto) 0.4 Neut # (Auto) 5.76 Lymph # (Auto) 1.39 Gooding # (Auto) 1.02 H Eos # (Auto) 0.66 H Baso # (Auto) 0.04 Immature Gran # (Auto) 0.02 Anisocytosis Present Ovalocytes 1+ PT 27.2 H INR 2.9 H Sodium 139 Potassium 4.7 Chloride 104 Carbon Dioxide 29 Anion Gap 6.0 BUN 40 H Creatinine 1.11 Est Cr Clr Drug Dosing 25.0 Est GFR ( Amer) 51.3 Est GFR (Non-Af Amer) 44.3 BUN/Creatinine Ratio 35.6 H Glucose 123 H Calcium 9.8 COVID-19 Eval Order SARS-CoV-2, RNA, NAAT Blood Type Antibody Screen 04/23/20 04/23/20 04/23/20 16:36 17:00 17:00 WBC RBC Hgb Hct MCV MCH MCHC RDW Std Deviation RDW Coeff of Gibran Plt Count MPV Immature Gran % (Auto) Neut % (Auto) Lymph % (Auto) Gooding % (Auto) Eos % (Auto) Baso % (Auto) Neut # (Auto) Lymph # (Auto) Gooding # (Auto) Eos # (Auto) Baso # (Auto) Immature Gran # (Auto) Anisocytosis Ovalocytes PT INR Sodium Potassium Chloride Carbon Dioxide Anion Gap BUN Creatinine Est Cr Clr Drug Dosing Est GFR ( Amer) Est GFR (Non-Af Amer) BUN/Creatinine Ratio Glucose Calcium COVID-19 Eval Order Covid19 [facility] SARS-CoV-2, RNA, NAAT NEGATIVE Blood Type B Positive Antibody Screen NEGATIVE 04/24/20 04/24/20 04/24/20 06:11 06:11 06:11 WBC 8.68 RBC 4.46 Hgb 11.5 L Hct 35.8 L MCV 80.3 MCH 25.8 MCHC 32.1 RDW Std Deviation 58.9 H RDW Coeff of Gibran 19.9 H Plt Count 219 MPV 10.5 H Immature Gran % (Auto) Neut % (Auto) Lymph % (Auto) Gooding % (Auto) Eos % (Auto) Baso % (Auto) Neut # (Auto) Lymph # (Auto) Gooding # (Auto) Eos # (Auto) Baso # (Auto) Immature Gran # (Auto) Anisocytosis Ovalocytes PT 24.0 H INR 2.5 H Sodium 141 Potassium 4.3 Chloride 104 Carbon Dioxide 32 Anion Gap 5.0 BUN 40 H Creatinine 0.95 Est Cr Clr Drug Dosing 29.9 Est GFR ( Amer) 62.0 Est GFR (Non-Af Amer) 53.5 BUN/Creatinine Ratio 42.2 H Glucose 109 H Calcium 9.4 COVID-19 Eval Order SARS-CoV-2, RNA, NAAT Blood Type Antibody Screen Diagnostic Findings [facility] 07/05/2018: [facility] Findings: LM: 10% LAD: patent prox stent LCX: small, normal RCA: Large, dominant vessel. 50% ostial, Mid vessel stent with 30% in-stent restenosis LV: EF=30%, Severe MR. (1) Fall Encounter type: initial encounter Qualified Code(s): W19.XXXA - Unspecified fall, initial encounter (2) Closed femur fracture Encounter type: initial encounter Femur location: shaft Fracture alignment: displaced Fracture morphology: spiral Laterality: right Qualified Code(s): S72.341A - Displaced spiral fracture of shaft of right femur, initial encounter for closed fracture
[2020-04-24] MEDS: ACETAMINOPHEN 325 MG TAB PO PRN (17:55)
[2020-04-24 18:36] LABS: INR 2.1 (0.9-1.1); Prothrombin Time 19.9 Seconds (9.0-12.0)
--- NOTE | 2020-04-24 20:31 | Hospitalist Progress Note ---
Date of Service April 24, 2020 Assessment & Plan (1) Fall: (2) Closed femur fracture: -Patient presenting from home after mechanical fall -In the ED, found to have right femoral periprosthetic fracture -Ortho consult -Given patient's advanced age and comorbidities, and signif. cardiac hx - cardiology consulted for pre-op assessment. EKG demonstrates unchanged LBBB. Recommend to hold furosemide AM of surgery and hold anticoag. -Noted the patient is anticoagulated on Coumadin, INR 2.9. Held Coumadin on admission, provided vitamin K PO 2.5 mg. This AM INR 2.5, gave additional 2.5 mg PO vit.K Per ortho - would prefer INR close to 1.5 before proceeding w/ surgery Will re-check INR and give additional vit. K as needed Will also obtain INR early AM so if needed can provide FFP prior to surgery, injury/safety hazard assessment aware (3) CAD (coronary artery disease): -Appears stable, no reports of chest pain -Continue aspirin, statin, beta-tr (4) Chronic systolic heart failure: -Ischemic cardiomyopathy -Echo 11/2019 EF 25 to 30% -Appears euvolemic, continue home dose of furosemide (5) Paroxysmal atrial fibrillation: -Rate controlled on metoprolol -Anticoagulated on Coumadin, INR 2.9. Holding Coumadin due to upcoming surgical intervention. (6) COPD (chronic obstructive pulmonary disease): -Saturating well on chronic 2 L of oxygen -No signs of acute exacerbation -Continue home inhalers (7) CKD (chronic kidney disease), stage III: -Creatinine at baseline -Monitor renal functions (8) Severe malnutrition: -Nutrition evaluation (9) DVT prophylaxis: -INR therapeutic [place] [place]mission and Anticipated Discharge Date Admission Date: April 23, 2020 Subjective Pt seen in follow up of R periprosthetic femur fx Currently laying in bed in NAD, however does report pain R leg No fever, chills, chest pain, shortness of breath, nausea or vomiting Received 2.5 mg PO vit. K on admission INR still elevated, will give additional 2.5 mg and will recheck INR Review of Systems Review of Systems: All systems reviewed & are unremarkable except as noted in HPI & below Constitutional: no fever and no chills Respiratory: no cough and no dyspnea Cardiovascular: no chest pain and no palpitations Gastrointestinal: no abdominal pain, no nausea and no vomiting Physical Exam Physical Exam: Constitutional: + thin Vitals as above Eyes: PERRL, conjunctivae normal, anicteric sclerae ENMT: external ear and nose normal, oropharynx normal Respiratory: normal respiratory effort, lungs clear to auscultation Cardiovascular: Rate/Rhythm: regular rate and regular rhythm Vessels: normal peripheral pulses Extremities: no edema Gastrointestinal (Abdomen): normal bowel sounds, soft, nontender, no hepatosplenomegaly Musculoskeletal: Extremities: Pain with movement of the right hip and knee, no edema noted Skin: no rashes, warm and dry Neurologic: PERRL, EOMI, no face palsy, no dysarthria Psychiatric: A+Ox3, euthymic affect Results & Data Results & Data ([facility]) Vital Signs (Past 12 Hours) Vital Signs Temp Pulse Resp BP Pulse Ox 04/24/20 17:57 92 04/24/20 15:25 37.4 C 85 20 125/57 L 92 Laboratory Results 04/24/20 04/24/20 04/24/20 Range/Units 18:00 06:11 06:11 WBC (4.8-10.8) K/uL RBC (4.2-5.4) M/uL Hgb (12.0-16.0) g/dL Hct (37-47) % MCV (80-100) fL MCH (25-34) pg MCHC (32-36) g/dL RDW Std Deviation (36.4-46.3) fL RDW Coeff of Gibran (11.5-14.5) % Plt Count (130-400) K/uL MPV (7.4-10.4) fL PT 19.9 H 24.0 H (9.0-12.0) Seconds INR 2.1 H 2.5 H (0.9-1.1) Sodium 141 (136-145) mmol/L Potassium 4.3 (3.5-5.1) mmol/L Chloride 104 (98-107) mmol/L Carbon Dioxide 32 (21-32) mmol/L Anion Gap 5.0 (3-11) BUN 40 H (7-18) mg/dl Creatinine 0.95 (0.6-1.2) mg/dl Est Cr Clr Drug Dosing 29.9 ml/min Est GFR ( Amer) 62.0 Est GFR (Non-Af Amer) 53.5 BUN/Creatinine Ratio 42.2 H (10-20) Glucose 109 H (70-99) mg/dl Calcium 9.4 (8.5-10.1) mg/dl 04/24/20 Range/Units 06:11 WBC 8.68 (4.8-10.8) K/uL RBC 4.46 (4.2-5.4) M/uL Hgb 11.5 L (12.0-16.0) g/dL Hct 35.8 L (37-47) % MCV 80.3 (80-100) fL MCH 25.8 (25-34) pg MCHC 32.1 (32-36) g/dL RDW Std Deviation 58.9 H (36.4-46.3) fL RDW Coeff of Gibran 19.9 H (11.5-14.5) % Plt Count 219 (130-400) K/uL MPV 10.5 H (7.4-10.4) fL PT (9.0-12.0) Seconds INR (0.9-1.1) Sodium (136-145) mmol/L Potassium (3.5-5.1) mmol/L Chloride (98-107) mmol/L Carbon Dioxide (21-32) mmol/L Anion Gap (3-11) BUN (7-18) mg/dl Creatinine (0.6-1.2) mg/dl Est Cr Clr Drug Dosing ml/min Est GFR ( Amer) Est GFR (Non-Af Amer) BUN/Creatinine Ratio (10-20) Glucose (70-99) mg/dl Calcium (8.5-10.1) mg/dl Medications Administered Current Inpatient Medications Acetaminophen (Acetaminophen 325 Mg Tab) 650 mg PO Q4H PRN PRN Reason: pain/fever Stop: 05/23/20 19:53 Last Admin: 04/24/20 17:55 Dose: 650 mg Documented by: Aspirin (Aspirin 81 Mg Ectab) 81 mg PO DAILY IAN Stop: 05/24/20 08:59 Last Admin: 04/24/20 07:50 Dose: 81 mg Documented by: Atorvastatin Calcium (Atorvastatin 40 Mg Tab) 80 mg PO HS IAN Stop: 05/23/20 20:59 Last Admin: 04/23/20 22:12 Dose: 80 mg Documented by: Bisacodyl (Bisacodyl 10 Mg Supp) 10 mg MN DAILY PRN PRN Reason: Constipation Stop: 05/23/20 19:53 Fluticasone/Vilanterol (Fluticasone/Vilanterol 100/25mcg 14 Puffs/Inhaler) 1 puffs INH Q24H PRN PRN Reason: Shortness Of Breath Stop: 05/23/20 19:53 Furosemide (Furosemide 20 Mg Tab) 20 mg PO DAILY [facility] Stop: 05/24/20 08:59 Last Admin: 04/24/20 07:50 Dose: 20 mg Documented by: Cefazolin Sodium (Ancef 2000mg) 2,000 mg in 15 mls @ 3.75 mls/min IV PREOP [facility]; Protocol Stop: 04/25/20 05:59 Last Admin: 04/24/20 19:17 Dose: Not Given Documented by: Dextrose/Sodium Chloride (D5w And Nss) 1,000 mls @ 50 mls/hr IV .Q20H [facility] Stop: 05/24/20 00:29 Last Admin: 04/24/20 00:47 Dose: 50 mls/hr Documented by: Levothyroxine Sodium (Levothyroxine Sodium 112 Mcg Tablet) 112 mcg PO DAILYBB [facility] Stop: 05/24/20 06:29 Last Admin: 04/24/20 05:52 Dose: 112 mcg Documented by: Lidocaine (Lidocaine 5% 1 Patch) 1 patch TD QAM [facility] Stop: 05/24/20 17:59 Magnesium Hydroxide (Magnesium Hydroxide Susp 30 Ml Udc) 30 ml PO DAILY PRN PRN Reason: Constipation Stop: 05/23/20 19:53 Metoprolol Succinate (Metoprolol Succ 25mg Ext Rel Tab) 25 mg PO QAM [facility] Stop: 05/24/20 08:59 Last Admin: 04/24/20 07:50 Dose: 25 mg Documented by: Mirtazapine (Mirtazapine Tab 15 Mg Tab) 7.5 mg PO HS [facility] Stop: 05/23/20 20:59 Last Admin: 04/23/20 22:12 Dose: 7.5 mg Documented by: Miscellaneous (Remove Lidoderm Patch) 1 ea N/A DAILY@2100 [facility] Stop: 05/24/20 20:59 Morphine Sulfate (Morphine Sulfate 2 Mg/Ml Carp) 2 mg IV Q3H PRN PRN Reason: Pain (1,2,3,4,5) & Pre PT Stop: 05/07/20 19:53 Last Admin: 04/24/20 06:37 Dose: 2 mg Documented by: Naloxone HCl (Naloxone Hcl 0.4 Mg/1 Ml Vial/Carp) 0.1 mg IV UD PRN PRN Reason: Opiate Overdose Stop: 05/23/20 19:53 Potassium Chloride (Potassium Chloride Crtab 20 Meq Tabcr) 20 meq PO DAILY IAN Stop: 05/24/20 08:59 Last Admin: 04/24/20 07:50 Dose: 20 meq Documented by: Senna/Docusate Sodium (Docusate Sodium/Senna 50/8.6mg Tab) 2 tab PO HS IAN Stop: 05/23/20 20:59 Last Admin: 04/23/20 22:11 Dose: 2 tab Documented by: Vitamin D (Cholecalciferol 1,000 Units 25 Mcg Tab) 5,000 units PO DAILY IAN Stop: 05/24/20 08:59 Last Admin: 04/24/20 07:52 Dose: Not Given Documented by: (1) Closed femur fracture Encounter type: initial encounter Femur location: shaft Fracture alignment: displaced Fracture morphology: spiral Laterality: right Qualified Code(s): S72.341A - Displaced spiral fracture of shaft of right femur, initial encounter for closed fracture (2) Fall Encounter type: initial encounter Qualified Code(s): W19.XXXA - Unspecified fall, initial encounter
[2020-04-24] MEDS: LIDOCAINE 5% 1 PATCH TD SCH (20:33)
[2020-04-24] MEDS ORDERED: PHYTONADIONE 5 MG TAB PO ONE (21:00)
[2020-04-24] MEDS: MIRTAZAPINE TAB 15 MG TAB PO SCH (21:22)
[2020-04-24] MEDS: DOCUSATE SODIUM/SENNA 50/8.6MG TAB PO SCH (21:23)
[2020-04-24] MEDS: ATORVASTATIN 40 MG TAB PO SCH (21:23)
[2020-04-25] MEDS: MoRPHine SULFATE 2 MG/ML CARP IV PRN ×4 (00:07→23:15)
[2020-04-25 03:24] LABS: Hematocrit (blood only) 35.2 % (37-47); Hemoglobin 11.5 g/dL (12.0-16.0); Mean Corpuscular Hemoglobin 26.1 pg (25-34); Mean Corpuscular Hgb Conc 32.7 g/dL (32-36); Mean Corpuscular Volume 79.8 fL (80-100); Mean Platelet Volume 9.8 fL (7.4-10.4); Platelet Count 220 K/uL (130-400); RDW Coefficient of Variation 19.8 % (11.5-14.5); RDW Standard Deviation 58.1 fL (36.4-46.3); Red Blood Count 4.41 M/uL (4.2-5.4); White Blood Count 8.56 K/uL (4.8-10.8)
[2020-04-25 03:34] LABS: INR 1.7 (0.9-1.1); Prothrombin Time 16.9 Seconds (9.0-12.0)
[2020-04-25 03:44] LABS: BUN Creatinine Ratio 34.2 (10-20); Creatinine Clr Calc Pharmacy 29.5 ml/min; Est GFR (African American) 61.2; Est GFR (Non-African American) 52.8; Potassium 4.3 mmol/L (3.5-5.1)
[2020-04-25] MEDS: LEVOTHYROXINE SODIUM 112 MCG TABLET PO SCH ×2 (05:28→05:59)
[2020-04-25] MEDS ORDERED: WARFARIN SOD 2.5 MG TAB PO STA (07:26)
[2020-04-25] MEDS ORDERED: PHYTONADIONE 5 MG TAB PO STA (08:43)
[2020-04-25] MEDS: LIDOCAINE 5% 1 PATCH TD SCH (09:43)
[2020-04-25] MEDS: POTASSIUM CHLORIDE CRTAB 20 MEQ TABCR PO SCH (09:44)
[2020-04-25] MEDS: METOPROLOL SUCC 25MG EXT REL TAB PO SCH (09:45)
[2020-04-25] MEDS: CHOLECALCIFEROL 1,000 UNITS 25 MCG TAB PO SCH (09:45)
[2020-04-25] MEDS: ASPIRIN 81 MG ECTAB PO SCH (09:46)
[2020-04-25 11:49] LABS: INR 1.3 (0.9-1.1); Prothrombin Time 13.3 Seconds (9.0-12.0)
[2020-04-25] MEDS ORDERED: fentaNYL citrate 100 MCG/2 ML VIAL ONE ×2 (11:52→15:48)
[2020-04-25] MEDS ORDERED: LIDOCAINE 2% 2 ML VIAL/AMP(20MG/ML) INFIL ONE (11:54)
[2020-04-25] MEDS ORDERED: PROPOFOL IV EMULSION 10 MG/ML 20 ML VIAL IV ONE (11:54)
[2020-04-25] MEDS ORDERED: ONDANSETRON INJ 2 MG/ML 2 ML VIAL ONE ×2 (11:54→17:08)
[2020-04-25] MEDS ORDERED: DEXAMETHASONE SOD INJ 4 MG/ML VIAL ONE (11:54)
[2020-04-25] MEDS ORDERED: ROCURONIUM BROMIDE 10 MG/ML 5 ML VIAL IV ONE (11:55)
[2020-04-25] MEDS ORDERED: ETOMIDATE 2 MG/ML 20 ML VIAL IV ONE (11:55)
--- NOTE | 2020-04-25 12:37 | Anesthesiology Consultation ---
Date of Service April 25, 2020 Assessment & Plan (1) Encounter for pre-operative examination: Chart Review Chart Review: Acceptable Risk for Surgery and Patient NOT seen in Pre Admission Testing Consults Requested none Additional Notes Pt high risk due to multiple significant comorbidities including pulmonary disease (chronically oxygen dependent) and severe ischemic cardiomyopathy with afib and valve disease. History Surgery Operation Date: 04/25/20 07:00 Proposed Procedures p Right Open Reduction Internal Fixation Periprothestic Femur Fracture - Gal [place] DO Height/Weight Height: 5 ft 2 in Weight: 46.2 kg Allergies Allergy/AdvReac Type Severity Reaction Status Date / Time No Known Allergies Allergy Verified 04/23/20 18:15 Medications Home Medications Medication Instructions Recorded Confirmed Last Taken atorvastatin [Lipitor] 80 mg PO HS 04/10/19 04/23/20 Unknown metoprolol succinate [Toprol XL] 25 mg PO QAM 30 Days #0 tab 04/19/19 04/23/20 Unknown Breo Ellipta 1 inh INHALATION Q24H PRN 11/16/19 04/23/20 Unknown levothyroxine 112 mcg PO DAILY 11/16/19 04/23/20 Unknown acetaminophen 650 mg PO Q6H PRN MDD 3 GMS 04/23/20 04/23/20 Unknown APAP/24 HOURS ascorbic acid (vitamin C) [Vitamin 500 mg PO DAILY 04/23/20 04/23/20 Unknown C] aspirin 81 mg PO DAILY 04/23/20 04/23/20 Unknown bisacodyl [Dulcolax (bisacodyl)] 10 mg DC DIRECTED PRN 04/23/20 04/23/20 Unknown cholecalciferol (vitamin D3) 125 mcg PO DAILY 04/23/20 04/23/20 Unknown [Vitamin D3] furosemide 20 mg PO DAILY 04/23/20 04/23/20 Unknown lactobacillus combination no.4 3,000 mmu cells PO DAILY 04/23/20 04/23/20 Unknown [Probiotic] mirtazapine 7.5 mg PO HS 04/23/20 04/23/20 Unknown multivitamin, stress formula 1 tab PO QAM 04/23/20 04/23/20 Unknown [Stress Formula] lm-and-NL-Gk-Wx-mxfqcjv-lutein 1 tab PO DAILY 04/23/20 04/23/20 Unknown [Multivital] potassium chloride 20 meq PO DAILY 04/23/20 04/23/20 Unknown warfarin 3 mg PO TUTH 04/23/20 04/23/20 Unknown warfarin 4 mg PO SUMOWEFRSA 04/23/20 04/23/20 Unknown Active Medications Generic Name Dose Route Start Last Admin Trade Name Freq PRN Reason Stop Dose Admin Acetaminophen 650 mg 04/23/20 19:54 04/24/20 17:55 Acetaminophen 325 Mg Tab PO 05/23/20 19:53 650 mg Q4H PRN Administration pain/fever Aspirin 81 mg 04/24/20 09:00 04/25/20 09:46 Aspirin 81 Mg Ectab PO 05/24/20 08:59 Not Given DAILY IAN Atorvastatin Calcium 80 mg 04/23/20 21:00 04/24/20 21:23 Atorvastatin 40 Mg Tab PO 05/23/20 20:59 80 mg HS IAN Administration Furosemide 20 mg 04/24/20 09:00 04/24/20 07:50 Furosemide 20 Mg Tab PO 05/24/20 08:59 20 mg DAILY IAN Administration Dextrose/Sodium Chloride 1,000 mls @ 50 mls/hr 04/24/20 00:30 04/25/20 06:03 D5w And Nss IV 05/24/20 00:29 50 mls/hr .Q20H IAN Infusion Levothyroxine Sodium 112 mcg 04/24/20 06:30 04/25/20 05:59 Levothyroxine Sodium 112 Mcg Tablet PO 05/24/20 06:29 Not Given DAILYBB IAN Lidocaine 1 patch 04/24/20 18:00 04/25/20 09:43 Lidocaine 5% 1 Patch TD 05/24/20 17:59 1 patch QAM IAN Administration Metoprolol Succinate 25 mg 04/24/20 09:00 04/25/20 09:45 Metoprolol Succ 25mg Ext Rel Tab PO 05/24/20 08:59 25 mg QAM IAN Administration Mirtazapine 7.5 mg 04/23/20 21:00 04/24/20 21:22 Mirtazapine Tab 15 Mg Tab PO 05/23/20 20:59 7.5 mg HS IAN Administration Miscellaneous 1 ea 04/24/20 21:00 04/24/20 21:25 Remove Lidoderm Patch N/A 05/24/20 20:59 Not Given DAILY@2100 IAN Morphine Sulfate 1 mg 04/25/20 11:57 04/25/20 12:20 Morphine Sulfate 2 Mg/Ml Carp IV 05/07/20 19:53 1 mg Q3H PRN Administration Pain (1,2,3,4,5) & Pre PT Potassium Chloride 20 meq 04/24/20 09:00 04/25/20 09:44 Potassium Chloride Crtab 20 Meq Tabcr PO 05/24/20 08:59 20 meq DAILY IAN Administration Senna/Docusate Sodium 2 tab 04/23/20 21:00 04/24/20 21:23 Docusate Sodium/Senna 50/8.6mg Tab PO 05/23/20 20:59 2 tab HS IAN Administration Vitamin D 5,000 units 04/24/20 09:00 04/25/20 09:45 Cholecalciferol 1,000 Units 25 Mcg Tab PO 05/24/20 08:59 Not Given DAILY IAN NPO Date Last Intake of Fluids: 04/24/20 Time Last Intake of Fluids: 23:59 Date Last Intake of Solids: 04/24/20 Time Last Intake of Solids: 23:59 Past Medical History Medical History CAD (coronary artery disease) Chronic systolic heart failure CKD (chronic kidney disease), stage III Complete left bundle branch block (LBBB) COPD (chronic obstructive pulmonary disease) Hypertension Hypothyroidism 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 Paroxysmal atrial fibrillation Severe mitral regurgitation Past Family History Family History Mother Brain tumor Father Myocardial infarction Stroke Past Surgical History Surgical History H/O angioplasty stent to LAD 2003 History of appendectomy History of cardiac cath patent vessels 06/2018 History of tubal ligation Social History Smoking Status: Former smoker tobacco type: cigarettes Smoking cigarettes per day: 6 Do You Dip or Chew Tobacco: No Hx Alcohol Use: No Hx Substance Use: No substance use type: does not use Physical Exam Vital Signs Last Vital Signs Temp 36.5 C 04/25/20 07:14 Pulse 83 04/25/20 07:14 Resp 16 04/25/20 07:14 BP 129/83 04/25/20 07:14 Pulse Ox 91 04/25/20 07:14 Testing Laboratory Results 04/25/20 03:07 04/25/20 03:07 PT 13.3 Seconds (9.0-12.0) H 04/25/20 11:26 INR 1.3 (0.9-1.1) H 04/25/20 11:26 Blood Type B Positive 04/23/20 16:36 Antibody Screen NEGATIVE 04/23/20 16:36 Other Testing Electrocardiogram Date: 11/16/19 Findings: + NSR @ (62) and + LBBB Chest X-Ray Date: 11/16/19 Findings: + cardiomegaly (moderate) Echocardiogram Date: 11/17/19 EF: 25-30% Valvular Disease: + AI (moderate) and + MR (Severe)
[2020-04-25] MEDS ORDERED: BACITRACIN INJ 50,000 UNIT VIAL ONE (12:56)
--- NOTE | 2020-04-25 14:19 | History & Physical Bridge Note ---
Date of Service April 25, 2020 History & Physical Bridge Note I have examined the patient, reviewed the History & Physical and in the interval since the performance of the History & Physical I have noted the following changes of clinical significance: no changes noted
--- NOTE | 2020-04-25 14:22 | Orthopedic Progress Note ---
Date of Service April 25, 2020 Assessment & Plan (1) Closed femur fracture: The patient is a 89-year-old female with displaced segmental spiral fracture of the right femur sustained after a fall from standing height. The patient was medically stabilized on 04/25/2020. I indicated the patient for open reduction internal fixation of right femur and removal of hardware. The patient and son was informed of the risks and benefits of surgery, which include but not limited to infection, bleeding, blood clots, damage to nerves, vessels, bone and soft tissue, dislocation, leg length discrepancy, need for additional surgery and . The patient and son collectively chose to move forward with surgical intervention and informed consent was obtained. Verbal consent obtained by POA/son on Jeffry Saul. Admission and Anticipated Discharge Date Admission Date: April 23, 2020 Subjective Patient seen in preoperative holding, patient comfortable appearing once re ceived pain medication. Medically optimized for surgery. Review of Systems Review of Systems: All systems reviewed & are unremarkable except as noted in HPI & below Constitutional: as per Subjective / HPI Physical Exam Physical Exam: Right lower extremity is neurovascular and sensory intact grossly, limited exam secondary to fracture, +2 dorsalis pedis pulse, compartment soft compressible, tenderness palpation over right thigh. Results & Data ([facility]) Vital Signs (Past 12 Hours) Vital Signs Temp Pulse Resp BP Pulse Ox 04/25/20 13:29 36.8 C 92 H 22 105/78 93 04/25/20 07:14 36.5 C 83 16 129/83 91 (1) Closed femur fracture Encounter type: initial encounter Femur location: shaft Fracture alignment: displaced Fracture morphology: spiral Laterality: right Qualified Code(s): S72.341A - Displaced spiral fracture of shaft of right femur, initial encounter for closed fracture
[2020-04-25] MEDS ORDERED: ONDANSETRON INJ 2 MG/ML 2 ML VIAL IV PRN (14:25)
[2020-04-25] MEDS ORDERED: IPRATROPIUM BROMIDE NEB SOLN 0.02% 2.5 ML VIAL INH PRN (14:25)
[2020-04-25] MEDS ORDERED: ePHEDrine sulfate 50 MG/ML AMP IV PRN (14:25)
[2020-04-25] MEDS ORDERED: ATROPINE SULFATE 0.1 MG/ML 10ML SYR IV PRN (14:25)
[2020-04-25] MEDS ORDERED: fentaNYL citrate 100 MCG/2 ML VIAL IV PRN (14:25)
[2020-04-25] MEDS ORDERED: BUPIVACAINE/EPINEPHRINE 0.5% MPF 1:200,000 30 ML VIAL ONE (14:27)
--- NOTE | 2020-04-25 15:20 | Hospitalist Progress Note ---
Date of Service April 25, 2020 Assessment & Plan (1) Fall: (2) Closed femur fracture: Patient presenting from home after mechanical fall Right Hip CT showed oblique/spiral periprosthetic fracture the mid femoral shaft beginning at the level of the tip of the femoral spike extending to within 5 cm of the knee joint. There is 5 cm of fracture foreshortening, 13 mm of major fracture fragment displacement to 24 degrees of angulation Xray hip showed showed acute oblique/spiral periprosthetic mid femoral shaft fracture with secondary angulation. Ortho on board Given patient's advanced age and comorbidities, carddiology was consulted for preop assessment No signs currently of congestive heart failure angina or worsening clinical status. Operative risk elevated due to comorbidities and age as per cardiology Would proceed with her surgery as planned agree with holding anticoagulation preoperatively as per cardio Will hold diuretic the morning of the surgery Vit K given this morning to reverse coumadin, INR 1.3 today case discussed with ortho, plan to take to OR today Will keep NPO for now (3) CAD (coronary artery disease): Appears stable, no reports of chest pain Continue aspirin, statin, beta-tr (4) Chronic systolic heart failure: Ischemic cardiomyopathy Echo 11/2019 EF 25 to 30% Continue home dose of furosemide (will hold the morning fof the surgery ) (5) Paroxysmal atrial fibrillation: Rate controlled on metoprolol Coumadin on hold du to orthopedic procedure, INR 1.3 today (6) COPD (chronic obstructive pulmonary disease): Saturating well on chronic 2 L of oxygen No signs of acute exacerbation Continue home inhalers (7) CKD (chronic kidney disease), stage III: Creatinine at baseline Monitor renal functions (8) Severe malnutrition: Nutrition evaluation (9) DVT prophylaxis: Coumadin on hold [facility] [place] Admission and Anticipated Discharge Date Admission Date: April 23, 2020 Subjective Pt was seen and examined for follow up of right periprosthetic femur fx Lying in bed with no distress, but complaint of leg pain Pt said that she is hungry and would like to eat something She said that her pain in the right leg worsening when moving her leg Denies any chest pain, palpitation, dizziness and SOB Physical Exam Physical Exam: General- No acute distress Head- atraumatic Eyes- PERRL, EOMI, ENT- oropharynx clear Neck- supple, no JVD Lungs- clear to auscultation Heart- regular rhythm; no murmur Abdomen- normal bowel sounds, soft, nontender Extremities- +right LE pain Neuro- alert, oriented x 3; PERRL, EOMI; no facial palsy; no dysarthria Skin- warm & dry Results & Data Results & Data ([facility]) Vital Signs (Past 12 Hours) Vital Signs Temp Pulse Resp BP Pulse Ox 04/25/20 13:29 36.8 C 92 H 22 105/78 93 04/25/20 07:14 36.5 C 83 16 129/83 91 (1) Closed femur fracture Encounter type: initial encounter Femur location: shaft Fracture alignment: displaced Fracture morphology: spiral Laterality: right Qualified Code(s): S72.341A - Displaced spiral fracture of shaft of right femur, initial encounter for closed fracture (2) Fall Encounter type: initial encounter Qualified Code(s): W19.XXXA - Unspecified fall, initial encounter
[2020-04-25] MEDS ORDERED: ceFAZolin 2000MG 2,000 MG/15 ML SYR IV ONE (15:49)
[2020-04-25] MEDS ORDERED: PHENYLEPHRINE 100MCG/ML 5ML SYR ONE (16:24)
[2020-04-25] MEDS ORDERED: ePHEDrine sulfate 50 MG/ML SYR ONE (16:24)
[2020-04-25] MEDS ORDERED: PHENYLEPHRINE HCL 10 MG/ML VIAL ONE (16:42)
[2020-04-25] MEDS ORDERED: ALBUMIN HUMAN 5% 12.5 GM/250 ML VIAL IV ONE (16:48)
[2020-04-25] MEDS ORDERED: SODIUM CHLORIDE 0.9% 250 ML IV PRN (16:49)
[2020-04-25 16:58] LABS: Hemoglobin 10.5 g/dL (12.0-16.0)
[2020-04-25] MEDS ORDERED: NEOSTIGMINE METHYLSULFATE 5 MG/5 ML SYR ONE (17:21)
[2020-04-25] MEDS ORDERED: GLYCOPYRROLATE 0.2 MG/ML VIAL ONE (17:21)
--- NOTE | 2020-04-25 17:55 | Post Operative Brief Note ---
Immediate Post Op Note v1 Date of Surgery April 25, 2020 Pre & Post Diagnosis Operation Date: 04/25/20 14:00 Pre-Op Diagnosis: Displaced segmental spiral fracture of the right femur Post-Op Diagnosis: Displaced segmental spiral fracture of the right femur I identified the patient and participated in the time-out.: Yes Procedure Operation Date: 04/25/20 14:00 Actual Procedures 1. Open reduction internal fixation right femur fracture (Right) - Gal Spain DO 2. Removal of hardware Surgeon Gal Spain DO Gate Attendant Lee Gan Estimated Blood Loss 250 Findings Consistent with Post-Op Diagnosis Fluids 1300 cc LR 250 cc urine out Specimens None Drains Godoy Catheter (godoy catheter in place prior to admission to OR room, clear dark yellow urine noted, anethesia to monitor urine output) and Hemovac Drain Anesthesia Type General Complications none Disposition Disposition: Recovery Room Overlapping Procedure I was present for: the critical portions of procedure. I was immediately available: during the entire case. Back up surgeon: was not required during procedure.
--- NOTE | 2020-04-25 17:56 | Operative Report ---
Post Operative Report Pre & Post Diagnosis Operation Date: 04/25/20 14:00 Pre-Op Diagnosis: Displaced segmental spiral fracture of the right femur Post-Op Diagnosis: Displaced segmental spiral fracture of the right femur I identified the patient and participated in the time-out.: Yes Procedure Operation Date: 04/25/20 14:00 Actual Procedures 1. Open reduction internal fixation right femur fracture (Right) - Gal Spain DO 2. Removal of hardware Surgeon Gal Spain DO Wafer Fab Technician Lee Gan Estimated Blood Loss 250 Findings Consistent with Post-Op Diagnosis Fluids 1300 cc LR 250 cc urine out Specimens None Drains Hemovac drain deep to the fascia Anesthesia Type General Complications none Disposition Disposition: Recovery Room Indications The patient is a 89-year-old female with displaced segmental spiral fracture of the right femur sustained after a fall from standing height. The patient was medically stabilized on 04/25/2020. I indicated the patient for open reduction internal fixation of right femur and removal of hardware. The patient and son was informed of the risks and benefits of surgery, which include but not limited to infection, bleeding, blood clots, damage to nerves, vessels, bone and soft tissue, dislocation, leg length discrepancy, need for additional surgery and . The patient and son collectively chose to move forward with surgical intervention and informed consent was obtained. Verbal consent obtained by POA/son on Jeffry Kg. Description of Procedure Following induction of adequate general anesthesia, the patient's right leg was prepped and draped in usual sterile manner. A timeout was performed, patient identified, site cande verified. Appropriate IV abx were given. Utilizing c-arm fluoroscopy the fracture site was identified and marked. An incision was made at the level of the fracture along the lateral aspect of the femur. Skin and subcutaneous tissue was sharply dissected, electrocautery was used for hemostasis. Fascia was incised throughout the length of the wound and the vastus lateralis was swept from the posterior iliotibial band with blunt dissection. Subperiosteal dissection was carried out to expose the femoral fracture. The lateral incision was extended both proximally and distally to allow for adequate exposure of the fracture site. Self-retainers were placed to aid in visualization. After the fracture site was identified and cleaned of any blood clots and residual debris using a combination of rotation and longitudinal traction, adequate reduction of the fracture was achieved and held in place with a Thomson clamp. Fracture reduction and positioning was assessed under C-arm fluoroscopy. Near anatomic fracture reduction was confirmed utilizing c-arm fluoroscopy. Next two 4.5 cortical lag screws were placed through the fracture measuring 30 mm and 32 mm. There was comminution which formed with placement of the proximal lag screw. We subsequently removed the 32 mm lag screw and placed a 1.7 Dall-Miles cable which reduced the fracture nicely. Axel clamps were r emoved and the fracture reduction was adequate. Next, a 12-hole distal femoral locking plate was placed about the lateral aspect of the femur. Distal locking bolt from previous cephalomedullary nail was removed due to obstructing of lateral plate. The distal locking guide was placed in the anterior and distal screw hole and held provisionally using a K-wire. Adequate positioning of the plate both in the distal and proximal aspects as well as anterior and posterior were assessed utilizing C-arm fluoroscopy. The plate was adequately seated onto the bone and in good alignment both proximal/distal, anterior/posterior. Next, I turned my attention to the distal aspect of the locking plate. Distal fixation was carried out utilizing 1 - 5.0mm x 70mm screw, 2-5.0 x 65mm screws, 1-5.0mm x 60mm screw and 1-5.0 x 25mm screw. Adequate screw position was verified under C-arm fluoroscopy and all screws were within bone Next I turned my attention back to the proximal locking plate and 2- 4.5mm cortex screws were placed proximally and distally to the cable reducing the plate to bone. Next, two 1.7mm Dall-Miles cables were placed proximally around the plate utilizing 4.5 mm cable buttons and femur and tensioned sequentially in place for added fixation. Final positioning of the plate, screws and cables was confirmed utilizing the c-arm fluoroscopy. The wound was copiously irrigated with sterile saline solution with bacitracin. The yan-incisional soft tissue was injected utilizing 30mL .5 marcaine with epi. Hemovac drain was placed deep to fascial layer. The fascia was closed using #1 Vicryl, subcutaneous tissue was closed using 2-0 Vicryl. The skin was closed with astrid. Sterile dressing was applied which included of xeroform, 4x4s, ABDs, webrill and javier wrap. Patient was placed in a knee immobilizer at this time. The patient was awoken while in the OR and was transported to PACU in stable condition and was without apparent complications. The patient tolerated the procedure well. I attest to the content of the Intraoperative Record and any orders documented therein. Any exceptions are noted below. Due to the complex nature of the procedure, the entire surgery was performed with the operational assistance of Lee Gan PA-C. The geriatric nursing assistant, under direct supervision, was involved in the actual performance of all aspects of the surgical procedure including patient positioning, hemostasis, tissue retraction, instrument management and wound closure. I attest to the content of the Intraoperative Record and any orders documented therein. Any exceptions are noted below.
--- NOTE | 2020-04-25 18:02 | Fluoroscopy Report ---
FL femur RT 1V CLINICAL HISTORY: RT ORIF PERIPROSTHETIC FEMUR FX COMPARISON STUDY: Right femur 04/23/2020. FINDINGS: Total fluoroscopy time is 58 seconds. 5 fluoroscopic spot images of the right femur. Status post internal fixation of a right femoral fracture with a lateral cortical plate, screws, and cercla ge wires. The hardware appears intact. Alignment appears anatomic. Evidence for an old right hip pros thesis. IMPRESSION: Fluoroscopy provided for internal fixation of a right femoral fracture. ACT 112: Negative or not required by law. Electronically signed by: Vic Bates M.D. 04/25/2020 6:01 PM
--- NOTE | 2020-04-25 18:37 | XRay Report ---
XR femur RT 2V routine CLINICAL HISTORY: post op ORIF right femur COMPARISON STUDY: Right femur 04/23/2020. FINDINGS: Status post internal fixation of a mid to distal right femoral shaft fracture with cortical plate, screws, and cerclage wires. The hardware appears intact. Alignment is anatomic. Skin astrid and surgical drains are in place. Evidence for prior internal fixation of a right proximal femoral fr acture. IMPRESSION: Status post internal fixation of mid to distal right femoral shaft fracture. The hardwar e appears intact. ACT 112: Negative or not required by law. Electronically signed by: Vic Bates M.D. 04/25/2020 6:35 PM
--- NOTE | 2020-04-25 18:58 | Orthopedic Progress Note ---
Date of Service April 25, 2020 Assessment & Plan (1) Closed femur fracture: s/p ORIF right femur, removal of hardware -ancef x 24 -DVT ppx: SCDs, TEDs, Lovenox-->Warfarin -NWB RLE -PT/OT -Monitor drain -Maintain KI -PO XR demonstrates well aligned well fixed implant, anatomic alignment of fracture -am labs Admission and Anticipated Discharge Date Admission Date: April 23, 2020 Subjective Post Operative Progress Note Patient seen in PACU, comfortable, pain well controlled, no acute issues. Review of Systems Review of Systems: All systems reviewed & are unremarkable except as noted in HPI & below Constitutional: as per Subjective / HPI Physical Exam Physical Exam: Right LE PE limited, +2 DP pulse, compartment soft NT, dressing CDI, KI in place, HMV intact. Constitutional: WD/WN, vitals as above Results & Data ([facility]) Vital Signs (Past 12 Hours) Vital Signs Temp Pulse Pulse Resp BP Pulse Ox 04/25/20 18:45 88 16 100/67 95 04/25/20 18:35 88 18 118/53 L 95 04/25/20 18:25 88 18 121/50 L 95 04/25/20 18:16 36.7 C 89 17 140/64 95 04/25/20 13:29 36.8 C 92 H 22 105/78 93 04/25/20 07:14 36.5 C 83 16 129/83 91 (1) Closed femur fracture Encounter type: initial encounter Femur location: shaft Fracture alignment: displaced Fracture morphology: spiral Laterality: right Qualified Code(s): S72.341A - Displaced spiral fracture of shaft of right femur, initial encounter for closed fracture
[2020-04-25] MEDS ORDERED: NALOXONE HCL 0.4 MG/1 ML VIAL/CARP IV PRN (20:18)
--- NOTE | 2020-04-25 20:39 | Anesthesiology Progress Note ---
Date of Service April 25, 2020 Anesthesia Post Procedure Vital Signs Vital Signs: Temp Pulse Pulse Resp BP Pulse Ox 04/25/20 20:14 36.7 C 94 H 112/63 90 04/25/20 19:45 36.8 C 90 23 128/59 L 99 04/25/20 19:35 96 H 16 109/57 L 98 04/25/20 19:25 98 H 15 122/66 98 04/25/20 19:10 97 H 16 113/51 L 99 04/25/20 18:55 36.8 C 91 H 19 117/53 L 92 04/25/20 18:45 88 16 100/67 95 04/25/20 18:35 88 18 118/53 L 95 04/25/20 18:25 88 18 121/50 L 95 04/25/20 18:16 36.7 C 89 17 140/64 95 04/25/20 13:29 36.8 C 92 H 22 105/78 93 04/25/20 07:14 36.5 C 83 16 129/83 91 04/24/20 22:42 36.9 C 78 16 139/64 93 Pain Intensity Right Leg: Pain Intensity: 10 Transfer of Care Handoff Completed per policy Notes Mental Status: alert / awake / arousable and participated in evaluation Patient Amnestic to Procedure: Yes Nausea / Vomiting: adequately controlled Pain: adequately controlled Airway Patency, RR, SpO2: stable & adequate BP & HR: stable & adequate Hydration State: stable & adequate Anesthetic Complications: no major complications apparent
[2020-04-25] MEDS: DOCUSATE SODIUM/SENNA 50/8.6MG TAB PO SCH (21:11)
[2020-04-25] MEDS: ATORVASTATIN 40 MG TAB PO SCH (21:11)
[2020-04-25] MEDS: MIRTAZAPINE TAB 15 MG TAB PO SCH (21:12)
[2020-04-25] MEDS ORDERED: PROMETHAZINE HCL 6.25 MG in SODIUM CHLORIDE 0.9% 50 ML IV PRN (21:44)
[2020-04-25] MEDS: D5W AND NSS 1,000 ML IV SCH (22:07)
[2020-04-25] MEDS: WARFARIN SOD 4 MG TAB PO SCH (23:16)
[2020-04-26] MEDS: ceFAZolin 1000MG 1,000 MG/7.5 ML SYR IV SCH ×2 (00:51→08:54)
[2020-04-26] MEDS: MoRPHine SULFATE 2 MG/ML CARP IV PRN ×2 (02:26→07:38)
--- NOTE | 2020-04-26 04:13 | Communication Note ---
Date of Service: April 26, 2020 Notified by RN of low BP. SBP 70s to 90s Episodic VT on the monitor as per RN. Patient moaning and disoriented. Patient denies chest pain, S OB. EKG as per my interpretation : Rate 110, sinus tachycardia, LAD, LAFB, chronic LBBB troponin 0.065 glucose 150 AP Delirium secondary to hypovolemia Possible sepsis Rule out UTI Narcotics and Remeron contributory Troponin elevation secondary to tachycardia Hyperglycemia secondary to DM2, new diagnosis, hemoglobin A1c of 6.19 November 2019, IV albumin in place of crystalloid given some congestion on CXR on admission Appropriate to hold home Lasix until patient euvolemic. Check UA, blood cultures Hold morphine and Remeron for sedation and confusion Follow troponin ISS BG goal 1 40-1 80, update hemoglobin A1c Will relay to AM provider.
[2020-04-26 04:47] LABS: Basophils # (auto) 0.03 K/uL (0-0.2); Basophils % (auto) 0.2 %; Eosinophils # (auto) 0.06 K/uL (0-0.5); Eosinophils % (auto) 0.5 %; Hemoglobin 9.6 g/dL (12.0-16.0); Immature Granulocytes # (auto) 0.02 K/uL (0.00-0.02); Immature Granulocytes % (auto) 0.2 %; Lymphocytes # (auto) 0.76 K/uL (1.2-3.4); Lymphocytes % (auto) 5.8 %; Mean Corpuscular Hemoglobin 25.7 pg (25-34); Mean Corpuscular Volume 80.4 fL (80-100); Mean Platelet Volume 9.8 fL (7.4-10.4); Monocytes # (auto) 1.56 K/uL (0.11-0.59); Monocytes % (auto) 11.8 %; Neutrophils # (auto) 10.74 K/uL (1.4-6.5); Neutrophils % (auto) 81.5 %; Platelet Count 218 K/uL (130-400); RDW Coefficient of Variation 19.7 % (11.5-14.5); RDW Standard Deviation 58.4 fL (36.4-46.3); Red Blood Count 3.73 M/uL (4.2-5.4); White Blood Count 13.17 K/uL (4.8-10.8)
[2020-04-26] MEDS ORDERED: DEXTROSE 50% 50 ML SYRINGE IV PRN (04:51)
[2020-04-26] MEDS ORDERED: GLUCOSE 40% GEL 15 GM TUBE PO PRN (04:51)
[2020-04-26] MEDS ORDERED: GLUCAGON FOR INJ 1 MG VIAL SQ PRN (04:51)
[2020-04-26] MEDS ORDERED: GLUCOSE 10 TABS/TUBE PO PRN (04:51)
[2020-04-26] MEDS ORDERED: CARBOHYDRATES FOR HYPOGLYCEMIA PO PRN (04:51)
[2020-04-26 04:59] LABS: INR 1.2 (0.9-1.1); Partial Thromboplastin Ratio 1.1; Partial Thromboplastin Time 29.1 Seconds (21.0-31.0); Prothrombin Time 12.3 Seconds (9.0-12.0)
[2020-04-26 05:04] LABS: BUN Creatinine Ratio 25.8 (10-20); Calcium 8.9 mg/dl (8.5-10.1); Creatinine Clr Calc Pharmacy 24.9 ml/min; Est GFR (African American) 49.7; Est GFR (Non-African American) 42.9; Magnesium 1.9 mg/dl (1.8-2.4); Potassium 4.6 mmol/L (3.5-5.1)
[2020-04-26] MEDS: ALBUMIN 25% 12.5 GM/50 ML VIAL IV SCH ×4 (05:14→21:08)
[2020-04-26 05:16] LABS: Thyroid Stimulating Hormone 0.781 uIu/ml (0.300-4.500)
[2020-04-26] MEDS ORDERED: MAGNESIUM SULFATE / D5W 1 GM/100 ML BAG IV ONE (05:30)
[2020-04-26] MEDS: LEVOTHYROXINE SODIUM 112 MCG TABLET PO SCH (06:10)
[2020-04-26 06:19] LABS: Estimated Average Glucose 143 mg/dl; Hemoglobin A1C 6.6 % (4.5-5.6)
[2020-04-26] MEDS: ACETAMINOPHEN 325 MG TAB PO PRN ×3 (06:45→16:10)
[2020-04-26] MEDS: ASPIRIN 81 MG ECTAB PO SCH (07:28)
[2020-04-26] MEDS: POTASSIUM CHLORIDE CRTAB 20 MEQ TABCR PO SCH (07:29)
[2020-04-26] MEDS: LIDOCAINE 5% 1 PATCH TD SCH (07:30)
[2020-04-26] MEDS: CHOLECALCIFEROL 1,000 UNITS 25 MCG TAB PO SCH (07:30)
--- NOTE | 2020-04-26 08:11 | Orthopedic Progress Note ---
Date of Service April 26, 2020 Assessment & Plan (1) Closed femur fracture: s/p ORIF right femur, removal of hardware POD#1 -ancef x 24 -DVT ppx: SCDs, TEDs, Lovenox-->Warfarin -NWB RLE -PT/OT -Monitor drain - 0cc output, suction intact. -Maintain KI -PO XR demonstrates well aligned well fixed implant, anatomic alignment of fracture -am labs - as above, hgb 9.6 Admission and Anticipated Discharge Date Admission Date: April 23, 2020 Subjective Post Operative Progress Note Patient seen laying in bed, moaning intermittently, c/o pain, receiving pain medications during our encounter this morning. Review of Systems Review of Systems: All systems reviewed & are unremarkable except as noted in HPI & below Constitutional: as per Subjective / HPI Physical Exam Physical Exam: Limited exam, +2 DP pulse, compartments soft NT, dressing cdi, KI in place, HMV drain intact. patient actively moves foot and ankle. Constitutional: WD/WN, vitals as above Results & Data ([facility]) Vital Signs (Past 12 Hours) Vital Signs Temp Pulse Pulse Resp BP BP Pulse Ox 04/26/20 06:39 36.5 C 112 H 16 102/67 97 04/26/20 04:13 115 H 18 94/59 L 94 04/26/20 04:00 76/52 L 04/25/20 22:54 37.4 C 108 H 20 110/68 94 04/25/20 21:15 36.4 C L 104 H 106/61 91 04/25/20 20:57 37.0 C 89 18 117/45 L 96 04/25/20 20:14 36.7 C 94 H 112/63 90 Laboratory Results 04/26/20 04/26/20 04/26/20 Range/Units 06:44 06:44 05:13 WBC (4.8-10.8) K/uL RBC (4.2-5.4) M/uL Hgb (12.0-16.0) g/dL Hct (37-47) % MCV (80-100) fL MCH (25-34) pg MCHC (32-36) g/dL RDW Std Deviation (36.4-46.3) fL RDW Coeff of Gibran (11.5-14.5) % Plt Count (130-400) K/uL MPV (7.4-10.4) fL Immature Gran % (Auto) % Neut % (Auto) % Lymph % (Auto) % [place] % (Auto) % Eos % (Auto) % Baso % (Auto) % Neut # (Auto) (1.4-6.5) K/uL Lymph # (Auto) (1.2-3.4) K/uL [place] # (Auto) (0.11-0.59) K/uL Eos # (Auto) (0-0.5) K/uL Baso # (Auto) (0-0.2) K/uL Immature Gran # (Auto) (0.00-0.02) K/uL PT (9.0-12.0) Seconds INR (0.9-1.1) APTT (21.0-31.0) Seconds PTT Ratio Sodium (136-145) mmol/L Potassium (3.5-5.1) mmol/L Chloride (98-107) mmol/L Carbon Dioxide (21-32) mmol/L Anion Gap (3-11) BUN (7-18) mg/dl Creatinine (0.6-1.2) mg/dl Est Cr Clr Drug Dosing ml/min Est GFR ( Amer) Est GFR (Non-Af Amer) BUN/Creatinine Ratio (10-20) Glucose (70-99) mg/dl Estimat Average Glucose 143 mg/dl Hemoglobin A1c 6.6 H (4.5-5.6) % Lactate (0.4-2.0) mmol/L Calcium (8.5-10.1) mg/dl Magnesium (1.8-2.4) mg/dl Ammonia (11-32) umol/L Troponin I 0.057 H* (0-0.045) ng/ml Procalcitonin Pending TSH (0.300-4.500) uIu/ml Blood Type Antibody Screen Crossmatch 04/26/20 04/26/20 04/26/20 Range/Units 05:13 04:35 04:35 WBC (4.8-10.8) K/uL RBC (4.2-5.4) M/uL Hgb (12.0-16.0) g/dL Hct (37-47) % MCV (80-100) fL MCH (25-34) pg MCHC (32-36) g/dL RDW Std Deviation (36.4-46.3) fL RDW Coeff of Gibran (11.5-14.5) % Plt Count (130-400) K/uL MPV (7.4-10.4) fL Immature Gran % (Auto) % Neut % (Auto) % Lymph % (Auto) % [place] % (Auto) % Eos % (Auto) % Baso % (Auto) % Neut # (Auto) (1.4-6.5) K/uL Lymph # (Auto) (1.2-3.4) K/uL [place] # (Auto) (0.11-0.59) K/uL Eos # (Auto) (0-0.5) K/uL Baso # (Auto) (0-0.2) K/uL Immature Gran # (Auto) (0.00-0.02) K/uL PT (9.0-12.0) Seconds INR (0.9-1.1) APTT (21.0-31.0) Seconds PTT Ratio Sodium (136-145) mmol/L Potassium (3.5-5.1) mmol/L Chloride (98-107) mmol/L Carbon Dioxide (21-32) mmol/L Anion Gap (3-11) BUN (7-18) mg/dl Creatinine (0.6-1.2) mg/dl Est Cr Clr Drug Dosing ml/min Est GFR ( Amer) Est GFR (Non-Af Amer) BUN/Creatinine Ratio (10-20) Glucose (70-99) mg/dl Estimat Average Glucose mg/dl Hemoglobin A1c (4.5-5.6) % Lactate 2.0 (0.4-2.0) mmol/L Calcium (8.5-10.1) mg/dl Magnesium (1.8-2.4) mg/dl Ammonia 17.0 (11-32) umol/L Troponin I 0.065 H* (0-0.045) ng/ml Procalcitonin TSH (0.300-4.500) uIu/ml Blood Type Antibody Screen Crossmatch 04/26/20 04/26/20 04/26/20 Range/Units 04:35 04:35 04:35 WBC 13.17 H (4.8-10.8) K/uL RBC 3.73 L (4.2-5.4) M/uL Hgb 9.6 L (12.0-16.0) g/dL Hct 30.0 L (37-47) % MCV 80.4 (80-100) fL MCH 25.7 (25-34) pg MCHC 32.0 (32-36) g/dL RDW Std Deviation 58.4 H (36.4-46.3) fL RDW Coeff of Gibran 19.7 H (11.5-14.5) % Plt Count 218 (130-400) K/uL MPV 9.8 (7.4-10.4) fL Immature Gran % (Auto) 0.2 % Neut % (Auto) 81.5 % Lymph % (Auto) 5.8 % [place] % (Auto) 11.8 % Eos % (Auto) 0.5 % Baso % (Auto) 0.2 % Neut # (Auto) 10.74 H (1.4-6.5) K/uL Lymph # (Auto) 0.76 L (1.2-3.4) K/uL [place] # (Auto) 1.56 H (0.11-0.59) K/uL Eos # (Auto) 0.06 (0-0.5) K/uL Baso # (Auto) 0.03 (0-0.2) K/uL Immature Gran # (Auto) 0.02 (0.00-0.02) K/uL PT 12.3 H (9.0-12.0) Seconds INR 1.2 H (0.9-1.1) APTT 29.1 (21.0-31.0) Seconds PTT Ratio 1.1 Sodium 140 (136-145) mmol/L Potassium 4.6 (3.5-5.1) mmol/L Chloride 108 H (98-107) mmol/L Carbon Dioxide 29 (21-32) mmol/L Anion Gap 3.0 (3-11) BUN 29 H (7-18) mg/dl Creatinine 1.14 (0.6-1.2) mg/dl Est Cr Clr Drug Dosing 24.9 ml/min Est GFR ( Amer) 49.7 Est GFR (Non-Af Amer) 42.9 BUN/Creatinine Ratio 25.8 H (10-20) Glucose 150 H (70-99) mg/dl Estimat Average Glucose mg/dl Hemoglobin A1c (4.5-5.6) % Lactate (0.4-2.0) mmol/L Calcium 8.9 (8.5-10.1) mg/dl Magnesium 1.9 (1.8-2.4) mg/dl Ammonia (11-32) umol/L Troponin I (0-0.045) ng/ml Procalcitonin TSH 0.781 (0.300-4.500) uIu/ml Blood Type Antibody Screen Crossmatch 04/25/20 04/25/20 04/23/20 Range/Units 16:50 11:26 16:36 WBC (4.8-10.8) K/uL RBC (4.2-5.4) M/uL Hgb 10.5 L (12.0-16.0) g/dL Hct 33.0 L (37-47) % MCV (80-100) fL MCH (25-34) pg MCHC (32-36) g/dL RDW Std Deviation (36.4-46.3) fL RDW Coeff of Gibran (11.5-14.5) % Plt Count (130-400) K/uL MPV (7.4-10.4) fL Immature Gran % (Auto) % Neut % (Auto) % Lymph % (Auto) % [place] % (Auto) % Eos % (Auto) % Baso % (Auto) % Neut # (Auto) (1.4-6.5) K/uL Lymph # (Auto) (1.2-3.4) K/uL [place] # (Auto) (0.11-0.59) K/uL Eos # (Auto) (0-0.5) K/uL Baso # (Auto) (0-0.2) K/uL Immature Gran # (Auto) (0.00-0.02) K/uL PT 13.3 H (9.0-12.0) Seconds INR 1.3 H (0.9-1.1) APTT (21.0-31.0) Seconds PTT Ratio Sodium (136-145) mmol/L Potassium (3.5-5.1) mmol/L Chloride (98-107) mmol/L Carbon Dioxide (21-32) mmol/L Anion Gap (3-11) BUN (7-18) mg/dl Creatinine (0.6-1.2) mg/dl Est Cr Clr Drug Dosing ml/min Est GFR ( Amer) Est GFR (Non-Af Amer) BUN/Creatinine Ratio (10-20) Glucose (70-99) mg/dl Estimat Average Glucose mg/dl Hemoglobin A1c (4.5-5.6) % Lactate (0.4-2.0) mmol/L Calcium (8.5-10.1) mg/dl Magnesium (1.8-2.4) mg/dl Ammonia (11-32) umol/L Troponin I (0-0.045) ng/ml Procalcitonin TSH (0.300-4.500) uIu/ml Blood Type B Positive Antibody Screen NEGATIVE Crossmatch See Detail (1) Closed femur fracture Encounter type: initial encounter Femur location: shaft Fracture alignment: displaced Fracture morphology: spiral Laterality: right Qualified Code(s): S72.341A - Displaced spiral fracture of shaft of right femur, initial encounter for closed fracture
[2020-04-26] MEDS: INSULIN ASPART 100 UNITS/ML 3 ML PEN SC SCH ×4 (08:52→23:03)
[2020-04-26] MEDS: ENOXAPARIN INJ 30 MG/0.3 ML SYR SQ SCH (08:53)
--- NOTE | 2020-04-26 09:16 | Electrocardiogram Report ---
Test Reason : Blood Pressure : / mmHG Vent. Rate : 112 BPM Atrial Rate : 112 BPM P-R Int : 138 ms QRS Dur : 154 ms QT Int : 376 ms P-R-T Axes : 067 -36 120 degrees QTc Int : 513 ms Sinus tachycardia with Premature atrial complexes Left axis deviation Left bundle branch block Abnormal ECG When compared with ECG of 23-APR-2020 16:48, Vent. rate has increased BY 50 BPM Confirmed by Dino Eli ([id number]) on 04/26/2020 9:16:32 AM Referred By: Jadon Turcios Confirmed By:Dino Eli
[2020-04-26 09:30] LABS: Appearance Urine Cloudy (Clear); Bilirubin Urine Negative (Negative); Blood Urine 1+ (Negative); Color Urine Dark Yellow; Glucose Urine UA Negative (Negative); Ketones Urine Negative (Negative); Leukocyte Esterase Urine 3+ (Negative); Nitrite Urine Positive (Negative); Protein Urine 1+ (Negative); Specific Gravity Urine 1.022 (1.000-1.030); Urobilinogen Urine Negative (Negative); pH Urine 7.5 (4.5-7.5)
[2020-04-26 09:43] LABS: Epithelial Cell Urine 0-5 /lpf (0-5); WBC Urine >30 /hpf (0-5)
[2020-04-26 09:46] LABS: Bacteria Urine 1+ (Negative)
[2020-04-26 09:47] LABS: RBC Urine 0-4 /hpf (0-4)
[2020-04-26] MEDS: METOPROLOL SUCC 25MG EXT REL TAB PO SCH (10:56)
--- NOTE | 2020-04-26 11:10 | Cardiology Progress Note ---
Date of Service April 26, 2020 Assessment & Plan (1) Closed femur fracture: Periprosthetic fraction status post surgical repair yesterday. Pain much better. Patient appears improved. Blood pressure as in past trending towards low but no signs of heart failure. We will continue beta-tr, change holding parameters (2) Ischemic cardiomyopathy: Follow urine outputs and input for need for resumption of furosemide, currently no evidence of volume overload (3) Paroxysmal atrial fibrillation: Maintain Toprol dosing (4) Chronic systolic heart failure: (5) Severe mitral regurgitation: Admission and Anticipated Discharge Date Admission Date: April 23, 2020 Subjective Patient was seen and examined, chart, medications, telemetry reviewed. Patient feels substantially improved from day prior with much less pain and discomfort. No worsening shortness of breath no chest pains. No dizziness or lightheadedness. Blood pressure is marginal though patient tends to run low blood pressures at baseline No bleeding issues. Telemetry with complex atrial ectopy but no atrial fibrillation. sinus tachycardia currently Review of Systems Review of Systems: All systems reviewed & are unremarkable except as noted in HPI & below Physical Exam Constitutional: + thin and + frail appearing; no acute distress Eyes: PERRL, conjunctivae normal, anicteric sclerae ENMT: external ear and nose normal, oropharynx normal Neck: trachea midline, no thyromegaly Respiratory: normal respiratory effort, lungs clear to auscultation Cardiovascular: Rate/Rhythm: regular rate and regular rhythm Heart Sounds: normal S1, normal S2 and + murmur (Grade 1-2 or 6 systolic at apex); no gallop Palpation: normal PMI Vessels: normal carotid upstroke and radial pulses present; no JVD and no carotid bruit Extremities: no edema Gastrointestinal (Abdomen): normal bowel sounds, soft, nontender, no hepatosplenomegaly Musculoskeletal: no cyanosis or clubbing, extremities motor strength 5/5 Skin: no rashes, warm and dry Neurologic: PERRL, EOMI, accommodation nl, no face palsy, no dysarthria Psychiatric: A+Ox3, euthymic affect Results & Data ([facility]) Vital Signs (Past 12 Hours) Vital Signs Temp Pulse Resp BP BP Pulse Ox 04/26/20 10:45 104 H 16 94/62 L 96 04/26/20 08:00 114 H 88/54 L 04/26/20 06:39 36.5 C 112 H 16 102/67 97 04/26/20 04:13 115 H 18 94/59 L 94 04/26/20 04:00 76/52 L Laboratory Results Laboratory Results - last 24 hr 04/23/20 04/25/20 04/25/20 16:36 11:26 16:50 WBC RBC Hgb 10.5 L Hct 33.0 L MCV MCH MCHC RDW Std Deviation RDW Coeff of Gibran Plt Count MPV Immature Gran % (Auto) Neut % (Auto) Lymph % (Auto) Bethel % (Auto) Eos % (Auto) Baso % (Auto) Neut # (Auto) Lymph # (Auto) [place] # (Auto) Eos # (Auto) Baso # (Auto) Immature Gran # (Auto) PT 13.3 H INR 1.3 H APTT PTT Ratio Sodium Potassium Chloride Carbon Dioxide Anion Gap BUN Creatinine Est Cr Clr Drug Dosing Est GFR ( Amer) Est GFR (Non-Af Amer) BUN/Creatinine Ratio Glucose POC Glucose Estimat Average Glucose Hemoglobin A1c Lactate Calcium Magnesium Ammonia Troponin I Procalcitonin TSH Urine Color Urine Appearance Urine pH Ur Specific Comstock Urine Protein Urine Glucose (UA) Urine Ketones Urine Blood Urine Nitrite Urine Bilirubin Urine Urobilinogen Ur Leukocyte Esterase Urine RBC Urine WBC Ur Epithelial Cells Urine Bacteria Blood Type B Positive Antibody Screen NEGATIVE Crossmatch See Detail 04/26/20 04/26/20 04/26/20 04:35 04:35 04:35 WBC 13.17 H RBC 3.73 L Hgb 9.6 L Hct 30.0 L MCV 80.4 MCH 25.7 MCHC 32.0 RDW Std Deviation 58.4 H RDW Coeff of Gibran 19.7 H Plt Count 218 MPV 9.8 Immature Gran % (Auto) 0.2 Neut % (Auto) 81.5 Lymph % (Auto) 5.8 Bethel % (Auto) 11.8 Eos % (Auto) 0.5 Baso % (Auto) 0.2 Neut # (Auto) 10.74 H Lymph # (Auto) 0.76 L Bethel # (Auto) 1.56 H Eos # (Auto) 0.06 Baso # (Auto) 0.03 Immature Gran # (Auto) 0.02 PT 12.3 H INR 1.2 H APTT 29.1 PTT Ratio 1.1 Sodium 140 Potassium 4.6 Chloride 108 H Carbon Dioxide 29 Anion Gap 3.0 BUN 29 H Creatinine 1.14 Est Cr Clr Drug Dosing 24.9 Est GFR ( Amer) 49.7 Est GFR (Non-Af Amer) 42.9 BUN/Creatinine Ratio 25.8 H Glucose 150 H POC Glucose Estimat Average Glucose Hemoglobin A1c Lactate Calcium 8.9 Magnesium 1.9 Ammonia Troponin I Procalcitonin TSH 0.781 Urine Color Urine Appearance Urine pH Ur Specific [place] Urine Protein Urine Glucose (UA) Urine Ketones Urine Blood Urine Nitrite Urine Bilirubin Urine Urobilinogen Ur Leukocyte Esterase Urine RBC Urine WBC Ur Epithelial Cells Urine Bacteria Blood Type Antibody Screen Crossmatch 04/26/20 04/26/20 04/26/20 04:35 04:35 05:13 WBC RBC Hgb Hct MCV MCH MCHC RDW Std Deviation RDW Coeff of Gibran Plt Count MPV Immature Gran % (Auto) Neut % (Auto) Lymph % (Auto) Bethel % (Auto) Eos % (Auto) Baso % (Auto) Neut # (Auto) Lymph # (Auto) [place]hel # (Auto) Eos # (Auto) Baso # (Auto) Immature Gran # (Auto) PT INR APTT PTT Ratio Sodium Potassium Chloride Carbon Dioxide Anion Gap BUN Creatinine Est Cr Clr Drug Dosing Est GFR ( Amer) Est GFR (Non-Af Amer) BUN/Creatinine Ratio Glucose POC Glucose Estimat Average Glucose Hemoglobin A1c Lactate 2.0 Calcium Magnesium Ammonia 17.0 Troponin I 0.065 H* Procalcitonin TSH Urine Color Urine Appearance Urine pH Ur Specific Comstock Urine Protein Urine Glucose (UA) Urine Ketones Urine Blood Urine Nitrite Urine Bilirubin Urine Urobilinogen Ur Leukocyte Esterase Urine RBC Urine WBC Ur Epithelial Cells Urine Bacteria Blood Type Antibody Screen Crossmatch 04/26/20 04/26/20 04/26/20 05:13 06:44 06:44 WBC RBC Hgb Hct MCV MCH MCHC RDW Std Deviation RDW Coeff of Gibran Plt Count MPV Immature Gran % (Auto) Neut % (Auto) Lymph % (Auto) [place]hel % (Auto) Eos % (Auto) Baso % (Auto) Neut # (Auto) Lymph # (Auto) [place]hel # (Auto) Eos # (Auto) Baso # (Auto) Immature Gran # (Auto) PT INR APTT PTT Ratio Sodium Potassium Chloride Carbon Dioxide Anion Gap BUN Creatinine Est Cr Clr Drug Dosing Est GFR ( Amer) Est GFR (Non-Af Amer) BUN/Creatinine Ratio Glucose POC Glucose Estimat Average Glucose 143 Hemoglobin A1c 6.6 H Lactate Calcium Magnesium Ammonia Troponin I 0.057 H* Procalcitonin 0.84 H TSH Urine Color Urine Appearance Urine pH Ur Specific [place] Urine Protein Urine Glucose (UA) Urine Ketones Urine Blood Urine Nitrite Urine Bilirubin Urine Urobilinogen Ur Leukocyte Esterase Urine RBC Urine WBC Ur Epithelial Cells Urine Bacteria Blood Type Antibody Screen Crossmatch 04/26/20 04/26/20 08:15 08:50 WBC RBC Hgb Hct MCV MCH MCHC RDW Std Deviation RDW Coeff of Gibran Plt Count MPV Immature Gran % (Auto) Neut % (Auto) Lymph % (Auto) Bethel % (Auto) Eos % (Auto) Baso % (Auto) Neut # (Auto) Lymph # (Auto) [place]hel # (Auto) Eos # (Auto) Baso # (Auto) Immature Gran # (Auto) PT INR APTT PTT Ratio Sodium Potassium Chloride Carbon Dioxide Anion Gap BUN Creatinine Est Cr Clr Drug Dosing Est GFR ( Amer) Est GFR (Non-Af Amer) BUN/Creatinine Ratio Glucose POC Glucose 165 H Estimat Average Glucose Hemoglobin A1c Lactate Calcium Magnesium Ammonia Troponin I Procalcitonin TSH Urine Color Dark Yellow Urine Appearance Cloudy A Urine pH 7.5 Ur Specific [place]stock 1.022 Urine Protein 1+ H Urine Glucose (UA) Negative Urine Ketones Negative Urine Blood 1+ H Urine Nitrite Positive A Urine Bilirubin Negative Urine Urobilinogen Negative Ur Leukocyte Esterase 3+ H Urine RBC 0-4 Urine WBC >30 H Ur Epithelial Cells 0-5 Urine Bacteria 1+ H Blood Type Antibody Screen Crossmatch (1) Closed femur fracture Encounter type: initial encounter Femur location: shaft Fracture alignment: displaced Fracture morphology: spiral Laterality: right Qualified Code(s): S72.341A - Displaced spiral fracture of shaft of right femur, initial encounter for closed fracture
[2020-04-26] MEDS ORDERED: WARFARIN SOD 3 MG TAB PO SCH (16:00)
--- NOTE | 2020-04-26 17:26 | Hospitalist Progress Note ---
Date of Service April 26, 2020 Assessment & Plan (1) Fall: (2) Closed femur fracture: Patient presenting from home after mechanical fall Right Hip CT showed oblique/spiral periprosthetic fracture the mid femoral shaft beginning at the level of the tip of the femoral spike extending to within 5 cm of the knee joint. There is 5 cm of fracture foreshortening, 13 mm of major fracture fragment displacement to 24 degrees of angulation Xray hip showed showed acute oblique/spiral periprosthetic mid femoral shaft fracture with secondary angulation. Ortho on board Given patient's advanced age and comorbidities, carddiology was consulted for preop assessment No signs currently of congestive heart failure angina or worsening clinical status. Operative risk elevated due to comorbidities and age as per cardiology Would proceed with her surgery as planned agree with holding anticoagulation preoperatively as per cardio S/P right Open reduction internal fixation right femur fracture and removal of hardware on 04/[address] Spain no post op complication Continue incentive spirometry Monitor hemoglobin while coumadin resumed (3) CAD (coronary artery disease): Appears stable, no reports of chest pain Continue aspirin, statin, beta-tr (4) Chronic systolic heart failure: Ischemic cardiomyopathy Echo 11/2019 EF 25 to 30% Continue home dose of furosemide (will hold the morning fof the surgery ) (5) Paroxysmal atrial fibrillation: Rate controlled on metoprolol Coumadin resumed, will monitor PT/INR (6) COPD (chronic obstructive pulmonary disease): Saturating well on chronic 2 L of oxygen No signs of acute exacerbation Continue home inhalers (7) CKD (chronic kidney disease), stage III: Creatinine at baseline Monitor renal functions (8) Severe malnutrition: Nutrition evaluation (9) DVT prophylaxis: Coumadin on hold [facility] Admission and Anticipated Discharge Date Admission Date: April 23, 2020 Subjective Pt was seen and examined for postop follow up Lying in bed with no distress She said that her pain seems to improve Denies any chest pain, palpitation dizziness and SOB Physical Exam Physical Exam: General- No acute distress Head- atraumatic Eyes- PERRL, EOMI, ENT- oropharynx clear Neck- supple, no JVD Lungs- clear to auscultation Heart- regular rhythm; no murmur Abdomen- normal bowel sounds, soft, nontender Extremities- +right LE pain Neuro- alert, oriented x 3; PERRL, EOMI; no facial palsy; no dysarthria Skin- warm & dry Results & Data Results & Data ([facility]) Vital Signs (Past 12 Hours) Vital Signs Temp Pulse Pulse Resp BP Pulse Ox 04/26/20 16:37 36.6 C 20 105/68 97 04/26/20 16:15 87 04/26/20 12:51 99 04/26/20 10:45 104 H 16 94/62 L 96 04/26/20 08:30 108 H 04/26/20 08:00 114 H 88/54 L 04/26/20 06:39 36.5 C 112 H 16 102/67 97 (1) Closed femur fracture Encounter type: initial encounter Femur location: shaft Fracture alignment: displaced Fracture morphology: spiral Laterality: right Qualified Code(s): S72.341A - Displaced spiral fracture of shaft of right femur, initial encounter for closed fracture (2) Fall Encounter type: initial encounter Qualified Code(s): W19.XXXA - Unspecified fall, initial encounter
[2020-04-26] MEDS ORDERED: CEFEPIME CONSULT ACTIVE PRN (19:15)
[2020-04-26] MEDS: CEFEPIME 1,000 MG in SYRINGE 0 ML IV SCH (21:08)
[2020-04-26] MEDS: ATORVASTATIN 40 MG TAB PO SCH (21:27)
[2020-04-26] MEDS: DOCUSATE SODIUM/SENNA 50/8.6MG TAB PO SCH (21:27)
[2020-04-27] MEDS: LEVOTHYROXINE SODIUM 112 MCG TABLET PO SCH (06:02)
[2020-04-27] MEDS: METOPROLOL SUCC 25MG EXT REL TAB PO SCH (07:53)
[2020-04-27] MEDS: POTASSIUM CHLORIDE CRTAB 20 MEQ TABCR PO SCH (07:53)
[2020-04-27] MEDS: CHOLECALCIFEROL 1,000 UNITS 25 MCG TAB PO SCH (07:53)
[2020-04-27] MEDS: ENOXAPARIN INJ 30 MG/0.3 ML SYR SQ SCH (07:54)
[2020-04-27] MEDS: ASPIRIN 81 MG ECTAB PO SCH (07:54)
[2020-04-27] MEDS: LIDOCAINE 5% 1 PATCH TD SCH ×2 (08:06→13:26)
[2020-04-27] MEDS: INSULIN ASPART 100 UNITS/ML 3 ML PEN SC SCH ×4 (08:06→20:38)
--- NOTE | 2020-04-27 09:54 | Orthopedic Progress Note ---
Date of Service April 27, 2020 Assessment & Plan (1) Closed femur fracture: s/p ORIF right femur, removal of hardware POD#2 -DVT ppx: SCDs, TEDs, Lovenox-->Warfarin -NWB RLE -PT/OT -Maintain KI -PO XR demonstrates well aligned well fixed implant, anatomic alignment of fracture - DC planning - return to [facility] when stable. Admission and Anticipated Discharge Date Admission Date: April 23, 2020 Subjective POD 2 Pt sitting up in bed awake, alert. Comfortable. Pain controlled currently. No complaints. Physical Exam Physical Exam: Dressings C/D/I. Calves soft, NT. NV intact. Toes mobile. Results & Data ([facility]) Vital Signs (Past 12 Hours) Vital Signs Temp Pulse Pulse Resp BP BP Pulse Ox 04/27/20 07:50 36.5 C 81 18 104/66 94 04/27/20 07:30 96 H 04/27/20 02:56 36.5 C 81 16 82/50 L 94 04/26/20 23:00 78 04/26/20 22:12 36 C L 81 12 114/68 97 (1) Closed femur fracture Encounter type: initial encounter Femur location: shaft Fracture alignment: displaced Fracture morphology: spiral Laterality: right Qualified Code(s): S72.341A - Displaced spiral fracture of shaft of right femur, initial encounter for closed fracture
[2020-04-27] MEDS: ACETAMINOPHEN 325 MG TAB PO PRN (11:19)
--- NOTE | 2020-04-27 12:15 | Cardiology Progress Note ---
Date of Service April 27, 2020 Assessment & Plan (1) Closed femur fracture: Periprosthetic fraction status post surgical repair. Pain much better. Patient appears improved. Continue prior to hospital therapies resume furosemide with a.m. meds tomorrow Currently stable from cardiac standpoint contact with any questions we will sign off (2) Ischemic cardiomyopathy: (3) Paroxysmal atrial fibrillation: Maintain Toprol dosing (4) Chronic systolic heart failure: (5) Severe mitral regurgitation: Admission and Anticipated Discharge Date Admission Date: April 23, 2020 Subjective Patient was seen and examined, chart, medications, telemetry reviewed. Patient sitting up in bed pain better controlled. No cardiac complaints no chest pain or shortness of breath no orthopnea no dizziness or lightheadedness Physical Exam Constitutional: + thin and + frail appearing; no acute distress Eyes: PERRL, conjunctivae normal, anicteric sclerae ENMT: external ear and nose normal, oropharynx normal Neck: trachea midline, no thyromegaly Respiratory: normal respiratory effort, lungs clear to auscultation Cardiovascular: Rate/Rhythm: regular rate and regular rhythm Heart Sounds: normal S1, normal S2 and + murmur (Grade 1-2 or 6 systolic at apex); no gallop Palpation: normal PMI Vessels: normal carotid upstroke and radial pulses present; no JVD and no carotid bruit Extremities: no edema Gastrointestinal (Abdomen): normal bowel sounds, soft, nontender, no hepatosplenomegaly Musculoskeletal: no cyanosis or clubbing, extremities motor strength 5/5 Skin: no rashes, warm and dry Neurologic: PERRL, EOMI, accommodation nl, no face palsy, no dysarthria Psychiatric: A+Ox3, euthymic affect Results & Data ([facility]) Vital Signs (Past 12 Hours) Vital Signs Temp Pulse Pulse Resp BP Pulse Ox 04/27/20 11:55 36.3 C L 92 H 20 119/71 93 04/27/20 07:50 36.5 C 81 18 104/66 94 04/27/20 07:30 96 H 04/27/20 02:56 36.5 C 81 16 82/50 L 94 Laboratory Results Laboratory Results - last 24 hr 04/23/20 04/26/20 04/26/20 16:36 16:44 20:14 POC Glucose 171 H 134 H Crossmatch See Detail 04/27/20 04/27/20 07:44 11:47 POC Glucose 101 H 96 Crossmatch (1) Closed femur fracture Encounter type: initial encounter Femur location: shaft Fracture alignment: displaced Fracture morphology: spiral Laterality: right Qualified Code(s): S72.341A - Displaced spiral fracture of shaft of right femur, initial encounter for closed fracture
[2020-04-27 15:27] LABS: INR 1.8 (0.9-1.1); Prothrombin Time 17.7 Seconds (9.0-12.0)
[2020-04-27] MEDS: WARFARIN SOD 4 MG TAB PO SCH (16:34)
[2020-04-27] MEDS: ATORVASTATIN 40 MG TAB PO SCH (20:40)
[2020-04-27] MEDS: CEFEPIME 1,000 MG in SYRINGE 0 ML IV SCH (20:40)
[2020-04-27] MEDS: DOCUSATE SODIUM/SENNA 50/8.6MG TAB PO SCH (20:49)
[2020-04-28] MEDS: LEVOTHYROXINE SODIUM 112 MCG TABLET PO SCH (05:23)
[2020-04-28 06:14] LABS: INR 1.9 (0.9-1.1); Prothrombin Time 18.1 Seconds (9.0-12.0)
[2020-04-28 06:24] LABS: Est GFR (African American) 66.2; Est GFR (Non-African American) 57.1
--- NOTE | 2020-04-28 07:51 | Hospitalist Progress Note ---
Date of Service April 27, 2020 Assessment & Plan (1) Fall: (2) Closed femur fracture: Patient presenting from home after mechanical fall Right Hip CT showed oblique/spiral periprosthetic fracture the mid femoral shaft beginning at the level of the tip of the femoral spike extending to within 5 cm of the knee joint. There is 5 cm of fracture foreshortening, 13 mm of major fracture fragment displacement to 24 degrees of angulation Xray hip showed showed acute oblique/spiral periprosthetic mid femoral shaft fracture with secondary angulation. Ortho on board Given patient's advanced age and comorbidities, carddiology was consulted for preop assessment No signs currently of congestive heart failure angina or worsening clinical status. Operative risk elevated due to comorbidities and age as per cardiology Would proceed with her surgery as planned agree with holding anticoagulation preoperatively as per cardio S/P right Open reduction internal fixation right femur fracture and removal of hardware on 04/[address] Spain no post op complication Continue incentive spirometry case discussed with ortho that recommended NWB RLE Monitor hemoglobin while coumadin resumed (3) CAD (coronary artery disease): Appears stable, no reports of chest pain Continue aspirin, statin, beta-tr (4) Chronic systolic heart failure: Ischemic cardiomyopathy Echo 11/2019 EF 25 to 30% Continue home dose of furosemide (will hold the morning fof the surgery ) (5) Paroxysmal atrial fibrillation: Rate controlled on metoprolol Coumadin resumed, will monitor PT/INR (6) COPD (chronic obstructive pulmonary disease): Saturating well on chronic 2 L of oxygen No signs of acute exacerbation Continue home inhalers (7) CKD (chronic kidney disease), stage III: Creatinine at baseline Monitor renal functions (8) Severe malnutrition: Nutrition evaluation (9) DVT prophylaxis: Coumadin on hold [facility] Admission and Anticipated Discharge Date Admission Date: April 23, 2020 Subjective Pt was seen and examined for post follow up Lying in bed with no distress She said that her pain is better control Denies any chest pain, palpitation, dizziness and SOB Physical Exam Physical Exam: General- No acute distress Head- atraumatic Eyes- PERRL, EOMI, ENT- oropharynx clear Neck- supple, no JVD Lungs- clear to auscultation Heart- regular rhythm; no murmur Abdomen- normal bowel sounds, soft, nontender Extremities- +right LE pain Neuro- alert, oriented x 3; PERRL, EOMI; no facial palsy; no dysarthria Skin- warm & dry Results & Data Results & Data ([facility]) Vital Signs (Past 12 Hours) Vital Signs Temp Pulse Pulse Resp BP Pulse Ox 04/28/20 07:29 36.5 C 92 H 18 101/64 91 04/28/20 04:00 37.4 C 94 H 18 101/66 95 04/28/20 02:28 79 04/27/20 23:59 35.2 C L 70 18 96/62 L 94 (1) Closed femur fracture Encounter type: initial encounter Femur location: shaft Fracture alignment: displaced Fracture morphology: spiral Laterality: right Qualified Code(s): S72.341A - Displaced spiral fracture of shaft of right femur, initial encounter for closed fracture (2) Fall Encounter type: initial encounter Qualified Code(s): W19.XXXA - Unspecified fall, initial encounter
--- NOTE | 2020-04-28 08:42 | Orthopedic Progress Note ---
Date of Service April 28, 2020 Assessment & Plan (1) Closed femur fracture: s/p ORIF right femur, removal of hardware POD#3 -DVT ppx: SCDs, TEDs, Lovenox-->Warfarin -NWB RLE -PT/OT -Maintain KI -PO XR demonstrates well aligned well fixed implant, anatomic alignment of fracture - DC planning - return to [facility] when stable. Ortho will sign off at this time. Please call [phone] for an appointment with Dr. Spain 12-14 days post operatively. Admission and Anticipated Discharge Date Admission Date: April 23, 2020 Supervising Physician Co-Signing Physician Notes Patient seen and examined, comfortable, agree with above assessment plan Right lower extremities neurovascular sensory intact, +2 dorsalis pedis pulse, compartment soft nontender, dressings clean dry and intact, Hemovac drain under suction, knee immobilizer in place s/p ORIF right femur, removal of hardware POD#3 -DVT ppx: SCDs, TEDs, Lovenox-->Warfarin -NWB RLE -PT/OT -Maintain KI -DC drain -PO XR demonstrates well aligned well fixed implant, anatomic alignment of fracture - DC planning - return to [facility] when stable. Subjective POD#3. Patient sleeping on arrival, easily arousable. No complaints. Denies chest pain, sob, dizziness, n/v/d. Review of Systems Review of Systems: All systems reviewed & are unremarkable except as noted in HPI & below Physical Exam Physical Exam: KI in place to right LE. Dressing is c/d/i. Toes are mobile with good dorsiflexion, no calf tenderness. Distally n/v status and sensation are intact. Constitutional: well developed and well nourished; no acute distress Results & Data ([facility]) Vital Signs (Past 12 Hours) Vital Signs Temp Pulse Pulse Resp BP Pulse Ox 04/28/20 07:29 36.5 C 92 H 18 101/64 91 04/28/20 07:00 90 04/28/20 04:00 37.4 C 94 H 18 101/66 95 04/28/20 02:28 79 04/27/20 23:59 35.2 C L 70 18 96/62 L 94 Laboratory Results 04/28/20 04/28/20 04/28/20 Range/Units 07:38 05:22 05:22 PT 18.1 H (9.0-12.0) Seconds INR 1.9 H (0.9-1.1) Creatinine 0.90 (0.6-1.2) mg/dl Est Cr Clr Drug Dosing 31.0 ml/min Est GFR ( Amer) 66.2 Est GFR (Non-Af Amer) 57.1 POC Glucose 98 (70-99) mg/dl 04/27/20 04/27/20 04/27/20 Range/Units 20:22 16:28 14:58 PT 17.7 H (9.0-12.0) Seconds INR 1.8 H (0.9-1.1) Creatinine (0.6-1.2) mg/dl Est Cr Clr Drug Dosing ml/min Est GFR ( Amer) Est GFR (Non-Af Amer) POC Glucose 112 H 99 (70-99) mg/dl 04/27/20 Range/Units 11:47 PT (9.0-12.0) Seconds INR (0.9-1.1) Creatinine (0.6-1.2) mg/dl Est Cr Clr Drug Dosing ml/min Est GFR ( Amer) Est GFR (Non-Af Amer) POC Glucose 96 (70-99) mg/dl (1) Closed femur fracture Encounter type: initial encounter Femur location: shaft Fracture alignment: displaced Fracture morphology: spiral Laterality: right Qualified Code(s): S72.341A - Displaced spiral fracture of shaft of right femur, initial encounter for closed fracture
[2020-04-28] MEDS: INSULIN ASPART 100 UNITS/ML 3 ML PEN SC SCH ×4 (08:57→21:00)
[2020-04-28] MEDS: LIDOCAINE 5% 1 PATCH TD SCH (08:58)
[2020-04-28] MEDS: POTASSIUM CHLORIDE CRTAB 20 MEQ TABCR PO SCH (08:58)
[2020-04-28] MEDS: ASPIRIN 81 MG ECTAB PO SCH (08:58)
[2020-04-28] MEDS: METOPROLOL SUCC 25MG EXT REL TAB PO SCH (08:59)
[2020-04-28] MEDS: ENOXAPARIN INJ 30 MG/0.3 ML SYR SQ SCH (08:59)
[2020-04-28] MEDS: CHOLECALCIFEROL 1,000 UNITS 25 MCG TAB PO SCH (09:00)
[2020-04-28] MEDS: ACETAMINOPHEN 325 MG TAB PO PRN ×2 (09:03→13:29)
[2020-04-28] MEDS: FUROSEMIDE 20 MG TAB PO SCH (10:47)
--- NOTE | 2020-04-28 14:20 | Hospitalist Progress Note ---
Date of Service April 28, 2020 Assessment & Plan (1) Fall: (2) Closed femur fracture: Patient presenting from home after mechanical fall Right Hip CT showed oblique/spiral periprosthetic fracture the mid femoral shaft beginning at the level of the tip of the femoral spike extending to within 5 cm of the knee joint. There is 5 cm of fracture foreshortening, 13 mm of major fracture fragment displacement to 24 degrees of angulation Xray hip showed showed acute oblique/spiral periprosthetic mid femoral shaft fracture with secondary angulation. Ortho on board Given patient's advanced age and comorbidities, carddiology was consulted for preop assessment No signs currently of congestive heart failure angina or worsening clinical status. Operative risk elevated due to comorbidities and age as per cardiology Would proceed with her surgery as planned agree with holding anticoagulation preoperatively as per cardio S/P right Open reduction internal fixation right femur fracture and removal of hardware on 04/[address] Spain no post op complication Continue incentive spirometry case discussed with ortho that recommended NWB RLE Monitor hemoglobin while coumadin resumed (3) CAD (coronary artery disease): Appears stable, no reports of chest pain Continue aspirin, statin, beta-tr (4) Chronic systolic heart failure: Ischemic cardiomyopathy Echo 11/2019 EF 25 to 30% Continue home dose of furosemide (5) Paroxysmal atrial fibrillation: Rate controlled on metoprolol Continue Coumadin, INR 1.9 today (6) COPD (chronic obstructive pulmonary disease): Saturating well on chronic 2 L of oxygen No signs of acute exacerbation Continue home inhalers (7) CKD (chronic kidney disease), stage III: Creatinine at baseline Monitor renal functions (8) Severe malnutrition: Nutrition evaluation (9) DVT prophylaxis: On Coumadin, INR 1.9 Disposition Plan to discharge tomorrow to rehab Admission and Anticipated Discharge Date Admission Date: April 23, 2020 Subjective Pt was seen and examined for follow of femur fracture Lying in bed with no distress watching TV Pt said that she feels much better She said that pain in control Denies any chest pain, palpitation, dizziness and SOB Physical Exam Physical Exam: General- No acute distress Head- atraumatic Eyes- PERRL, EOMI, ENT- oropharynx clear Neck- supple, no JVD Lungs- clear to auscultation Heart- regular rhythm; no murmur Abdomen- normal bowel sounds, soft, nontender Extremities- +right LE pain Neuro- alert, oriented x 3; PERRL, EOMI; no facial palsy; no dysarthria Skin- warm & dry Results & Data Results & Data ([facility]) Vital Signs (Past 12 Hours) Vital Signs Temp Pulse Pulse Pulse Resp BP BP 04/28/20 11:10 36.3 C L 80 20 117/60 04/28/20 07:29 36.5 C 92 H 18 101/64 04/28/20 07:00 90 04/28/20 04:00 37.4 C 94 H 18 101/66 04/28/20 02:28 79 Pulse Ox 04/28/20 11:10 04/28/20 07:29 91 04/28/20 07:00 04/28/20 04:00 95 04/28/20 02:28 (1) Closed femur fracture Encounter type: initial encounter Femur location: shaft Fracture alignment: displaced Fracture morphology: spiral Laterality: right Qualified Code(s): S72.341A - Displaced spiral fracture of shaft of right femur, initial encounter for closed fracture (2) Fall Encounter type: initial encounter Qualified Code(s): W19.XXXA - Unspecified fall, initial encounter
[2020-04-28] MEDS: WARFARIN SOD 4 MG TAB PO SCH (15:33)
[2020-04-28] MEDS: AMOXICILLIN/CLAVULANATE 500 MG TAB PO SCH (17:24)
[2020-04-28] MEDS ORDERED: CEFEPIME 2,000 MG in SYRINGE 0 ML IV SCH (20:00)
[2020-04-28] MEDS: DOCUSATE SODIUM/SENNA 50/8.6MG TAB PO SCH (20:28)
[2020-04-28] MEDS: ATORVASTATIN 40 MG TAB PO SCH (20:28)
[2020-04-29] MEDS: MAGNESIUM HYDROXIDE SUSP 30 ML UDC PO PRN ×2 (05:26→20:45)
[2020-04-29] MEDS: LEVOTHYROXINE SODIUM 112 MCG TABLET PO SCH (05:26)
[2020-04-29 06:11] LABS: Hematocrit (blood only) 24.7 % (37-47); Hemoglobin 7.9 g/dL (12.0-16.0); Mean Corpuscular Hemoglobin 25.4 pg (25-34); Mean Corpuscular Volume 79.4 fL (80-100); Mean Platelet Volume 9.5 fL (7.4-10.4); Platelet Count 258 K/uL (130-400); RDW Coefficient of Variation 19.7 % (11.5-14.5); RDW Standard Deviation 57.6 fL (36.4-46.3); Red Blood Count 3.11 M/uL (4.2-5.4); White Blood Count 11.56 K/uL (4.8-10.8)
[2020-04-29 06:18] LABS: INR 2.7 (0.9-1.1); Prothrombin Time 25.2 Seconds (9.0-12.0)
[2020-04-29 06:38] LABS: Est GFR (Non-African American) 53.5
[2020-04-29] MEDS: ACETAMINOPHEN 325 MG TAB PO PRN ×3 (08:41→17:38)
[2020-04-29] MEDS: CHOLECALCIFEROL 1,000 UNITS 25 MCG TAB PO SCH (08:42)
[2020-04-29] MEDS: METOPROLOL SUCC 25MG EXT REL TAB PO SCH (08:42)
[2020-04-29] MEDS: AMOXICILLIN/CLAVULANATE 500 MG TAB PO SCH ×2 (08:43→17:32)
[2020-04-29] MEDS: LIDOCAINE 5% 1 PATCH TD SCH (08:43)
[2020-04-29] MEDS: FUROSEMIDE 20 MG TAB PO SCH (08:43)
[2020-04-29] MEDS: POTASSIUM CHLORIDE CRTAB 20 MEQ TABCR PO SCH (08:43)
[2020-04-29] MEDS: INSULIN ASPART 100 UNITS/ML 3 ML PEN SC SCH ×4 (08:43→22:32)
[2020-04-29] MEDS: ENOXAPARIN INJ 30 MG/0.3 ML SYR SQ SCH (09:13)
[2020-04-29] MEDS: ASPIRIN 81 MG ECTAB PO SCH (09:24)
[2020-04-29 12:45] LABS: INR 3.1 (0.9-1.1); Prothrombin Time 28.8 Seconds (9.0-12.0)
[2020-04-29 15:19] LABS: Hematocrit (blood only) 23.6 % (37-47); Hemoglobin 7.5 g/dL (12.0-16.0)
[2020-04-29] MEDS: WARFARIN SOD 3 MG TAB PO SCH (15:48)
[2020-04-29] MEDS ORDERED: SODIUM CHLORIDE 0.9% 250 ML IV PRN (15:59)
--- NOTE | 2020-04-29 17:14 | Hospitalist Progress Note ---
Date of Service April 29, 2020 Assessment & Plan (1) Fall: (2) Closed femur fracture: Patient presenting from home after mechanical fall Right Hip CT showed oblique/spiral periprosthetic fracture the mid femoral shaft beginning at the level of the tip of the femoral spike extending to within 5 cm of the knee joint. There is 5 cm of fracture foreshortening, 13 mm of major fracture fragment displacement to 24 degrees of angulation Xray hip showed showed acute oblique/spiral periprosthetic mid femoral shaft fracture with secondary angulation. Ortho on board Given patient's advanced age and comorbidities, carddiology was consulted for preop assessment No signs currently of congestive heart failure angina or worsening clinical status. Operative risk elevated due to comorbidities and age as per cardiology Would proceed with her surgery as planned agree with holding anticoagulation preoperatively as per cardio S/P right Open reduction internal fixation right femur fracture and removal of hardware on 04/[address] Spain Continue incentive spirometry case discussed with ortho that recommended NWB RLE Monitor hemoglobin dropped to 7.5 Fall precaution (3) Acute blood loss anemia: Possible related to post op in the setting anticoagulant with coumadin hemoglobin dropped to 7.5 today Type and crossed and transfused 1 units PRBC Will hold today dose coumadin and aspirin Continue monitor H/H (4) CAD (coronary artery disease): Appears stable, no reports of chest pain Continue statin, beta-tr Aspirin help for today due to low hgb (5) Chronic systolic heart failure: Ischemic cardiomyopathy Echo 11/2019 EF 25 to 30% Continue home dose of furosemide (6) Paroxysmal atrial fibrillation: Rate controlled on metoprolol Continue Coumadin, INR 3.9 today Will hold coumadin today (7) COPD (chronic obstructive pulmonary disease): Saturating well on chronic 2 L of oxygen No signs of acute exacerbation Continue home inhalers (8) CKD (chronic kidney disease), stage III: Creatinine at baseline Monitor renal functions (9) Severe malnutrition: Nutrition evaluation Elevated troponin Mostly due to demand ischemia Denies any chest pain Continue metoprolol and aspirin (10) DVT prophylaxis: On Coumadin, INR 3.9 Disposition Plan to discharge tomorrow to rehab Admission and Anticipated Discharge Date Admission Date: April 23, 2020 Subjective Pt was seen and examined for follow of femur fracture Lying in bed with no distress Pt is more sleepy today She said that she feels tired with low energy today She said that pain in control Denies any chest pain, palpitation, dizziness and SOB Review of Systems Review of Systems: All systems reviewed & are unremarkable except as noted in Subjective Physical Exam Physical Exam: General- No acute distress Head- atraumatic Eyes- PERRL, EOMI, ENT- oropharynx clear Neck- supple, no JVD Lungs- clear to auscultation Heart- regular rhythm; no murmur Abdomen- normal bowel sounds, soft, nontender Extremities- +right LE pain Neuro- alert, oriented x 3; PERRL, EOMI; no facial palsy; no dysarthria Skin- warm & dry Results & Data Results & Data ([facility]) Vital Signs (Past 12 Hours) Vital Signs Temp Pulse Pulse Resp BP BP BP 04/29/20 17:07 36.5 C 74 18 87/53 L 04/29/20 15:55 73 121/70 04/29/20 15:19 36.4 C L 66 18 80/49 L 04/29/20 15:16 69 04/29/20 11:11 36.7 C 79 18 94/58 L 04/29/20 08:45 77 04/29/20 07:29 36.6 C 66 18 103/69 Pulse Ox 04/29/20 17:07 98 04/29/20 15:55 97 04/29/20 15:19 97 04/29/20 15:16 04/29/20 11:11 98 04/29/20 08:45 04/29/20 07:29 93 (1) Closed femur fracture Encounter type: initial encounter Femur location: shaft Fracture alignment: displaced Fracture morphology: spiral Laterality: right Qualified Code(s): S72.341A - Displaced spiral fracture of shaft of right femur, initial encounter for closed fracture (2) Fall Encounter type: initial encounter Qualified Code(s): W19.XXXA - Unspecified fall, initial encounter
[2020-04-29] MEDS: ATORVASTATIN 40 MG TAB PO SCH (20:17)
[2020-04-29] MEDS: DOCUSATE SODIUM/SENNA 50/8.6MG TAB PO SCH (20:45)
[2020-04-29] MEDS: MoRPHine SULFATE 2 MG/ML CARP IV PRN (22:30)
[2020-04-29] MEDS ORDERED: KETOROLAC TROMETHAMINE 15 MG/ML VIAL IV ONE (23:36)
[2020-04-29] MEDS ORDERED: traMADol HCL 50 MG TABLET PO PRN (23:37)
[2020-04-30 00:13] LABS: Hematocrit (blood only) 28.2 % (37-47); Hemoglobin 9.3 g/dL (12.0-16.0)
[2020-04-30 00:31] LABS: BUN Creatinine Ratio 35.5 (10-20); Calcium 8.8 mg/dl (8.5-10.1); Creatinine Clr Calc Pharmacy 25.1 ml/min; Est GFR (African American) 48.2; Est GFR (Non-African American) 41.6; INR 3.9 (0.9-1.1); Magnesium 2.2 mg/dl (1.8-2.4); Potassium 4.3 mmol/L (3.5-5.1); Prothrombin Time 35.9 Seconds (9.0-12.0)
[2020-04-30] MEDS: ALBUMIN 25% 12.5 GM/50 ML VIAL IV SCH ×2 (00:45→01:30)
--- NOTE | 2020-04-30 03:35 | Communication Note ---
Date of Service: April 30, 2020 Made aware by RN of right hip pain not relieved by Tylenol. Unable to give morphine secondary to SBP 70 to 80s. serum crea 1.17 from 0.95 AP Hypotension Multifactorial : hypovolemia home beta-tr dose IV albumin given systolic dysfunction, hold Lasix for now Change home Toprol-XL to Lopressor 12.5 mg twice daily given borderline baseline blood pressure Will relay to AM provider.
[2020-04-30] MEDS: ACETAMINOPHEN 325 MG TAB PO PRN (05:49)
[2020-04-30] MEDS: LEVOTHYROXINE SODIUM 112 MCG TABLET PO SCH (05:52)
[2020-04-30 06:53] LABS: Hematocrit (blood only) 27.1 % (37-47); Hemoglobin 8.9 g/dL (12.0-16.0); Mean Corpuscular Hemoglobin 26.4 pg (25-34); Mean Corpuscular Hgb Conc 32.8 g/dL (32-36); Mean Corpuscular Volume 80.4 fL (80-100); Mean Platelet Volume 9.1 fL (7.4-10.4); Platelet Count 231 K/uL (130-400); RDW Coefficient of Variation 19.3 % (11.5-14.5); RDW Standard Deviation 57.1 fL (36.4-46.3); Red Blood Count 3.37 M/uL (4.2-5.4); White Blood Count 8.86 K/uL (4.8-10.8)
[2020-04-30 06:59] LABS: INR 3.4 (0.9-1.1); Prothrombin Time 31.4 Seconds (9.0-12.0)
[2020-04-30] MEDS: LIDOCAINE 5% 1 PATCH TD SCH (07:55)
[2020-04-30] MEDS: POTASSIUM CHLORIDE CRTAB 20 MEQ TABCR PO SCH (07:55)
[2020-04-30] MEDS: AMOXICILLIN/CLAVULANATE 500 MG TAB PO SCH ×2 (07:55→16:58)
[2020-04-30] MEDS: ASPIRIN 81 MG ECTAB PO SCH (07:56)
[2020-04-30] MEDS: CHOLECALCIFEROL 1,000 UNITS 25 MCG TAB PO SCH (07:56)
[2020-04-30] MEDS: INSULIN ASPART 100 UNITS/ML 3 ML PEN SC SCH ×4 (07:59→22:08)
[2020-04-30] MEDS: METOPROLOL TARTRATE 25 MG TAB PO SCH ×2 (08:00→20:41)
[2020-04-30 14:11] LABS: Hematocrit (blood only) 28.1 % (37-47); Hemoglobin 9.1 g/dL (12.0-16.0)
--- NOTE | 2020-04-30 14:23 | Hospitalist Progress Note ---
Date of Service April 30, 2020 Assessment & Plan (1) Fall: (2) Closed femur fracture: Patient presenting from home after mechanical fall Right Hip CT showed oblique/spiral periprosthetic fracture the mid femoral shaft beginning at the level of the tip of the femoral spike extending to within 5 cm of the knee joint. There is 5 cm of fracture foreshortening, 13 mm of major fracture fragment displacement to 24 degrees of angulation Xray hip showed showed acute oblique/spiral periprosthetic mid femoral shaft fracture with secondary angulation. Ortho on board Given patient's advanced age and comorbidities, carddiology was consulted for preop assessment No signs currently of congestive heart failure angina or worsening clinical status. Operative risk elevated due to comorbidities and age as per cardiology Would proceed with her surgery as planned agree with holding anticoagulation preoperatively as per cardio S/P right Open reduction internal fixation right femur fracture and removal of hardware on 04/[address] Spain Continue incentive spirometry case discussed with ortho that recommended NWB RLE Hemoglobin 9.1 today Fall precaution (3) Acute blood loss anemia: Possible related to post op in the setting anticoagulant with coumadin hemoglobin dropped to 7.5 yesterday S/P 1 unit PRBC on 04/29 Hgb 9.1 today Continue monitor CBC (4) CAD (coronary artery disease): Appears stable, no reports of chest pain Continue statin, beta-tr Aspirin resumed (5) Chronic systolic heart failure: Ischemic cardiomyopathy Echo 11/2019 EF 25 to 30% Continue home dose of furosemide (6) Paroxysmal atrial fibrillation: Rate controlled on metoprolol Continue Coumadin, INR 3.4 today Will decrease coumadin to 3mg (7) COPD (chronic obstructive pulmonary disease): Saturating well on chronic 2 L of oxygen No signs of acute exacerbation Continue home inhalers (8) CKD (chronic kidney disease), stage III: Creatinine at baseline Monitor renal functions (9) Severe malnutrition: Nutrition evaluation Elevated troponin Mostly due to demand ischemia Denies any chest pain Continue metoprolol and aspirin (10) DVT prophylaxis: On Coumadin, INR 3.4 Disposition Plan to discharge tomorrow to rehab Admission and Anticipated Discharge Date Admission Date: April 23, 2020 Subjective Pt was seen and examined for follow up of femur fracture Lying in bed with no distress Pt said that she feels much better today She is more awake today Denies any chest pain, palpitation, dizziness and SOB Physical Exam Physical Exam: General- No acute distress Head- atraumatic Eyes- PERRL, EOMI, ENT- oropharynx clear Neck- supple, no JVD Lungs- clear to auscultation Heart- regular rhythm; no murmur Abdomen- normal bowel sounds, soft, nontender Extremities- +right LE pain Neuro- alert, oriented x 3; PERRL, EOMI; no facial palsy; no dysarthria Skin- warm & dry Results & Data Results & Data ([facility]) Vital Signs (Past 12 Hours) Vital Signs Temp Pulse Pulse Resp BP BP Pulse Ox 04/30/20 11:44 36.4 C L 62 16 128/53 L 93 04/30/20 08:00 55 L 04/30/20 07:50 36.5 C 58 L 16 118/66 100 04/30/20 07:00 60 04/30/20 04:31 74 04/30/20 04:13 36.5 C 65 20 124/56 L 95 (1) Closed femur fracture Encounter type: initial encounter Femur location: shaft Fracture alignment: displaced Fracture morphology: spiral Laterality: right Qualified Code(s): S72.341A - Displaced spiral fracture of shaft of right femur, initial encounter for closed fracture (2) Fall Encounter type: initial encounter Qualified Code(s): W19.XXXA - Unspecified fall, initial encounter
[2020-04-30] MEDS: WARFARIN SOD 3 MG TAB PO SCH (16:57)
[2020-04-30] MEDS: ATORVASTATIN 40 MG TAB PO SCH (20:41)
[2020-04-30] MEDS: DOCUSATE SODIUM/SENNA 50/8.6MG TAB PO SCH (20:47)
[2020-05-01] MEDS ORDERED: METOPROLOL TARTRATE 25 MG TAB PO SCH (02:35)
[2020-05-01 03:30] LABS: Hematocrit (blood only) 28.1 % (37-47); Hemoglobin 9.2 g/dL (12.0-16.0); Mean Corpuscular Hemoglobin 26.4 pg (25-34); Mean Corpuscular Hgb Conc 32.7 g/dL (32-36); Mean Corpuscular Volume 80.5 fL (80-100); Mean Platelet Volume 8.7 fL (7.4-10.4); Platelet Count 260 K/uL (130-400); RDW Coefficient of Variation 19.8 % (11.5-14.5); RDW Standard Deviation 58.3 fL (36.4-46.3); Red Blood Count 3.49 M/uL (4.2-5.4); White Blood Count 8.81 K/uL (4.8-10.8)
[2020-05-01 03:49] LABS: INR 3.7 (0.9-1.1); Prothrombin Time 33.5 Seconds (9.0-12.0)
[2020-05-01 03:56] LABS: Calcium 8.7 mg/dl (8.5-10.1); Creatinine Clr Calc Pharmacy 27.7 ml/min; Est GFR (African American) 59.7; Est GFR (Non-African American) 51.5; Magnesium 2.4 mg/dl (1.8-2.4); Potassium 4.9 mmol/L (3.5-5.1)
[2020-05-01 04:07] LABS: Basophils # (auto) 0.03 K/uL (0-0.2); Basophils % (auto) 0.3 %; Eosinophils # (auto) 0.97 K/uL (0-0.5); Immature Granulocytes # (auto) 0.03 K/uL (0.00-0.02); Immature Granulocytes % (auto) 0.3 %; Lymphocytes # (auto) 1.05 K/uL (1.2-3.4); Lymphocytes % (auto) 11.9 %; Monocytes # (auto) 0.89 K/uL (0.11-0.59); Monocytes % (auto) 10.1 %; Neutrophils # (auto) 5.84 K/uL (1.4-6.5); Neutrophils % (auto) 66.4 %; Ovalocytes 1+
[2020-05-01] MEDS: LEVOTHYROXINE SODIUM 112 MCG TABLET PO SCH (05:41)
--- NOTE | 2020-05-01 06:42 | CT Scan Report ---
CT OF THE HEAD WITHOUT CONTRAST CLINICAL HISTORY: head trauma COMPARISON STUDY: Head CT April 23, 2020. CT DOSE: 537.48 mGy.cm TECHNIQUE: Helical axial images of the head were obtained without IV contrast. Automated exposure con trol was utilized for the study. A dose lowering technique was utilized adhering to the principles o f ALARA. FINDINGS: No acute intracranial hemorrhage, midline shift or mass effect is present. The ventricular system is stable. White matter hypodensities reflect small vessel disease. The basal cisterns are pat ent. No extra-axial collections are present. There are no findings to suggest acute dural sinus throm bosis or acute territorial infarct. No significant calvarial abnormalities are present. Visualized po rtions of the sinuses and mastoid air cells are clear. IMPRESSION: 1. No acute intracranial findings. No change in appearance of the brain. 2. No calvarial fracture. ACT 112: Negative or not required by law. Electronically signed by: Hernan Starr M.D. 05/01/2020 6:41 AM
[2020-05-01] MEDS: INSULIN ASPART 100 UNITS/ML 3 ML PEN SC SCH ×2 (08:26→12:06)
[2020-05-01] MEDS: CHOLECALCIFEROL 1,000 UNITS 25 MCG TAB PO SCH (09:16)
[2020-05-01] MEDS: AMOXICILLIN/CLAVULANATE 500 MG TAB PO SCH (09:16)
[2020-05-01] MEDS: LIDOCAINE 5% 1 PATCH TD SCH (09:19)
[2020-05-01] MEDS: ACETAMINOPHEN 325 MG TAB PO PRN (09:23)
[2020-05-01] MEDS: POTASSIUM CHLORIDE CRTAB 20 MEQ TABCR PO SCH (09:27)
[2020-05-01] MEDS ORDERED: Nursing to Pharmacy Communication SCH (10:30)
--- NOTE | 2020-05-01 10:37 | XRay Report ---
XR hip RT min 2V CLINICAL HISTORY: s/p fall COMPARISON: Right femur radiographs April 25, 2020. CT of the right femur April 23, 2020. FINDINGS: Right femoral cortical plate, screws and cerclage wires are noted. This hardware is partia lly imaged on this right hip exam. Visualized portions are unchanged since postoperative radiographs of April 25, 2020 and demonstrate intact internal fixation with anatomic alignment of the diaphyse al fracture of the right femur. An old intertrochanteric fracture of the right femur status post inte rnal fixation is also noted. There are skin astrid. Extensive vascular calcifications incidentally n oted. No new fractures within the right hip are present. IMPRESSION: 1. No acute fracture within the right hip. 2. Partially visualized postoperative findings within the right femur, as described above. Visualize d portions unchanged. Hardware intact. No acute fracture. ACT 112: Negative or not required by law. Electronically signed by: Hernan Starr M.D. 05/01/2020 10:36 AM
[2020-05-01] MEDS ORDERED: FUROSEMIDE 20 MG TAB PO ONE (11:00)
--- NOTE | 2020-05-01 12:00 | Hospitalist Progress Note ---
Date of Service May 01, 2020 Assessment & Plan (1) Fall: (2) Closed femur fracture: Patient presenting from home after mechanical fall Right Hip CT showed oblique/spiral periprosthetic fracture the mid femoral shaft beginning at the level of the tip of the femoral spike extending to within 5 cm of the knee joint. There is 5 cm of fracture foreshortening, 13 mm of major fracture fragment displacement to 24 degrees of angulation Xray hip showed showed acute oblique/spiral periprosthetic mid femoral shaft fracture with secondary angulation. Ortho on board Given patient's advanced age and comorbidities, carddiology was consulted for preop assessment No signs currently of congestive heart failure angina or worsening clinical status. Operative risk elevated due to comorbidities and age as per cardiology Would proceed with her surgery as planned agree with holding anticoagulation preoperatively as per cardio S/P right Open reduction internal fixation right femur fracture and removal of hardware on 04/[address] Spain Xray right hip today showed Partially visualized postoperative findings within the right femur, as described above. Visualized portions unchanged. Hardware intact. No acute fracture. Continue incentive spirometry case discussed with ortho that recommended NWB RLE Hemoglobin 9.2 today Fall precaution (3) Acute blood loss anemia: Possible related to post op in the setting anticoagulant with coumadin hemoglobin dropped to 7.5 yesterday S/P 1 unit PRBC on 04/29 Hgb 9.2 today Continue monitor CBC (4) CAD (coronary artery disease): Appears stable, no reports of chest pain Continue statin, beta-tr Aspirin resumed (5) Chronic systolic heart failure: Ischemic cardiomyopathy Echo 11/2019 EF 25 to 30% Continue home dose of furosemide (6) Paroxysmal atrial fibrillation: Rate controlled on metoprolol Continue Coumadin, INR 3.7 today Will hold coumadin today Follow up with the coag clinic (7) COPD (chronic obstructive pulmonary disease): Saturating well on chronic 2 L of oxygen No signs of acute exacerbation Continue home inhalers (8) CKD (chronic kidney disease), stage III: Creatinine at baseline Monitor renal functions (9) UTI (urinary tract infection): Urine cx grew proteus mirabilis She was started on Cefepime, then transition to Amoxicillin Will need to complete a total 7 days course of abx (10) Severe malnutrition: Nutrition evaluation Elevated troponin Mostly due to demand ischemia Denies any chest pain Continue metoprolol and aspirin (11) DVT prophylaxis: Coumadin on hold, INR 3.7 Disposition Plan to discharge today to rehab Admission and Anticipated Discharge Date Admission Date: April 23, 2020 Subjective Pt was seen and examined for follow up of femur fracture Lying in bed with no distress Nurse said that pt fell last night Pt said that she is not having any pain Denies any chest pain, palpitation, dizziness and SOB Review of Systems Review of Systems: All systems reviewed & are unremarkable except as noted in Subjective Physical Exam Physical Exam: General- No acute distress Head- atraumatic Eyes- PERRL, EOMI, ENT- oropharynx clear Neck- supple, no JVD Lungs- clear to auscultation Heart- regular rhythm; no murmur Abdomen- normal bowel sounds, soft, nontender Extremities- +right LE pain Neuro- alert, oriented x 3; PERRL, EOMI; no facial palsy; no dysarthria Skin- warm & dry Results & Data Results & Data ([facility]) Vital Signs (Past 12 Hours) Vital Signs Temp Pulse Pulse Resp BP Pulse Ox 05/01/20 11:43 36.8 C 56 L 16 112/50 L 96 05/01/20 07:48 36.7 C 68 20 125/58 L 97 05/01/20 07:00 64 05/01/20 04:15 37.0 C 71 20 128/68 97 (1) Closed femur fracture Encounter type: initial encounter Femur location: shaft Fracture alignment: displaced Fracture morphology: spiral Laterality: right Qualified Code(s): S72.341A - Displaced spiral fracture of shaft of right femur, initial encounter for closed fracture (2) Fall Encounter type: initial encounter Qualified Code(s): W19.XXXA - Unspecified fall, initial encounter
--- NOTE | 2020-05-03 23:00 | Discharge Summary ---
Date of Service May 01, 2020 Admission HPI Per Admitting Provider 89-year-old female with PMH hypothyroidism, dyslipidemia, COPD, chronic hypoxic respiratory failure on 2 L of oxygen, paroxysmal atrial fibrillation anticoagulated on Coumadin, ischemic cardiomyopathy EF 25 to 30%, CKD stage III, CAD, and other problems listed below who presents to the ED for evaluation after a fall. Patient admitted 11/2019 for right intertrochanteric fracture and underwent repair. Patient reports that this afternoon, she was walking from her kitchen to her dining room when she tripped over something and fell to the ground. Patient denies any associated loss of consciousness. Reports she otherwise has been feeling well recently. No chest pain or shortness of breath. Denies lightheadedness, dizziness, diaphoresis, syncopal events. No abdominal pain, nausea, vomiting, diarrhea. Denies any other recent illnesses, fevers, chills. No urinary symptoms. In the ED, imaging shows right periprosthetic fracture of the femoral shaft. Patient is hemodynamically stable. Labs are unremarkable. Patient received IV Tylenol and IV fentanyl. Admission Exam Per Admitting Provider Constitutional: + thin Vitals as above Eyes: PERRL, conjunctivae normal, anicteric sclerae ENMT: external ear and nose normal, oropharynx normal Respiratory: normal respiratory effort, lungs clear to auscultation Cardiovascular: Rate/Rhythm: regular rate and regular rhythm Vessels: normal peripheral pulses Extremities: no edema Gastrointestinal (Abdomen): normal bowel sounds, soft, nontender, no hepatosplenomegaly Musculoskeletal: Extremities: no cyanosis and no clubbing Pain with movement of the right hip and knee, no edema noted, CSM checks intact RLE Skin: no rashes, warm and dry Neurologic: PERRL, EOMI, accommodation nl, no face palsy, no dysarthria Psychiatric: A+Ox3, euthymic affect Principal Diagnosis (1) Fall: (2) Closed femur fracture: (3) Acute blood loss anemia: (4) CAD (coronary artery disease): (5) Chronic systolic heart failure: (6) Paroxysmal atrial fibrillation: (7) COPD (chronic obstructive pulmonary disease): (8) CKD (chronic kidney disease), stage III: (9) UTI (urinary tract infection): (10) Severe malnutrition: (11) Elevated troponin Discharge Exam General- No acute distress Head- atraumatic Eyes- PERRL, EOMI, ENT- oropharynx clear Neck- supple, no JVD Lungs- clear to auscultation Heart- regular rhythm; no murmur Abdomen- normal bowel sounds, soft, nontender Extremities- +right LE pain Neuro- alert, oriented x 3; PERRL, EOMI; no facial palsy; no dysarthria Skin- warm & dry Discharge Data Allergies Allergy/AdvReac Type Severity Reaction Status Date / Time No Known Allergies Allergy Verified 04/23/20 18:15 Consultations 04/23/20 18:36 ED Decision to Admit Stat 04/23/20 19:54 Consult Anesthesiology Routine Consult Case Management - Discharge Planning Routine Consult Orthopedic Surgery Routine 04/24/20 08:00 Consult Cardiology Routine 04/25/20 20:18 Consult Case Management - Discharge Planning Routine Procedures Performed Operation Date: 04/25/20 14:00 Actual Procedures p Open reduction internal fixation right femur fracture (Right) - Gal Spain DO Ordered Studies 04/23/20 16:26 CT head/brain wo con Stat 04/23/20 17:58 CT femur RT wo con Stat 04/25/20 13:00 FL femur RT 1V Routine FL fluoroscopy <1hr Routine 05/01/20 00:07 CT head/brain wo con Urgent XR femur RT 2V routine CLINICAL HISTORY: Right leg pain status post trauma COMPARISON: None. DISCUSSION: There is an acute oblique/spiral periprosthetic mid femoral shaft fracture. There is 35 degrees of vertex volar angulation at the fracture site. There is 17 mm of medial displacement of the distal fragment. IMPRESSION: Acute oblique/spiral periprosthetic mid femoral shaft fracture with secondary angulation. ACT 112: Negative or not required by law. Electronically signed by: Washington Burger M.D. 04/23/2020 4:39 PM Dictated: 04/23/20 1638Transcribed: 04/23/20 1638 XR knee RT 1 or 2V routine CLINICAL HISTORY: Leg pain status post trauma COMPARISON: None. DISCUSSION: There is a periprosthetic mid femoral shaft fracture with 34 degrees of vertex lateral angulation. The distal fragment is posteriorly displaced by 17 mm.. There are vascular calcifications. No fractures of the knee proper are visualized on the provided images. IMPRESSION: 1. Displaced angulated periprosthetic mid femoral shaft fracture. ACT 112: Negative or not required by law. Electronically signed by: Washington Burger M.D. 04/23/2020 4:42 PM Dictated: 04/23/20 1640Transcribed: 04/23/20 1640 XR pelvis 1-2V routine CLINICAL HISTORY: Right hip pain status post trauma COMPARISON: 11/16/2019 DISCUSSION: The bones are osteopenic. There are extensive vascular calcif ications. The patient is status post internal fixation of intertrochanteric right hip fracture. There is an acute periprosthetic oblique/spiral fracture involving the right femur. The fracture is not fully included on the provided images. IMPRESSION: 1. Acute oblique/spiral periprosthetic fracture of the right femur. ACT 112: Negative or not required by law. Electronically signed by: Washington Burger M.D. 04/23/2020 4:37 PM Dictated: 04/23/20 1636Transcribed: 04/23/20 1636 XR chest 1V portable CLINICAL HISTORY: Trauma. Preoperative chest. Fracture. COMPARISON STUDY: 11/16/2019 FINDINGS: The heart is enlarged. There is mild interstitial thickening likely secondary to mild pulmonary vascular congestion. There is a retrocardiac opacity consistent with a large hiatal hernia. There is no lobar consolidation.[ IMPRESSION: 1. Cardiomegaly and interstitial thickening likely secondary to mild pulmonary vascular congestion. And interstitial inflammatory process could appear similar but is statistically less likely 2. Large hiatal hernia ACT 112: Negative or not required by law. Electronically signed by: Washington Burger M.D. 04/23/2020 4:43 PM Dictated: 04/23/20 1642Transcribed: 04/23/[address] head/brain wo con CLINICAL HISTORY: Head trauma. Patient on Coumadin. COMPARISON STUDY: No previous studies for comparison. TECHNIQUE: Axial CT of the brain is performed from the vertex to the skull base. IV contrast was not administered for this examination. A dose lowering technique was utilized adhering to the principles of ALARA. CT DOSE: 537.48 mGy.cm FINDINGS: No intra or extra-axial mass lesions are visualized. There is no CT evidence of acute cortical infarction. There is no evidence of midline shift. There is no acute hemorrhage. No calvarial fractures are visualized. There are moderate white matter hypodensities likely on a small vessel basis. There is no evidence of pathologic ventricular dilatation. There is no evidence of acute sinusitis IMPRESSION: No acute intracranial findings ACT 112: Negative or not required by law. Electronically signed by: Washington Burger M.D. 04/23/2020 6:21 PM Dictated: 04/23/201819Transcribed: 04/23/201819 CT femur RT wo con CT DOSE: 338.65 mGy.cm CLINICAL HISTORY: Pain status post trauma TECHNIQUE: Helical images were acquired in the transverse plane. Sagittal and coronal reformatted images were acquired. A dose lowering technique was utilized adhering to the principles of ALARA. COMPARISON STUDY: X-ray study dated 04/23/2020 FINDINGS: There is an indwelling Olivera catheter. There is air within the bladder likely iatrogenic. There is hyperdense material within the left bladder base likely representing calcific debris. There is an old left inferior pubic ramus fracture. There is an old intertrochanteric right hip fracture fixated with a femoral neck nail and interlocking medullary demond. There is a periprosthetic fracture the mid femoral shaft beginning at the level of the tip of the femoral spike. There is approximately 5 cm of foreshortening of the fracture. There is a hairline component which extends to within 5 cm of the femoral tibial articulation. There are advanced arthritic changes present within the knee. The major distal fragment is volarly displaced by 13 mm. There is approximately 24 degrees of angulation at the fracture site. IMPRESSION: 1. Oblique/spiral periprosthetic fracture the mid femoral shaft beginning at the level of the tip of the femoral spike extending to within 5 cm of the knee joint. 2. There is 5 cm of fracture foreshortening, 13 mm of major fracture fragment displacement to 24 degrees of angulation 3. Old internally fixated intertrochanteric right hip fracture 4. Old inferior pubic ramus fracture 5. Advanced arthritic changes within the knee 6. Hyperdense material within the bladder likely representing calcific debris ACT 112: Negative or not required by law. Electronically signed by: Washington Burger M.D. 04/23/2020 6:29 PM Dictated: 04/23/201820Transcribed: 04/23/201820 FL femur RT 1V CLINICAL HISTORY: RT ORIF PERIPROSTHETIC FEMUR FX COMPARISON STUDY: Right femur 04/23/2020. FINDINGS: Total fluoroscopy time is 58 seconds. 5 fluoroscopic spot images of the right femur. Status post internal fixation of a right femoral fracture with a lateral cortical plate, screws, and cerclage wires. The hardware appears intact. Alignment appears anatomic. Evidence for an old right hip prosthesis. IMPRESSION: Fluoroscopy provided for internal fixation of a right femoral fracture. ACT 112: Negative or not required by law. Electronically signed by: Vic Bates M.D. 04/25/2020 6:01 PM Dictated: 04/25/20 1800Transcribed: 04/25/20 1800 XR femur RT 2V routine CLINICAL HISTORY: post op ORIF right femur COMPARISON STUDY: Right femur 04/23/2020. FINDINGS: Status post internal fixation of a mid to distal right femoral shaft fracture with cortical plate, screws, and cerclage wires. The hardware appears intact. Alignment is anatomic. Skin astrid and surgical drains are in place. Evidence for prior internal fixation of a right proximal femoral fracture. IMPRESSION: Status post internal fixation of mid to distal right femoral shaft fracture. The hardware appears intact. ACT 112: Negative or not required by law. Electronically signed by: Vic Bates M.D. 04/25/2020 6:35 PM Dictated: 04/25/20 1834Transcribed: 04/25/[address] OF THE HEAD WITHOUT CONTRAST CLINICAL HISTORY: head trauma COMPARISON STUDY: Head CT April 23, 2020. CT DOSE: 537.48 mGy.cm TECHNIQUE: Helical axial images of the head were obtained without IV contrast. Automated exposure control was utilized for the study. A dose lowering technique was utilized adhering to the principles of ALARA. FINDINGS: No acute intracranial hemorrhage, midline shift or mass effect is present. The ventricular system is stable. White matter hypodensities reflect small vessel disease. The basal cisterns are patent. No extra-axial collections are present. There are no findings to suggest acute dural sinus thrombosis or acute territorial infarct. No significant calvarial abnormalities are present. Visualized portions of the sinuses and mastoid air cells are clear. IMPRESSION: 1. No acute intracranial findings. No change in appearance of the brain. 2. No calvarial fracture. ACT 112: Negative or not required by law. Electronically signed by: Hernan Starr M.D. 05/01/2020 6:41 AM Dictated: 05/01/20 0639Transcribed: 05/01/20 0639 XR hip RT min 2V CLINICAL HISTORY: s/p fall COMPARISON: Right femur radiographs April 25, 2020. CT of the right femur April 23, 2020. FINDINGS: Right femoral cortical plate, screws and cerclage wires are noted. This hardware is partially imaged on this right hip exam. Visualized portions are unchanged since postoperative radiographs of April 25, 2020 and demonstrate intact internal fixation with anatomic alignment of the diaphyseal fracture of the right femur. An old intertrochanteric fracture of the right femur status post internal fixation is also noted. There are skin astrid. Extensive vascular calcifications incidentally noted. No new fractures within the right hip are present. IMPRESSION: 1. No acute fracture within the right hip. 2. Partially visualized postoperative findings within the right femur, as described above. Visualized portions unchanged. Hardware intact. No acute fracture. ACT 112: Negative or not required by law. Electronically signed by: Hernan Starr M.D. 05/01/2020 10:36 AM Dictated: 05/01/20 1032Transcribed: 05/01/20 1032 Hospital Course (1) Fall: (2) Closed femur fracture: Patient presenting from home after mechanical fall Right Hip CT showed oblique/spiral periprosthetic fracture the mid femoral shaft beginning at the level of the tip of the femoral spike extending to within 5 cm of the knee joint. There is 5 cm of fracture foreshortening, 13 mm of major fracture fragment displacement to 24 degrees of angulation Xray hip showed showed acute oblique/spiral periprosthetic mid femoral shaft fracture with secondary angulation. Ortho on board Given patient's advanced age and comorbidities, carddiology was consulted for preop assessment No signs currently of congestive heart failure angina or worsening clinical status. Operative risk elevated due to comorbidities and age as per cardiology Would proceed with her surgery as planned agree with holding anticoagulation preoperatively as per cardio S/P right Open reduction internal fixation right femur fracture and removal of hardware on 04/[address] Spain Xray right hip today showed Partially visualized postoperative findings within the right femur, as described above. Visualized portions unchanged. Hardware intact. No acute fracture. Continue incentive spirometry case discussed with ortho that recommended NWB RLE Hemoglobin 9.2 today Fall precaution (3) Acute blood loss anemia: Possible related to post op in the setting anticoagulant with coumadin hemoglobin dropped to 7.5 yesterday S/P 1 unit PRBC on 04/29 Hgb 9.2 today Continue monitor CBC (4) CAD (coronary artery disease): Appears stable, no reports of chest pain Continue statin, beta-tr Aspirin resumed (5) Chronic systolic heart failure: Ischemic cardiomyopathy Echo 11/2019 EF 25 to 30% Continue home dose of furosemide (6) Paroxysmal atrial fibrillation: Rate controlled on metoprolol Continue Coumadin, INR 3.7 today Will hold coumadin today Follow up with the coag clinic (7) COPD (chronic obstructive pulmonary disease): Saturating well on chronic 2 L of oxygen No signs of acute exacerbation Continue home inhalers (8) CKD (chronic kidney disease), stage III: Creatinine at baseline Monitor renal functions (9) UTI (urinary tract infection): Urine cx grew proteus mirabilis She was started on Cefepime, then transition to Amoxicillin Will need to complete a total 7 days course of abx (10) Severe malnutrition: Nutrition evaluation Elevated troponin Mostly due to demand ischemia Denies any chest pain Continue metoprolol and aspirin (11) DVT prophylaxis: Coumadin on hold, INR 3.7 Disposition Plan to discharge today to rehab Total Time Total Time Spent Total Time Spent (In Minutes): 35 minutes Total Time Includes: Examination of the Patient, Discharge Planning, Medication Reconciliation, Communication With Other Providers and Other Discharge Plan Discharge Items Patient Disposition: Transfer [facility] Reason For Visit: RIGHT PERIPROSTHETIC HIP FX Discharge Diagnosis: (1) Fall: (2) Closed femur fracture: (3) Acute blood loss anemia: (4) CAD (coronary artery disease): (5) Chronic systolic heart failure: (6) Paroxysmal atrial fibrillation: (7) COPD (chronic obstructive pulmonary disease): (8) CKD (chronic kidney disease), stage III: (9) UTI (urinary tract infection): (10) Severe malnutrition: (11) Elevated troponin Activity: As commented below Non-emergency contact: Primary Care Provider Call non-emergency contact if: you have any medication questions and your temperature is above 101 Follow-up/Referrals: Jadon Turcios [Primary Care Provider] - Gal Spain DO [Physician] - (follow up in 2 weeks from the day of surgery for wound check. ) Brayan-Fariha Rousseau CRNP [Nurse Practitioner] - (follow up in 6 weeks for osteoporosis check up.) Diet: Heart Healthy Addtl Attending Provider Instructions: Follow up with your primary care provider [facility] Follow up with orthopedic in 1 week Follow with the coumadin clinic to monitor your PT/INR (Check INR tomorrow ) Continue physical and occupational therapy Fall precaution Please hold today dose of coumadin. Coumadin clinic will instruct you when to resume the coumadin after the INR result tomorrow Please do not drive or operate any machine after taking the tramadol Please hold next dose of tramadol if you become lethargy or drowsy [facility] DISCHARGE INSTRUCTIONS: FEMUR FRACTURE SELF CARE INSTRUCTIONS: A. You are to ambulate with a walker or crutches for approximately 6 weeks. B. You are NON WEIGHT BEARING on your operative lower extremity for at least 6 weeks. C. Wear low heeled shoes with non-slip soles D. Be sure that your floors are free of things that could trip you throw rugs, electrical cords, and small objects. Avoid wet and waxed floors, especially with crutches/walker/cane. E. Try to walk several times a day with rest periods between. F. You may shower 48 hours after surgery and get the incision area wet, but DO NOT soak or submerge incision area in water. (No baths, swimming pools, hot tubs) G. You may have a large, band-aid like dressing over your incision (Aquacel). This will remain on your incision for 7 days, and then can be removed. You CAN shower with this on. If incision is leaking through the dressing, please call the office . H. Do NOT apply soap or any ointment/lotions directly over incision. I. You may use ice as needed to operative site. SPECIAL CARE INSTRUCTIONS: VERY IMPORTANT TO READ AND REVIEW A. You may be at risk for phlebitis or blood clots. a. Wear surgical stockings (ESTHER hose) for 2 weeks after surgery to improve circulation and reduce swelling. b. Take your home medication warfarin as directed. This is your blood thinner. c. If you are on Coumadin- you will have daily/weekly blood work to monitor your levels. This will be done by either your family physician/set up mechanic automatic line (if you are on Coumadin chronically) versus your orthopedic surgeon. Expect a phone call the day of or the day after your blood work is drawn to adjust your dose accordingly. B. There are a few signs you need to watch for after you are home. Call [facility] at [phone] if you experience any of the following: a. If you have a temperature of 101 degrees or higher. b. Sudden increase in pain in your hip not relieved by rest or pain medication. c. Any fluid or drainage from the incision; redness of the incision. d. Shortness of breath or chest pain. C. Call your physician if: a. Temperature is greater than 101 degrees (F). b. Pain is not relieved by prescribed pain medications. c. Increase drainage or redness from incision. d. Unanswered questions or concerns. D. Pain Medication: a. You will be prescribed pain medication upon discharge that should last till your first post-operative appointment. b. If you experience nausea and/or skin rash, discontinue this medication and contact our office for an alternative medication. c. Caution- narcotic pain medication can cause constipation. FOLLOW UP VISIT: Please call [facility] at [phone] to schedule a follow up appointment 10-14 days from the date of your surgery date. Pending Studies at Discharge: No Stand-Alone Forms: My [facility] Skilled Items Patient informed of condition?: Yes DNR: No Discharge Level of Care: Skilled Communicable Disease: No Discharge Prognosis: Stable Lines: None Urinary Catheter: No Medications and DC Order Prescriptions: New lidocaine 5 % Adhesive Patch,Medicated 1 patch transdermal QAM Qty: 5 RF: 0 amoxicillin-pot clavulanate 500-125 mg Tablet 1 tab PO BIDM Qty: 2 RF: 0 tramadol 50 mg Tablet 25 mg PO Q12H PRN (Reason: severe pain (scale score 7-10)) Qty: 10 RF: 0 Continued atorvastatin [Lipitor] 80 mg Tablet 80 mg PO HS RF: 0 metoprolol succinate [Toprol XL] 25 mg Tablet Extended Release 24 Hr 25 mg PO QAM 30 Days Qty: 0 RF: 0 potassium chloride 20 mEq tablet,ER particles/crystals 20 meq PO DAILY RF: 0 ascorbic acid (vitamin C) [Vitamin C] 500 mg Tablet 500 mg PO DAILY RF: 0 aspirin 81 mg Tablet,Chewable 81 mg PO DAILY RF: 0 furosemide 20 mg tablet 20 mg PO DAILY RF: 0 Stress Formula Tablet 1 tab PO QAM RF: 0 mirtazapine 7.5 mg tablet 7.5 mg PO HS RF: 0 ba-gap-IL-Lc-Ga-imjvaei-lutein 0.4-162-18 mg Tablet 1 tab PO DAILY RF: 0 cholecalciferol (vitamin D3) [Vitamin D3] 125 mcg (5,000 unit) Tablet 125 mcg PO DAILY RF: 0 acetaminophen 325 mg tablet 650 mg PO Q6H MDD 3 GMS APAP/24 HOURS PRN (Reason: Fever Or Pain) RF: 0 bisacodyl [Dulcolax (bisacodyl)] 10 mg Suppository 10 mg ID DIRECTED PRN (Reason: Constipation) RF: 0 Probiotic 3 billion cell Capsule 3,000 mmu cells PO DAILY RF: 0 levothyroxine 112 mcg tablet 112 mcg PO DAILY RF: 0 Breo Ellipta 100-25 mcg/dose blister with device 1 inh INHALATION Q24H PRN (Reason: Shortness Of Breath) RF: 0 Changed warfarin 1 mg tablet 3 mg PO DAILY Qty: 30 RF: 0 Discontinued warfarin 2 mg tablet 4 mg PO SUMOWEFRSA RF: 0 Discharge Orders: Discharge Order (Routine); Ordered 05/01/20 Ordered By: Raul Bar/Other Patient Handouts: Managing Type 2 Diabetes, A1C Admission Data Admit Date/Time: 04/23/20 18:46 Attending Provider: Raul De La Torre Admit Provider: Antony Guerra Primary Care Provider: Jadon Turcios Other Providers: Karolina, ; Choco Ponce ; Antony Guerra ; Vic Byers ; Kevin Gaona ; Nolan Nuñez ; Aaron Slater ; John Aaron ; Deep Edwards ; Travon Mullen ; Merlin Ritchie ; Mery Coronel ; Sandie Dumont ; Ziggy Ramesh Other Interventions: Discharge Summary Assessment (RN) Last Done: 05/01/20 13:27
== END 2020-05-01 17:10 | DRG 480 ==
LOC: ED 16:01 → 3N 18:46 → SUATTDRO 18:46 → 3N 19:56 → 2N 04-25 20:17